=== PATIENT | male | born 1960 | race Caucasian/White ===

== ENCOUNTER 2017-05-22 11:36 | Inpatient (IN) | payer MEDICARE, OTHER ==
[2017-05-22] MEDS ORDERED: ONDANSETRON 4 MG/2 ML VIAL IVP PRN (11:54)
[2017-05-22] MEDS ORDERED: HYDROmorphone 0.5 MG/0.5 ML SYRINGE IVP PRN ×3 (11:54)
[2017-05-22] MEDS ORDERED: TEMAZEPAM 15 MG CAP PO PRN (11:54)
[2017-05-22] MEDS ORDERED: MAGNESIUM HYDROXIDE 2,400 MG/10 ML CUP PO PRN (11:54)
[2017-05-22] MEDS ORDERED: NALOXONE 0.4 MG/ML 1 ML VIAL IV PRN (11:54)
[2017-05-22] MEDS ORDERED: DIAZEPAM 5 MG TAB PO PRN (11:54)
[2017-05-22] MEDS ORDERED: hydrOXYzine PAMOATE 25 MG CAP PO PRN (11:54)
[2017-05-22] MEDS ORDERED: HYDROcodone/APAP 5-325MG 1 EACH TAB PO PRN (11:54)
[2017-05-22] MEDS ORDERED: VANCOMYCIN 1,500 MG in SODIUM CHLORIDE 0.9% 250 ML IVPB SCH (12:00)
[2017-05-22] MEDS ORDERED: VANCOMYCIN IV PER PHARMACY 1 EACH MISC MISCELLANE PRN ×2 (12:17→12:18)
[2017-05-22 16:58] LABS: Basophils % (A) 0 %; Eosinophils # (A) 0.3 k/uL (0-0.7); Eosinophils % (A) 4 %; HCT 35.2 % (39.0-53.0); HGB 10.6 gm/dL (13.0-17.5); Hypochromasia Slight; Lymphocytes # (A) 1.1 k/uL (1.0-4.8); Lymphocytes % (A) 16 %; MCH 27.3 pg (25.0-35.0); MCV 90.9 fL (80.0-100.0); Mean Platelet Volume 7.1; Monocytes # (A) 0.5 k/uL (0-1.0); Monocytes % (A) 7 %; Neutrophils # (A) 4.7 k/uL (1.3-7.7); Neutrophils % (A) 70 %; Platelet Count 457 k/uL (150-450); RBC 3.87 m/uL (4.30-5.90); RDW 12.9 % (11.5-15.5); WBC 6.8 k/uL (3.8-10.6)
[2017-05-22] MEDS ORDERED: VANCOMYCIN 1,500 MG in SODIUM CHLORIDE 0.9% 250 ML IVPB ONE (17:00)
[2017-05-22 17:10] LABS: Anion Gap 8 mmol/L; Blood Urea Nitrogen 10 mg/dL (9-20); Calcium 7.5 mg/dL (8.4-10.2); Carbon Dioxide 28 mmol/L (22-30); Chloride 105 mmol/L (98-107); Glucose 115 mg/dL (74-99); Potassium 4.1 mmol/L (3.5-5.1); Sodium 141 mmol/L (137-145)
[2017-05-22] MEDS ORDERED: MULTIVITAMINS, THERA 1 EACH TAB PO SCH (17:30)
[2017-05-22] MEDS: MULTIVITAMINS, THERA 1 EACH TAB PO SCH (17:46)
[2017-05-22] MEDS ORDERED: SENNOSIDES-DOCUSATE SODIUM 1 EACH TAB PO PRN (17:55)
[2017-05-22] MEDS: FOLIC ACID 1 MG TAB PO SCH (17:56)
[2017-05-22] MEDS: FERROUS SULFATE 325 MG TAB PO SCH (17:56)
[2017-05-22] MEDS: CYANOCOBALAMIN 500 MCG TAB PO SCH (17:56)
[2017-05-22] MEDS: LORATADINE 10 MG TAB PO SCH (17:57)
[2017-05-22] MEDS: KETOROLAC 30 MG/ML 1 ML VIAL IVP SCH (20:17)
[2017-05-22] MEDS: ASPIRIN 325 MG TAB PO SCH (20:18)
[2017-05-22] MEDS ORDERED: SENNOSIDES-DOCUSATE SODIUM 1 EACH TAB PO SCH (21:00)
[2017-05-22] MEDS ORDERED: NAPROXEN 250 MG TAB PO SCH (21:30)
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
[2017-05-22] MEDS: HYDROcodone/APAP 5-325MG 1 EACH TAB PO PRN (22:53)
[2017-05-23] MEDS: KETOROLAC 30 MG/ML 1 ML VIAL IVP SCH ×4 (00:21→17:57)
[2017-05-23] MEDS: VANCOMYCIN 1,750 MG in SODIUM CHLORIDE 0.9% 250 ML IVPB SCH ×3 (00:22→16:58)
[2017-05-23] MEDS: PANTOPRAZOLE 40 MG TABLET PO SCH ×2 (00:22→17:57)
[2017-05-23] MEDS: ENOXAPARIN 40 MG/0.4 ML SYRINGE SQ SCH ×2 (00:22→08:21)
[2017-05-23] MEDS: LEVOTHYROXINE 112 MCG TAB PO SCH (06:44)
--- NOTE | 2017-05-23 08:12 | US ---
EXAMINATION TYPE: US venous doppler duplex LE RT DATE OF EXAM: 05/23/2017 7:51 AM COMPARISON: NONE CLINICAL HISTORY: 57-year-old male r/o DVT. Patient with right ankle sprain, swelling SIDE PERFORMED: Right TECHNIQUE: The lower extremity deep venous system is examined utilizing real time linear array sonog beth with graded compression, doppler sonography and color-flow sonography. FINDINGS: VESSELS IMAGED: External Iliac Vein (EIV) Common Femoral Vein Deep Femoral Vein Greater Saphenous Vein * Femoral Vein Popliteal Vein Small Saphenous Vein * Proximal Calf Veins (* superficial vessels) Right Leg: Appears negative for DVT IMPRESSION: No evidence for DVT within the right lower extremity imaged from the groin to the upper calf.
[2017-05-23] MEDS: ASPIRIN 325 MG TAB PO SCH (08:21)
[2017-05-23 09:41] LABS: Anion Gap 8 mmol/L; Blood Urea Nitrogen 12 mg/dL (9-20); Calcium 7.9 mg/dL (8.4-10.2); Carbon Dioxide 28 mmol/L (22-30); Chloride 104 mmol/L (98-107); Glucose 93 mg/dL (74-99); Sodium 140 mmol/L (137-145)
[2017-05-23 10:04] LABS: Potassium 4.6 mmol/L (3.5-5.1)
[2017-05-23] MEDS: MULTIVITAMINS, THERA 1 EACH TAB PO SCH (12:28)
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
[2017-05-23] MEDS: HYDROcodone/APAP 5-325MG 1 EACH TAB PO PRN ×2 (15:36→21:55)
[2017-05-23] MEDS: CYANOCOBALAMIN 500 MCG TAB PO SCH (16:58)
[2017-05-23] MEDS: FERROUS SULFATE 325 MG TAB PO SCH (16:59)
[2017-05-23] MEDS: FOLIC ACID 1 MG TAB PO SCH (16:59)
--- NOTE | 2017-05-23 17:35 | PN ---
PROGRESS NOTE DATE OF SERVICE: 05/23/17. ATTENDING NOTE: The patient seen and examined by me. I discussed with nurse practitioner, Ms. Cortes. Patient admitted with sprain followed by severe cellulitis of the right ankle, seen by Dr. Brandt. Thinks it is primary cellulitis. Patient is having pain in the affected site. PHYSICAL EXAMINATION: Afebrile. Pulse 54, respiratory 18, blood pressure 112/62, pulse ox 94% on room air. Lungs are clear. Cardiovascular: 1st and 2nd sounds normal. The patient is wearing a boot in the right leg. Potassium 4.6. ASSESSMENT: 1. Acute right ankle cellulitis following ankle sprain. 2. Deep vein thrombosis ruled out. 3. Other medical conditions stable. PLAN: Continue patient on IV vancomycin and telemetry. Follow. ESR came back at 53. MMODL / IJN: [id number] /
[2017-05-23] MEDS: LORATADINE 10 MG TAB PO SCH (17:57)
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
--- NOTE | 2017-05-23 19:01 | XR ---
EXAMINATION TYPE: XR skull limited DATE OF EXAM: 05/23/2017 COMPARISON: NONE HISTORY: Check for foreign body. MRI. TECHNIQUE: 2 views FINDINGS: Calvarium is intact with normal vascular and suture markings. There is no sign of radiopaqu e foreign body associated with the ears. There is a metal mesh plate noted in the upper denture. IMPRESSION: Upper denture has metal plate.
[2017-05-24] MEDS: ASPIRIN 325 MG TAB PO SCH ×3 (00:15→21:35)
[2017-05-24] MEDS: KETOROLAC 30 MG/ML 1 ML VIAL IVP SCH ×4 (00:16→18:48)
[2017-05-24] MEDS: VANCOMYCIN 1,750 MG in SODIUM CHLORIDE 0.9% 250 ML IVPB SCH ×2 (00:18→08:41)
[2017-05-24] MEDS: LEVOTHYROXINE 112 MCG TAB PO SCH (06:49)
[2017-05-24] MEDS ORDERED: VANCOMYCIN TROUGH DUE 1 EACH MISC MISCELLANE ONE (07:00)
[2017-05-24] MEDS: ENOXAPARIN 40 MG/0.4 ML SYRINGE SQ SCH (08:41)
[2017-05-24 09:03] LABS: Basophils % (A) 1 %; Eosinophils # (A) 0.2 k/uL (0-0.7); Eosinophils % (A) 3 %; HCT 33.5 % (39.0-53.0); Hypochromasia Moderate; Lymphocytes # (A) 0.6 k/uL (1.0-4.8); Lymphocytes % (A) 9 %; MCH 27.1 pg (25.0-35.0); MCHC 29.9 g/dL (31.0-37.0); MCV 90.5 fL (80.0-100.0); Mean Platelet Volume 7.3; Monocytes # (A) 0.4 k/uL (0-1.0); Monocytes % (A) 6 %; Neutrophils # (A) 5.2 k/uL (1.3-7.7); Neutrophils % (A) 80 %; Platelet Count 509 k/uL (150-450); RBC 3.69 m/uL (4.30-5.90); RDW 12.9 % (11.5-15.5); WBC 6.5 k/uL (3.8-10.6)
[2017-05-24 09:22] LABS: Anion Gap 7 mmol/L; Blood Urea Nitrogen 18 mg/dL (9-20); Calcium 7.7 mg/dL (8.4-10.2); Carbon Dioxide 27 mmol/L (22-30); Chloride 104 mmol/L (98-107); Glucose 100 mg/dL (74-99); Potassium 4.9 mmol/L (3.5-5.1); Sodium 138 mmol/L (137-145)
[2017-05-24] MEDS ORDERED: VANCOMYCIN IV PER PHARMACY 1 EACH MISC MISCELLANE PRN (10:02)
--- NOTE | 2017-05-24 10:07 | P.PN ---
Subjective Progress Note Date: 05/24/17 Principal diagnosis: Right ankle foot cellulitis Patient is a pleasant 57-year-old male seen at bedside this morning. He was admitted for antibiotic therapy for right ankle/foot cellulitis, infectious disease consultation and close monitoring. He continues to have some pain at the right ankle and foot today. He is denying fever, chills, numbness, tingling , calf pain, chest pain or shortness of breath. Objective - Vital Signs Vital signs: Vital Signs Temp 97.0 F L 05/24/17 07:00 Pulse 57 L 05/24/17 07:00 Resp 16 05/24/17 07:00 BP 92/64 05/24/17 07:00 Pulse Ox 96 05/24/17 07:00 Intake & Output 05/23/17 05/24/17 05/24/17 18:59 06:59 18:59 Intake Total 250 300 Output Total 500 300 Balance -250 300 -300 Intake: Intake, IV Titration 250 Amount Vancomycin 1,750 mg In 250 Sodium Chloride 0.9% 250 ml @ 125 mls/hr IVPB Q8HR [facility] Rx#:[id number] Oral 300 Output: Urine 500 300 Other: # Voids 1 1 # Bowel Movements 0 - Exam Right Ankle: Improved erythema, minimal ecchymosis. It is not hot to touch. There is diffuse swelling about the ankle. Tenderness about the lateral aspect of the ankle. Pain with PROM. NVI. 2+ DP pulse intact, less than 2 sec cap refill. . Achilles intact. Calf is SNT - Constitutional General appearance: Present: no acute distress - Psychiatric Psychiatric: Present: A&O x's 3, appropriate affect, intact judgment & insight - Labs CBC & Chem 7: 05/24/17 07:55 05/24/17 07:55 Labs: Abnormal Lab Results - Last 24 Hours (Table) 05/24/17 05/24/17 05/24/17 Range/Units 07:55 07:55 07:55 RBC 3.69 L (4.30-5.90) m/uL Hgb 10.0 L (13.0-17.5) gm/dL Hct 33.5 L (39.0-53.0) % MCHC 29.9 L (31.0-37.0) g/dL Plt Count 509 H (150-450) k/uL Lymphocytes # 0.6 L (1.0-4.8) k/uL Glucose 100 H (74-99) mg/dL Calcium 7.7 L (8.4-10.2) mg/dL Vancomycin Trough 45.7 H* ug/mL Assessment and Plan (1) Cellulitis of right ankle Narrative/Plan: Patient is pending MRI with and without contrast of the right ankle and foot. He will continue with elevation, ice, IV antibiotics, pain management and medical management. Pending MRI results we'll make further recommendations. Current Visit: Yes Status: Acute Priority: Medium Code(s): L03.115 - CELLULITIS OF RIGHT LOWER LIMB SNOMED Code(s): 07953525 Time with Patient: Less than 30
[2017-05-24] MEDS: MULTIVITAMINS, THERA 1 EACH TAB PO SCH (11:08)
--- NOTE | 2017-05-24 14:54 | MR ---
MR right foot with and without contrast HISTORY: Pain, swelling and erythema Multiplanar multisequence and postcontrast images following 8 cc Gadavist IV through the right foot Exam correlated to CT right ankle 05/14/2017, plain film 05/13/2017 There is abnormal intermediate signal on T1-weighted images involving the distal talus, navicular, cu boid, anterior calcaneus with increased signal on T2-weighted sequences in this distribution. Soft ti ssue swelling is diffuse. Achilles tendon is intact. Peroneal longus and brevis tendons are intact. F lexor and extensor tendons are intact. Fluid signal is present along the flexor tendons Enhancement is noted following contrast administration within the distribution of the abnormal signal precontrast intertarsal bones and edematous tissues, synovium of the flexor tendons. Possible fluid collection present at the distal talus, there could be possible sinus formation. There is deformity m ay be in keeping with patient's history of cerebral palsy. Underlying arthropathy changes are present at the intertarsal joints. IMPRESSION: Findings concerning for cellulitis and possibly osteomyelitis involving the tarsal bones as described, correlate clinically.
[2017-05-24] MEDS: FERROUS SULFATE 325 MG TAB PO SCH (16:46)
[2017-05-24] MEDS: FOLIC ACID 1 MG TAB PO SCH (16:46)
[2017-05-24] MEDS: LORATADINE 10 MG TAB PO SCH (16:46)
[2017-05-24] MEDS: PANTOPRAZOLE 40 MG TABLET PO SCH (16:46)
[2017-05-24] MEDS: CYANOCOBALAMIN 500 MCG TAB PO SCH (16:47)
--- NOTE | 2017-05-24 17:12 | PN ---
PROGRESS NOTE DATE OF SERVICE: May 24, 2017. ATTENDING NOTE: The patient was seen and examined by me. Discussed with nurse practitioner, Ms. Cortes. The patient is still having some pain, swelling of the right ankle. A little bit better on antibiotics and antiinflammatory. EXAM: Lungs are clear. Cardiovascular 1st and second sounds normal white count 6.5, hemoglobin 10, potassium 4.9. Vanco level 45.7. ASSESSMENT: 1. Acute right ankle cellulitis following ankle sprain. 2. Normocytic anemia. 3. Reactive thrombocytosis. The patient did have a foot MRI today. MRI is only showing a possibility of osteomyelitis. We will await input from Dr. Brandt regarding the clinical findings and MRI findings. In the meantime patient to continue on vancomycin and anti-inflammatory. Follow. MMODL / IJN: [id number] /
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
[2017-05-24] MEDS: HYDROcodone/APAP 5-325MG 1 EACH TAB PO PRN (21:45)
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
[2017-05-25] MEDS: KETOROLAC 30 MG/ML 1 ML VIAL IVP SCH ×3 (00:10→11:29)
[2017-05-25] MEDS: LEVOTHYROXINE 112 MCG TAB PO SCH (06:44)
[2017-05-25] MEDS: ASPIRIN 325 MG TAB PO SCH ×2 (08:18→21:55)
[2017-05-25] MEDS: ENOXAPARIN 40 MG/0.4 ML SYRINGE SQ SCH (08:18)
[2017-05-25 09:57] LABS: Anion Gap 8 mmol/L; Blood Urea Nitrogen 23 mg/dL (9-20); Carbon Dioxide 29 mmol/L (22-30); Chloride 101 mmol/L (98-107); Glucose 103 mg/dL (74-99); Potassium 4.8 mmol/L (3.5-5.1); Sodium 138 mmol/L (137-145)
[2017-05-25 10:31] LABS: Vancomycin,Random 30.6 ug/mL
[2017-05-25] MEDS: MULTIVITAMINS, THERA 1 EACH TAB PO SCH (11:30)
[2017-05-25] MEDS ORDERED: HYDROmorphone 2 MG TAB PO PRN ×2 (13:40)
[2017-05-25] MEDS ORDERED: HYDROmorphone 4 MG TABLET PO PRN (13:41)
--- NOTE | 2017-05-25 14:32 | P.PN ---
Subjective Progress Note Date: 05/25/17 Principal diagnosis: Right ankle foot cellulitis Patient is a pleasant 57-year-old male seen at bedside this morning. He was admitted for antibiotic therapy for right ankle/foot cellulitis, infectious disease consultation and close monitoring. He has shown some improvement with IV antibiotic therapy. MRI of the foot was obtained yesterday however it did not include the ankle. That is pending today. He continues to have some pain at the right lateral ankle today. He is denying fever, chills, numbness, tingling, calf pain, chest pain or shortness of breath. Objective - Vital Signs Vital signs: Vital Signs Temp 97.3 F L 05/25/17 07:00 Pulse 60 05/25/17 08:00 Resp 16 05/25/17 08:00 BP 95/55 05/25/17 07:00 Pulse Ox 97 05/25/17 07:00 Intake & Output 05/24/17 05/25/17 05/25/17 18:59 06:59 18:59 Intake Total 300 Output Total 300 300 Balance -300 300 -300 Intake: Oral 300 Output: Urine 300 300 Other: Voiding Method Urinal # Voids 1 1 # Bowel Movements 2 1 - Exam Right Ankle: Improved and resolved erythema No to minimal ecchymosis. It is not hot to touch. There is diffuse swelling about the ankle but may be improved some. Tenderness about the lateral aspect of the ankle. Pain with PROM. NVI. 2+ DP pulse intact, less than 2 sec cap refill. . Achilles intact. Calf is SNT - Constitutional General appearance: Present: no acute distress - Psychiatric Psychiatric: Present: A&O x's 3, appropriate affect, intact judgment & insight - Labs CBC & Chem 7: 05/24/17 07:55 05/25/17 08:26 Labs: Abnormal Lab Results - Last 24 Hours (Table) 05/25/17 Range/Units 08:26 BUN 23 H (9-20) mg/dL Creatinine 1.35 H (0.66-1.25) mg/dL Glucose 103 H (74-99) mg/dL Calcium 8.0 L (8.4-10.2) mg/dL - Imaging and Cardiology MRI of the foot showed no fractures or fluid collection. It showed arthritis and possible osteomyelitis of the midfoot. Assessment and Plan (1) Cellulitis of right ankle Narrative/Plan: Patient is pending MRI of ankle today. the MRI of the foot was not definitive. His ankle is symptomatic. He continues to show improvement. He will continue with elevation, ice, IV antibiotics, pain management and medical management. Pending MRI results we'll make further recommendations. Current Visit: Yes Status: Acute Priority: Medium Code(s): L03.115 - CELLULITIS OF RIGHT LOWER LIMB SNOMED Code(s): 95673010 Time with Patient: Less than 30
--- NOTE | 2017-05-25 16:03 | MR ---
MR right ankle with and without contrast HISTORY: Cellulitis Multiplanar multisequence and postcontrast images obtained through the right ankle by 8 cc Gadavist I V Correlation to right foot 05/24/2017 FINDINGS: Again noted is intermediate signal on T1, increased signal on T2 involving the tarsal bones as previously described. There is enhancement present involving the talus anteriorly, calcaneus ante riorly, cuboid and navicular. Osteoarthritic changes are present. Fluid signal suspected along the an terior talus with some enhancement. Flexor tendon sheaths show enhancement as do the extensor tendons . There is enhancement as well as edema of the subcutaneous soft tissues and skin. IMPRESSION: Findings compatible with osteomyelitis, consider Charcot foot, findings compatible with ronel patel's history of cellulitis.
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
[2017-05-25] MEDS: LORATADINE 10 MG TAB PO SCH (17:43)
[2017-05-25] MEDS: PANTOPRAZOLE 40 MG TABLET PO SCH (17:43)
[2017-05-25] MEDS: FOLIC ACID 1 MG TAB PO SCH (17:43)
[2017-05-25] MEDS: CYANOCOBALAMIN 500 MCG TAB PO SCH (17:43)
[2017-05-25] MEDS: FERROUS SULFATE 325 MG TAB PO SCH (17:44)
[2017-05-25] MEDS: HYDROcodone/APAP 5-325MG 1 EACH TAB PO PRN (17:50)
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
[2017-05-25] MEDS: SODIUM CHLORIDE 0.9% 1,000 ML IV SCH (23:55)
[2017-05-26] MEDS: HYDROcodone/APAP 5-325MG 1 EACH TAB PO PRN ×2 (04:59→20:04)
[2017-05-26] MEDS: LEVOTHYROXINE 112 MCG TAB PO SCH (06:48)
[2017-05-26 08:12] LABS: Basophils # (A) 0.1 k/uL (0-0.2); Basophils % (A) 1 %; Eosinophils # (A) 0.2 k/uL (0-0.7); Eosinophils % (A) 3 %; HCT 34.3 % (39.0-53.0); Hypochromasia Moderate; Lymphocytes % (A) 12 %; MCH 26.8 pg (25.0-35.0); MCHC 29.2 g/dL (31.0-37.0); MCV 91.8 fL (80.0-100.0); Monocytes # (A) 0.4 k/uL (0-1.0); Monocytes % (A) 5 %; Neutrophils # (A) 6.3 k/uL (1.3-7.7); Neutrophils % (A) 77 %; Platelet Count 530 k/uL (150-450); RBC 3.74 m/uL (4.30-5.90); RDW 13.3 % (11.5-15.5); WBC 8.2 k/uL (3.8-10.6)
[2017-05-26 08:55] LABS: Anion Gap 8 mmol/L; Blood Urea Nitrogen 23 mg/dL (9-20); Calcium 8.2 mg/dL (8.4-10.2); Carbon Dioxide 28 mmol/L (22-30); Chloride 102 mmol/L (98-107); Glucose 93 mg/dL (74-99); Potassium 5.2 mmol/L (3.5-5.1); Sodium 138 mmol/L (137-145)
[2017-05-26 09:00] LABS: Vancomycin,Random 21.4 ug/mL
[2017-05-26] MEDS: SODIUM CHLORIDE 0.9% 1,000 ML IV SCH ×2 (09:06→18:26)
[2017-05-26] MEDS: ENOXAPARIN 40 MG/0.4 ML SYRINGE SQ SCH (09:26)
[2017-05-26 12:40] LABS: Albumin 2.4 g/dL (3.5-5.0); Bilirubin, Delta 0.3 mg/dL (0.0-0.2); Total Bilirubin 0.3 mg/dL (0.2-1.3); Total Protein 5.3 g/dL (6.3-8.2)
--- NOTE | 2017-05-26 14:11 | P.PN ---
Subjective Progress Note Date: 05/26/17 Principal diagnosis: Right ankle foot cellulitis Patient is a pleasant 57-year-old male seen at bedside this morning. He was admitted for antibiotic therapy for right ankle/foot cellulitis, infectious disease consultation and close monitoring. He has shown some improvement with IV antibiotic therapy. MRI of the foot/ankle was obtained. It showed possible evidence of osteomyelitis at the anterior talus but doesn't correlate clinically. He has no pain or findings clinically at the foot or anterior ankle. He continues to have some pain at the right lateral ankle today. He is denying fever, chills, numbness, tingling, calf pain, chest pain or shortness of breath. Objective - Vital Signs Vital signs: Vital Signs Temp 98.0 F 05/26/17 07:00 Pulse 52 L 05/26/17 07:00 Resp 16 05/26/17 07:00 BP 110/70 05/26/17 07:00 Pulse Ox 94 L 05/26/17 07:00 Intake & Output 05/25/17 05/26/17 05/26/17 18:59 06:59 18:59 Output Total 300 130 Balance -300 -130 Output: Urine 300 130 Other: Voiding Method Urinal # Voids 1 3 1 # Bowel Movements 1 1 - Exam Right Ankle: Improved and resolved erythema. No to minimal ecchymosis. It is not hot to touch. There is diffuse swelling about the ankle but may be improved some. Tenderness about the lateral aspect of the ankle. Nontender foot , medial ankle and anterior ankle. NVI. 2+ DP pulse intact, less than 2 sec cap refill. . Achilles intact. Calf is SNT - Constitutional General appearance: Present: no acute distress - Psychiatric Psychiatric: Present: A&O x's 3, appropriate affect, intact judgment & insight - Labs CBC & Chem 7: 05/26/17 07:35 05/26/17 07:35 Labs: Abnormal Lab Results - Last 24 Hours (Table) 05/26/17 05/26/17 05/26/17 Range/Units 07:35 07:35 07:35 RBC 3.74 L (4.30-5.90) m/uL Hgb 10.0 L (13.0-17.5) gm/dL Hct 34.3 L (39.0-53.0) % MCHC 29.2 L (31.0-37.0) g/dL Plt Count 530 H (150-450) k/uL Potassium 5.2 H (3.5-5.1) mmol/L BUN 23 H (9-20) mg/dL Creatinine 1.30 H (0.66-1.25) mg/dL Calcium 8.2 L (8.4-10.2) mg/dL Delta Bilirubin 0.3 H (0.0-0.2) mg/dL Alkaline Phosphatase 267 H (38-126) U/L Total Protein 5.3 L (6.3-8.2) g/dL Albumin 2.4 L (3.5-5.0) g/dL Assessment and Plan (1) Cellulitis of right ankle Narrative/Plan: Patient is improving on IV antibiotics. He will continue with elevation, ice, IV antibiotics, pain management and medical management. Will await Dr. Brandt further recommendations for discharge planning. Current Visit: Yes Status: Acute Priority: Medium Code(s): L03.115 - CELLULITIS OF RIGHT LOWER LIMB SNOMED Code(s): 65303897 Time with Patient: Less than 30
[2017-05-26 14:18] LABS: Appearance,Urine Clear (Clear); Bilirubin,Urine Negative (Negative); Blood,Urine Negative (Negative); Color,Urine Light Yellow; Glucose,Urine (UA) Negative (Negative); Ketones,Urine Negative (Negative); Leukocyte Esterase,Urine Negative (Negative); Nitrite,Urine Negative (Negative); PH, Urine 5.5 (5.0-8.0); Protein,Urine Negative (Negative); Specific Gravity,Urine 1.002 (1.001-1.035); Urobilinogen,Urine <2.0 mg/dL (<2.0)
--- NOTE | 2017-05-26 17:08 | PN ---
PROGRESS NOTE I am covering for Dr. Anderson. DATE OF SERVICE: 05/26/2017 This 57-year-old gentleman who was admitted with right ankle cellulitis also had possible osteomyelitis or Charcot foot per MRI. Orthopedics and Infectious Disease are following the patient closely. Dr. Brandt has seen the patient; from the infectious disease point of view, it appears that the patient had a traumatic injury to the foot, some Charcot changes, though clinically does not appear to be osteomyelitis. The vancomycin levels are being monitored. Past medical history reviewed. REVIEW OF SYSTEMS: CARDIOVASCULAR SYSTEM: No angina, palpitations. RESPIRATORY SYSTEM: As mentioned earlier. GI: As mentioned earlier. : No dysuria or retention NERVOUS SYSTEM: As mentioned earlier. CURRENT MEDICATIONS: Current medications are reviewed and include: 1. [place] 5 mg q.6 p.r.n. 2. Valium 2.5 mg q.8 p.r.n. 3. Lovenox 40 mg p.o. daily. 4. Iron sulfate. 5. Folic acid 2 mg daily. 6. Dilaudid. 7. Synthroid. 8. Claritin. 9. Multivitamins. 10.Narcan. 11.Zofran. 12.Senokot. 13.Restoril. PHYSICAL EXAMINATION: Patient is alert, oriented x2. Pulse 52, blood pressure 110/70, respiration 16, temperature 98 degrees, pulse ox 94% on room air. HEENT: Conjunctivae normal. Oral mucosa moist. NECK: No jugular venous distention. No carotid bruit. No lymph node enlargement. CARDIOVASCULAR SYSTEM: S1, S2 muffled. RESPIRATORY SYSTEM: Breath sounds diminished at the bases. No rhonchi. No crackles. ABDOMEN: Soft, non-tender. LEGS: Right ankle swelling and tenderness. Some erythema. NERVOUS SYSTEM: No focal deficit. LABS: WBC 8.2, hemoglobin 10 and INR 1.3. Alkaline phosphatase 267. ESR is 53. C-reactive protein is 83.6. ASSESSMENT: 1. Acute right ankle cellulitis with ankle sprain. Osteomyelitis unlikely per Infectious Disease. 2. Normocytic anemia. 3. Hypothyroidism. 4. Gait dysfunction. 5. Cerebral palsy. 6. Intermittent hemorrhoids. 7. Reactive thrombocytosis. 8. Acute renal failure, possibly secondary from vancomycin toxicity. RECOMMENDATIONS AND DISCUSSION: In this 57-year-old gentleman who presented with multiple complex medical issues., we will we will monitor the patient closely, continue the current medications, continue with symptomatic treatment. Otherwise at this time I recommend continuing the current medications, avoid nephrotoxic agents. Repeat labs. The patient also has some gait dysfunction. The cultures are negative so far and ID recommendations are noted. We will continue to monitor. Prognosis guarded because of multiple complex medical issues. Further recommendations to follow. MMMEERAL / DANIELLEN: [id number] /
[2017-05-26] MEDS: MULTIVITAMINS, THERA 1 EACH TAB PO SCH (18:25)
[2017-05-26] MEDS: PANTOPRAZOLE 40 MG TABLET PO SCH (18:25)
[2017-05-26] MEDS: FOLIC ACID 1 MG TAB PO SCH (18:25)
[2017-05-26] MEDS: CYANOCOBALAMIN 500 MCG TAB PO SCH (18:25)
[2017-05-26] MEDS: LORATADINE 10 MG TAB PO SCH (18:25)
[2017-05-26] MEDS: FERROUS SULFATE 325 MG TAB PO SCH (18:25)
--- NOTE | 2017-05-26 19:11 | CONS ---
CONSULTATION REASON FOR CONSULT: Renal failure. HISTORY OF PRESENT ILLNESS: Patient is a 57-year-old male who was admitted to the hospital on 05/22/2017. The patient has had a right foot cellulitis. He was seen by Dr. Brown and was maintained on oral Bactrim as outpatient. Subsequently, he was hospitalized and started on vancomycin. The patient has been followed by ID as well. The serum creatinine was 0.69 mg/dL on initial admission. It did go up to 1.35 yesterday. Vancomycin trough was 45.7. Currently, vancomycin is discontinued. The patient is maintained on IV fluids. He has been voiding well. There were no other nephrotoxic agents on board at this time. The patient has not received any IV contrast. Blood pressure has been slightly on the lower side with systolic being in the 90s to 118 mmHg. PAST MEDICAL HISTORY: Right foot cellulitis post a history of fall, hypertension, hypothyroidism, history of cerebral palsy. The patient has a learning disability. He has a history of thyroid cancer, history of diverticulitis. PAST SURGICAL HISTORY: Appendectomy, bowel resection, cholecystectomy, hernia repair, tonsillectomy, thyroidectomy, multiple ear surgeries including grafts, surgery for hernia repair with removal of 1 testicle. I and D right knee. SOCIAL HISTORY: Negative for smoking, drug abuse or alcohol abuse. MEDICATIONS: Medications at home included folic acid, Prilosec, vitamin B12, Zyrtec, Feosol, Synthroid, Bactrim. ALLERGIES: MULTIPLE INCLUDING PEANUT, CODEINE. LEMON, PENICILLIN, WHEAT, YEAST, FOR TOMATO SAUCE, STRAWBERRY, ORANGES, CHOCOLATE, GRAPES, POP, PROCESSED LUNCH MEAT, RICE, SPICES, VEGETABLE OIL. EXAMINATION: Currently patient is awake. He is comfortable. He is not in any acute distress. He answers to simple questions. Blood pressure is 110/70, heart rate 52 per minute. He is afebrile. Examination of the heart S1, S2. Examination lungs bilateral breath sounds are heard. Decreased breath sounds at bases. Abdomen is soft, nontender. Examination lower extremity shows no evidence of edema. Right foot is currently wrapped. LABS SHOW: Sodium 138, potassium 5.2, chloride 102, CO2 is 28, BUN 23, serum creatinine 1.3, hemoglobin 10.0 g/dL. ASSESSMENT: 1. Acute kidney injury secondary to vancomycin toxicity, currently off of vancomycin. Serum creatinine is slightly better than yesterday. Patient is maintained on IV fluids. He is not on any nephrotoxic agents. His UA is completely benign. We will repeat labs in a.m. and continue with IV fluids. Avoid any other nephrotoxic agents. 2. Right foot cellulitis, currently improved status post Bactrim and vancomycin. 3. Cerebral palsy. PLAN: Continue IV fluids. Repeat labs in a.m. Avoid any other nephrotoxic agents. Thank you for this consultation. We will continue to follow the patient with you during his hospitalization. MMODL / IJN: [id number] /
[2017-05-27] MEDS: SODIUM CHLORIDE 0.9% 1,000 ML IV SCH ×4 (04:27→21:58)
[2017-05-27] MEDS: LEVOTHYROXINE 112 MCG TAB PO SCH (06:25)
[2017-05-27] MEDS: ENOXAPARIN 40 MG/0.4 ML SYRINGE SQ SCH (08:09)
[2017-05-27 09:34] LABS: ALT 35 U/L (21-72); AST 30 U/L (17-59); Albumin 2.5 g/dL (3.5-5.0); Alkaline Phosphatase 234 U/L (38-126); Anion Gap 7 mmol/L; Blood Urea Nitrogen 19 mg/dL (9-20); Calcium 8.4 mg/dL (8.4-10.2); Carbon Dioxide 31 mmol/L (22-30); Chloride 102 mmol/L (98-107); Glucose 93 mg/dL (74-99); Potassium 5.2 mmol/L (3.5-5.1); Sodium 140 mmol/L (137-145); Total Bilirubin 0.3 mg/dL (0.2-1.3); Total Protein 5.3 g/dL (6.3-8.2)
[2017-05-27] MEDS: MULTIVITAMINS, THERA 1 EACH TAB PO SCH (11:08)
[2017-05-27] MEDS: HYDROcodone/APAP 5-325MG 1 EACH TAB PO PRN ×2 (12:22→21:35)
[2017-05-27] MEDS ORDERED: traMADol 50 MG TAB PO PRN (13:49)
--- NOTE | 2017-05-27 13:49 | P.PN ---
Subjective Progress Note Date: 05/27/17 Principal diagnosis: Right ankle foot cellulitis Patient is a pleasant 57-year-old male seen at bedside this morning. He was admitted for antibiotic therapy for right ankle/foot cellulitis, infectious disease consultation and close monitoring. He improved with IV antibiotic therapy, rest and elevation. MRI of the foot/ankle was obtained. It showed possible evidence of osteomyelitis at the anterior talus but doesn't correlate clinically. He has no pain or findings clinically at the foot or anterior ankle. He continues to have some pain at the right lateral ankle today. He is denying fever, chills, numbness, tingling, calf pain, chest pain or shortness of breath. Objective - Vital Signs Vital signs: Vital Signs Temp 97.5 F L 05/27/17 07:00 Pulse 55 L 05/27/17 08:00 Resp 16 05/27/17 08:00 BP 113/70 05/27/17 07:00 Pulse Ox 94 L 05/27/17 07:00 Intake & Output 05/26/17 05/27/17 05/27/17 18:59 06:59 18:59 Intake Total 1000 Output Total 475 Balance 1000 -475 Intake: Oral 1000 Output: Urine 475 Other: Voiding Method Urinal # Voids 5 2 # Bowel Movements 1 - Exam Right Ankle: Resolved erythema. Minimal ecchymosis. It is not overly hot to touch. There is swelling about the lateral ankle that is improved some. Tenderness about the lateral aspect of the ankle. Nontender foot, medial ankle and anterior ankle. NVI. 2+ DP pulse intact, less than 2 sec cap refill. . Achilles intact. Calf is SNT - Constitutional General appearance: Present: no acute distress - Psychiatric Psychiatric: Present: A&O x's 3, appropriate affect, intact judgment & insight - Labs CBC & Chem 7: 05/26/17 07:35 05/27/17 08:29 Labs: Abnormal Lab Results - Last 24 Hours (Table) 05/27/17 Range/Units 08:29 Potassium 5.2 H (3.5-5.1) mmol/L Carbon Dioxide 31 H (22-30) mmol/L Alkaline Phosphatase 234 H (38-126) U/L Total Protein 5.3 L (6.3-8.2) g/dL Albumin 2.5 L (3.5-5.0) g/dL Assessment and Plan (1) Cellulitis of right ankle Narrative/Plan: Vancomycin has been discontinued due to concern for decreased kidney function however he also did receive contrast for the MRI of his ankle . He will continue with elevation, ice, pain management, walking boot and medical management. Will request recommendations for oral antibiotics. Current Visit: Yes Status: Acute Priority: Medium Code(s): L03.115 - CELLULITIS OF RIGHT LOWER LIMB SNOMED Code(s): 17814372 Time with Patient: Less than 30
[2017-05-27] MEDS: FOLIC ACID 1 MG TAB PO SCH (16:59)
[2017-05-27] MEDS: LORATADINE 10 MG TAB PO SCH (16:59)
[2017-05-27] MEDS: CYANOCOBALAMIN 500 MCG TAB PO SCH (16:59)
[2017-05-27] MEDS: PANTOPRAZOLE 40 MG TABLET PO SCH (16:59)
[2017-05-27] MEDS: FERROUS SULFATE 325 MG TAB PO SCH (17:00)
[2017-05-27] MEDS: CEPHALEXIN 500 MG CAP PO SCH ×2 (17:00→21:35)
--- NOTE | 2017-05-27 17:13 | PN ---
PROGRESS NOTE Patient is seen for followup for acute kidney injury secondary to vancomycin toxicity. The patient had an ankle MRI on May 25 with gadolinium. His creatinine peaked at 1.35. It is now down to 1.2. Initial creatinine was 0.5 mg/dL. The patient is maintained on IV fluids and vancomycin is discontinued. His UA is completely benign. EXAMINATION: Blood pressure is 101/63, heart rate 51 per minute. He is afebrile. Examination of the heart S1, S2. Examination of the lungs bilateral breath sounds are heard. Abdomen is soft, nontender. Examination lower extremities shows no significant edema. Trace edema is noted in his right lower extremity with skin changes in the right ankle area. LABS: Sodium 140, potassium 5.2, serum creatinine 1.21, CO2 is 31. ASSESSMENT: 1. Acute kidney injury secondary to vancomycin toxicity, currently improved. The patient is maintained on IV fluids which we can continue for now. 2. Mild hyperkalemia. We will maintain patient on low-potassium diet. No need for treatment. 3. Right lower extremity cellulitis, maintained on antibiotics. Vancomycin is now discontinued. Patient being followed by ID. 4. Cerebral palsy with learning disability. PLAN: Continue IV fluids. Switch to low-potassium diet and repeat labs in a.m. MMODL / IJN: [id number] /
--- NOTE | 2017-05-27 22:24 | PN ---
PROGRESS NOTE I am covering for Dr. Anderson. DATE OF SERVICE: 05/27/2017. INTERVAL HISTORY: This 57-year-old gentleman who was admitted with right ankle cellulitis, an infection is being evaluated for possible osteomyelitis versus Charcot's disease. Infectious Disease and Orthopedic is following the patient. No chest pain. No palpitations. No fever. PHYSICAL EXAM: Alert and oriented times three, pulse 51, blood pressure 101/60, respiration 15, temperature 97.4, pulse ox 93% on room air. HEENT: Conjunctivae normal. Oral mucosa moist. Neck is no jugular venous distention. No carotid bruit. No lymph node enlargement. Cardiovascular: S1, S2 muffled. Respirations: Breath sounds diminished in the bases. No rhonchi. No crackles. ABDOMEN: Soft, nontender. LEGS: Right leg swelling and tenderness and painful movements. Nervous System: No focal deficits. LABS: WBC 8.1, hemoglobin 10, sodium 140, potassium 5.2. Alkaline phosphatase 1234. ASSESSMENT: 1. Acute right ankle cellulitis, ankle sprain, osteomyelitis unlikely per Infectious Disease, possible Charcot's joints. 2. Normocytic anemia. 3. Hypothyroidism. 4. Gait dysfunction. 5. Cerebral palsy. 6. Intermittent hemorrhoids. 7. Reactive thrombocytosis. 8. Acute renal failure possibly secondary from vancomycin toxicity. RECOMMENDATIONS AND DISCUSSION: To continue current management and symptomatic treatment at this time. We will monitor the patient closely. Potassium 5.2. Creatinine is normalized at 1.21. Closely follow with Infectious Disease. Guarded prognosis because of multiple complex medical issues. Further recommendations to follow. MMODL / IJN: [id number] /
[2017-05-28] MEDS: LEVOTHYROXINE 112 MCG TAB PO SCH (06:34)
[2017-05-28] MEDS: ENOXAPARIN 40 MG/0.4 ML SYRINGE SQ SCH (07:36)
[2017-05-28] MEDS: CEPHALEXIN 500 MG CAP PO SCH ×2 (07:37→16:58)
[2017-05-28] MEDS: HYDROcodone/APAP 5-325MG 1 EACH TAB PO PRN (07:40)
[2017-05-28 07:52] VITALS: BP 108/73; PULSE 54; RESP 16; TEMP 96.4
[2017-05-28 08:34] LABS: ALT 32 U/L (21-72); AST 26 U/L (17-59); Albumin 2.3 g/dL (3.5-5.0); Alkaline Phosphatase 189 U/L (38-126); Anion Gap 6 mmol/L; Blood Urea Nitrogen 19 mg/dL (9-20); Calcium 7.8 mg/dL (8.4-10.2); Carbon Dioxide 31 mmol/L (22-30); Chloride 102 mmol/L (98-107); Glucose 94 mg/dL (74-99); Sodium 139 mmol/L (137-145); Total Bilirubin 0.3 mg/dL (0.2-1.3)
--- NOTE | 2017-05-28 09:20 | P.PN ---
Progress Note - Text The patient is a very pleasant 57-year-old male with a medical history significant for cerebral palsy and developmental delay who is admitted with right ankle pain, swelling and cellulitis following an injury over a week ago. The patient was initially managed as an outpatient with protective immobilization in a boot. He had continued pain and swelling and a computed tomography scan was ordered which showed no evidence of bony injury. He had increased pain, swelling, and erythema so he was admitted to the hospital for pain control and antibiotics for presumptive cellulitis. The patient has slowly improved so MRIs were ordered. This morning the patient states he is improved. He continues to have pain and swelling diffusely over the lateral aspect of the ankle but the erythema has improved. The patient's pain and swelling is likely posttraumatic. I also discussed with the family at bedside the possibility of Charcot arthritis which can cause pain, swelling, and erythema following a traumatic injury. We discussed that Charcot arthritis can be very difficult to differentiate from an infection. We also discussed the possibility of developing cellulitis in addition to post-traumatic swelling and Charcot arthritis. My recommendation would be to continue protected weightbearing in a tall boot, elevation, and anti-inflammatory pain medications if okay with nephrology. I do not see any evidence of deep infection requiring surgery. I will defer to Dr. Brandt for antibiotic recommendations going forward for treatment of cellulitis. The patient will follow-up in our office in 1 week. He is okay to discharge home from an orthopedic standpoint.
--- NOTE | 2017-05-28 10:49 | P.PN ---
Subjective Patient is seen in follow-up for acute kidney injury. Creatinine was 1.3 and admission and is down to 1.02 today. He is currently being treated for lower extremity cellulitis. He is maintained on normal saline at 100 mL an hour. No vomiting or diarrhea. Oral intake is good. Urinalysis is benign. Vital signs are stable. General: The patient appeared well nourished and normally developed. HEENT: Head exam is unremarkable. Neck is without jugular venous distension. LUNGS: Lungs are clear to auscultation and percussion. Breath sounds decreased. HEART: Rate and Rhythm are regular. First and second heart sounds normal. No murmurs, rubs or gallops. ABDOMEN: Abdominal exam reveals normal bowel sounds. Non-tender and non- distended. No evidence of peritonitis. EXTREMITITES: No clubbing, cyanosis, or edema. Erythema noted. No obvious drainage. Objective - Vital Signs Vital signs: Vital Signs Temp 96.4 F L 05/28/17 07:00 Pulse 54 L 05/28/17 08:00 Resp 16 05/28/17 08:00 BP 108/73 05/28/17 07:00 Pulse Ox 92 L 05/28/17 07:00 Intake & Output 05/27/17 05/28/17 05/28/17 18:59 06:59 18:59 Intake Total 1400 Output Total 650 800 Balance 1400 -650 -800 Intake: Oral 1400 Output: Urine 650 800 Other: Voiding Method Urinal Urinal Urinal # Voids 4 4 # Bowel Movements 1 - Labs CBC & Chem 7: 05/26/17 07:35 05/28/17 07:34 Labs: Abnormal Lab Results - Last 24 Hours (Table) 05/28/17 Range/Units 07:34 Carbon Dioxide 31 H (22-30) mmol/L Calcium 7.8 L (8.4-10.2) mg/dL Alkaline Phosphatase 189 H (38-126) U/L Total Protein 5.0 L (6.3-8.2) g/dL Albumin 2.3 L (3.5-5.0) g/dL Assessment and Plan Plan: Assessment: #1. Nonoliguric acute kidney injury secondary to nephrotoxic ATN due to vancomycin toxicity. Renal function improving with creatinine down to 1.02 today. #2. Right lower extremity cellulitis maintain on antibiotics. #3. Mild hyperkalemia secondary to acute kidney injury. Improved. Plan: I will decrease rate of normal saline to 50 mL an hour. Encouraged oral intake. Avoid nephrotoxic agents and hypotensive episodes. Repeat electrolytes in the morning.
[2017-05-28] MEDS: SODIUM CHLORIDE 0.9% 1,000 ML IV SCH (12:20)
[2017-05-28] MEDS: MULTIVITAMINS, THERA 1 EACH TAB PO SCH (12:20)
--- NOTE | 2017-05-28 22:38 | DS ---
DISCHARGE SUMMARY FINAL DIAGNOSES: 1. Acute right ankle cellulitis, ankle sprain with possibly Charcot joint, osteomyelitis unlikely per Infectious Disease. 2. Normocytic anemia. 3. Hypothyroidism. 4. Gait dysfunction. 5. Cerebral palsy history. 6. History of intermittent hemorrhoids. 7. Reactive thrombocytosis. 8. Acute renal failure possibly secondary from vancomycin toxicity improved. DISCHARGE DISPOSITION: The patient is being discharged in stable condition with guarded prognosis. HISTORY OF PRESENT ILLNESS: This 57-year-old gentleman with past next medical history of multiple medical problems, was admitted for right ankle cellulitis. The patient was treated symptomatically. The osteomyelitis was through to be unlikely per Infectious Disease Dr. Brandt. The patient improved significantly. On exam, vital signs stable. Cardiovascular: S1, S2. Abdomen soft. The right ankle swelling present. No cellulitis. DISCHARGE ADVICE AND MEDICATIONS: 1. Diet is cardiac diet. 2. Activity limited until follow up. 3. Follow up with Dr. Garcia in 2-3 days. 4. Follow with Dr. Russell field crop grower as advised. 5. Follow up with Dr. Brown, orthopedic surgery as advised. 6. Follow with Dr. Brandt as service. MEDICATIONS ARE: 1. Keflex 500 mg q.8h for 1 week. 2. Zestoretic 10 mg Q a.c. supper. 3. Vitamin B12 500 mg p.o. a.c. supper. 4. Iron sulfate 320 mg p.o. daily. 5. Folic acid 2 mg daily. 6. Synthroid 112 mcg q.a.m. 7. Multivitamins 1 p.o. daily. 8. Prilosec 20 mg a.c. supper. 9. Senna p.r.n. Once again, the patient discharged in stable condition. Guarded prognosis. Total time taken 35 minutes. MMODL / IJN: [id number] /
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
== END 2017-05-28 17:26 | disposition home or self-care (01) | DRG 602 ==
LOC: 4MS4W 15:16
PROVIDERS: ADMIT Orthopaedic Surgery; ATTEND Orthopaedic Surgery
DX: L03.115 Cellulitis of right lower limb (principal); N17.0 Acute kidney failure with tubular necrosis; E87.5 Hyperkalemia; S90.01XA Contusion of right ankle, initial encounter; D64.9 Anemia, unspecified; E89.0 Postprocedural hypothyroidism; F81.9 Developmental disorder of scholastic skills, unspecified; S93.401A Sprain of unspecified ligament of right ankle, initial encounter; R26.9 Unspecified abnormalities of gait and mobility; G80.9 Cerebral palsy, unspecified; T36.8X5A Adverse effect of other systemic antibiotics, initial encounter; I10 Essential (primary) hypertension; K64.9 Unspecified hemorrhoids; Z79.899 Other long term (current) drug therapy; Z90.49 Acquired absence of other specified parts of digestive tract; Z85.850 Personal history of malignant neoplasm of thyroid; Z91.012 Allergy to eggs; Z91.011 Allergy to milk products; Z88.5 Allergy status to narcotic agent; Z91.010 Allergy to peanuts; Z88.0 Allergy status to penicillin; Z91.018 Allergy to other foods; W10.9XXA Fall (on) (from) unspecified stairs and steps, initial encounter
CPT/HCPCS: 70250; 80048; 80053; 80076; 80202; 81003; 83036; 84484; 85025; 85652; 86140; 93005

== ENCOUNTER 2017-07-12 16:47 | Inpatient (IN) | payer MEDICARE, OTHER ==
[2017-07-12] MEDS ORDERED: HYDROcodone/APAP 5-325MG 1 EACH TAB PO PRN (16:52)
[2017-07-12] MEDS ORDERED: MAGNESIUM HYDROXIDE 2,400 MG/10 ML CUP PO PRN (16:52)
[2017-07-12] MEDS ORDERED: DOCUSATE 100 MG CAP PO PRN (16:52)
[2017-07-12] MEDS ORDERED: BISACODYL 10 MG SUPP RECTAL PRN (16:52)
[2017-07-12] MEDS ORDERED: NALOXONE 0.4 MG/ML 1 ML VIAL IV PRN ×2 (16:52→17:12)
[2017-07-12] MEDS ORDERED: NA PHOS,M-B/NA PHOS,DI-BA 133 ML ENEMA RECTAL PRN (16:52)
[2017-07-12] MEDS ORDERED: MORPHINE SULFATE 4MG/4ML SYRG IVP PRN ×5 (16:52→17:12)
[2017-07-12] MEDS ORDERED: VANCOMYCIN 1,000 MG in SODIUM CHLORIDE 0.9% 250 ML IVPB STA (17:05)
[2017-07-12] MEDS ORDERED: VANCOMYCIN IV PER PHARMACY 1 EACH MISC MISCELLANE PRN (17:05)
[2017-07-12] MEDS ORDERED: RX INFO: IV CONTRAST WAS GIVEN 1 EACH MISC MISCELLANE PRN (17:05)
--- NOTE | 2017-07-12 17:45 | P.HPOR ---
History of Present Illness H&P Date: 07/12/17 This is a 57-year-old male with a past medical history significant for cerebral palsy and brain injury who is directly admitted for cellulitis of the right ankle. Patient has been closely followed as an outpatient for cellulitis of the right ankle. Over the last 24 hours the redness and swelling of the right ankle have gotten worse. Patient has now developed a pustule to the right ankle. Patient has been in a CAM boot for this problem. The right ankle was aspirated in the office as an outpatient and fluid was sent for culture and sensitivity. Patient denies any fever/chills, abdominal pain, shortness of breath or chest pain. Review of Systems See HPI. Past Medical History Past Medical History: Cancer, Chest Pain / Angina, Hypertension, Thyroid Disorder Additional Past Medical History / Comment(s): cerebral palsy and slight brain damage-able to talk read/write and walk,THYROID CA, past stress test,per sister pt has colitis and diverticulitis(no seeds or nuts and see list of allergies), hemorroids that cause bleeding at times.past bowel blockage(sx)-sister stated his norm is runny stool History of Any Multi-Drug Resistant Organisms: None Reported Past Surgical History: Appendectomy, Bowel Resection, Cholecystectomy, Hernia Repair, Tonsillectomy Additional Past Surgical History / Comment(s): thyroid removed, multiple ear surgeries including grafts as child, I&D right knee, 1 testical removed along w / hernia repair and also a diaphramatic hernia sx, i&d rt knee Past Anesthesia/Blood Transfusion Reactions: No Reported Reaction Additional Past Anesthesia/Blood Transfusion Reaction / Comment(s): past blood transfusion as child -no known reaction Additional Psychological History / Comment(s): Single and resides in a fci. No tobacco use. No alcohol use. No experience. No international travel. No animal exposures. Never Smoking Status: Never smoker - Past Family History Mother Family Medical History: Diabetes Mellitus, Hypertension Father Family Medical History: Cancer Sister(s) History Unknown: Yes Family Medical History: Pulmonary Embolus Medications and Allergies Home Medications Medication Instructions Recorded Confirmed Type Folic Acid 2 mg PO AC-SUPPER 01/03/15 05/22/17 History Omeprazole [PriLOSEC] 20 mg PO AC-SUPPER 02/17/16 05/22/17 History Cyanocobalamin [Vitamin B-12] 500 mcg PO AC-SUPPER 02/22/16 05/22/17 History Cetirizine HCl [Zyrtec] 10 mg PO AC-SUPPER 05/13/17 05/22/17 History Ferrous Sulfate [Iron (65 MG 325 mg PO AC-SUPPER 05/13/17 05/22/17 History Elemental)] Levothyroxine Sodium [Synthroid] 112 mcg PO QAM 05/13/17 05/22/17 History Multivitamins, Thera [Multivitamin 1 tab PO AC-SUPPER 05/13/17 05/22/17 History (formulary)] Cephalexin [Keflex] 500 mg PO Q8HR #21 cap 05/28/17 Rx Sennosides-Docusate Sodium 2 each PO HS PRN tab 05/28/17 Rx [Senokot-S] Allergies Allergy/AdvReac Type Severity Reaction Status Date / Time egg Allergy Severe Unknown Verified 05/22/17 15:42 Milk Containing Products Allergy Severe Unknown Verified 05/22/17 15:42 [Dairy] peanut Allergy Severe Unknown Verified 05/22/17 15:42 codeine Allergy Unknown Verified 05/22/17 15:42 Childhood corn Allergy Diarrhea Verified 05/22/17 15:42 lemon Allergy Diarrhea Verified 05/22/17 15:42 Penicillins Allergy Unknown Verified 05/22/17 15:42 Childhood tomato Allergy Diarrhea Verified 05/22/17 15:42 wheat Allergy Diarrhea Verified 05/22/17 15:42 Yeast Allergy Unknown Verified 05/22/17 15:42 Pork/Porcine Containing AdvReac Diarrhea Verified 05/22/17 16:10 Products [Pork] soy AdvReac Unknown Verified 05/22/17 15:42 strawberry AdvReac Diarrhea Verified 05/22/17 15:42 oranges Allergy Rash/Hives Uncoded 05/22/17 16:12 chocolate AdvReac Diarrhea Uncoded 05/13/17 13:09 grapes AdvReac Diarrhea Uncoded 05/13/17 13:09 pop AdvReac Diarrhea Uncoded 05/13/17 13:09 process lunch meat AdvReac Diarrhea Uncoded 05/13/17 13:09 rice AdvReac Diarrhea Uncoded 05/13/17 13:09 spices AdvReac Diarrhea Uncoded 05/13/17 13:09 vegtable oil AdvReac Diarrhea Uncoded 05/13/17 13:09 Physical Examination Patient is alert and in no acute distress. On exam CAM boot is removed revealing erythema, warmth and swelling about the right ankle. There is a pustule to the anterolateral aspect of the right ankle. There is fluctuance to the lateral aspect of the right ankle. Neurovascular status and circulatory status are intact. Exam of the head, neck, bilateral upper extremities and left lower extremity are within normal limits. Assessment and Plan (1) Abscess Current Visit: Yes Status: Acute Code(s): L02.91 - CUTANEOUS ABSCESS, UNSPECIFIED SNOMED Code(s): 209006893 (2) Cellulitis of right ankle Current Visit: No Status: Acute Priority: Medium Code(s): L03.115 - CELLULITIS OF RIGHT LOWER LIMB SNOMED Code(s): 77528670 (3) Cerebral palsy Current Visit: Yes Status: Acute Code(s): G80.9 - CEREBRAL PALSY, UNSPECIFIED SNOMED Code(s): 484416854 Plan: #1. Patient is to be nothing by mouth after midnight. #2. CAM boot to right lower extremity #3. Elevate right lower extremity. #4. IV vancomycin. #5. Labs are pending. CT of the right ankle is pending. #6. Appreciate input from infectious disease and medicine. #7. I&D scheduled for tomorrow pending consent and medical clearance.
[2017-07-12 17:59] LABS: Basophils % (A) 0 %; Eosinophils # (A) 0.2 k/uL (0-0.7); Eosinophils % (A) 1 %; HCT 31.2 % (39.0-53.0); HGB 9.4 gm/dL (13.0-17.5); Hypochromasia Marked; Lymphocytes # (A) 0.9 k/uL (1.0-4.8); Lymphocytes % (A) 7 %; MCH 25.3 pg (25.0-35.0); MCHC 30.1 g/dL (31.0-37.0); Mean Platelet Volume 6.9; Monocytes # (A) 0.7 k/uL (0-1.0); Monocytes % (A) 5 %; Neutrophils # (A) 11.4 k/uL (1.3-7.7); Neutrophils % (A) 84 %; Platelet Count 494 k/uL (150-450); RBC 3.71 m/uL (4.30-5.90); RDW 14.2 % (11.5-15.5); WBC 13.5 k/uL (3.8-10.6)
[2017-07-12 18:00] LABS: ALT 18 U/L (21-72); AST 16 U/L (17-59); Albumin 2.7 g/dL (3.5-5.0); Alkaline Phosphatase 110 U/L (38-126); Anion Gap 8 mmol/L; Blood Urea Nitrogen 15 mg/dL (9-20); Calcium 8.3 mg/dL (8.4-10.2); Carbon Dioxide 31 mmol/L (22-30); Chloride 99 mmol/L (98-107); Glucose 107 mg/dL (74-99); Potassium 4.1 mmol/L (3.5-5.1); Sodium 138 mmol/L (137-145); Total Bilirubin 0.7 mg/dL (0.2-1.3); Total Protein 5.9 g/dL (6.3-8.2)
[2017-07-12 18:15] LABS: C Reactive Protein 87.4 mg/L (<10.0)
[2017-07-12] MEDS: SODIUM CHLORIDE 0.9% 1,000 ML IV SCH (18:29)
[2017-07-12 18:54] LABS: Erythrocyte Sedimentation Rate 68 mm/hr (0-15)
--- NOTE | 2017-07-12 19:28 | CT ---
EXAMINATION TYPE: CT ankle RT w con DATE OF EXAM: 07/12/2017 COMPARISON: 05/14/2017, 05/25/2017 MRI HISTORY: Patient poor historian. Cellulitis. CT DLP: 223.2 mGycm Automated exposure control for dose reduction was used. TECHNIQUE: Axial images 2 mm thick sections. Reconstructed images in coronal and sagittal planes. FINDINGS: There is diffuse soft tissue swelling to the subcutaneous tissues of the right lower extremity. This is greater along the lateral and posterior aspects of the distal foreleg. There is soft tissue swelling along the anterior lateral ankle. Osseous structures appear osteopenic. This may make evaluation for underlying osteomyelitis difficult . There are some lucencies within the osseous structures including cuneiforms and the neck of the dwayne caneus. Joint space erosions appear to be present especially at the talonavicular junction. Soft tiss ue increased density is extending towards this area the ankle. Findings are suspicious for osteomyeli tis. COMPARISON: The soft tissue increased density surrounding the calcaneus talus and proximal tarsal reg ion appears to be increasing intensity. This extends towards the anterior lateral surface. These find ings have worsened from the comparison. Diffuse soft tissue swelling has increased over the interval. The thickening along the lateral right ankle present previously appears worsened. IMPRESSION: 1. INCREASING SOFT TISSUE DENSITY AND THICKENING COMPATIBLE WITH PATIENT'S REPORTED CELLULITIS. THIS IS WORSENING FROM THE COMPARISON IMAGES TO 08/26/2017. 2. INCREASING SOFT TISSUE DENSITY SURROUNDING THE PROXIMAL FOREFOOT JOINT SPACES ESPECIALLY THE DISTA L TALUS AND NAVICULAR REGION. FINDINGS ARE SUSPICIOUS FOR INCREASING OSTEOMYELITIS AT THIS LEVEL.
[2017-07-12] MEDS: ONDANSETRON 4 MG/2 ML VIAL IVP PRN (21:12)
[2017-07-12] MEDS: DAPTOmycin 500 MG in SODIUM CHLORIDE 0.9% 50 ML IV SCH (21:47)
--- NOTE | 2017-07-12 23:19 | CONS ---
CONSULTATION DATE OF CONSULTATION: 07/12/2017 REASON FOR CONSULTATION: Medical management requested by Dr. Brown. CONSULTATION: This is a 57-year-old patient of Dr. Garcia. Chronic stable medical conditions include cerebral palsy, hypothyroid, essential hypertension. The patient at baseline has loose stools. The patient has a very nasal voice and it is difficult to get a history, but the patient has been having a cellulitis, what appears to be purulent of the right ankle, has been followed in the office by [facility]. The patient did have a Cam boot, became rather infected and patient had a drain. Culture was sent off. The patient is admitted for further drainage tomorrow. The patient had been followed by Dr. Brandt in the past too. The patient is not able to give too much of a detailed history right now. The patient has some pain at the affected site, has got a dressing over the same. The patient is normal, otherwise able to get around. REVIEW OF SYSTEMS: CONSTITUTIONAL: Pain, questionable fever. HEENT: None. RESPIRATORY: None. CARDIOVASCULAR: None. GASTROINTESTINAL: None. GENITOURINARY: None. MUSCULOSKELETAL: As above. DERMATOLOGICAL: As above. LYMPHATICS: None. PSYCHIATRY: Seems to have some anxiety. NEUROLOGICAL: Patient has a nasal tone. PAST MEDICAL HISTORY: Hypertension, cerebral palsy with brain damage, thyroid cancer with thyroidectomy, colitis with diverticulitis, hemorrhoids that bleed occasionally. PAST SURGICAL HISTORY: Appendectomy, bowel resection, cholecystectomy, hernia repair, tonsillectomy, thyroidectomy, multiple ear surgeries, including grafts, 1 testicle removal along with hernia repair. SOCIAL HISTORY: The patient resides in a snf. No alcohol. No smoking. Has a guardian called Katarzyna Dudley. FAMILY HISTORY: Diabetes and hypertension. HOME MEDICATIONS: 1. Zantac 150 mg before supper. 2. Multivitamin 1 tablet p.o. with supper. 3. Synthroid 112 mcg p.o. daily. 4. Folic acid 2 mg with supper. 5. Ferrous sulfate 325 p.o. with supper. 6. Vitamin B12 500 mcg with supper. 7. Zyrtec 10 mg. ALLERGIES: List is long, including ELK, DAIRY PRODUCTS, PEANUTS, CODEINE, CORN, LEMON, PENICILLIN, TOMATO, BEET, YEAST, KEFLEX, PORK, SOY, STRAWBERRY, ORANGES, CHOCOLATE, GRAPES, PROCESSED, LUNCH MEAT, RICE, SPICES, VEGETABLE OIL. A lot of these objects could be side effects, unclear. EXAMINATION: Temperature 99.5, pulse 95, respirations 18, blood pressure 100/65, pulse ox 96% on room air. GENERAL APPEARANCE: Average build, lying in bed, comfortable. EYES: Pupils equal. Conjunctivae normal. Depressed nasal bridge. The patient has a high-arched palate and low-set ears. NECK: JVD not raised. Mass not palpable. RESPIRATORY: Effort normal. Lungs are clear. CARDIOVASCULAR: First and second sounds normal. No edema. ABDOMEN: Soft, nontender. Liver and spleen not palpable. LYMPHATIC: No lymph node palpable in neck or axillae. PSYCHIATRY: The patient is awake, able to answer simple questions, though difficult to understand sometimes. NEUROLOGICAL: Pupils equal. Cranial nerves grossly intact. Power, sensation grossly intact. EXTREMITIES: Right ankle in a dressing. INVESTIGATIONS: White count 13.5, hemoglobin 9.4, platelets 494. Potassium 4.1, BUN and creatinine are normal. Albumin 2.7. ASSESSMENT: 1. Right ankle purulent cellulitis, having failed outpatient treatment, due for I and D. the patient has been wearing a Cam boot and that could have precipitated this. 2. Cerebral palsy. 3. Hypothyroid. 4. Essential hypertension. 5. Hypoalbuminemia, likely reactive. 6. Thrombocytosis, likely from inflammation. 7. Normocytic anemia. PLAN: Patient is put on IV daptomycin. Home medications are resumed. Will give Lovenox for DVT prophylaxis. Will also add naproxen for anti-inflammatory effect for pain. Care was discussed with the patient. Thank you, Dr. Brown. MMMEERAL / DANIELLEN: [id number] /
--- NOTE | 2017-07-12 23:24 | US ---
EXAMINATION TYPE: US venous doppler duplex LE RT DATE OF EXAM: 07/12/2017 11:08 PM COMPARISON: NONE CLINICAL HISTORY: severe sudden pain, redness, swelling in extremity. Right leg pain edema and rednes s. SIDE PERFORMED: Right TECHNIQUE: The lower extremity deep venous system is examined utilizing real time linear array sonog beth with graded compression, doppler sonography and color-flow sonography. VESSELS IMAGED: External Iliac Vein (EIV) Common Femoral Vein Deep Femoral Vein Greater Saphenous Vein * Femoral Vein Popliteal Vein Small Saphenous Vein * Proximal Calf Veins (* superficial vessels) Right Leg: Negative for DVT No evidence of DVT right leg. IMPRESSION: Normal exam. No evidence of deep venous thrombosis in the right leg.
[2017-07-13] MEDS ORDERED: VANCOMYCIN 1,500 MG in SODIUM CHLORIDE 0.9% 250 ML IVPB SCH ×2
[2017-07-13] MEDS ORDERED: SODIUM CHLORIDE 0.9% 1,000 ML IV ONE ×3 (02:09→21:09)
[2017-07-13] MEDS: NAPROXEN 250 MG TAB PO SCH ×4 (02:10→23:54)
[2017-07-13] MEDS: LEVOTHYROXINE 112 MCG TAB PO SCH (08:40)
--- NOTE | 2017-07-13 09:03 | P.CONS ---
History of Present Illness - Reason for Consult Consult date: 07/13/17 Cellulitis - History of Present Illness This is a 57-year-old male patient who is known to ID service as he was initially seen during a May admission at which time he was treated for cellulitis of the right ankle with improvement during his stay. A boot was ordered by orthopedics and patient was discharged on cephalexin and was to continue to wear the boot at home. Patient has history of cerebral palsy and lives at home with his sister. She states that on Sunday he developed a blister, raised area on the right ankle and within 24 hours it became reddened and swollen and he had swelling going up into his lower leg and his foot. He went to his orthopedic doctor, Dr. Brown was seen yesterday and underwent aspiration and this was sent for cultures. Patient was then directly admitted to the hospital and started initially on vancomycin which has been changed to daptomycin. Patient has been afebrile with a White count of 13. CRP 87.4 and sed rate 68. Blood cultures status received and wound culture is in progress. CAT scan was compared to previous MRIs done very and May 25 and revealed increasing soft tissue density and thickening compatible with patient' s reported cellulitis. This is worsening from compared images. Increasing soft tissue density surrounding the proximal forefoot joint spaces especially the distal talus and feculent region findings are suspicious for increasing osteomyelitis at this level. A duplex was negative for DVT on the right leg. It is scheduled for I&D this morning at 11. If patient requires IV antibiotics , patient's sister wishes for him to go to [facility] for treatment. Of note, patient had pain of 10 out of 10 during the night and received morphine which dropped his blood pressure from 190/103 down to 76/50. His sister states that he has had sensitivity to morphine in the past when he had diaphragmatic hernia repair done at [facility]. He is status post IV fluid bolus of 500 mL. Blood pressure remains low but patient is stable without any symptoms. Review of Systems All systems: negative Constitutional: Denies anorexia, Denies chills, Denies fever, Denies poor appetite Eyes: denies blurred vision, denies pain Ears, nose, mouth and throat: Denies headache, Denies sore throat Cardiovascular: Reports leg edema, Denies chest pain, Denies decreased exercise tolerance, Denies dyspnea on exertion, Denies edema, Denies lightheadedness, Denies shortness of breath, Denies syncope Respiratory: Denies cough Gastrointestinal: Denies abdominal pain, Denies diarrhea, Denies nausea, Denies vomiting Musculoskeletal: Denies myalgias Musculoskeletal: right: ankle pain, ankle stiffness, ankle swelling Integumentary: Denies pruritus, Denies rash Neurological: Denies numbness, Denies weakness Psychiatric: Denies anxiety, Denies depression Endocrine: Denies fatigue, Denies weight change Past Medical History Past Medical History: Cancer, Chest Pain / Angina, Hypertension, Thyroid Disorder Additional Past Medical History / Comment(s): cerebral palsy and slight brain damage-able to talk read/write and walk,THYROID CA, past stress test,per sister pt has colitis and diverticulitis(no seeds or nuts and see list of allergies), hemorroids that cause bleeding at times.past bowel blockage(sx)-sister stated his norm is runny stool History of Any Multi-Drug Resistant Organisms: None Reported Past Surgical History: Appendectomy, Bowel Resection, Cholecystectomy, Hernia Repair, Tonsillectomy Additional Past Surgical History / Comment(s): thyroid removed, multiple ear surgeries including grafts as child, I&D right knee, 1 testical removed along w / hernia repair and also a diaphramatic hernia sx, i&d rt knee Past Anesthesia/Blood Transfusion Reactions: No Reported Reaction Additional Past Anesthesia/Blood Transfusion Reaction / Comm: past blood transfusion as child -no known reaction Additional Psychological History / Comment(s): Single and resides at his sister' s home. No tobacco use. No alcohol use. No experience. No international travel. No animal exposures. Never Smoking Status: Never smoker - Past Family History Mother Family Medical History: Diabetes Mellitus, Hypertension Father Family Medical History: Cancer Sister(s) History Unknown: Yes Family Medical History: Pulmonary Embolus Medications and Allergies Home Medications Medication Instructions Recorded Confirmed Type Folic Acid 2 mg PO AC-SUPPER 01/03/15 07/12/17 History Cyanocobalamin [Vitamin B-12] 500 mcg PO AC-SUPPER 02/22/16 07/12/17 History Cetirizine HCl [Zyrtec] 10 mg PO AC-SUPPER 05/13/17 07/12/17 History Ferrous Sulfate [Iron (65 MG 325 mg PO AC-SUPPER 05/13/17 07/12/17 History Elemental)] Levothyroxine Sodium [Synthroid] 112 mcg PO QAM 05/13/17 07/12/17 History Multivitamins, Thera [Multivitamin 1 tab PO AC-SUPPER 05/13/17 07/12/17 History (formulary)] Ranitidine HCl [Zantac] 150 mg PO AC-SUPPER 07/12/17 07/12/17 History Allergies Allergy/AdvReac Type Severity Reaction Status Date / Time egg Allergy Severe Unknown Verified 07/12/17 18:04 Milk Containing Products Allergy Severe Unknown Verified 07/12/17 18:04 [Dairy] peanut Allergy Severe Unknown Verified 07/12/17 18:04 codeine Allergy Unknown Verified 07/12/17 18:04 Childhood corn Allergy Diarrhea Verified 07/12/17 18:04 lemon Allergy Diarrhea Verified 07/12/17 18:04 Penicillins Allergy Unknown Verified 07/12/17 18:04 Childhood tomato Allergy Diarrhea Verified 07/12/17 18:04 wheat Allergy Diarrhea Verified 07/12/17 18:04 Yeast Allergy Unknown Verified 07/12/17 18:04 cephalexin [From Keflex] AdvReac Nausea & Verified 07/12/17 18:04 Vomiting & Diarrhea Pork/Porcine Containing AdvReac Diarrhea Verified 07/12/17 18:04 Products [Pork] soy AdvReac Unknown Verified 07/12/17 18:04 strawberry AdvReac Diarrhea Verified 07/12/17 18:04 oranges Allergy Rash/Hives Uncoded 05/22/17 16:12 chocolate AdvReac Diarrhea Uncoded 05/13/17 13:09 grapes AdvReac Diarrhea Uncoded 05/13/17 13:09 pop AdvReac Diarrhea Uncoded 05/13/17 13:09 process lunch meat AdvReac Diarrhea Uncoded 05/13/17 13:09 rice AdvReac Diarrhea Uncoded 05/13/17 13:09 spices AdvReac Diarrhea Uncoded 05/13/17 13:09 vegtable oil AdvReac Diarrhea Uncoded 05/13/17 13:09 Physical Exam Vitals: Vital Signs Temp Pulse Resp BP Pulse Ox 07/13/17 07:00 98.2 F 60 18 87/60 98 07/13/17 03:05 59 L 12 93/52 97 07/13/17 02:30 58 L 16 74/52 96 07/13/17 02:20 59 L 14 76/50 78 L 07/13/17 00:08 98.2 F 75 20 102/52 94 L 07/12/17 20:45 20 156/126 07/12/17 20:18 99.5 F 95 18 100/65 96 07/12/17 18:23 85 16 07/12/17 17:25 98.6 F 85 16 144/97 95 Intake and Output 07/12/17 07/13/17 07/13/17 22:59 06:59 14:59 Intake Total 1050 Balance 1050 Intake: Intake, IV Titration 1050 Amount DAPTOmycin 500 mg In 50 Sodium Chloride 0.9% 50 ml @ 100 mls/hr IV Q24H [facility] Rx#:[id number] Sodium Chloride 0.9% 1, 1000 000 ml @ 999 mls/hr IV . Q1H1M [facility] Rx#:[id number] Other: Voiding Method Urinal Incontinent # Voids 2 3 Weight 85 kg Gen: This is a 57-year-old male patient. He is sitting up in bed and appears to be comfortable and in no acute distress. HEENT: Head is atraumatic, normocephalic. Pupils equal, round. Sclerae is anicteric. Conjunctiva pink. Oral mucous membranes are moist. Patient is edentulous. NECK: Supple. No JVD. No lymphadenopathy. No thyromegaly. LUNGS: Clear to auscultation. No wheezes or rhonchi. No intercostal retractions. HEART: Regular rate and rhythm. No murmur. ABDOMEN: Soft. Bowel sounds are present. No masses. No tenderness. EXTREMITIES: Patient has edema to the right lower extremity. There is a large protruding fluid filled mass at the anterior/lateral malleolus. No drainage at this time. There was serous drainage on his dressing. Dorsalis pedis is weak. NEUROLOGICAL: Patient is awake, alert and oriented x3. Cranial nerves 2 through 12 are grossly intact. Results Results: Laboratory Results WBC 13.5 k/uL (3.8-10.6) H 07/12/17 17:33 RBC 3.71 m/uL (4.30-5.90) L 07/12/17 17:33 Hgb 9.4 gm/dL (13.0-17.5) L 07/12/17 17:33 Hct 31.2 % (39.0-53.0) L 07/12/17 17:33 MCV 84.0 fL (80.0-100.0) D 07/12/17 17:33 MCH 25.3 pg (25.0-35.0) 07/12/17 17:33 MCHC 30.1 g/dL (31.0-37.0) L 07/12/17 17:33 RDW 14.2 % (11.5-15.5) 07/12/17 17:33 Plt Count 494 k/uL (150-450) H 07/12/17 17:33 Neutrophils % 84 % 07/12/17 17:33 Lymphocytes % 7 % 07/12/17 17:33 Monocytes % 5 % 07/12/17 17:33 Eosinophils % 1 % 07/12/17 17:33 Basophils % 0 % 07/12/17 17:33 Neutrophils # 11.4 k/uL (1.3-7.7) H 07/12/17 17:33 Lymphocytes # 0.9 k/uL (1.0-4.8) L 07/12/17 17:33 Monocytes # 0.7 k/uL (0-1.0) 07/12/17 17:33 Eosinophils # 0.2 k/uL (0-0.7) 07/12/17 17:33 Basophils # 0.0 k/uL (0-0.2) 07/12/17 17:33 Hypochromasia Marked 07/12/17 17:33 ESR 68 mm/hr (0-15) H 07/12/17 17:33 Sodium 138 mmol/L (137-145) 07/12/17 17:33 Potassium 4.1 mmol/L (3.5-5.1) 07/12/17 17:33 Chloride 99 mmol/L (98-107) 07/12/17 17:33 Carbon Dioxide 31 mmol/L (22-30) H 07/12/17 17:33 Anion Gap 8 mmol/L 07/12/17 17:33 BUN 15 mg/dL (9-20) 07/12/17 17:33 Creatinine 0.72 mg/dL (0.66-1.25) 07/12/17 17:33 Est GFR (CKD-EPI)AfAm >90 (>60 ml/min/1.73 sqM) 07/12/17 17:33 Est GFR (CKD-EPI)NonAf >90 (>60 ml/min/1.73 sqM) 07/12/17 17:33 Glucose 107 mg/dL (74-99) H 07/12/17 17:33 Calcium 8.3 mg/dL (8.4-10.2) L 07/12/17 17:33 Total Bilirubin 0.7 mg/dL (0.2-1.3) 07/12/17 17:33 AST 16 U/L (17-59) L 07/12/17 17:33 ALT 18 U/L (21-72) L 07/12/17 17:33 Alkaline Phosphatase 110 U/L (38-126) 07/12/17 17:33 C-Reactive Protein 87.4 mg/L (<10.0) H 07/12/17 17:33 Total Protein 5.9 g/dL (6.3-8.2) L 07/12/17 17:33 Albumin 2.7 g/dL (3.5-5.0) L 07/12/17 17:33 CBC & Chem 7: 07/15/17 05:25 07/15/17 05:25 Labs: Abnormal Lab Results - Last 24 Hours (Table) 07/12/17 07/12/17 Range/Units 17:33 17:33 WBC 13.5 H (3.8-10.6) k/uL RBC 3.71 L (4.30-5.90) m/uL Hgb 9.4 L (13.0-17.5) gm/dL Hct 31.2 L (39.0-53.0) % MCHC 30.1 L (31.0-37.0) g/dL Plt Count 494 H (150-450) k/uL Neutrophils # 11.4 H (1.3-7.7) k/uL Lymphocytes # 0.9 L (1.0-4.8) k/uL ESR 68 H (0-15) mm/hr Carbon Dioxide 31 H (22-30) mmol/L Glucose 107 H (74-99) mg/dL Calcium 8.3 L (8.4-10.2) mg/dL AST 16 L (17-59) U/L ALT 18 L (21-72) U/L C-Reactive Protein 87.4 H (<10.0) mg/L Total Protein 5.9 L (6.3-8.2) g/dL Albumin 2.7 L (3.5-5.0) g/dL Microbiology - Last 24 Hours (Table) 07/12/17 12:00 Gram Stain - Preliminary Ankle - Right Wound Culture - Preliminary 07/12/17 12:00 Anaerobic Culture - Preliminary Ankle - Right Assessment and Plan Plan: This is a 57-year-old male patient who presented in May with cellulitis of the right ankle and now has returned with worsening with abscess. He is scheduled for I&D today. There is concern for osteomyelitis for which patient may require IV antibiotics. He is currently on daptomycin which will be continued. Await wound and blood culture reports. Continue supportive care. Further recommendations as patient progresses. The above dictated assessment and findings were discussed with Dr. Brandt. The impression and plan of care have been directed as dictated. Priscila Vance nurse practitioner acting as scribe for Dr. Brandt.
[2017-07-13] MEDS: SODIUM CHLORIDE 0.9% 1,000 ML IV SCH ×3 (10:02→18:54)
[2017-07-13] MEDS: ENOXAPARIN 40 MG/0.4 ML SYRINGE SQ SCH (12:36)
[2017-07-13] MEDS ORDERED: IV FLUID CONTINUATION 1,000 ML IV ONE (14:04)
[2017-07-13] MEDS ORDERED: ROCURONIUM BROMIDE 10 MG/ML 10 ML VIAL IV ONE (14:42)
[2017-07-13] MEDS ORDERED: NEOSTIGMINE 1 MG/ML 10 ML VIAL ONE (14:42)
[2017-07-13] MEDS ORDERED: ETOMIDATE 2 MG/ML 10 ML VIAL ONE (14:42)
[2017-07-13] MEDS ORDERED: fentaNYL (PF) 50 MCG/ML 2 ML AMP ONE (14:42)
[2017-07-13] MEDS ORDERED: MIDAZOLAM 2 MG/2 ML VIAL ONE (14:42)
[2017-07-13] MEDS ORDERED: GLYCOPYRROLATE 0.2 MG/ML 2 ML VIAL ONE (14:42)
[2017-07-13] MEDS ORDERED: PHENYLEPHRINE-0.9% NACL SYG 1 MG/10 ML SYRINGE ONE (14:42)
[2017-07-13] MEDS ORDERED: traMADol 50 MG TAB PO PRN (15:38)
[2017-07-13] MEDS ORDERED: PHENYLEPHRINE 40 MG in SODIUM CHLORIDE 0.9% 250 ML IV SCH (15:45)
[2017-07-13] MEDS ORDERED: LACTATED RINGERS 1,000 ML IV ONE (16:07)
[2017-07-13 16:51] LABS: INR 1.5 (<1.2); Partial Thromboplastin Time 25.1 sec (22.0-30.0); Prothrombin Time 13.8 sec (9.0-12.0)
[2017-07-13 17:04] LABS: Troponin I 0.097 ng/mL (0.000-0.034)
--- NOTE | 2017-07-13 17:20 | P.OP ---
Date of Procedure: 07/13/17 Preoperative Diagnosis: 1. Right ankle cellulitis, abscess and possible osteomyelitis Postoperative Diagnosis: Same Procedure(s) Performed: 1. Incision and drainage of right ankle abscess 2. Irrigation and debridement of right ankle wound (sharp debridement of nonviable skin and subcutaneous tissue down to the level of the ankle joint.) 3. Application of wound VAC to right ankle Anesthesia: GRACE Surgeon: Gary Brown Care Trainer #1: Terry Martin Estimated Blood Loss (ml): 50 Pathology: other (Deep cultures from the ankle joint) Condition: stable Disposition: ICU Indications for Procedure: The patient is a 57-year-old male with a medical history significant for cerebral palsy was admitted with a right ankle infection. This past May he was admitted following an injury to his right ankle which resulted in increasing pain and redness to the ankle. He had an MRI at that time which did not show any abscess, and was significant for possible osteomyelitis or Charcot. Infectious disease was consulted at that time. The patient improved on oral antibiotics and was discharged home in a boot. His pain significantly improved over the next month. Unfortunately this past Sunday he developed increasing pain and a blister over the right ankle. He denies any injury. He was seen in our office and sent to the hospital as a direct admission. A computed tomography scan with contrast was ordered to evaluate for deep fluid collections or abscess. I discussed with the sisters who are his caregivers that he would require a formal I&D in the operating room. We discussed potential risks and complications of surgery including but not limited to risk of anesthesia, superficial infection, deep infection, delayed wound healing, damage to blood vessels or nerves, need for further surgery, medical complications, DVT, PE, and possibly loss of life or limb. The family understands the potential risks and provided their verbal and written consent to go forward with surgery. Operative Findings: There was a abscess over the anterolateral aspect of the ankle that tracked down to the extensor tendons. The ankle joint was exposed and had a small joint effusion but did not appear grossly purulent. Description of Procedure: The patient was identified in preoperative holding and the right lower extremity was marked with my initials. I reviewed the consent form with the patient and his sisters. All of their questions were answered. The patient was then brought back to the operating room. A general anesthetic was administered we'll the patient was still on the gurney. All bony prominences were well-padded. The right leg was then prepped and draped in the standard sterile fashion. A timeout was performed identifying the correct patient, operative extremity, and procedure. I began by extending the open draining wound over the anterolateral aspect of the ankle proximally and distally. There was a large collection of which was expressed. There is purulent material surrounding the tendons.. I bluntly developed down to the joint capsule. A capsulotomy was performed over the anterolateral aspect of the ankle. There is a small effusion but there did not appear to be any gross purulence in the ankle joint. All nonviable skin, subcutaneous tissue, fascia, and subcutaneous fat was sharply debrided. The wound was irrigated with 3 L of sterile saline using cystoscopy tubing. The ankle and foot were diffusely swollen but there did not appear to be any other areas of fluctuance. A sponge from the wound VAC set was contoured to the open wound. Ioban was placed around the wound. The adherent dressing was placed over the sponge. The wound VAC Dionne pad was hooked up to the canister with no leaks. The VAC was set 225 mm of continuous suction. I verified that all instrument, sponge, and sharp counts were correct. A dressing consisting of web roll and an Diego wrap was placed. The patient was then awoken from his anesthetic and transferred to the recovery room in stable condition. Terry Martin PA-C was required as a skilled emergency medicine physician assistant. Plan: The patient has had low blood pressures both last night and during surgery. This is been attributed to narcotic sensitivity. After discussion with the anesthesia team we would like the patient transferred to the ICU overnight for closer monitoring. He is to remain strictly nonweightbearing on his operative extremity. Antibiotics per Dr. Brandt. If the patient fails to improve and requires another formal I&D I would be happy to do so early next week. If the patient improves I would defer to the wound team for bedside and home VAC dressing changes.
[2017-07-13 17:31] LABS: Glucose,Whole Blood 53 mg/dL (75-99)
[2017-07-13] MEDS ORDERED: NOREPINEPHRIN 4 MG-0.9% NS PMX 4 MG/250 ML ML IV ONE (17:33)
[2017-07-13 18:10] LABS: Glucose,Whole Blood 49 mg/dL (75-99)
[2017-07-13 18:10] LABS: Glucose,Whole Blood 49 mg/dL (75-99)
[2017-07-13 18:20] LABS: Glucose,Whole Blood 55 mg/dL (75-99)
[2017-07-13 18:21] LABS: Appearance,Urine Turbid (Clear); Bacteria,Urine Many /hpf; Bilirubin,Urine Negative (Negative); Blood,Urine Moderate (Negative); Color,Urine Yellow; Glucose,Urine (UA) Negative (Negative); Ketones,Urine Negative (Negative); Leukocyte Esterase,Urine Large (Negative); Nitrite,Urine Negative (Negative); Protein,Urine 1+ (Negative); RBC,Urine 38 /hpf (0-5); Specific Gravity,Urine 1.019 (1.001-1.035); WBC,Urine >182 /hpf (0-5)
[2017-07-13 18:27] LABS: Glucose,Whole Blood 49 mg/dL (75-99)
[2017-07-13 18:34] LABS: Glucose,Whole Blood 59 mg/dL (75-99)
[2017-07-13 19:03] LABS: Glucose,Whole Blood 71 mg/dL (75-99)
[2017-07-13] MEDS: FAMOTIDINE 20 MG TAB PO SCH (19:44)
[2017-07-13] MEDS: DAPTOmycin 500 MG in SODIUM CHLORIDE 0.9% 50 ML IV SCH (20:53)
[2017-07-13] MEDS: NOREPINEPHRIN 4 MG-0.9% NS PMX 4 MG/250 ML ML IV SCH (21:12)
--- NOTE | 2017-07-13 21:32 | PN ---
PROGRESS NOTE DATE OF SERVICE: July 13, 2017. PRESENTING COMPLAINT: Right ankle abscess. INTERVAL HISTORY: This is a patient with infection around the right ankle, who is the patient this morning awaiting I and D. Having some pain, somewhat uncomfortable from the same. REVIEW OF SYSTEMS: Done for constitutional, cardiovascular, GI, pulmonary, dermatological, relevant findings as above. CURRENT MEDICATIONS: Current medications include IV daptomycin and IV fluids. PHYSICAL EXAMINATION: On exam afebrile, pulse 60, respiratory 18, blood pressure 111/60, pulse ox 98% on 2 L. General appearance: Lying in bed tired-appearing. Eyes: Pupils equal. Conjunctivae normal. HEENT: External appearance of nose and ears normal. Oral cavity normal. Neck: JVD not raised. Mass not palpable. Respiratory effort lungs are fair. Cardiovascular: 1st and 2nd sounds normal. No edema. ABDOMEN: Soft, nontender. Liver and spleen not palpable. Psychiatry: Alert and oriented times three. Mood and affect normal. Extremities: Right ankle in a dressing. INVESTIGATIONS: Accu-Cheks are running low. ASSESSMENT: 1. Right ankle purulent cellulitis having failed outpatient treatment due for I and D later today. 2. Cerebral palsy. 3. Hypothyroid. 4. Hypoalbuminemia likely reactive. 5. Thrombocytosis likely from inflammation. 6. Normocytic anemia. PLAN: Continue patient on IV daptomycin and IV fluids. The patient is awaiting I and D. The patient on naproxen for anti-inflammatory effect. MMODL / IJN: [id number] /
[2017-07-13] MEDS: ONDANSETRON 4 MG/2 ML VIAL IVP PRN (21:46)
[2017-07-13] MEDS ORDERED: FUROSEMIDE 10 MG/ML 10 ML VIAL IV STA (23:04)
--- NOTE | 2017-07-14 | P.CON ---
Consult Note - . Consult date: 07/12/17 Assessment/Plan:: This is a 57-year-old male patient who is known to ID service as he was initially seen during a May admission at which time he was treated for cellulitis of the right ankle with improvement during his stay. A boot was ordered by orthopedics and patient was discharged on cephalexin and was to continue to wear the boot at home. Patient has history of cerebral palsy and lives at home with his sister. She states that on Sunday he developed a blister, raised area on the right ankle and within 24 hours it became reddened and swollen and he had swelling going up into his lower leg and his foot. He went to his orthopedic doctor, Dr. Brown was seen yesterday and underwent aspiration and this was sent for cultures. Patient was then directly admitted to the hospital and started initially on vancomycin which has been changed to daptomycin. Patient has been afebrile with a White count of 13. CRP 87.4 and sed rate 68. Blood cultures status received and wound culture is in progress. CAT scan was compared to previous MRIs done very and May 25 and revealed increasing soft tissue density and thickening compatible with patient' s reported cellulitis. This is worsening from compared images. Increasing soft tissue density surrounding the proximal forefoot joint spaces especially the distal talus and feculent region findings are suspicious for increasing osteomyelitis at this level. A duplex was negative for DVT on the right leg. It is scheduled for I&D this morning at 11. If patient requires IV antibiotics , patient's sister wishes for him to go to [facility] for treatment. Of note, patient had pain of 10 out of 10 during the night and received morphine which dropped his blood pressure from 190/103 down to 76/50. His sister states that he has had sensitivity to morphine in the past when he had diaphragmatic hernia repair done at [facility]. He is status post IV fluid bolus of 500 mL. Blood pressure remains low but patient is stable without any symptoms. Please see the consult note is dictated by nurse practitioner Mrs. Priscila Vance. 57-year-old patient that has a complex history of the recent injury to his now developed a significant abscess at that site which required incision and drainage. Was having some difficulty with hypotension, appears to be having sepsis is not being cared for in the intensive care unit. He'll receive further fluid resuscitation for his sepsis and lactic acidosis. He will continue to have antibiotic therapy with daptomycin. Local wound care is negative pressure therapy system. He was monitored closely and plans will be made for his outpatient antibiotic therapy which likely will be intravenous as well as local wound care. Enhancement of his nutritional status will also help his wound healing. I agree with evaluation, assessment and plan as dictated by nurse practitioner Mrs. Priscila Vance.
[2017-07-14] MEDS: NOREPINEPHRIN 4 MG-0.9% NS PMX 4 MG/250 ML ML IV SCH ×5 (00:39→22:26)
[2017-07-14] MEDS: SODIUM CHLORIDE 0.9% 1,000 ML IV SCH ×4 (01:30→22:25)
[2017-07-14 02:25] LABS: Glucose,Whole Blood 131 mg/dL (75-99)
[2017-07-14 05:00] LABS: HCT 30.5 % (39.0-53.0); HGB 8.7 gm/dL (13.0-17.5); Hypochromasia Marked; MCH 24.7 pg (25.0-35.0); MCHC 28.5 g/dL (31.0-37.0); MCV 86.8 fL (80.0-100.0); Platelet Count 301 k/uL (150-450); RBC 3.52 m/uL (4.30-5.90); RDW 15.1 % (11.5-15.5)
[2017-07-14 05:10] LABS: Calcium 6.8 mg/dL (8.4-10.2); Magnesium 1.4 mg/dL (1.6-2.3); Phosphorus 4.1 mg/dL (2.5-4.5); Potassium 3.7 mmol/L (3.5-5.1)
[2017-07-14 05:14] LABS: WBC 26.8 k/uL (3.8-10.6)
[2017-07-14 06:03] LABS: Band Neutrophils % 55 %; Lymphocytes # (M) 0.54 k/uL (1.0-4.8); Monocytes # (M) 0.27 k/uL (0-1.0); Neutrophils % (M) 42 %; Nucleated Red Blood Cells 0 /100 WBC (0-0); Total Cells Counted 200; Toxic Granulation Present; Toxic Vacuolation Present
[2017-07-14 06:04] LABS: Ovalocytes Present
[2017-07-14] MEDS: LEVOTHYROXINE 112 MCG TAB PO SCH (06:12)
--- NOTE | 2017-07-14 06:30 | XR ---
EXAMINATION TYPE: XR chest 1V DATE OF EXAM: 07/14/2017 HISTORY: shortness of breath. REFERENCE: Previous study dated 02/26/2016. FINDINGS: The study is rotated. This gives apparent increased opacity in the right hemithorax. I dejon ot exclude an early infiltrate the right lung base. There is blunting of both CP angles. The BE diffi cult to exclude small effusions. The heart is enlarged. There is prominence of the ascending thoracic aorta. This may reflect rotation. IMPRESSION: 1. SUBOPTIMAL STUDY. 2. CARDIOMEGALY. 3. I CANNOT EXCLUDE AN EARLY RIGHT LOWER LOBE INFILTRATE. 4. I CANNOT EXCLUDE SMALL, BILATERAL EFFUSIONS.
[2017-07-14 07:36] LABS: Glucose,Whole Blood 85 mg/dL (75-99)
[2017-07-14] MEDS: MAGNESIUM SULFATE-D5W PMX 1 GM in DEXTROSE/WATER 1 100ML.BAG IVPB SCH ×2 (08:20→09:54)
[2017-07-14] MEDS: NAPROXEN 250 MG TAB PO SCH ×3 (08:20→21:05)
[2017-07-14] MEDS: ENOXAPARIN 40 MG/0.4 ML SYRINGE SQ SCH (08:20)
[2017-07-14] MEDS: ONDANSETRON 4 MG/2 ML VIAL IVP PRN (08:21)
[2017-07-14] MEDS ORDERED: SODIUM CHLORIDE 0.9% 1,000 ML IV ONE (09:42)
--- NOTE | 2017-07-14 11:09 | P.PN ---
Progress Note - Text Progress Note Date: 07/14/17 Patient is a pleasant 57-year-old male who is seen in the ICU for follow-up evaluation for his right ankle. He is status post incision and drainage with irrigation and debridement of right ankle abscess and wound with application of wound VAC of the right ankle. Patient states he does have some pain and soreness at the right ankle. He is nonweightbearing on the right lower extremity. Patient continues to be treated for sepsis. Nursing states his WBC has increased to 28.6 today as compared to 13.5 on 07/12/2017. His lactic acid has decreased from 6.5 on 07/13/2017 to 4.7 on 07/14/2017. He is currently receiving his fifth liter of IV fluids. He is receiving Lasix and is now having urinary output. He is afebrile. He continues to be seen and examined by Dr. Brandt in infectious disease whom nursing states will plan to change his wound VAC as early as tomorrow, 07/15/2017. Physical Exam: Patient is awake, alert, and oriented 3 Vital signs stable Good chest excursion with deep inspiration and expiration; patient currently on O2 nasal cannula Splint and Diego wrap dressing is intact over the right lower extremity Dressing remains clean and dry with no active drainage or saturation Wound VAC intact over the right ankle No pain with palpation over the right knee or the digits of the right foot Patient is able to wiggle toes of the right lower extremity Neurovascularly intact right lower extremity Assessment: Status post incision and drainage with irrigation and debridement of right ankle abscess and wound with application of wound VAC of the right ankle Sepsis Leukocytosis Plan: 1. Patient will continue to keep dressing and wound VAC intact over the right lower extremity. He will remain nonweightbearing on the right lower extremity. Patient has been discussed in detail with Dr. Brown. He is in agreement that Dr. Brandt in infectious disease may take over a Hemovac care and may plan to change the wound VAC as early as tomorrow per his recommendations. 2. Patient will continue be followed by Dr. Brandt in infectious disease as well as medicine for further evaluation and treatment for sepsis and his other medical diagnoses 3. We will continue to follow patient closely 4. Following discharge, patient will plan to follow-up with Dr. Brown at [facility] in approximately 1 week for further evaluation.
--- NOTE | 2017-07-14 11:10 | P.CNPUL ---
History of Present Illness Consult date: 07/14/17 Requesting physician: Reginald Anderson Reason for consult: other (Acute septic shock) Chief complaint: Infection of right foot History of present illness: This is a 57-year-old white male with history of cerebral palsy, hypertension, admitted with cellulitis of the right ankle on 07/12/2017. Started out initially as a pustule on the right ankle, went on to develop worsening cellulitis. Patient has been in a CAM boot for this problem. And had recent aspiration of the right ankle [facility] recently. Patient underwent incision and drainage of the right ankle abscess, irrigation and debridement of the right ankle wound, and application of a one VAC to the right ankle. Postoperatively, patient was admitted to the ICU mostly because of hypotension requiring significant amount of fluids, received a total of 3 L of fluids, had to be placed on norepinephrine for low blood pressure, and he was noted to have significant lactic acidosis. Considering his profound hypotension and septic shock presentation, I was asked to see him on consultation. Patient has been already on daptomycin as ordered by Dr. Brandt, he received significant amount of fluids over the last 12 hours, and in spite of of the fluid boluses, patient required norepinephrine. This morning, the patient remains on 20 g of norepinephrine, his lactic acid came down to 4.0, and I have recommended more fluids to be given. Last night in spite of all the fluids, the patient was oliguric, and I recommended one dose of Lasix. Since then the patient has been making significant amount of urine over the last 8 hours. His labs revealed significant leukocytosis with WBC of 26.8 hemoglobin is 8.7. Basic metabolic profile is normal except for low bicarb of 19 minimal anion gap metabolic acidosis, 14, BUN of 24 creatinine of 1.40. Lactic acid has been coming down from 6.5 initially and it is 4.0 today. The patient himself is a very poor historian, patient has history of cerebral palsy. However he is denying any specific complaints presently. Review of Systems Patient is a relatively poor historian, however 12 point review of systems were obtained, patient is asymptomatic, he even denies any pain in the right foot, denies any shortness of breath. Otherwise review of systems is unremarkable. Past Medical History Past Medical History: Cancer, Chest Pain / Angina, Hypertension, Thyroid Disorder Additional Past Medical History / Comment(s): cerebral palsy and slight brain damage-able to talk read/write and walk,THYROID CA, past stress test,per sister pt has colitis and diverticulitis(no seeds or nuts and see list of allergies), hemorroids that cause bleeding at times.past bowel blockage(sx)-sister stated his norm is runny stool History of Any Multi-Drug Resistant Organisms: None Reported Past Surgical History: Appendectomy, Bowel Resection, Cholecystectomy, Hernia Repair, Tonsillectomy Additional Past Surgical History / Comment(s): thyroid removed, multiple ear surgeries including grafts as child, I&D right knee, 1 testical removed along w / hernia repair and also a diaphramatic hernia sx, i&d rt knee Past Anesthesia/Blood Transfusion Reactions: No Reported Reaction Additional Past Anesthesia/Blood Transfusion Reaction / Comment(s): past blood transfusion as child -no known reaction Additional Psychological History / Comment(s): Single and resides at his sister' s home. No tobacco use. No alcohol use. No experience. No international travel. No animal exposures. Never Smoking Status: Never smoker - Past Family History Mother Family Medical History: Diabetes Mellitus, Hypertension Father Family Medical History: Cancer Sister(s) History Unknown: Yes Family Medical History: Pulmonary Embolus Medications and Allergies Home Medications Medication Instructions Recorded Confirmed Type Folic Acid 2 mg PO AC-SUPPER 01/03/15 07/12/17 History Cyanocobalamin [Vitamin B-12] 500 mcg PO AC-SUPPER 02/22/16 07/12/17 History Cetirizine HCl [Zyrtec] 10 mg PO AC-SUPPER 05/13/17 07/12/17 History Ferrous Sulfate [Iron (65 MG 325 mg PO AC-SUPPER 05/13/17 07/12/17 History Elemental)] Levothyroxine Sodium [Synthroid] 112 mcg PO QAM 05/13/17 07/12/17 History Multivitamins, Thera [Multivitamin 1 tab PO AC-SUPPER 05/13/17 07/12/17 History (formulary)] Ranitidine HCl [Zantac] 150 mg PO AC-SUPPER 07/12/17 07/12/17 History Allergies Allergy/AdvReac Type Severity Reaction Status Date / Time egg Allergy Severe Unknown Verified 07/12/17 18:04 Milk Containing Products Allergy Severe Unknown Verified 07/12/17 18:04 [Dairy] peanut Allergy Severe Unknown Verified 07/12/17 18:04 codeine Allergy Unknown Verified 07/12/17 18:04 Childhood corn Allergy Diarrhea Verified 07/12/17 18:04 lemon Allergy Diarrhea Verified 07/12/17 18:04 Penicillins Allergy Unknown Verified 07/12/17 18:04 Childhood tomato Allergy Diarrhea Verified 07/12/17 18:04 wheat Allergy Diarrhea Verified 07/12/17 18:04 Yeast Allergy Unknown Verified 07/12/17 18:04 cephalexin [From Keflex] AdvReac Nausea & Verified 07/12/17 18:04 Vomiting & Diarrhea Pork/Porcine Containing AdvReac Diarrhea Verified 07/12/17 18:04 Products [Pork] soy AdvReac Unknown Verified 07/12/17 18:04 strawberry AdvReac Diarrhea Verified 07/12/17 18:04 oranges Allergy Rash/Hives Uncoded 05/22/17 16:12 chocolate AdvReac Diarrhea Uncoded 05/13/17 13:09 grapes AdvReac Diarrhea Uncoded 05/13/17 13:09 pop AdvReac Diarrhea Uncoded 05/13/17 13:09 process lunch meat AdvReac Diarrhea Uncoded 05/13/17 13:09 rice AdvReac Diarrhea Uncoded 05/13/17 13:09 spices AdvReac Diarrhea Uncoded 05/13/17 13:09 vegtable oil AdvReac Diarrhea Uncoded 05/13/17 13:09 Physical Exam Vitals: Vital Signs Temp Pulse Pulse Pulse Resp BP BP 07/14/17 10:30 75 18 99/65 07/14/17 10:15 81 25 H 86/67 07/14/17 10:00 77 17 95/72 07/14/17 09:45 75 11 L 95/63 07/14/17 09:30 79 26 H 83/63 07/14/17 09:15 75 16 90/60 07/14/17 09:00 78 10 L 87/57 07/14/17 08:45 81 20 90/58 07/14/17 08:30 77 17 83/56 07/14/17 08:15 78 17 96/49 07/14/17 08:00 97.4 F L 84 37 H 105/88 04/07/18 07:45 83 19 92/53 18 07:30 75 26 H 92/53 18 07:00 78 12 90/56 07/14/17 06:45 74 18 76/52 18 06:30 73 15 76/52 18 06:15 75 15 73/53 18 06:00 78 13 73/53 18 05:45 74 11 L 82/60 18 05:30 75 15 82/60 18 05:15 78 13 82/58 07/14/17 05:00 79 21 82/58 07/14/17 04:45 79 24 81/55 07/14/17 04:30 79 24 81/55 07/14/17 04:15 80 15 76/50 07/14/17 04:00 82 22 76/50 07/14/17 03:45 77 21 77/53 07/14/17 03:30 88 15 76/50 07/14/17 03:15 83 20 78/50 07/14/17 03:00 84 14 87/59 07/14/17 02:45 87 21 76/52 07/14/17 02:30 79 12 78/53 07/14/17 02:14 82 20 81/56 07/14/17 02:00 83 14 89/60 07/14/17 01:45 87 20 84/58 07/14/17 01:30 88 18 84/59 07/14/17 01:15 84 20 76/54 07/14/17 01:00 88 27 H 94/55 07/14/17 00:45 85 16 101/61 18 00:30 87 11 L 98/58 07/14/17 00:15 87 16 95/49 18 00:00 88 19 99/66 07/13/17 23:45 87 19 92/59 07/13/17 23:30 89 15 103/58 18 23:15 88 14 104/68 18 23:05 90 15 104/68 18 23:00 87 15 109/71 07/13/17 22:45 87 13 103/60 18 22:30 85 12 107/60 18 22:15 86 14 100/68 04/06/18 22:00 85 17 94/70 18 21:45 86 18 96/61 18 21:30 87 21 93/55 18 21:15 84 20 90/56 18 21:00 88 12 87/54 07/13/17 20:45 82 12 81/51 18 20:30 91 19 83/49 07/13/17 20:15 89 12 83/47 07/13/17 20:00 97.8 F 84 15 86/48 07/13/17 19:45 90 18 83/49 18 19:30 85 15 80/44 07/13/17 19:15 93 19 68/22 07/13/17 19:00 90 17 72/42 07/13/17 18:45 95 22 68/41 07/13/17 18:30 88 16 70/44 18 18:20 93 19 72/44 07/13/17 18:10 92 25 H 74/45 07/13/17 18:00 98 94 22 74/49 18 17:50 92 18 76/48 18 17:40 100.4 F H 92 16 68/47 07/13/17 17:13 94 18 90/50 07/13/17 17:00 83 18 80/50 18 16:45 98 18 85/50 07/13/17 16:30 99 18 90/55 18 16:15 101 H 18 81/52 07/13/17 16:00 100 20 85/51 07/13/17 15:45 100 18 87/52 18 15:34 102.6 F H 100 13 83/51 07/13/17 14:12 102.9 F H 78 18 90/51 Pulse Ox 07/14/17 10:30 98 07/14/17 10:15 98 07/14/17 10:00 96 07/14/17 09:45 96 07/14/17 09:30 95 07/14/17 09:15 99 07/14/17 09:00 99 07/14/17 08:45 100 07/14/17 08:30 100 07/14/17 08:15 98 07/14/17 08:00 98 07/14/17 07:45 100 07/14/17 07:30 96 07/14/17 07:00 92 L 07/14/17 06:45 92 L 07/14/17 06:30 92 L 07/14/17 06:15 07/14/17 06:00 07/14/17 05:45 07/14/17 05:30 07/14/17 05:15 07/14/17 05:00 07/14/17 04:45 07/14/17 04:30 100 07/14/17 04:15 100 07/14/17 04:00 99 07/14/17 03:45 07/14/17 03:30 99 07/14/17 03:15 100 07/14/17 03:00 100 07/14/17 02:45 100 07/14/17 02:30 100 07/14/17 02:14 100 07/14/17 02:00 100 07/14/17 01:45 100 07/14/17 01:30 100 07/14/17 01:15 100 07/14/17 01:00 88 L 07/14/17 00:45 99 07/14/17 00:30 100 07/14/17 00:15 98 07/14/17 00:00 99 07/13/17 23:45 98 07/13/17 23:30 99 07/13/17 23:15 99 07/13/17 23:05 99 07/13/17 23:00 99 07/13/17 22:45 99 07/13/17 22:30 99 07/13/17 22:15 99 07/13/17 22:00 98 07/13/17 21:45 78 L 07/13/17 21:30 92 L 07/13/17 21:15 98 07/13/17 21:00 98 07/13/17 20:45 100 07/13/17 20:30 98 07/13/17 20:15 97 07/13/17 20:00 99 07/13/17 19:45 97 07/13/17 19:30 98 07/13/17 19:15 98 07/13/17 19:00 98 07/13/17 18:45 98 07/13/17 18:30 99 07/13/17 18:20 97 07/13/17 18:10 98 07/13/17 18:00 99 07/13/17 17:50 100 07/13/17 17:40 91 L 07/13/17 17:13 95 07/13/17 17:00 94 L 07/13/17 16:45 94 L 07/13/17 16:30 93 L 07/13/17 16:15 92 L 07/13/17 16:00 94 L 07/13/17 15:45 97 07/13/17 15:34 97 07/13/17 14:12 98 Intake and Output 07/13/17 07/14/17 07/14/17 22:59 06:59 14:59 Intake Total 4050 1400 1706.25 Output Total 130 605 775 Balance 3920 795 931.25 Intake: IV 3900 600 450 Sodium Chloride 0.9% 1, 300 600 450 000 ml @ 150 mls/hr IV . Q6H40M [facility] Rx#:[id number] Sodium Chloride 0.9% 1, 2000 000 ml @ 999 mls/hr IV . Q1H1M [facility] Rx#:[id number] Intake, IV Titration 515 669 5095.25 Amount Magnesium Sulfate-D5w Pmx 100 1 gm In Dextrose/Water 1 100ml.bag @ 100 mls/hr IVPB Q1H [facility] Rx#: [id number] Norepinephrin 4 mg-0.9% 500 156.25 Ns Pmx 4 mg In 250 ml @ Titrate IV .Q0M [facility] Rx#: [id number] Sodium Chloride 0.9% 1, 150 300 000 ml @ 150 mls/hr IV . Q6H40M [facility] Rx#:[id number] Sodium Chloride 0.9% 1, 1000 000 ml @ 999 mls/hr IV . Q1H1M [facility] Rx#:[id number] Output: Urine 80 605 775 Estimated Blood Loss 50 Other: Voiding Method Indwelling Catheter Indwelling Catheter Weight 94.9 kg 94.9 kg Physical Exam: Revealed a 57-year-old white male in no distress. Unstable. Asymptomatic. Head: Atraumatic, normocephalic. Eyes: PERRLA, EOMI, no icterus. HEENT:[Neck is supple.] [No neck masses.] [No thyromegaly.] [No JVD.] Chest: [Clear throughout, no crackles, no rhonchi, no wheezes.] Cardiac Exam: [Normal S1 and S2, no S3 gallop, no murmur.] Abdomen: [Soft, nontender, no megaly, no rebound, no guarding, normal bowel sounds.] Extremities: Right lower extremity is wrapped,. With sterile dressing. Could not be examined.] Neurological Exam: Patient has underlying cerebral palsy, difficulty with speech , and slow mental development. Otherwise no gross focal neurologic deficit. Lymphatics: No adenopathy. Results - Laboratory Findings CBC and BMP: 07/14/17 04:45 07/14/17 04:45 PT/INR, D-dimer PT 13.8 sec (9.0-12.0) H 07/13/17 16:11 INR 1.5 (<1.2) H 07/13/17 16:11 Abnormal lab findings: Abnormal Labs 07/12/17 07/12/17 07/13/17 17:33 17:33 16:11 WBC 13.5 H RBC 3.71 L Hgb 9.4 L Hct 31.2 L MCH MCHC 30.1 L Plt Count 494 H Neutrophils # 11.4 H Neutrophils # (Manual) Lymphocytes # 0.9 L Lymphocytes # (Manual) ESR 68 H PT INR Carbon Dioxide 31 H BUN Creatinine Glucose 107 H POC Glucose (mg/dL) Plasma Lactic Acid Papi 6.5 H* Calcium 8.3 L Magnesium AST 16 L ALT 18 L Total Creatine Kinase Troponin I C-Reactive Protein 87.4 H Total Protein 5.9 L Albumin 2.7 L Urine Protein Urine Blood Ur Leukocyte Esterase Urine RBC Urine WBC Urine WBC Clumps Urine Bacteria 07/13/17 07/13/17 07/13/17 16:11 16:11 17:29 WBC RBC Hgb Hct MCH MCHC Plt Count Neutrophils # Neutrophils # (Manual) Lymphocytes # Lymphocytes # (Manual) ESR PT 13.8 H INR 1.5 H Carbon Dioxide BUN Creatinine Glucose POC Glucose (mg/dL) 53 L Plasma Lactic Acid Papi Calcium Magnesium AST ALT Total Creatine Kinase 289 H Troponin I 0.097 H* C-Reactive Protein Total Protein Albumin Urine Protein Urine Blood Ur Leukocyte Esterase Urine RBC Urine WBC Urine WBC Clumps Urine Bacteria 07/13/17 07/13/17 07/13/17 17:43 17:45 17:45 WBC RBC Hgb Hct MCH MCHC Plt Count Neutrophils # Neutrophils # (Manual) Lymphocytes # Lymphocytes # (Manual) ESR PT INR Carbon Dioxide BUN Creatinine Glucose POC Glucose (mg/dL) 49 L 49 L Plasma Lactic Acid Papi Calcium Magnesium AST ALT Total Creatine Kinase Troponin I C-Reactive Protein Total Protein Albumin Urine Protein 1+ H Urine Blood Moderate H Ur Leukocyte Esterase Large H Urine RBC 38 H Urine WBC >182 H Urine WBC Clumps Many H Urine Bacteria Many H 07/13/17 07/13/17 07/13/17 18:17 18:19 18:33 WBC RBC Hgb Hct MCH MCHC Plt Count Neutrophils # Neutrophils # (Manual) Lymphocytes # Lymphocytes # (Manual) ESR PT INR Carbon Dioxide BUN Creatinine Glucose POC Glucose (mg/dL) 49 L 55 L 59 L Plasma Lactic Acid Papi Calcium Magnesium AST ALT Total Creatine Kinase Troponin I C-Reactive Protein Total Protein Albumin Urine Protein Urine Blood Ur Leukocyte Esterase Urine RBC Urine WBC Urine WBC Clumps Urine Bacteria 07/13/17 07/13/17 07/14/17 19:01 20:02 00:50 WBC RBC Hgb Hct MCH MCHC Plt Count Neutrophils # Neutrophils # (Manual) Lymphocytes # Lymphocytes # (Manual) ESR PT INR Carbon Dioxide BUN Creatinine Glucose POC Glucose (mg/dL) 71 L Plasma Lactic Acid Papi 6.5 H* 4.7 H* Calcium Magnesium AST ALT Total Creatine Kinase Troponin I C-Reactive Protein Total Protein Albumin Urine Protein Urine Blood Ur Leukocyte Esterase Urine RBC Urine WBC Urine WBC Clumps Urine Bacteria 07/14/17 07/14/17 07/14/17 02:23 04:45 04:45 WBC 26.8 H* RBC 3.52 L Hgb 8.7 L Hct 30.5 L MCH 24.7 L MCHC 28.5 L Plt Count Neutrophils # Neutrophils # (Manual) 25.90 H Lymphocytes # Lymphocytes # (Manual) 0.54 L ESR PT INR Carbon Dioxide 19 L BUN 24 H Creatinine 1.40 H Glucose POC Glucose (mg/dL) 131 H Plasma Lactic Acid Papi Calcium 6.8 L Magnesium 1.4 L AST ALT Total Creatine Kinase Troponin I C-Reactive Protein Total Protein Albumin Urine Protein Urine Blood Ur Leukocyte Esterase Urine RBC Urine WBC Urine WBC Clumps Urine Bacteria 07/14/17 04:45 WBC RBC Hgb Hct MCH MCHC Plt Count Neutrophils # Neutrophils # (Manual) Lymphocytes # Lymphocytes # (Manual) ESR PT INR Carbon Dioxide BUN Creatinine Glucose POC Glucose (mg/dL) Plasma Lactic Acid Papi 4.0 H* Calcium Magnesium AST ALT Total Creatine Kinase Troponin I C-Reactive Protein Total Protein Albumin Urine Protein Urine Blood Ur Leukocyte Esterase Urine RBC Urine WBC Urine WBC Clumps Urine Bacteria - Diagnostic Findings Chest x-ray: image reviewed (Chest x-ray showed cardiomegaly, and small tiny pleural effusions with atelectasis.) Assessment and Plan Assessment: Impression: 1 acute sepsis and septic shock secondary to cellulitis and abscess of right foot. 2 status post incision and drainage of right ankle abscess, irrigation and debridement of right ankle wound, application of wound VAC, postoperative day # 1. 3 history of multiple comorbidities including cerebral palsy, hypertension, hypothyroidism, Recommendation: Continue present supportive care measures, antibiotics/ daptomycin, fluids, pressors, GI and DVT prophylaxis and close observation in the ICU. Patient is presently on norepinephrine, and this will be titrated accordingly. Keep mean arterial pressure over 65. We'll continue to follow in the intensive care unit. Time with Patient: Greater than 30
[2017-07-14 12:30] LABS: Glucose,Whole Blood 61 mg/dL (75-99)
[2017-07-14 12:38] LABS: Glucose,Whole Blood 80 mg/dL (75-99)
[2017-07-14] MEDS ORDERED: HYDROmorphone 4 MG TABLET PO PRN (15:08)
[2017-07-14] MEDS: FAMOTIDINE 20 MG TAB PO SCH (18:53)
--- NOTE | 2017-07-14 20:15 | PN ---
PROGRESS NOTE DATE OF SERVICE: 07/14/17. PRESENTING COMPLAINT: Right ankle abscess. INTERVAL HISTORY: The patient is status post I and D of the right foot cellulitis with abscess. Postoperatively the patient became more hypotensive and prior to the procedure patient had started spiking fevers. Admitted to the ICU for hypotensive shock, given fluid boluses, put on Levophed. The patient is somewhat weak and tired. REVIEW OF SYSTEMS: Attempted for constitutional, cardiovascular, GI, pulmonary; relevant findings as above. CURRENT MEDICATIONS: Include IV fluids, IV daptomycin and Levophed. PHYSICAL EXAMINATION: T-max yesterday evening was 102.6, now afebrile. Pulse 84, respiration 20, blood pressure 105/88, pulse ox 98% on 2 L. GENERAL APPEARANCE: Lying in bed, tired appearing but arousable. EYES: Pupils equal. Conjunctivae normal. HEENT: External nose and ears normal. Oral cavity dry. NECK: JVD not raised. Mass not palpable. RESPIRATORY: Effort normal. Lungs, decreased breath sounds. CARDIOVASCULAR: First and second sounds, no edema. ABDOMEN: Soft, nontender. Liver and spleen not palpable. PSYCHIATRY: Does answer questions. EXTREMITIES: Right ankle in a dressing. INVESTIGATIONS: White count 26.8, hemoglobin 8.7, potassium 3.7, BUN 24, creatinine 1.40, lactic acid 4. ASSESSMENT: 1. Right foot purulent cellulitis having failed outpatient treatment, status post I and D. 2. Septic shock. Patient requiring IV Levophed and fluids, in the ICU. 3. Cerebral palsy. 4. Hypothyroid. 5. Hypoalbuminemia that is likely reactive. 6. Thrombocytosis likely from inflammation. 7. Normocytic anemia. 8. Acute renal failure, could be acute tubular necrosis from sepsis. 9. Lactic acidosis from above. PLAN: Patient is getting IV fluid boluses, Levophed and on daptomycin. The patient's wound cultures growing MSSA. Continue current medication and treatment plan. Patient's antibiotics can be switched over to IV Ancef. Dr. Brandt is following. Continue with IV fluids. Keep a close eye on the patient's renal function. Follow. MMODL / IJN: [id number] /
[2017-07-14] MEDS: DAPTOmycin 500 MG in SODIUM CHLORIDE 0.9% 50 ML IV SCH (21:05)
--- NOTE | 2017-07-14 22:25 | P.PN ---
Subjective Progress Note Date: 07/14/17 Principal diagnosis: Sepsis This is a 57-year-old male patient who is known to ID service as he was initially seen during a May admission at which time he was treated for cellulitis of the right ankle with improvement during his stay. A boot was ordered by orthopedics and patient was discharged on cephalexin and was to continue to wear the boot at home. Patient has history of cerebral palsy and lives at home with his sister. She states that on Sunday he developed a blister, raised area on the right ankle and within 24 hours it became reddened and swollen and he had swelling going up into his lower leg and his foot. He went to his orthopedic doctor, Dr. Borwn was seen yesterday and underwent aspiration and this was sent for cultures. Patient was then directly admitted to the hospital and started initially on vancomycin which has been changed to daptomycin. Patient has been afebrile with a White count of 13. CRP 87.4 and sed rate 68. Blood cultures status received and wound culture is in progress. CAT scan was compared to previous MRIs done very and May 25 and revealed increasing soft tissue density and thickening compatible with patient' s reported cellulitis. This is worsening from compared images. Increasing soft tissue density surrounding the proximal forefoot joint spaces especially the distal talus and feculent region findings are suspicious for increasing osteomyelitis at this level. A duplex was negative for DVT on the right leg. It is scheduled for I&D this morning at 11. If patient requires IV antibiotics , patient's sister wishes for him to go to [facility] for treatment. Of note, patient had pain of 10 out of 10 during the night and received morphine which dropped his blood pressure from 190/103 down to 76/50. His sister states that he has had sensitivity to morphine in the past when he had diaphragmatic hernia repair done at [facility]. He is status post IV fluid bolus of 500 mL. Blood pressure remains low but patient is stable without any symptoms. 07/14/2017 reveals the patient to have some improvement. Other than pain at his ankle area which is improved the patient continues to have relative hypotension and is still on vasopressor therapy. White blood cell count at 26.8. Lactic acid is improving. His temperature was 102.9 is now down to 97.6. Fortune the patient does feel better today. He'll relates that he feels like he needs to have a bowel movement. Objective - Vital Signs Vital signs: Vital Signs Temp 97.6 F 07/14/17 20:00 Pulse 72 07/14/17 21:00 Resp 20 07/14/17 21:00 BP 89/51 07/14/17 21:00 Pulse Ox 100 07/14/17 21:00 Intake & Output 07/14/17 07/14/17 07/15/17 06:59 18:59 06:59 Intake Total 2850 3256.25 450 Output Total 630 2175 405 Balance 2220 1081.25 45 Weight 94.9 kg 94.9 kg Intake: IV 1900 1650 450 Sodium Chloride 0.9% 1, 900 1650 450 000 ml @ 150 mls/hr IV . Q6H40M [facility] Rx#:[id number] Sodium Chloride 0.9% 1, 1000 000 ml @ 999 mls/hr IV . Q1H1M [facility] Rx#:[id number] Intake, IV Titration 950 1606.25 Amount Magnesium Sulfate-D5w Pmx 200 1 gm In Dextrose/Water 1 100ml.bag @ 100 mls/hr IVPB Q1H [facility] Rx#: [id number] Norepinephrin 4 mg-0.9% 500 406.25 Ns Pmx 4 mg In 250 ml @ Titrate IV .Q0M [facility] Rx#: [id number] Sodium Chloride 0.9% 1, 450 000 ml @ 150 mls/hr IV . Q6H40M [facility] Rx#:[id number] Sodium Chloride 0.9% 1, 1000 000 ml @ 999 mls/hr IV . Q1H1M [facility] Rx#:[id number] Output: Urine 630 2175 405 Other: Voiding Method Indwelling Catheter Indwelling Catheter Indwelling Catheter # Voids 3 - Exam Gen: This is a 57-year-old male patient. He is sitting up in bed and appears to be comfortable and in no acute distress. HEENT: Head is atraumatic, normocephalic. Pupils equal, round. Sclerae is anicteric. Conjunctiva pink. Oral mucous membranes are moist. Patient is edentulous. NECK: Supple. No JVD. No lymphadenopathy. No thyromegaly. LUNGS: Clear to auscultation. No wheezes or rhonchi. No intercostal retractions. HEART: Regular rate and rhythm. No murmur. ABDOMEN: Soft. Bowel sounds are present. No masses. No tenderness. EXTREMITIES: Patient has edema to the right lower extremity. The right ankle abscess has been drained and wound VAC is in place draining a scant amount of material. The patient was having severe pain and this is improved. There is no breakthrough drainage. There is no ascending cellulitis on the right lower leg. NEUROLOGICAL: Patient is awake, alert and oriented x3. He does have cerebral palsy but has excellent interactions. He is a [place] fan and is able to relate many of his favorite memories. - Labs CBC & Chem 7: 07/14/17 04:45 07/14/17 04:45 Labs: Abnormal Lab Results - Last 24 Hours (Table) 07/14/17 07/14/17 07/14/17 Range/Units 00:50 02:23 04:45 WBC 26.8 H* (3.8-10.6) k/uL RBC 3.52 L (4.30-5.90) m/uL Hgb 8.7 L (13.0-17.5) gm/dL Hct 30.5 L (39.0-53.0) % MCH 24.7 L (25.0-35.0) pg MCHC 28.5 L (31.0-37.0) g/dL Neutrophils # (Manual) 25.90 H (1.3-7.7) k/uL Lymphocytes # (Manual) 0.54 L (1.0-4.8) k/uL Carbon Dioxide (22-30) mmol/L BUN (9-20) mg/dL Creatinine (0.66-1.25) mg/dL POC Glucose (mg/dL) 131 H (75-99) mg/dL Plasma Lactic Acid Papi 4.7 H* (0.7-2.0) mmol/L Calcium (8.4-10.2) mg/dL Magnesium (1.6-2.3) mg/dL 07/14/17 07/14/17 07/14/17 Range/Units 04:45 04:45 12:19 WBC (3.8-10.6) k/uL RBC (4.30-5.90) m/uL Hgb (13.0-17.5) gm/dL Hct (39.0-53.0) % MCH (25.0-35.0) pg MCHC (31.0-37.0) g/dL Neutrophils # (Manual) (1.3-7.7) k/uL Lymphocytes # (Manual) (1.0-4.8) k/uL Carbon Dioxide 19 L (22-30) mmol/L BUN 24 H (9-20) mg/dL Creatinine 1.40 H (0.66-1.25) mg/dL POC Glucose (mg/dL) 61 L (75-99) mg/dL Plasma Lactic Acid Papi 4.0 H* (0.7-2.0) mmol/L Calcium 6.8 L (8.4-10.2) mg/dL Magnesium 1.4 L (1.6-2.3) mg/dL Microbiology - Last 24 Hours (Table) 07/12/17 17:33 Blood Culture - Preliminary Blood No Growth after 48 hours 07/12/17 12:00 Gram Stain - Final Ankle - Right Wound Culture - Final Staphylococcus aureus 07/13/17 15:25 Gram Stain - Preliminary Ankle - Right Tissue Culture - Preliminary 07/13/17 17:45 Urine Culture - Preliminary Urine,Catheterized 07/13/17 15:25 Anaerobic Culture - Preliminary Ankle - Right Laboratory Results WBC 26.8 k/uL (3.8-10.6) H* 07/14/17 04:45 RBC 3.52 m/uL (4.30-5.90) L 07/14/17 04:45 Hgb 8.7 gm/dL (13.0-17.5) L 07/14/17 04:45 Hct 30.5 % (39.0-53.0) L 07/14/17 04:45 MCV 86.8 fL (80.0-100.0) 07/14/17 04:45 MCH 24.7 pg (25.0-35.0) L 07/14/17 04:45 MCHC 28.5 g/dL (31.0-37.0) L 07/14/17 04:45 RDW 15.1 % (11.5-15.5) 07/14/17 04:45 Plt Count 301 k/uL (150-450) 07/14/17 04:45 Neutrophils % 84 % 07/12/17 17:33 Neutrophils % (Manual) 42 % 07/14/17 04:45 Band Neutrophils % 55 % 07/14/17 04:45 Lymphocytes % 7 % 07/12/17 17:33 Lymphocytes % (Manual) 2 % 07/14/17 04:45 Monocytes % 5 % 07/12/17 17:33 Monocytes % (Manual) 1 % 07/14/17 04:45 Eosinophils % 1 % 07/12/17 17:33 Basophils % 0 % 07/12/17 17:33 Neutrophils # 11.4 k/uL (1.3-7.7) H 07/12/17 17:33 Neutrophils # (Manual) 25.90 k/uL (1.3-7.7) H 07/14/17 04:45 Lymphocytes # 0.9 k/uL (1.0-4.8) L 07/12/17 17:33 Lymphocytes # (Manual) 0.54 k/uL (1.0-4.8) L 07/14/17 04:45 Monocytes # 0.7 k/uL (0-1.0) 07/12/17 17:33 Monocytes # (Manual) 0.27 k/uL (0-1.0) 07/14/17 04:45 Eosinophils # 0.2 k/uL (0-0.7) 07/12/17 17:33 Basophils # 0.0 k/uL (0-0.2) 07/12/17 17:33 Nucleated RBCs 0 /100 WBC (0-0) 07/14/17 04:45 Manual Slide Review Performed 07/14/17 04:45 Toxic Granulation Present 07/14/17 04:45 Toxic Vacuolation Present 07/14/17 04:45 Hypochromasia Marked 07/14/17 04:45 Ovalocytes Present 07/14/17 04:45 ESR 68 mm/hr (0-15) H 07/12/17 17:33 PT 13.8 sec (9.0-12.0) H 07/13/17 16:11 INR 1.5 (<1.2) H 07/13/17 16:11 APTT 25.1 sec (22.0-30.0) 07/13/17 16:11 Sodium 140 mmol/L (137-145) 07/14/17 04:45 Potassium 3.7 mmol/L (3.5-5.1) 07/14/17 04:45 Chloride 107 mmol/L (98-107) 07/14/17 04:45 Carbon Dioxide 19 mmol/L (22-30) L 07/14/17 04:45 Anion Gap 14 mmol/L 07/14/17 04:45 BUN 24 mg/dL (9-20) H 07/14/17 04:45 Creatinine 1.40 mg/dL (0.66-1.25) H 07/14/17 04:45 Est GFR (CKD-EPI)AfAm 65 (>60 ml/min/1.73 sqM) 07/14/17 04:45 Est GFR (CKD-EPI)NonAf 56 (>60 ml/min/1.73 sqM) 07/14/17 04:45 Glucose 87 mg/dL (74-99) 07/14/17 04:45 POC Glucose (mg/dL) 80 mg/dL (75-99) 07/14/17 12:37 POC Glu Wafer Polisher ID Amairani Vital 07/14/17 12:37 Lactic Ac Sepsis Rflx Y 07/14/17 01:17 Plasma Lactic Acid Papi 4.0 mmol/L (0.7-2.0) H* 07/14/17 04:45 Calcium 6.8 mg/dL (8.4-10.2) L 07/14/17 04:45 Phosphorus 4.1 mg/dL (2.5-4.5) 07/14/17 04:45 Magnesium 1.4 mg/dL (1.6-2.3) L 07/14/17 04:45 Total Bilirubin 0.7 mg/dL (0.2-1.3) 07/12/17 17:33 AST 16 U/L (17-59) L 07/12/17 17:33 ALT 18 U/L (21-72) L 07/12/17 17:33 Alkaline Phosphatase 110 U/L (38-126) 07/12/17 17:33 Total Creatine Kinase 289 U/L (55-170) H 07/13/17 16:11 CK-MB (CK-2) 1.0 ng/mL (0.0-2.4) 07/13/17 16:11 CK-MB (CK-2) Rel Index 0.3 07/13/17 16:11 Troponin I 0.097 ng/mL (0.000-0.034) H* 07/13/17 16:11 C-Reactive Protein 87.4 mg/L (<10.0) H 07/12/17 17:33 Total Protein 5.9 g/dL (6.3-8.2) L 07/12/17 17:33 Albumin 2.7 g/dL (3.5-5.0) L 07/12/17 17:33 Cortisol 25 ug/dL 07/13/17 16:11 Urine Color Yellow 07/13/17 17:45 Urine Appearance Turbid (Clear) 07/13/17 17:45 Urine pH 6.0 (5.0-8.0) 07/13/17 17:45 Ur Specific [place] 1.019 (1.001-1.035) 07/13/17 17:45 Urine Protein 1+ (Negative) H 07/13/17 17:45 Urine Glucose (UA) Negative (Negative) 07/13/17 17:45 Urine Ketones Negative (Negative) 07/13/17 17:45 Urine Blood Moderate (Negative) H 07/13/17 17:45 Urine Nitrite Negative (Negative) 07/13/17 17:45 Urine Bilirubin Negative (Negative) 07/13/17 17:45 Urine Urobilinogen 2.0 mg/dL (<2.0) 07/13/17 17:45 Ur Leukocyte Esterase Large (Negative) H 07/13/17 17:45 Urine RBC 38 /hpf (0-5) H 07/13/17 17:45 Urine WBC >182 /hpf (0-5) H 07/13/17 17:45 Urine WBC Clumps Many /hpf (None) H 07/13/17 17:45 Urine Bacteria Many /hpf (None) H 07/13/17 17:45 Microbiology 07/12/17 17:33 Blood Blood Culture - Preliminary No Growth after 48 hours 07/12/17 12:00 Ankle - Right Gram Stain - Final 07/12/17 12:00 Ankle - Right Wound Culture - Final Staphylococcus aureus 07/13/17 15:25 Ankle - Right Gram Stain - Preliminary 07/13/17 15:25 Ankle - Right Tissue Culture - Preliminary 07/13/17 17:45 Urine,Catheterized Urine Culture - Preliminary 07/13/17 15:25 Ankle - Right Anaerobic Culture - Preliminary 07/12/17 12:00 Ankle - Right Anaerobic Culture - Preliminary Assessment and Plan (1) Cellulitis of right ankle Current Visit: No Status: Acute Priority: Medium Code(s): L03.115 - CELLULITIS OF RIGHT LOWER LIMB SNOMED Code(s): 44020295 (2) Abscess of ankle Narrative/Plan: 57-year-old patient that has a complex history of the recent injury to his now developed a significant abscess at that site which required incision and drainage. Was having some difficulty with hypotension, appears to be having sepsis is not being cared for in the intensive care unit. He'll receive further fluid resuscitation for his sepsis and lactic acidosis. He will continue to have antibiotic therapy with daptomycin. Local wound care is negative pressure therapy system. He was monitored closely and plans will be made for his outpatient antibiotic therapy which likely will be intravenous as well as local wound care. Enhancement of his nutritional status will also help his wound healing. On 07/15/2015 the patient is improved. His pain is better. However still having hypotension requiring some vasopressor therapy and is receiving ongoing fluid resuscitation. He is feeling better his mentation is improved. Wound culture with staph aureus has many ALLERGIES doing well with daptomycin. Leukocytosis is expected after the incision and drainage and a response to his sepsis. He's had an increase of his creatinine to 1.2 and will be monitored. Lactic acid is elevated and is being monitored as he receives further fluid resuscitation. Once the patient is stable will need IV access placed for his outpatient intravenous antibiotic therapy likely with daptomycin. Current Visit: Yes Status: Acute Code(s): L02.419 - CUTANEOUS ABSCESS OF LIMB, UNSPECIFIED SNOMED Code(s): 55552122 (3) Severe sepsis with septic shock Current Visit: Yes Status: Acute Code(s): A41.9 - SEPSIS, UNSPECIFIED ORGANISM; R65.21 - SEVERE SEPSIS WITH SEPTIC SHOCK SNOMED Code(s): 41832260
[2017-07-15] MEDS: SODIUM CHLORIDE 0.9% 1,000 ML IV SCH ×3 (00:30→20:03)
[2017-07-15 00:39] LABS: Glucose,Whole Blood 96 mg/dL (75-99)
[2017-07-15] MEDS: NOREPINEPHRIN 4 MG-0.9% NS PMX 4 MG/250 ML ML IV SCH ×3 (03:25→22:47)
[2017-07-15 06:22] LABS: Calcium 6.6 mg/dL (8.4-10.2); Magnesium 1.8 mg/dL (1.6-2.3); Phosphorus 3.6 mg/dL (2.5-4.5); Potassium 3.9 mmol/L (3.5-5.1)
[2017-07-15] MEDS: LEVOTHYROXINE 112 MCG TAB PO SCH (06:42)
--- NOTE | 2017-07-15 06:45 | XR ---
EXAMINATION TYPE: XR chest 1V DATE OF EXAM: 07/15/2017 HISTORY: shortness of breath. REFERENCE: Previous study dated 07/14/2017. FINDINGS: The patient remains moderately rotated. The heart is enlarged. Increased opacity right hemithorax is likely due to rotation. There is mild va scular congestion. There are small, bilateral effusions. There is increased opacity behind the left h eart. IMPRESSION: 1. CONTINUING LEFT BASILAR AIRSPACE DISEASE. 2. SMALL, BILATERAL EFFUSIONS. 3. CARDIOMEGALY.
[2017-07-15 07:05] LABS: HCT 28.6 % (39.0-53.0); HGB 8.4 gm/dL (13.0-17.5); Hypochromasia Marked; MCH 24.9 pg (25.0-35.0); MCHC 29.5 g/dL (31.0-37.0); MCV 84.2 fL (80.0-100.0); Mean Platelet Volume 8.6; Platelet Count 219 k/uL (150-450); RBC 3.39 m/uL (4.30-5.90); RDW 15.3 % (11.5-15.5)
[2017-07-15 07:48] LABS: Band Neutrophils % 21 %; Crenated RBC Present; Lymphocytes # (M) 0.56 k/uL (1.0-4.8); Metamyelocytes # (M) 0.28 k/uL (0); Metamyelocytes % 1 %; Monocytes # (M) 0.56 k/uL (0-1.0); Neutrophils % (M) 75 %; Nucleated Red Blood Cells 0 /100 WBC (0-0); Total Cells Counted 200; Toxic Granulation Present; Toxic Vacuolation Present
[2017-07-15 07:49] LABS: Poikilocytosis (M) Present
[2017-07-15] MEDS: MAGNESIUM SULFATE-D5W PMX 1 GM in DEXTROSE/WATER 1 100ML.BAG IVPB SCH ×2 (08:09→09:31)
[2017-07-15] MEDS: ENOXAPARIN 40 MG/0.4 ML SYRINGE SQ SCH (08:10)
[2017-07-15] MEDS: HYDROmorphone 2 MG TAB PO PRN ×2 (08:10→20:05)
[2017-07-15] MEDS: NAPROXEN 250 MG TAB PO SCH ×3 (08:10→22:29)
--- NOTE | 2017-07-15 10:36 | P.PN ---
Progress Note - Text Progress Note Date: 07/15/17 Patient is a pleasant 57-year-old male who is seen in the ICU for follow-up evaluation for his right ankle. He is status post incision and drainage with irrigation and debridement of right ankle abscess and wound with application of wound VAC of the right ankle. Patient states he does have some pain and soreness at the right ankle. He is nonweightbearing on the right lower extremity. Patient continues to be treated for sepsis. His WBC has continued to increase and is at 28.0 today. His WBC was 28.6 on 07/14/2017 as compared to 13.5 on 07/12/2017. He is afebrile. Patient admits to not being able to get any sleep last night as he had significant difficulty with diarrhea. He continues to be seen and examined by Dr. Brandt in infectious disease. Patient was discussed in detail with Dr. Brandt this morning whom is planning to change his wound VAC today, 07/15/2017. Physical Exam: Postoperative day: #2 Patient is awake, alert, and oriented 3 Vital signs stable Good chest excursion with deep inspiration and expiration; patient currently on O2 nasal cannula Splint and Diego wrap dressing is intact over the right lower extremity Dressing remains clean and dry with no active drainage or saturation Wound VAC intact over the right ankle No pain with palpation over the right knee or the digits of the right foot Patient is able to wiggle toes of the right lower extremity Neurovascularly intact right lower extremity Lorenzo catheter intact Assessment: Status post incision and drainage with irrigation and debridement of right ankle abscess and wound with application of wound VAC of the right ankle Sepsis Leukocytosis Plan: 1. Patient will continue to keep dressing and wound VAC intact over the right lower extremity. He will remain nonweightbearing on the right lower extremity. Patient has been discussed in detail with Dr. Brown. He is in agreement that Dr. Brandt in infectious disease may take over a Hemovac care. Dr. Brandt weicolin plan to change the wound VAC today, 07/15/2017. 2. Patient will continue be followed by Dr. Brandt in infectious disease as well as medicine for further evaluation and treatment for sepsis and his other medical diagnoses 3. Given the patient's significant medical diagnoses, treatment for sepsis, and being placed in the ICU, we will transfer his admission status from Dr. Brown to Dr. Anderson. Dr. Anderson is in agreement with this transfer. 3. We will continue to follow patient closely 4. Following discharge, patient will plan to follow-up with Dr. Brown at [facility] in approximately 1 week for further evaluation.
--- NOTE | 2017-07-15 12:33 | P.PN ---
Subjective Progress Note Date: 07/15/17 Principal diagnosis: acute septic shock, sepsis, right ankle abscess and cellulitis. This is a 57-year-old white male with history of cerebral palsy, hypertension, admitted with cellulitis of the right ankle on 07/12/2017. Started out initially as a pustule on the right ankle, went on to develop worsening cellulitis. Patient has been in a CAM boot for this problem. And had recent [facility] of the right [facility]. Patient underwent incision and drainage of the right ankle abscess, irrigation and debridement of the right ankle wound, and application of a one VAC to the right ankle. Postoperatively, patient was admitted to the ICU mostly because of hypotension requiring significant amount of fluids, received a total of 3 L of fluids, had to be placed on norepinephrine for low blood pressure, and he was noted to have significant lactic acidosis. Considering his profound hypotension and septic shock presentation, I was asked to see him on consultation. Patient has been already on daptomycin as ordered by Dr. Brandt, he received significant amount of fluids over the last 12 hours, and in spite of of the fluid boluses, patient required norepinephrine. This morning, the patient remains on 20 g of norepinephrine, his lactic acid came down to 4.0, and I have recommended more fluids to be given. Last night in spite of all the fluids, the patient was oliguric, and I recommended one dose of Lasix. Since then the patient has been making significant amount of urine over the last 8 hours. His labs revealed significant leukocytosis with WBC of 26.8 hemoglobin is 8.7. Basic metabolic profile is normal except for low bicarb of 19 minimal anion gap metabolic acidosis, 14, BUN of 24 creatinine of 1.40. Lactic acid has been coming down from 6.5 initially and it is 4.0 today. The patient himself is a very poor historian, patient has history of cerebral palsy. However he is denying any specific complaints presently. Reevaluated today on 07/15/2017, patient is feeling much better, clinically he looks fine, he is asymptomatic, however the patient remains on 11 g of levo fed.continues to have leukocytosis with WBC count of 28.0, hemoglobin is 8.4, electrolytes were reviewed, has a non-anion gap metabolic acidosis. BUN is 26 creatinine is 1.30.chest x-ray is showing small bilateral pleural effusions and right basilar atelectasis could be related to mild vascular congestion. However the patient is having excellent urine output, over 100 mL per hour. And his main IV fluids remains at 1 50 mL per hour.renal functioning seems to be improving steadily. Objective - Vital Signs Vital signs: Vital Signs Temp 97.7 F 07/15/17 08:00 Pulse 63 07/15/17 11:00 Resp 10 L 07/15/17 11:00 BP 87/47 07/15/17 11:00 Pulse Ox 100 07/15/17 09:00 Intake & Output 07/14/17 07/15/17 07/15/17 18:59 06:59 18:59 Intake Total 3256.25 2272.625 800 Output Total 2175 1270 340 Balance 1081.25 1002.625 460 Weight 94.9 kg 96.7 kg 96.7 kg Intake: IV 1650 1950 600 Sodium Chloride 0.9% 1, 1650 1950 600 000 ml @ 150 mls/hr IV . Q6H40M [facility] Rx#:[id number] Intake, IV Titration 1606.25 322.625 200 Amount Magnesium Sulfate-D5w Pmx 200 1 gm In Dextrose/Water 1 100ml.bag @ 100 mls/hr IVPB Q1H [facility] Rx#: [id number] Magnesium Sulfate-D5w Pmx 200 1 gm In Dextrose/Water 1 100ml.bag @ 100 mls/hr IVPB Q1H [facility] Rx#: [id number] Norepinephrin 4 mg-0.9% 406.25 322.625 Ns Pmx 4 mg In 250 ml @ Titrate IV .Q0M [facility] Rx#: [id number] Sodium Chloride 0.9% 1, 1000 000 ml @ 999 mls/hr IV . Q1H1M [facility] Rx#:[id number] Output: Urine 2175 1270 340 Other: Voiding Method Indwelling Catheter Indwelling Catheter Indwelling Catheter # Voids 3 # Bowel Movements 1 - Exam Physical Exam: Revealed a 57-year-old white male in no distress. Unstable. Asymptomatic. Head: Atraumatic, normocephalic. Eyes: PERRLA, EOMI, no icterus. HEENT:[Neck is supple.] [No neck masses.] [No thyromegaly.] [No JVD.] Chest: [Clear throughout, no crackles, no rhonchi, no wheezes.] Cardiac Exam: [Normal S1 and S2, no S3 gallop, no murmur.] Abdomen: [Soft, nontender, no megaly, no rebound, no guarding, normal bowel sounds.] Extremities: Right lower extremity is wrapped,. With sterile dressing. Could not be examined.] Neurological Exam: Patient has underlying cerebral palsy, difficulty with speech , and slow mental development. Otherwise no gross focal neurologic deficit. Lymphatics: No adenopathy. - Labs CBC & Chem 7: 07/15/17 05:25 07/15/17 05:25 Labs: Abnormal Lab Results - Last 24 Hours (Table) 07/14/17 07/15/17 07/15/17 Range/Units 12:19 05:25 05:25 WBC 28.0 H* (3.8-10.6) k/uL RBC 3.39 L (4.30-5.90) m/uL Hgb 8.4 L (13.0-17.5) gm/dL Hct 28.6 L (39.0-53.0) % MCH 24.9 L (25.0-35.0) pg MCHC 29.5 L (31.0-37.0) g/dL Neutrophils # (Manual) 26.80 H (1.3-7.7) k/uL Lymphocytes # (Manual) 0.56 L (1.0-4.8) k/uL Metamyelocytes # (Man) 0.28 H (0) k/uL Chloride 111 H (98-107) mmol/L Carbon Dioxide 18 L (22-30) mmol/L BUN 26 H (9-20) mg/dL Creatinine 1.30 H (0.66-1.25) mg/dL POC Glucose (mg/dL) 61 L (75-99) mg/dL Calcium 6.6 L (8.4-10.2) mg/dL Microbiology - Last 24 Hours (Table) 07/13/17 15:25 Gram Stain - Preliminary Ankle - Right Tissue Culture - Preliminary 07/13/17 17:45 Urine Culture - Preliminary Urine,Catheterized Gram Neg Bacilli 07/12/17 12:00 Anaerobic Culture - Preliminary Ankle - Right 07/12/17 17:33 Blood Culture - Preliminary Blood No Growth after 48 hours 07/12/17 12:00 Gram Stain - Final Ankle - Right Wound Culture - Final Staphylococcus aureus Assessment and Plan Assessment: Impression: 1 acute sepsis and septic shock secondary to cellulitis and abscess of right foot/ankle. 2 status post incision and drainage of right ankle abscess, irrigation and debridement of right ankle wound, application of wound VAC, postoperative day #2 3 acute urinary tract infection, being addressed by infectious disease on the case. 4history of multiple comorbidities including cerebral palsy, hypertension, hypothyroidism, Recommendation: Continue present supportive care measures, antibiotics/ daptomycin, fluids, pressors, GI and DVT prophylaxis and close observation in the ICU. Patient isstill presently on norepinephrine, at 11 g,and this will be titrated accordingly. Keep mean arterial pressure over 65. We'll continue to follow in the intensive care unit. Time with Patient: Less than 30
--- NOTE | 2017-07-15 12:57 | PN ---
PROGRESS NOTE DATE OF SERVICE: 07/15/17. PRESENTING COMPLAINT: Right foot abscess. INTERVAL HISTORY: This patient is status post right foot cellulitis with abscess status post I and D, became septic, hence in the ICU. Getting IV fluids. The patient is in hypotensive shock, currently remains on Levophed 10 mcg and IV fluids. The patient is far more awake. Started to eat better. Blood pressure is running about 100 systolics. Patient has a wound VAC on the right foot. REVIEW OF SYSTEMS: Done for constitutional, cardiovascular, GI, pulmonary, dermatological; relevant findings as above. CURRENT MEDICATIONS: Reviewed that include IV daptomycin, IV fluids, Levophed. PHYSICAL EXAMINATION: Temperature 97.7, pulse 67, respiration 13, blood pressure 92/56, pulse ox 97% on 2 L. GENERAL APPEARANCE: Lying in bed, more awake. EYES: Pupils equal. Conjunctivae normal. HEENT: External nose and ears normal. Oral cavity normal. NECK: JVD not raised. Mass not palpable. RESPIRATORY: Lungs decreased breath sounds. CARDIOVASCULAR: 1st and 2nd sounds normal. No edema. ABDOMEN: Soft, nontender. Liver and spleen not palpable. PSYCHIATRY: Awake, answering questions appropriately. EXTREMITIES: Right ankle in a wound VAC dressing. INVESTIGATIONS: White count 28, hemoglobin 8.4, BUN 26, creatinine 1.30. ASSESSMENT: 1. Right foot purulent cellulitis with abscess having failed outpatient treatment, status post I and D with cultures growing MSSA. 2. Septic shock patient requiring IV Levophed and fluids, slow to respond, still requiring both. Blood pressure running around 100 systolic. 3. Cerebral palsy. 4. Hypothyroid. 5. Hypoalbuminemia likely acute phase reactant. 6. Thrombocytosis likely from inflammation. 7. Normocytic anemia. 8. Acute renal failure could be from acute tubular necrosis from sepsis. 9. Lactic acidosis from above. PLAN: At this point, continue with IV fluid running at 150 mL an hour. Continue with Levophed. Care was discussed with the patient. Antibiotics are being coordinated by Dr. Brandt. Follow renal function closely. MMODL / IJN: [id number] /
[2017-07-15] MEDS: FAMOTIDINE 20 MG TAB PO SCH (17:13)
[2017-07-15] MEDS: DAPTOmycin 500 MG in SODIUM CHLORIDE 0.9% 50 ML IV SCH (21:29)
--- NOTE | 2017-07-15 21:51 | P.PN ---
Subjective Progress Note Date: 07/15/17 Principal diagnosis: Sepsis This is a 57-year-old male patient who is known to ID service as he was initially seen during a May admission at which time he was treated for cellulitis of the right ankle with improvement during his stay. A boot was ordered by orthopedics and patient was discharged on cephalexin and was to continue to wear the boot at home. Patient has history of cerebral palsy and lives at home with his sister. She states that on Sunday he developed a blister, raised area on the right ankle and within 24 hours it became reddened and swollen and he had swelling going up into his lower leg and his foot. He went to his orthopedic doctor, Dr. Brown was seen yesterday and underwent aspiration and this was sent for cultures. Patient was then directly admitted to the hospital and started initially on vancomycin which has been changed to daptomycin. Patient has been afebrile with a White count of 13. CRP 87.4 and sed rate 68. Blood cultures status received and wound culture is in progress. CAT scan was compared to previous MRIs done very and May 25 and revealed increasing soft tissue density and thickening compatible with patient' s reported cellulitis. This is worsening from compared images. Increasing soft tissue density surrounding the proximal forefoot joint spaces especially the distal talus and feculent region findings are suspicious for increasing osteomyelitis at this level. A duplex was negative for DVT on the right leg. It is scheduled for I&D this morning at 11. If patient requires IV antibiotics , patient's sister wishes for him to go to [facility] for treatment. Of note, patient had pain of 10 out of 10 during the night and received morphine which dropped his blood pressure from 190/103 down to 76/50. His sister states that he has had sensitivity to morphine in the past when he had diaphragmatic hernia repair done at [facility]. He is status post IV fluid bolus of 500 mL. Blood pressure remains low but patient is stable without any symptoms. 07/14/2017 reveals the patient to have some improvement. Other than pain at his ankle area which is improved the patient continues to have relative hypotension and is still on vasopressor therapy. White blood cell count at 26.8. Lactic acid is improving. His temperature was 102.9 is now down to 97.6. Fortunately the patient does feel better today. He'll relates that he feels like he needs to have a bowel movement. 07/15/2017 patient does feel a bit better but still remains on some vasopressor therapy but at decreasing doses. He continues to have leukocytosis of 28, and fever has improved. Objective - Vital Signs Vital signs: Vital Signs Temp 97.5 F L 07/15/17 20:15 Pulse 60 07/15/17 21:30 Resp 16 07/15/17 21:30 BP 100/64 07/15/17 21:30 Pulse Ox 98 07/15/17 21:15 Intake & Output 07/15/17 07/15/17 07/16/17 06:59 18:59 06:59 Intake Total 2272.625 2100 584.75 Output Total 1270 660 240 Balance 2602.517 8455 344.75 Weight 96.7 kg 96.7 kg Intake: IV 1950 1650 500 DAPTOmycin 500 mg In 50 Sodium Chloride 0.9% 50 ml @ 100 mls/hr IV Q24H [facility] Rx#:[id number] Sodium Chloride 0.9% 1, 1950 1650 450 000 ml @ 150 mls/hr IV . Q6H40M [facility] Rx#:[id number] Intake, IV Titration 322.625 450 24.75 Amount Magnesium Sulfate-D5w Pmx 200 1 gm In Dextrose/Water 1 100ml.bag @ 100 mls/hr IVPB Q1H [facility] Rx#: [id number] Norepinephrin 4 mg-0.9% 322.625 250 24.75 Ns Pmx 4 mg In 250 ml @ Titrate IV .Q0M [facility] Rx#: [id number] Oral 60 Output: Urine 1270 660 240 Other: Voiding Method Indwelling Catheter Indwelling Catheter Indwelling Catheter # Bowel Movements 1 - Exam Gen: This is a 57-year-old male patient. He is sitting up in bed and appears to be comfortable and in no acute distress. HEENT: Head is atraumatic, normocephalic. Pupils equal, round. Sclerae is anicteric. Conjunctiva pink. Oral mucous membranes are moist. Patient is edentulous. NECK: Supple. No JVD. No lymphadenopathy. No thyromegaly. LUNGS: Clear to auscultation. No wheezes or rhonchi. No intercostal retractions. HEART: Regular rate and rhythm. No murmur. ABDOMEN: Soft. Bowel sounds are present. No masses. No tenderness. EXTREMITIES: Patient has edema to the right lower extremity. The right ankle abscess has been drained and wound VAC is in place, the VAC is removed. The ulceration is noted and please see the nursing photography for its exact location and size. Is cleansed with saline and a nonstick dressing is applied and then Pseudomonas and gauze roll gauze and a serum applied. He tolerated the dressing change well. There are exposed tendons, we'll hold on the wound VAC for now. We'll likely utilize an absorptive silver dressing soon. The patient was having severe pain and this is improved. There is no breakthrough drainage. There is no ascending cellulitis on the right lower leg. NEUROLOGICAL: Patient is awake, alert and oriented x3. He does have cerebral palsy but has excellent interactions. He is a [employer] fan and is able to relate many of his favorite memories. - Labs CBC & Chem 7: 07/15/17 05:25 07/15/17 05:25 Labs: Abnormal Lab Results - Last 24 Hours (Table) 07/15/17 07/15/17 Range/Units 05:25 05:25 WBC 28.0 H* (3.8-10.6) k/uL RBC 3.39 L (4.30-5.90) m/uL Hgb 8.4 L (13.0-17.5) gm/dL Hct 28.6 L (39.0-53.0) % MCH 24.9 L (25.0-35.0) pg MCHC 29.5 L (31.0-37.0) g/dL Neutrophils # (Manual) 26.80 H (1.3-7.7) k/uL Lymphocytes # (Manual) 0.56 L (1.0-4.8) k/uL Metamyelocytes # (Man) 0.28 H (0) k/uL Chloride 111 H (98-107) mmol/L Carbon Dioxide 18 L (22-30) mmol/L BUN 26 H (9-20) mg/dL Creatinine 1.30 H (0.66-1.25) mg/dL Calcium 6.6 L (8.4-10.2) mg/dL Microbiology - Last 24 Hours (Table) 07/12/17 17:33 Blood Culture - Preliminary Blood No Growth after 72 hours 07/13/17 15:25 Anaerobic Culture - Preliminary Ankle - Right 07/13/17 15:25 Gram Stain - Preliminary Ankle - Right Tissue Culture - Preliminary 07/13/17 17:45 Urine Culture - Preliminary Urine,Catheterized Gram Neg Bacilli 07/12/17 12:00 Anaerobic Culture - Preliminary Ankle - Right 07/12/17 12:00 Gram Stain - Final Ankle - Right Wound Culture - Final Staphylococcus aureus Laboratory Results WBC 28.0 k/uL (3.8-10.6) H* 07/15/17 05:25 RBC 3.39 m/uL (4.30-5.90) L 07/15/17 05:25 Hgb 8.4 gm/dL (13.0-17.5) L 07/15/17 05:25 Hct 28.6 % (39.0-53.0) L 07/15/17 05:25 MCV 84.2 fL (80.0-100.0) 07/15/17 05:25 MCH 24.9 pg (25.0-35.0) L 07/15/17 05:25 MCHC 29.5 g/dL (31.0-37.0) L 07/15/17 05:25 RDW 15.3 % (11.5-15.5) 07/15/17 05:25 Plt Count 219 k/uL (150-450) 07/15/17 05:25 Neutrophils % 84 % 07/12/17 17:33 Neutrophils % (Manual) 75 % 07/15/17 05:25 Band Neutrophils % 21 % 07/15/17 05:25 Lymphocytes % 7 % 07/12/17 17:33 Lymphocytes % (Manual) 2 % 07/15/17 05:25 Monocytes % 5 % 07/12/17 17:33 Monocytes % (Manual) 2 % 07/15/17 05:25 Eosinophils % 1 % 07/12/17 17:33 Basophils % 0 % 07/12/17 17:33 Metamyelocytes % 1 % 07/15/17 05:25 Neutrophils # 11.4 k/uL (1.3-7.7) H 07/12/17 17:33 Neutrophils # (Manual) 26.80 k/uL (1.3-7.7) H 07/15/17 05:25 Lymphocytes # 0.9 k/uL (1.0-4.8) L 07/12/17 17:33 Lymphocytes # (Manual) 0.56 k/uL (1.0-4.8) L 07/15/17 05:25 Monocytes # 0.7 k/uL (0-1.0) 07/12/17 17:33 Monocytes # (Manual) 0.56 k/uL (0-1.0) 07/15/17 05:25 Eosinophils # 0.2 k/uL (0-0.7) 07/12/17 17:33 Basophils # 0.0 k/uL (0-0.2) 07/12/17 17:33 Metamyelocytes # (Man) 0.28 k/uL (0) H 07/15/17 05:25 Nucleated RBCs 0 /100 WBC (0-0) 07/15/17 05:25 Manual Slide Review Performed 07/15/17 05:25 Toxic Granulation Present 07/15/17 05:25 Toxic Vacuolation Present 07/15/17 05:25 Hypochromasia Marked 07/15/17 05:25 Poikilocytosis (manual Present 07/15/17 05:25 Ovalocytes Present 07/14/17 04:45 Crenated Cell Present 07/15/17 05:25 ESR 68 mm/hr (0-15) H 07/12/17 17:33 PT 13.8 sec (9.0-12.0) H 07/13/17 16:11 INR 1.5 (<1.2) H 07/13/17 16:11 APTT 25.1 sec (22.0-30.0) 07/13/17 16:11 Sodium 142 mmol/L (137-145) 07/15/17 05:25 Potassium 3.9 mmol/L (3.5-5.1) 07/15/17 05:25 Chloride 111 mmol/L (98-107) H 07/15/17 05:25 Carbon Dioxide 18 mmol/L (22-30) L 07/15/17 05:25 Anion Gap 13 mmol/L 07/15/17 05:25 BUN 26 mg/dL (9-20) H 07/15/17 05:25 Creatinine 1.30 mg/dL (0.66-1.25) H 07/15/17 05:25 Est GFR (CKD-EPI)AfAm 71 (>60 ml/min/1.73 sqM) 07/15/17 05:25 Est GFR (CKD-EPI)NonAf 62 (>60 ml/min/1.73 sqM) 07/15/17 05:25 Glucose 82 mg/dL (74-99) 07/15/17 05:25 POC Glucose (mg/dL) 96 mg/dL (75-99) 07/15/17 00:37 POC Glu [employer] Special[employer] ID Mal[facility]by 07/15/17 00:37 Lactic Ac Sepsis Rflx Y 07/14/17 01:17 Plasma Lactic Acid Papi 4.0 mmol/L (0.7-2.0) H* 07/14/17 04:45 Calcium 6.6 mg/dL (8.4-10.2) L 07/15/17 05:25 Phosphorus 3.6 mg/dL (2.5-4.5) 07/15/17 05:25 Magnesium 1.8 mg/dL (1.6-2.3) 07/15/17 05:25 Total Bilirubin 0.7 mg/dL (0.2-1.3) 07/12/17 17:33 AST 16 U/L (17-59) L 07/12/17 17:33 ALT 18 U/L (21-72) L 07/12/17 17:33 Alkaline Phosphatase 110 U/L (38-126) 07/12/17 17:33 Total Creatine Kinase 289 U/L (55-170) H 07/13/17 16:11 CK-MB (CK-2) 1.0 ng/mL (0.0-2.4) 07/13/17 16:11 CK-MB (CK-2) Rel Index 0.3 07/13/17 16:11 Troponin I 0.097 ng/mL (0.000-0.034) H* 07/13/17 16:11 C-Reactive Protein 87.4 mg/L (<10.0) H 07/12/17 17:33 Total Protein 5.9 g/dL (6.3-8.2) L 07/12/17 17:33 Albumin 2.7 g/dL (3.5-5.0) L 07/12/17 17:33 Cortisol 25 ug/dL 07/13/17 16:11 Urine Color Yellow 07/13/17 17:45 Urine Appearance Turbid (Clear) 07/13/17 17:45 Urine pH 6.0 (5.0-8.0) 07/13/17 17:45 Ur Specific Samson 1.019 (1.001-1.035) 07/13/17 17:45 Urine Protein 1+ (Negative) H 07/13/17 17:45 Urine Glucose (UA) Negative (Negative) 07/13/17 17:45 Urine Ketones Negative (Negative) 07/13/17 17:45 Urine Blood Moderate (Negative) H 07/13/17 17:45 Urine Nitrite Negative (Negative) 07/13/17 17:45 Urine Bilirubin Negative (Negative) 07/13/17 17:45 Urine Urobilinogen 2.0 mg/dL (<2.0) 07/13/17 17:45 Ur Leukocyte Esterase Large (Negative) H 07/13/17 17:45 Urine RBC 38 /hpf (0-5) H 07/13/17 17:45 Urine WBC >182 /hpf (0-5) H 07/13/17 17:45 Urine WBC Clumps Many /hpf (None) H 07/13/17 17:45 Urine Bacteria Many /hpf (None) H 07/13/17 17:45 Microbiology 07/12/17 17:33 Blood Blood Culture - Preliminary No Growth after 72 hours 07/13/17 15:25 Ankle - Right Anaerobic Culture - Preliminary 07/13/17 15:25 Ankle - Right Gram Stain - Preliminary 07/13/17 15:25 Ankle - Right Tissue Culture - Preliminary 07/13/17 17:45 Urine,Catheterized Urine Culture - Preliminary Gram Neg Bacilli 07/12/17 12:00 Ankle - Right Anaerobic Culture - Preliminary 07/12/17 12:00 Ankle - Right Gram Stain - Final 07/12/17 12:00 Ankle - Right Wound Culture - Final Staphylococcus aureus Assessment and Plan (1) Cellulitis of right ankle Current Visit: No Status: Acute Priority: Medium Code(s): L03.115 - CELLULITIS OF RIGHT LOWER LIMB SNOMED Code(s): 37981962 (2) Abscess of ankle Narrative/Plan: 57-year-old patient that has a complex history of the recent injury to his now developed a significant abscess at that site which required incision and drainage. Was having some difficulty with hypotension, appears to be having sepsis is not being cared for in the intensive care unit. He'll receive further fluid resuscitation for his sepsis and lactic acidosis. He will continue to have antibiotic therapy with daptomycin. Local wound care is negative pressure therapy system. He was monitored closely and plans will be made for his outpatient antibiotic therapy which likely will be intravenous as well as local wound care. Enhancement of his nutritional status will also help his wound healing. On 07/14/2017 the patient is improved. His pain is better. However still having hypotension requiring some vasopressor therapy and is receiving ongoing fluid resuscitation. He is feeling better his mentation is improved. Wound culture with staph aureus has many ALLERGIES doing well with daptomycin. Leukocytosis is expected after the incision and drainage and a response to his sepsis. He's had an increase of his creatinine to 1.2 and will be monitored. Lactic acid is elevated and is being monitored as he receives further fluid resuscitation. Once the patient is stable will need IV access placed for his outpatient intravenous antibiotic therapy likely with daptomycin. 07/15/2017 patient is feeling better today. Still having some pain at the surgical site. Denying fevers or chills. The abscess site is looking well. There is however exposed tendons. A nonstick dressing is applied over the tendons in the moistened gauze. Overall goal is to make sure that this tends to dry so that they do not desiccate. The patient's urinalysis and culture and become available and some gram-negative bacilli are seen in the urine with his ongoing leukocytosis there is concern this could be another source of infection and Rocephin is added, understanding that he's had some difficulties with nausea with cephalosporins unclear if this is due to the additives that are given in the capsules and tablets. He has noted he has many ALLERGIES. He will monitored for any difficulties with the addition of Rocephin however given his significant ongoing leukocytosis gram-negative therapy needs to be added at this time. Current Visit: Yes Status: Acute Code(s): L02.419 - CUTANEOUS ABSCESS OF LIMB, UNSPECIFIED SNOMED Code(s): 70886483 (3) Severe sepsis with septic shock Current Visit: Yes Status: Acute Code(s): A41.9 - SEPSIS, UNSPECIFIED ORGANISM; R65.21 - SEVERE SEPSIS WITH SEPTIC SHOCK SNOMED Code(s): 21664091
[2017-07-15] MEDS ORDERED: cefTRIAXone 2,000 MG in SODIUM CHLORIDE 0.9% 100 ML IVPB SCH (22:00)
[2017-07-15] MEDS: cefTRIAXone IN SWFI 2,000 MG/20 ML SYRINGE IVP SCH (22:29)
[2017-07-16] MEDS: SODIUM CHLORIDE 0.9% 1,000 ML IV SCH ×4 (00:59→22:21)
[2017-07-16] MEDS: NOREPINEPHRIN 4 MG-0.9% NS PMX 4 MG/250 ML ML IV SCH ×4 (02:19→20:12)
[2017-07-16] MEDS: HYDROmorphone 2 MG TAB PO PRN (06:04)
[2017-07-16] MEDS: LEVOTHYROXINE 112 MCG TAB PO SCH (06:05)
[2017-07-16 06:07] LABS: Basophils % (A) 0 %; Eosinophils # (A) 0.2 k/uL (0-0.7); Eosinophils % (A) 1 %; HCT 27.9 % (39.0-53.0); HGB 8.1 gm/dL (13.0-17.5); Hypochromasia Marked; Lymphocytes # (A) 0.7 k/uL (1.0-4.8); Lymphocytes % (A) 4 %; MCH 24.8 pg (25.0-35.0); MCV 85.5 fL (80.0-100.0); Mean Platelet Volume 8.2; Monocytes # (A) 0.3 k/uL (0-1.0); Monocytes % (A) 2 %; Neutrophils # (A) 14.2 k/uL (1.3-7.7); Neutrophils % (A) 91 %; Platelet Count 272 k/uL (150-450); RBC 3.27 m/uL (4.30-5.90); RDW 15.3 % (11.5-15.5); WBC 15.6 k/uL (3.8-10.6)
[2017-07-16 06:25] LABS: Calcium 6.8 mg/dL (8.4-10.2); Magnesium 2.2 mg/dL (1.6-2.3); Phosphorus 2.9 mg/dL (2.5-4.5); Potassium 3.7 mmol/L (3.5-5.1)
[2017-07-16] MEDS ORDERED: POTASSIUM CHLORIDE ER 20 MEQ TAB.ER PO SCH (07:00)
--- NOTE | 2017-07-16 08:05 | XR ---
EXAMINATION TYPE: XR chest 1V DATE OF EXAM: 07/16/2017 COMPARISON: Prior chest 07/15/2017 HISTORY: Shortness of breath TECHNIQUE: Single frontal view of the chest is obtained. FINDINGS: The heart remains enlarged. Interval obscured right hemidiaphragm noted. Lung volumes are low, patient is rotated. No pneumothorax. There are overlying cardiac leads. Interstitium and central vascularity are prominent. IMPRESSION: Correlate for congestive heart failure. Possible pleural effusion. Expiratory rotated ex am. Follow-up recommended.
[2017-07-16] MEDS: NAPROXEN 250 MG TAB PO SCH ×3 (08:38→22:22)
[2017-07-16] MEDS: ENOXAPARIN 40 MG/0.4 ML SYRINGE SQ SCH (08:38)
--- NOTE | 2017-07-16 09:52 | P.PN ---
Subjective Progress Note Date: 07/16/17 Principal diagnosis: Acute septic shock, sepsis, right ankle abscess and cellulitis This is a 57-year-old white male with history of cerebral palsy, hypertension, admitted with cellulitis of the right ankle on 07/12/2017. Started out initially as a pustule on the right ankle, went on to develop worsening cellulitis. Patient has been in a CAM boot for this problem. And had recent aspiration of the right ankle [facility] recently. Patient underwent incision and drainage of the right ankle abscess, irrigation and debridement of the right ankle wound, and application of a one VAC to the right ankle. Postoperatively, patient was admitted to the ICU mostly because of hypotension requiring significant amount of fluids, received a total of 3 L of fluids, had to be placed on norepinephrine for low blood pressure, and he was noted to have significant lactic acidosis. Considering his profound hypotension and septic shock presentation, I was asked to see him on consultation. Patient has been already on daptomycin as ordered by Dr. Brandt, he received significant amount of fluids over the last 12 hours, and in spite of of the fluid boluses, patient required norepinephrine. This morning, the patient remains on 20 g of norepinephrine, his lactic acid came down to 4.0, and I have recommended more fluids to be given. Last night in spite of all the fluids, the patient was oliguric, and I recommended one dose of Lasix. Since then the patient has been making significant amount of urine over the last 8 hours. His labs revealed significant leukocytosis with WBC of 26.8 hemoglobin is 8.7. Basic metabolic profile is normal except for low bicarb of 19 minimal anion gap metabolic acidosis, 14, BUN of 24 creatinine of 1.40. Lactic acid has been coming down from 6.5 initially and it is 4.0 today. The patient himself is a very poor historian, patient has history of cerebral palsy. However he is denying any specific complaints presently. Reevaluated today on 07/15/2017, patient is feeling much better, clinically he looks fine, he is asymptomatic, however the patient remains on 11 g of levo fed.continues to have leukocytosis with WBC count of 28.0, hemoglobin is 8.4, electrolytes were reviewed, has a non-anion gap metabolic acidosis. BUN is 26 creatinine is 1.30.chest x-ray is showing small bilateral pleural effusions and right basilar atelectasis could be related to mild vascular congestion. However the patient is having excellent urine output, over 100 mL per hour. And his main IV fluids remains at 1 50 mL per hour.renal functioning seems to be improving steadily. On 07/16/2017 patient seen in follow-up in the intensive care unit. He is resting in bed, appears pale and fatigued, but in no acute distress. He has been afebrile for the past 48 hours, however still requires vasopressor support in the form of norepinephrine currently at the rate of 17 mics per minute. Maintenance IV is 0.9 normal saline at 150 ML per hour. Patient is currently room air with O2 sat at 95%. Sinus bradycardia on the monitor at a rate of 55 BPM. Lung sounds are positive for coarse bibasilar crackles, chest x-ray today shows bilateral pleural effusions, and changes consistent with congestive heart failure and fluid overload. Patient has been extensively fluid resuscitated, and has received liters of fluid since admission. He appears to be generally swollen, with nonpitting swelling in his upper and lower extremities as well as the trunk. Today's lab work has been reviewed, WBC is on the downward trend, and is down to 15.6 from 28 on yesterday's labs. Hemoglobin is stable at 8.1, CO2 is 18, B1 is 21, and creatinine is 1.08. Patient has an indwelling catheter and he is making adequate urine, anywhere from 4200 ML per hour. Right ankle wound culture was positive for staph aureus , and urine culture was positive for E. coli with sensitivity to Rocephin which the patient is currently on. The staph aureus in the wound culture had valverde susceptibility, and the patient is currently on daptomycin in addition to Rocephin. Objective - Vital Signs Vital signs: Vital Signs Temp 97.7 F 07/16/17 09:00 Pulse 55 L 07/16/17 09:00 Resp 16 07/16/17 09:00 BP 102/62 07/16/17 09:00 Pulse Ox 95 07/16/17 09:00 Intake & Output 07/15/17 07/16/17 07/16/17 18:59 06:59 18:59 Intake Total 2100 2747.563 525 Output Total 660 690 190 Balance 1440 2057.563 335 Weight 96.7 kg 99.9 kg Intake: IV 1650 1850 450 DAPTOmycin 500 mg In 50 Sodium Chloride 0.9% 50 ml @ 100 mls/hr IV Q24H [facility] Rx#:[id number] Sodium Chloride 0.9% 1, 1650 1800 450 000 ml @ 150 mls/hr IV . Q6H40M [facility] Rx#:[id number] Intake, IV Titration 450 777.563 75 Amount Magnesium Sulfate-D5w Pmx 200 1 gm In Dextrose/Water 1 100ml.bag @ 100 mls/hr IVPB Q1H [facility] Rx#: [id number] Norepinephrin 4 mg-0.9% 250 777.563 75 Ns Pmx 4 mg In 250 ml @ Titrate IV .Q0M [facility] Rx#: [id number] Oral 120 Output: Urine 660 690 190 Other: Voiding Method Indwelling Catheter Indwelling Catheter Indwelling Catheter - Exam Physical Exam: Revealed a 57-year-old white male, slightly pale and fatigued, but in no distress. Head: Atraumatic, normocephalic. Eyes: PERRLA, EOMI, no icterus. HEENT:[Neck is supple.] [No neck masses.] [No thyromegaly.] [No JVD.] Chest: [Bibasilar crackles crackles, but no rhonchi, no wheezes.] Cardiac Exam: [Normal S1 and S2, no S3 gallop, no murmur.] Abdomen: [Soft, nontender, no megaly, no rebound, no guarding, normal bowel sounds.] Extremities: Right lower extremity is wrapped,. With sterile dressing. Could not be examined.] Neurological Exam: Patient has underlying cerebral palsy, difficulty with speech , and slow mental development. Otherwise no gross focal neurologic deficit. Lymphatics: No adenopathy. - Labs CBC & Chem 7: 07/16/17 05:32 07/16/17 05:32 Labs: Abnormal Lab Results - Last 24 Hours (Table) 07/16/17 07/16/17 Range/Units 05:32 05:32 WBC 15.6 H (3.8-10.6) k/uL RBC 3.27 L (4.30-5.90) m/uL Hgb 8.1 L (13.0-17.5) gm/dL Hct 27.9 L (39.0-53.0) % MCH 24.8 L (25.0-35.0) pg MCHC 29.0 L (31.0-37.0) g/dL Neutrophils # 14.2 H (1.3-7.7) k/uL Lymphocytes # 0.7 L (1.0-4.8) k/uL Chloride 112 H (98-107) mmol/L Carbon Dioxide 18 L (22-30) mmol/L BUN 21 H (9-20) mg/dL Calcium 6.8 L (8.4-10.2) mg/dL Microbiology - Last 24 Hours (Table) 07/13/17 17:45 Urine Culture - Final Urine,Catheterized Escherichia coli 07/12/17 17:33 Blood Culture - Preliminary Blood No Growth after 72 hours 07/13/17 15:25 Anaerobic Culture - Preliminary Ankle - Right 07/13/17 15:25 Gram Stain - Preliminary Ankle - Right Tissue Culture - Preliminary Assessment and Plan Plan: Assessment: 1 acute sepsis and septic shock secondary to cellulitis and abscess of right foot/ankle. 2 status post incision and drainage of right ankle abscess, irrigation and debridement of right ankle wound, application of wound VAC, postoperative day #2 3 acute urinary tract infection, being addressed by infectious disease on the case. 4history of multiple comorbidities including cerebral palsy, hypertension, hypothyroidism Plan: We'll obtain ultrasound of bilateral chest to assess the size of the pleural effusions. Continue weaning norepinephrine to keep map of 65 mmHg. Monitor fever pattern, vital signs urine output. Continue antibiotic coverage per ID service recommendations. Will obtain a random serum cortisol level to rule out adrenal insufficiency. I performed a history & physical examination of the patient and discussed their management with my nurse practitioner, Shannan Arenas. I reviewed the nurse practitioner's note and agree with the documented findings and plan of care. Lung sounds are positive for bibasilar crackles. The findings and the impression was discussed with the patient. I attest to the documentation by the nurse practitioner. Critical care time is over 30 minutes Time with Patient: Greater than 30
[2017-07-16 10:25] LABS: Albumin 1.7 g/dL (3.5-5.0); Total Bilirubin 2.5 mg/dL (0.2-1.3); Total Protein 4.4 g/dL (6.3-8.2)
--- NOTE | 2017-07-16 13:15 | US ---
EXAMINATION TYPE: US chest DATE OF EXAM: 07/16/2017 COMPARISON: CXR same date CLINICAL HISTORY: bilateral pleural effusions. Pleural effusions EXAM MEASUREMENTS: Right Pleural Effusion fluid pocket: 1.9cm Left Pleural Effusion fluid pocket: 1.7 cm Right side not marked Left side not marked Pulmonologists are able to review the images in the patient?s EMR. IMPRESSIONS: Small bilateral pleural effusions
--- NOTE | 2017-07-16 14:11 | CDI ---
Last Revision, March 2017 Documentation Clarification Form Date: 07/16/17 From: Reena Grigsby RN, CCDS Admit Date: 07/12/2017 5:05:00 PM Patient Name: Gideon Reyes Visit Number: [id number] Discharge Date: ATTENTION: The Clinical Documentation Specialists (CDI) and [facility] Coding Staff appreciate your assistance in clarifying documentation. Please respond to the clarification below the line at the bottom and electronically sign. The CDI & [facility] Coding staff will review the response and follow-up if needed. Please note: Queries are made part of the Legal Health Record. If you have any questions, please contact the author of this message via ITS. Dr. Gary Brown Per your progress notes/operative note, a debridement was performed on right ankle wound (sharp debridement of nonviable skin and subcutaneous tissue down to the level of the ankle joint) History/Risk Factors: Right ankle cellulitis, Cerebral Palsy, Hypertension, Clinical Indicators: Present with injury to his right ankle which resulted in increasing pain and redness to the ankle. His MRI did not show any abscess, and was significant for possible osteomyelitis or Charcot. Treatment: Irrigation and debridement of right ankle wound Five elements required for accurate and compliant documentation of a debridement : 1. Technique used (e.g., excisional, excised, cutting, etc.) 2. Instrument(s) used (e.g., scalpel, curette, etc.) 3. Nature of the tissue removed (e.g., necrotic, devitalized tissues, non- viable tissue, etc.) 4. Appearance and size of the wound (e.g., down to fresh bleeding tissue, 7cm x 10cm, etc.) 5. Depth of the debridement* (e.g., skin, subcutaneous tissue, fascia, muscle , bone, etc.) In order to capture the severity of condition and code the appropriate procedure ; Sharp debridement, could you please further clarify and document the following : Excisional debridement (the removal of necrotic, devitalized tissue or slough by means of cutting away of tissue) Non-excisional debridement (the removal of necrotic, devitalized tissue or slough by means of flushing, brushing, or washing. (Irrigation) Other; please specify Unable to determine (no explanation for clinical findings) Please continue to document in your progress notes in order to capture severity of illness and risk of mortality. Include clinical findings that support your diagnosis. MTDD
--- NOTE | 2017-07-16 15:02 | CDI ---
Last Revision, March 2017 Documentation Clarification Form Date: 07/16/17 From: Reena Grigsby RN, CCDS Admit Date: 07/12/2017 5:05:00 PM Patient Name: Gideon Reyes Visit Number: [id number] Discharge Date: ATTENTION: The Clinical Documentation Specialists (CDI) and [facility] Coding Staff appreciate your assistance in clarifying documentation. Please respond to the clarification below the line at the bottom and electronically sign. The CDI & [facility] Coding staff will review the response and follow-up if needed. Please note: Queries are made part of the Legal Health Record. If you have any questions, please contact the author of this message via ITS. Dr. Tyrell Mallory History/Risk Factors: Cerebral Palsy, Hypertension, Thyroid CA, [facility] resident, Clinical Indicators: Present as a direct admit with complaints of pain, redness and swelling of the right ankle. The patient has been in a CAM boot for this problem. 07/14/17 Dr. Anderson: Postoperatively the patient became more hypotensive and prior to the procedure patient had started spiking fevers. WBC/Left Shift on admission: 13.5, Lactic acid: 6.5, C-reactive protein 87.4, UA: Leukocyte Esterase Large, WBC > 182, Urine bacteria Many, Urine Culture: Escherichia Coli; Right ankle gram stain-Final: Staphylococcus aureus Blood cultures: Pending Vitals signs on admission: 144/97 85 16 98.6 95% RA, 07/13/17 @ 02:20 76/50 59 14 78 % RA (I/D procedure at 15:34 07/13/17) Other Clinical Indicators: Pulmonary: acute sepsis and septic shock secondary to cellulitis and abscess of right foot. 07/14/17 Orthopedics: Patient continues to be treated for sepsis. Labs indicating WBC has increased to 28.6 Treatment: ID Consult: Developed significant abscess which required I/D. Was having some difficulty with hypotension, appears to be having sepsis and lactic acidosis. Severe sepsis with septic shock Antibiotics: Daptomycin IV, Rocephin IV IV Bolus: Levophed Drip In your professional opinion, please clarify if these findings signify one of the following conditions, whether the condition is POA, and cause, if known: Sepsis present on admission Sepsis not present on admission Other, please specify Unable to determine Identify the (suspected) organism Link or clarify if there is associated (due to/with): Organ failure Shock Please continue to document in your progress notes and discharge summary in order to capture severity of illness and risk of mortality. Include clinical findings that support your diagnosis. MTDD
[2017-07-16] MEDS ORDERED: SODIUM CHLORIDE 0.65% NASAL SPRAY 44 ML BTL NASAL PRN (16:02)
--- NOTE | 2017-07-16 16:18 | P.PN ---
Subjective Progress Note Date: 07/13/17 Principal diagnosis: Status post I&D right ankle infection/cellulitis Charcot Patient is pleasant 57-year-old male seen at bedside at this afternoon. He is status post I&D of right ankle infection performed on 07/13/2017. Cultures have shown Staphylococcus aureus which is methicillin susceptible. Urine culture is also been positive for E. coli. These are being addressed with appropriate antibiotics per infectious disease. He continues to be managed in the ICU and has required continued pressors. He currently denies any new complaints today. He appears to be stable. He is resting comfortably in bed. Objective - Vital Signs Vital signs: Vital Signs Temp 97.7 F 07/16/17 12:00 Pulse 62 07/16/17 13:00 Resp 22 07/16/17 13:00 BP 95/56 07/16/17 13:00 Pulse Ox 98 07/16/17 13:00 Intake & Output 07/15/17 07/16/17 07/16/17 18:59 06:59 18:59 Intake Total 2100 2747.563 1272.437 Output Total 660 690 390 Balance 1440 2057.563 882.437 Weight 96.7 kg 99.9 kg 99.9 kg Intake: IV 1650 1850 1050 DAPTOmycin 500 mg In 50 Sodium Chloride 0.9% 50 ml @ 100 mls/hr IV Q24H [facility] Rx#:[id number] Sodium Chloride 0.9% 1, 1650 1800 1050 000 ml @ 150 mls/hr IV . Q6H40M [facility] Rx#:[id number] Intake, IV Titration 450 777.563 222.437 Amount Magnesium Sulfate-D5w Pmx 200 1 gm In Dextrose/Water 1 100ml.bag @ 100 mls/hr IVPB Q1H [facility] Rx#: [id number] Norepinephrin 4 mg-0.9% 250 777.563 222.437 Ns Pmx 4 mg In 250 ml @ Titrate IV .Q0M [facility] Rx#: [id number] Oral 120 Output: Urine 660 690 390 Other: Voiding Method Indwelling Catheter Indwelling Catheter Indwelling Catheter - Exam Inspection of the right lower extremity shows new bandage in place per Dr. Brandt. The wound VAC has been removed. He has sensation to touch in all toes. He is able to wiggle the toes and foot. The calf is soft and nontender. There is perfusion to the right lower extremity. There is no evidence of active bleeding or drainage. - Constitutional General appearance: Present: no acute distress - Psychiatric Psychiatric: Present: A&O x's 3, appropriate affect, intact judgment & insight - Labs CBC & Chem 7: 07/16/17 05:32 07/16/17 05:32 Labs: Abnormal Lab Results - Last 24 Hours (Table) 07/16/17 07/16/17 Range/Units 05:32 05:32 WBC 15.6 H (3.8-10.6) k/uL RBC 3.27 L (4.30-5.90) m/uL Hgb 8.1 L (13.0-17.5) gm/dL Hct 27.9 L (39.0-53.0) % MCH 24.8 L (25.0-35.0) pg MCHC 29.0 L (31.0-37.0) g/dL Neutrophils # 14.2 H (1.3-7.7) k/uL Lymphocytes # 0.7 L (1.0-4.8) k/uL Chloride 112 H (98-107) mmol/L Carbon Dioxide 18 L (22-30) mmol/L BUN 21 H (9-20) mg/dL Calcium 6.8 L (8.4-10.2) mg/dL Total Bilirubin 2.5 H (0.2-1.3) mg/dL Alkaline Phosphatase 827 H (38-126) U/L Total Protein 4.4 L (6.3-8.2) g/dL Albumin 1.7 L (3.5-5.0) g/dL Microbiology - Last 24 Hours (Table) 07/13/17 15:25 Gram Stain - Preliminary Ankle - Right Tissue Culture - Preliminary 07/13/17 17:45 Urine Culture - Final Urine,Catheterized Escherichia coli 07/12/17 17:33 Blood Culture - Preliminary Blood No Growth after 72 hours 07/13/17 15:25 Anaerobic Culture - Preliminary Ankle - Right Assessment and Plan (1) Cellulitis of right ankle Narrative/Plan: He appears to be a stable and improving where his white blood cell count is trending down and he is afebrile. He'll continue with routine postop orthopedic protocol with pain management, DVT prophylaxis, elevation and nonweightbearing to right lower extremity, medical management per jump roll operator, wound care and antibiotics per infectious disease. We will continue to follow closely and make further recommendations as appropriate. Current Visit: No Status: Acute Priority: Medium Code(s): L03.115 - CELLULITIS OF RIGHT LOWER LIMB SNOMED Code(s): 39497673 Time with Patient: Less than 30
[2017-07-16] MEDS: FAMOTIDINE 20 MG TAB PO SCH (16:25)
[2017-07-16] MEDS ORDERED: diphenhydrAMINE 50 MG/ML 1 ML VIAL IVP PRN (19:28)
[2017-07-16] MEDS: DAPTOmycin 500 MG in SODIUM CHLORIDE 0.9% 50 ML IV SCH (22:22)
--- NOTE | 2017-07-16 22:23 | P.PN ---
Subjective Progress Note Date: 07/16/17 Principal diagnosis: Sepsis This is a 57-year-old male patient who is known to ID service as he was initially seen during a May admission at which time he was treated for cellulitis of the right ankle with improvement during his stay. A boot was ordered by orthopedics and patient was discharged on cephalexin and was to continue to wear the boot at home. Patient has history of cerebral palsy and lives at home with his sister. She states that on Sunday he developed a blister, raised area on the right ankle and within 24 hours it became reddened and swollen and he had swelling going up into his lower leg and his foot. He went to his orthopedic doctor, Dr. Brown was seen yesterday and underwent aspiration and this was sent for cultures. Patient was then directly admitted to the hospital and started initially on vancomycin which has been changed to daptomycin. Patient has been afebrile with a White count of 13. CRP 87.4 and sed rate 68. Blood cultures status received and wound culture is in progress. CAT scan was compared to previous MRIs done very and May 25 and revealed increasing soft tissue density and thickening compatible with patient' s reported cellulitis. This is worsening from compared images. Increasing soft tissue density surrounding the proximal forefoot joint spaces especially the distal talus and feculent region findings are suspicious for increasing osteomyelitis at this level. A duplex was negative for DVT on the right leg. It is scheduled for I&D this morning at 11. If patient requires IV antibiotics , patient's sister wishes for him to go to [facility] for treatment. Of note, patient had pain of 10 out of 10 during the night and received morphine which dropped his blood pressure from 190/103 down to 76/50. His sister states that he has had sensitivity to morphine in the past when he had diaphragmatic hernia repair done at [facility]. He is status post IV fluid bolus of 500 mL. Blood pressure remains low but patient is stable without any symptoms. 07/14/2017 reveals the patient to have some improvement. Other than pain at his ankle area which is improved the patient continues to have relative hypotension and is still on vasopressor therapy. White blood cell count at 26.8. Lactic acid is improving. His temperature was 102.9 is now down to 97.6. Fortunately the patient does feel better today. He'll relates that he feels like he needs to have a bowel movement. 07/15/2017 patient does feel a bit better but still remains on some vasopressor therapy but at decreasing doses. He continues to have leukocytosis of 28, and fever has improved. 07/16/2017 patient was a bit sleepy today however upon arousal is awake alert oriented to person place and time and has no new acute gross focal sensory motor deficits. His hypotension is improving but still requiring vasopressor therapy at this time. He has been seen by the television announcer and Cortef doses have been adjusted. Objective - Vital Signs Vital signs: Vital Signs Temp 98.0 F 07/16/17 16:00 Pulse 54 L 07/16/17 19:00 Resp 9 L 07/16/17 18:00 BP 87/57 07/16/17 18:00 Pulse Ox 94 L 07/16/17 16:00 Intake & Output 07/16/17 07/16/17 07/17/17 06:59 18:59 06:59 Intake Total 2747.563 2422.437 300 Output Total 690 700 100 Balance 2057.563 1722.437 200 Weight 99.9 kg 99.9 kg Intake: IV 1850 1950 300 DAPTOmycin 500 mg In 50 Sodium Chloride 0.9% 50 ml @ 100 mls/hr IV Q24H [facility] Rx#:[id number] Sodium Chloride 0.9% 1, 1800 1950 300 000 ml @ 150 mls/hr IV . Q6H40M [facility] Rx#:[id number] Intake, IV Titration 777.563 472.437 Amount Norepinephrin 4 mg-0.9% 777.563 472.437 Ns Pmx 4 mg In 250 ml @ Titrate IV .Q0M [facility] Rx#: [id number] Oral 120 Output: Urine 690 700 100 Other: Voiding Method Indwelling Catheter Indwelling Catheter - Exam Gen: This is a 57-year-old male patient. He is sitting up in bed and appears to be comfortable and in no acute distress. HEENT: Head is atraumatic, normocephalic. Pupils equal, round. Sclerae is anicteric. Conjunctiva pink. Oral mucous membranes are moist. Patient is edentulous. NECK: Supple. No JVD. No lymphadenopathy. No thyromegaly. LUNGS: Clear to auscultation. No wheezes or rhonchi. No intercostal retractions. HEART: Regular rate and rhythm. No murmur. ABDOMEN: Soft. Bowel sounds are present. No masses. No tenderness. EXTREMITIES: Patient has edema to the right lower extremity. The right ankle abscess has been drained and wound VAC is in place, the VAC is removed. The ulceration is noted and please see the nursing photography for its exact location and size. Is cleansed with saline and a nonstick dressing is applied and then Pseudomonas and gauze roll gauze and a serum applied. He tolerated the dressing change well. There are exposed tendons, we'll hold on the wound VAC for now. We'll likely utilize an absorptive silver dressing soon. The patient was having severe pain and this is improved. There is no breakthrough drainage. There is no ascending cellulitis on the right lower leg. NEUROLOGICAL: Patient is awake, alert and oriented x3. He does have cerebral palsy but has excellent interactions. He is a [place] fan and is able to relate many of his favorite memories. - Labs CBC & Chem 7: 07/16/17 05:32 07/16/17 05:32 Labs: Abnormal Lab Results - Last 24 Hours (Table) 07/16/17 07/16/17 Range/Units 05:32 05:32 WBC 15.6 H (3.8-10.6) k/uL RBC 3.27 L (4.30-5.90) m/uL Hgb 8.1 L (13.0-17.5) gm/dL Hct 27.9 L (39.0-53.0) % MCH 24.8 L (25.0-35.0) pg MCHC 29.0 L (31.0-37.0) g/dL Neutrophils # 14.2 H (1.3-7.7) k/uL Lymphocytes # 0.7 L (1.0-4.8) k/uL Chloride 112 H (98-107) mmol/L Carbon Dioxide 18 L (22-30) mmol/L BUN 21 H (9-20) mg/dL Calcium 6.8 L (8.4-10.2) mg/dL Total Bilirubin 2.5 H (0.2-1.3) mg/dL Alkaline Phosphatase 827 H (38-126) U/L Total Protein 4.4 L (6.3-8.2) g/dL Albumin 1.7 L (3.5-5.0) g/dL Microbiology - Last 24 Hours (Table) 07/12/17 17:33 Blood Culture - Preliminary Blood No Growth after 96 hours 07/12/17 12:00 Anaerobic Culture - Final Ankle - Right 07/13/17 15:25 Gram Stain - Preliminary Ankle - Right Tissue Culture - Preliminary 07/13/17 17:45 Urine Culture - Final Urine,Catheterized Escherichia coli Laboratory Results WBC 15.6 k/uL (3.8-10.6) H 07/16/17 05:32 RBC 3.27 m/uL (4.30-5.90) L 07/16/17 05:32 Hgb 8.1 gm/dL (13.0-17.5) L 07/16/17 05:32 Hct 27.9 % (39.0-53.0) L 07/16/17 05:32 MCV 85.5 fL (80.0-100.0) 07/16/17 05:32 MCH 24.8 pg (25.0-35.0) L 07/16/17 05:32 MCHC 29.0 g/dL (31.0-37.0) L 07/16/17 05:32 RDW 15.3 % (11.5-15.5) 07/16/17 05:32 Plt Count 272 k/uL (150-450) 07/16/17 05:32 Neutrophils % 91 % 07/16/17 05:32 Neutrophils % (Manual) 75 % 07/15/17 05:25 Band Neutrophils % 21 % 07/15/17 05:25 Lymphocytes % 4 % 07/16/17 05:32 Lymphocytes % (Manual) 2 % 07/15/17 05:25 Monocytes % 2 % 07/16/17 05:32 Monocytes % (Manual) 2 % 07/15/17 05:25 Eosinophils % 1 % 07/16/17 05:32 Basophils % 0 % 07/16/17 05:32 Metamyelocytes % 1 % 07/15/17 05:25 Neutrophils # 14.2 k/uL (1.3-7.7) H 07/16/17 05:32 Neutrophils # (Manual) 26.80 k/uL (1.3-7.7) H 07/15/17 05:25 Lymphocytes # 0.7 k/uL (1.0-4.8) L 07/16/17 05:32 Lymphocytes # (Manual) 0.56 k/uL (1.0-4.8) L 07/15/17 05:25 Monocytes # 0.3 k/uL (0-1.0) 07/16/17 05:32 Monocytes # (Manual) 0.56 k/uL (0-1.0) 07/15/17 05:25 Eosinophils # 0.2 k/uL (0-0.7) 07/16/17 05:32 Basophils # 0.0 k/uL (0-0.2) 07/16/17 05:32 Metamyelocytes # (Man) 0.28 k/uL (0) H 07/15/17 05:25 Nucleated RBCs 0 /100 WBC (0-0) 07/15/17 05:25 Manual Slide Review Performed 07/15/17 05:25 Toxic Granulation Present 07/15/17 05:25 Toxic Vacuolation Present 07/15/17 05:25 Hypochromasia Marked 07/16/17 05:32 Poikilocytosis (manual Present 07/15/17 05:25 Ovalocytes Present 07/14/17 04:45 Crenated Cell Present 07/15/17 05:25 ESR 68 mm/hr (0-15) H 07/12/17 17:33 PT 13.8 sec (9.0-12.0) H 07/13/17 16:11 INR 1.5 (<1.2) H 07/13/17 16:11 APTT 25.1 sec (22.0-30.0) 07/13/17 16:11 Sodium 141 mmol/L (137-145) 07/16/17 05:32 Potassium 3.7 mmol/L (3.5-5.1) 07/16/17 05:32 Chloride 112 mmol/L (98-107) H 07/16/17 05:32 Carbon Dioxide 18 mmol/L (22-30) L 07/16/17 05:32 Anion Gap 11 mmol/L 07/16/17 05:32 BUN 21 mg/dL (9-20) H 07/16/17 05:32 Creatinine 1.08 mg/dL (0.66-1.25) 07/16/17 05:32 Est GFR (CKD-EPI)AfAm 89 (>60 ml/min/1.73 sqM) 07/16/17 05:32 Est GFR (CKD-EPI)NonAf 77 (>60 ml/min/1.73 sqM) 07/16/17 05:32 Glucose 95 mg/dL (74-99) 07/16/17 05:32 POC Glucose (mg/dL) 96 mg/dL (75-99) 07/15/17 00:37 POC Glu Residential Housekeeper ID Malec, [place] 07/15/17 00:37 Lactic Ac Sepsis Rflx Y 07/14/17 01:17 Plasma Lactic Acid [place] 1.4 mmol/L (0.7-2.0) 07/16/17 04:24 Calcium 6.8 mg/dL (8.4-10.2) L 07/16/17 05:32 Phosphorus 2.9 mg/dL (2.5-4.5) 07/16/17 05:32 Magnesium 2.2 mg/dL (1.6-2.3) 07/16/17 05:32 Total Bilirubin 2.5 mg/dL (0.2-1.3) H 07/16/17 05:32 AST 51 U/L (17-59) 07/16/17 05:32 ALT 61 U/L (21-72) 07/16/17 05:32 Alkaline Phosphatase 827 U/L (38-126) H 07/16/17 05:32 Total Creatine Kinase 289 U/L (55-170) H 07/13/17 16:11 CK-MB (CK-2) 1.0 ng/mL (0.0-2.4) 07/13/17 16:11 CK-MB (CK-2) Rel Index 0.3 07/13/17 16:11 Troponin I 0.097 ng/mL (0.000-0.034) H* 07/13/17 16:11 C-Reactive Protein 87.4 mg/L (<10.0) H 07/12/17 17:33 Total Protein 4.4 g/dL (6.3-8.2) L 07/16/17 05:32 Albumin 1.7 g/dL (3.5-5.0) L 07/16/17 05:32 Cortisol 14 ug/dL 07/16/17 05:32 Urine Color Yellow 07/13/17 17:45 Urine Appearance Turbid (Clear) 07/13/17 17:45 Urine pH 6.0 (5.0-8.0) 07/13/17 17:45 Ur Specific Reading 1.019 (1.001-1.035) 07/13/17 17:45 Urine Protein 1+ (Negative) H 07/13/17 17:45 Urine Glucose (UA) Negative (Negative) 07/13/17 17:45 Urine Ketones Negative (Negative) 07/13/17 17:45 Urine Blood Moderate (Negative) H 07/13/17 17:45 Urine Nitrite Negative (Negative) 07/13/17 17:45 Urine Bilirubin Negative (Negative) 07/13/17 17:45 Urine Urobilinogen 2.0 mg/dL (<2.0) 07/13/17 17:45 Ur Leukocyte Esterase Large (Negative) H 07/13/17 17:45 Urine RBC 38 /hpf (0-5) H 07/13/17 17:45 Urine WBC >182 /hpf (0-5) H 07/13/17 17:45 Urine WBC Clumps Many /hpf (None) H 07/13/17 17:45 Urine Bacteria Many /hpf (None) H 07/13/17 17:45 Microbiology 07/12/17 17:33 Blood Blood Culture - Preliminary No Growth after 96 hours 07/12/17 12:00 Ankle - Right Anaerobic Culture - Final 07/13/17 15:25 Ankle - Right Gram Stain - Preliminary 07/13/17 15:25 Ankle - Right Tissue Culture - Preliminary 07/13/17 17:45 Urine,Catheterized Urine Culture - Final Escherichia coli 07/13/17 15:25 Ankle - Right Anaerobic Culture - Preliminary 07/12/17 12:00 Ankle - Right Gram Stain - Final 07/12/17 12:00 Ankle - Right Wound Culture - Final Staphylococcus aureus Assessment and Plan (1) Cellulitis of right ankle Current Visit: No Status: Acute Priority: Medium Code(s): L03.115 - CELLULITIS OF RIGHT LOWER LIMB SNOMED Code(s): 63281092 (2) Abscess of ankle Narrative/Plan: 57-year-old patient that has a complex history of the recent injury to his now developed a significant abscess at that site which required incision and drainage. Was having some difficulty with hypotension, appears to be having sepsis is not being cared for in the intensive care unit. He'll receive further fluid resuscitation for his sepsis and lactic acidosis. He will continue to have antibiotic therapy with daptomycin. Local wound care is negative pressure therapy system. He was monitored closely and plans will be made for his outpatient antibiotic therapy which likely will be intravenous as well as local wound care. Enhancement of his nutritional status will also help his wound healing. On 07/14/2017 the patient is improved. His pain is better. However still having hypotension requiring some vasopressor therapy and is receiving ongoing fluid resuscitation. He is feeling better his mentation is improved. Wound culture with staph aureus has many ALLERGIES doing well with daptomycin. Leukocytosis is expected after the incision and drainage and a response to his sepsis. He's had an increase of his creatinine to 1.2 and will be monitored. Lactic acid is elevated and is being monitored as he receives further fluid resuscitation. Once the patient is stable will need IV access placed for his outpatient intravenous antibiotic therapy likely with daptomycin. 07/15/2017 patient is feeling better today. Still having some pain at the surgical site. Denying fevers or chills. The abscess site is looking well. There is however exposed tendons. A nonstick dressing is applied over the tendons in the moistened gauze. Overall goal is to make sure that this tends to dry so that they do not desiccate. The patient's urinalysis and culture and become available and some gram-negative bacilli are seen in the urine with his ongoing leukocytosis there is concern this could be another source of infection and Rocephin is added, understanding that he's had some difficulties with nausea with cephalosporins unclear if this is due to the additives that are given in the capsules and tablets. He has noted he has many ALLERGIES. He will monitored for any difficulties with the addition of Rocephin however given his significant ongoing leukocytosis gram-negative therapy needs to be added at this time. 07/16/2017 reveals the patient to have had a bit of a difficult day. Is doing better as the day has now gone on. He is arousable awake and interactive and his family is pleased that he is doing a bit better this evening. His pain is under modest good control. The ulceration is evaluated in the dressing is changed. As noted the patient does have evidence of a gram-negative in his urine and for this gram-negative therapy was added. as he continues to have ongoing significant sepsis would continue the daptomycin and Rocephin until we have complete data. Given the patient will need outpatient intravenous antibiotic therapy the patient's sister relates that would not be able to happen in the current home setting and required going to rehab to complete his antibiotics and wound care. We discussed the wound VAC at this point in time will likely not be utilized given the exposed tendons. Current Visit: Yes Status: Acute Code(s): L02.419 - CUTANEOUS ABSCESS OF LIMB, UNSPECIFIED SNOMED Code(s): 88866203 (3) Severe sepsis with septic shock Current Visit: Yes Status: Acute Code(s): A41.9 - SEPSIS, UNSPECIFIED ORGANISM; R65.21 - SEVERE SEPSIS WITH SEPTIC SHOCK SNOMED Code(s): 94909749
[2017-07-16] MEDS: cefTRIAXone IN SWFI 2,000 MG/20 ML SYRINGE IVP SCH (22:25)
[2017-07-17] MEDS: SODIUM CHLORIDE 0.9% 1,000 ML IV SCH ×2 (06:09→21:42)
[2017-07-17] MEDS: LEVOTHYROXINE 112 MCG TAB PO SCH (07:10)
--- NOTE | 2017-07-17 08:03 | XR ---
EXAMINATION TYPE: XR chest 1V DATE OF EXAM: 07/17/2017 COMPARISON: 07/16/2017 HISTORY: Shortness of breath FINDINGS: Noted is pulmonary venous congestion with scattered infiltrates. There is also cardiomegaly and small effusions. IMPRESSION: Findings compatible with stable congestive failure. Infiltrates of other etiology are not excluded. Clinical correlation and progress studies are recommended.
[2017-07-17] MEDS ORDERED: HYDROCORTISONE SUCCINATE 100 MG/2 ML VIAL IV STA (08:07)
[2017-07-17] MEDS: NAPROXEN 250 MG TAB PO SCH ×3 (08:12→21:42)
[2017-07-17] MEDS: ENOXAPARIN 40 MG/0.4 ML SYRINGE SQ SCH (08:12)
--- NOTE | 2017-07-17 09:01 | P.PN ---
Subjective Progress Note Date: 07/17/17 Principal diagnosis: Status post I&D right ankle infection/cellulitis [place] Patient is pleasant 57-year-old male seen at bedside at this morning. He is status post I&D of right ankle infection performed on 07/13/2017. Cultures have shown Staphylococcus aureus which is methicillin susceptible. Urine culture is also been positive for E. coli. These are being addressed with appropriate antibiotics per infectious disease. He continues to be managed in the ICU and has required continued pressors. He currently denies any new complaints today. He appears to be stable. His pain is mostly controlled. He is denying calf pain, fever, chills, chest pain or shortness of breath. He is resting comfortably in bed. Objective - Vital Signs Vital signs: Vital Signs Temp 98.3 F 07/17/17 08:00 Pulse 60 07/17/17 08:00 Resp 54 H 07/17/17 08:00 BP 93/57 07/17/17 08:00 Pulse Ox 98 07/17/17 07:00 Intake & Output 07/16/17 07/17/17 07/17/17 18:59 06:59 18:59 Intake Total 2422.437 1943.313 506.687 Output Total 700 687 370 Balance 1372.432 3597.313 136.687 Weight 99.9 kg 104.3 kg 104.3 kg Intake: IV 1950 1700 300 DAPTOmycin 500 mg In 50 Sodium Chloride 0.9% 50 ml @ 100 mls/hr IV Q24H [facility] Rx#:[id number] Sodium Chloride 0.9% 1, 1950 1650 300 000 ml @ 150 mls/hr IV . Q6H40M [facility] Rx#:[id number] Intake, IV Titration 472.437 243.313 6.687 Amount Norepinephrin 4 mg-0.9% 472.437 243.313 6.687 Ns Pmx 4 mg In 250 ml @ Titrate IV .Q0M [facility] Rx#: [id number] Oral 200 Output: Urine 700 687 370 Other: Voiding Method Indwelling Catheter Indwelling Catheter Indwelling Catheter # Voids 3 - Exam Inspection of the right lower extremity shows bandage in place. There is no evidence of active bleeding. He has sensation to touch grossly in all toes. He is able to wiggle the toes and foot. The calf is soft and nontender. There is perfusion to the right lower extremity. - Constitutional General appearance: Present: no acute distress - Psychiatric Psychiatric: Present: A&O x's 3, appropriate affect, intact judgment & insight - Labs CBC & Chem 7: 07/16/17 05:32 07/16/17 05:32 Labs: Abnormal Lab Results - Last 24 Hours (Table) 07/16/17 Range/Units 05:32 Chloride 112 H (98-107) mmol/L Carbon Dioxide 18 L (22-30) mmol/L BUN 21 H (9-20) mg/dL Calcium 6.8 L (8.4-10.2) mg/dL Total Bilirubin 2.5 H (0.2-1.3) mg/dL Alkaline Phosphatase 827 H (38-126) U/L Total Protein 4.4 L (6.3-8.2) g/dL Albumin 1.7 L (3.5-5.0) g/dL Microbiology - Last 24 Hours (Table) 07/12/17 17:33 Blood Culture - Preliminary Blood No Growth after 96 hours 07/12/17 12:00 Anaerobic Culture - Final Ankle - Right 07/13/17 15:25 Gram Stain - Preliminary Ankle - Right Tissue Culture - Preliminary Assessment and Plan (1) Cellulitis of right ankle Narrative/Plan: He continues to be afebrile, last WBC was 15 and new result pending. Pain is controlled. He'll continue with routine postop orthopedic protocol with pain management, DVT prophylaxis, elevation and nonweightbearing to right lower extremity, medical management per coil maker, wound care and antibiotics per infectious disease. We will continue to follow closely and make further recommendations as appropriate. Current Visit: No Status: Acute Priority: Medium Code(s): L03.115 - CELLULITIS OF RIGHT LOWER LIMB SNOMED Code(s): 65852122 Time with Patient: Less than 30
[2017-07-17] MEDS ORDERED: LIDOCAINE 2% INJ 20 MG/ML SQ ONE (09:20)
--- NOTE | 2017-07-17 09:44 | XR ---
EXAMINATION TYPE: XR chest 1V confirm line [facility] DATE OF EXAM: 07/17/2017 HISTORY: PICC line placement COMPARISON: 07/17/2017 TECHNIQUE: Single view of the chest is submitted. FINDINGS: Right-sided PICC line is appropriately placed with its distal tip overlying the SVC. No evidence for pneumothorax. Demonstrated are scattered senescent parenchymal change. Perihilar and basilar infiltrates are noted as well as pleural effusions right greater than left. The re is also cardiomegaly. Findings may reflect congestive failure. Superimposed pneumonia not excluded . Hilar and mediastinal structures are within normal limits. Degenerative changes are seen of the dorsal spine. IMPRESSION: 1. Perihilar and basilar infiltrates are noted as well as pleural effusions right greater than left. There is also cardiomegaly. Findings may reflect congestive failure. Superimposed pneumonia not excl uded.
--- NOTE | 2017-07-17 10:01 | P.PN ---
Subjective Progress Note Date: 07/17/17 Principal diagnosis: Acute septic shock, sepsis, right ankle abscess and cellulitis This is a 57-year-old white male with history of cerebral palsy, hypertension, admitted with cellulitis of the right ankle on 07/12/2017. Started out initially as a pustule on the right ankle, went on to develop worsening cellulitis. Patient has been in a CAM boot for this problem. And had recent aspiration of the right ankle [facility] recently. Patient underwent incision and drainage of the right ankle abscess, irrigation and debridement of the right ankle wound, and application of a one VAC to the right ankle. Postoperatively, patient was admitted to the ICU mostly because of hypotension requiring significant amount of fluids, received a total of 3 L of fluids, had to be placed on norepinephrine for low blood pressure, and he was noted to have significant lactic acidosis. Considering his profound hypotension and septic shock presentation, I was asked to see him on consultation. Patient has been already on daptomycin as ordered by Dr. Brandt, he received significant amount of fluids over the last 12 hours, and in spite of of the fluid boluses, patient required norepinephrine. This morning, the patient remains on 20 g of norepinephrine, his lactic acid came down to 4.0, and I have recommended more fluids to be given. Last night in spite of all the fluids, the patient was oliguric, and I recommended one dose of Lasix. Since then the patient has been making significant amount of urine over the last 8 hours. His labs revealed significant leukocytosis with WBC of 26.8 hemoglobin is 8.7. Basic metabolic profile is normal except for low bicarb of 19 minimal anion gap metabolic acidosis, 14, BUN of 24 creatinine of 1.40. Lactic acid has been coming down from 6.5 initially and it is 4.0 today. The patient himself is a very poor historian, patient has history of cerebral palsy. However he is denying any specific complaints presently. Reevaluated today on 07/15/2017, patient is feeling much better, clinically he looks fine, he is asymptomatic, however the patient remains on 11 g of levo fed.continues to have leukocytosis with WBC count of 28.0, hemoglobin is 8.4, electrolytes were reviewed, has a non-anion gap metabolic acidosis. BUN is 26 creatinine is 1.30.chest x-ray is showing small bilateral pleural effusions and right basilar atelectasis could be related to mild vascular congestion. However the patient is having excellent urine output, over 100 mL per hour. And his main IV fluids remains at 1 50 mL per hour.renal functioning seems to be improving steadily. On 07/16/2017 patient seen in follow-up in the intensive care unit. He is resting in bed, appears pale and fatigued, but in no acute distress. He has been afebrile for the past 48 hours, however still requires vasopressor support in the form of norepinephrine currently at the rate of 17 mics per minute. Maintenance IV is 0.9 normal saline at 150 ML per hour. Patient is currently room air with O2 sat at 95%. Sinus bradycardia on the monitor at a rate of 55 BPM. Lung sounds are positive for coarse bibasilar crackles, chest x-ray today shows bilateral pleural effusions, and changes consistent with congestive heart failure and fluid overload. Patient has been extensively fluid resuscitated, and has received liters of fluid since admission. He appears to be generally swollen, with nonpitting swelling in his upper and lower extremities as well as the trunk. Today's lab work has been reviewed, WBC is on the downward trend, and is down to 15.6 from 28 on yesterday's labs. Hemoglobin is stable at 8.1, CO2 is 18, B1 is 21, and creatinine is 1.08. Patient has an indwelling catheter and he is making adequate urine, anywhere from 4200 ML per hour. Right ankle wound culture was positive for staph aureus , and urine culture was positive for E. coli with sensitivity to Rocephin which the patient is currently on. The staph aureus in the wound culture had valverde susceptibility, and the patient is currently on daptomycin in addition to Rocephin. On 07/17/2017 patient seen in follow-up in intensive care unit. He is resting in bed, denies any acute distress, although continues to complain of discomfort in the right lower leg, as well as epigastric tenderness, which seems to be worse with deep inspiration. His IV 0.9 normal saline is infusing at a rate of 150 ML per hour, Levothroid is currently down to 5 mics per minute. We checked a random serum cortisol, which was found to be relatively low at 14, we will give 1 dose of hydrocortisone 100 mg IV push and monitor the patient's response to with. Patient remains very generally swollen, with truncal, and upper and lower extremity edema. We will cut back the mintenance IV fluid rate down to 50 ML per hour. Today's chest x-ray shows small bilateral pleural effusions and fluid overload. Ultrasound of the chest showed right pleural fluid pocket of 1.9 cm and left pleural fluid pocket of 1.7 cm. She is currently on 1 L per nasal cannula with O2 sat 98%. Remains in sinus rhythm with a rate of 55 BPM, afebrile. Urine culture was positive for E. coli, and patient is on a combination of Rocephin, and daptomycin for the evidence of Staphylococcus aureus in the wound culture. ID service is on. Abdomen is soft, distended, but nontender. Patient's hypoalbuminemia with a hemoglobin of 1.7, is likely contributing to patient's anasarca. Overall patient is more awake, and interactive on today's exam. Lung sounds are positive for expiratory wheezes bilaterally, no rales, no rhonchi noted. Right lower leg is dressed, wound care is per ID service recommendations. Objective - Vital Signs Vital signs: Vital Signs Temp 98.3 F 07/17/17 08:00 Pulse 60 07/17/17 08:00 Resp 54 H 07/17/17 08:00 BP 93/57 07/17/17 08:00 Pulse Ox 98 07/17/17 07:00 Intake & Output 07/16/17 07/17/17 07/17/17 18:59 06:59 18:59 Intake Total 2422.437 1943.313 506.687 Output Total 700 687 370 Balance 2118.440 6137.313 136.687 Weight 99.9 kg 104.3 kg 104.3 kg Intake: IV 1950 1700 300 DAPTOmycin 500 mg In 50 Sodium Chloride 0.9% 50 ml @ 100 mls/hr IV Q24H [facility] Rx#:[id number] Sodium Chloride 0.9% 1949 1650 300 000 ml @ 150 mls/hr IV . Q6H40M [facility] Rx#:[id number] Intake, IV Titration 472.437 243.313 6.687 Amount Norepinephrin 4 mg-0.9% 472.437 243.313 6.687 Ns Pmx 4 mg In 250 ml @ Titrate IV .Q0M [facility] Rx#: [id number] Oral 200 Output: Urine 700 687 370 Other: Voiding Method Indwelling Catheter Indwelling Catheter Indwelling Catheter # Voids 3 - Exam Physical Exam: Revealed a 57-year-old white male, slightly pale, but more awake and interactive today, but in no distress. Head: Atraumatic, normocephalic. Eyes: PERRLA, EOMI, no icterus. HEENT:[Neck is supple.] [No neck masses.] [No thyromegaly.] [No JVD.] Chest: [Expiratory wheezes heard bilaterally,] Cardiac Exam: [Normal S1 and S2, no S3 gallop, no murmur.] Abdomen: [Soft, nontender, no megaly, no rebound, no guarding, normal bowel sounds.] Extremities: Right lower extremity is wrapped,. With sterile dressing. Could not be examined.] Neurological Exam: Patient has underlying cerebral palsy, difficulty with speech , and slow mental development. Otherwise no gross focal neurologic deficit. Lymphatics: No adenopathy. - Labs CBC & Chem 7: 07/16/17 05:32 07/16/17 05:32 Labs: Abnormal Lab Results - Last 24 Hours (Table) 07/16/17 Range/Units 05:32 Chloride 112 H (98-107) mmol/L Carbon Dioxide 18 L (22-30) mmol/L BUN 21 H (9-20) mg/dL Calcium 6.8 L (8.4-10.2) mg/dL Total Bilirubin 2.5 H (0.2-1.3) mg/dL Alkaline Phosphatase 827 H (38-126) U/L Total Protein 4.4 L (6.3-8.2) g/dL Albumin 1.7 L (3.5-5.0) g/dL Microbiology - Last 24 Hours (Table) 07/12/17 17:33 Blood Culture - Preliminary Blood No Growth after 96 hours 07/12/17 12:00 Anaerobic Culture - Final Ankle - Right 07/13/17 15:25 Gram Stain - Preliminary Ankle - Right Tissue Culture - Preliminary Assessment and Plan Plan: Assessment: 1 acute sepsis and septic shock secondary to cellulitis and abscess of right foot/ankle. 2 status post incision and drainage of right ankle abscess, irrigation and debridement of right ankle wound, application of wound VAC, postoperative day #4 3 acute urinary tract infection, being addressed by infectious disease on the case. 4history of multiple comorbidities including cerebral palsy, hypertension, hypothyroidism Plan: Ultrasound of the chest was reviewed, there is small amount of pleural fluid seen bilaterally, not enough to do thoracentesis. Patient was given a trial of 100 mg of hydrocortisone IV push to which she did not respond. We will cut down the IV 0.9 normal seen to 50 ML per hour, patient has developed anasarca. Continue weaning norepinephrine. Monitor vital signs, fever pattern, repeat blood work today, CBC, CMP. Continue with current antibiotic coverage. Incentive spirometry to the bedside, pain control. Increase activity as tolerated. I performed a history & physical examination of the patient and discussed their management with my nurse practitioner, Shannan Arenas. I reviewed the nurse practitioner's note and agree with the documented findings and plan of care. Lung sounds are positive for scattered wheezes. The findings and the impression was discussed with the patient. I attest to the documentation by the nurse practitioner. Critical care time is over 30 minutes Time with Patient: Greater than 30
--- NOTE | 2017-07-17 10:03 | IR ---
EXAMINATION TYPE: IR cvc insert >=5 years DATE OF EXAM: 07/17/2017 COMPARISON: NONE HISTORY: Infection, needs long-term intravenous access for antibiotics, intravenous therapy FINDINGS: Maximal barrier technique was utilized. The skin overlying the right basilic vein was loca lized with ultrasound and noted to be compressible and patent by ultrasound. An ultrasound image was obtained and submitted on patient's chart. Sterile technique utilized with the ultrasound machine. T he skin overlying was prepped and draped and Lidocaine used for local anesthesia. A skin adriana was ma de with a scalpel. Access was gained to the vein under direct ultrasound guidance with a 21-gauge ne edle and a 0.018 inch wire was advanced. Access site was dilated with a peel-away sheath and the cat heter tailored to length. Catheter advanced centrally and a post procedure chest x-ray verified plac ement with the tip at the superior vena cava level. Catheter was fixed to the skin and a sterile nancy ssing placed. Hemostasis achieved and the catheter was aspirated and flushed with sterile saline. T he patient remained in stable condition. Ultrasound used with sterile technique. IMPRESSION: STATUS POST ULTRASOUND GUIDED PICC LINE PLACEMENT, READY FOR USE. THIS PROCEDURE WAS PER FORMED BY THE UNDERSIGNED.
[2017-07-17] MEDS: NOREPINEPHRIN 4 MG-0.9% NS PMX 4 MG/250 ML ML IV SCH (10:16)
[2017-07-17 10:42] LABS: Basophils % (A) 0 %; Eosinophils # (A) 0.3 k/uL (0-0.7); Eosinophils % (A) 3 %; HCT 27.9 % (39.0-53.0); HGB 8.3 gm/dL (13.0-17.5); Hypochromasia Marked; Lymphocytes # (A) 0.9 k/uL (1.0-4.8); Lymphocytes % (A) 9 %; MCH 25.1 pg (25.0-35.0); MCHC 29.7 g/dL (31.0-37.0); MCV 84.3 fL (80.0-100.0); Mean Platelet Volume 8.2; Monocytes # (A) 0.4 k/uL (0-1.0); Monocytes % (A) 4 %; Neutrophils # (A) 8.3 k/uL (1.3-7.7); Neutrophils % (A) 83 %; Platelet Count 244 k/uL (150-450); Poikilocytosis Slight; RBC 3.31 m/uL (4.30-5.90); RDW 15.5 % (11.5-15.5); WBC 9.9 k/uL (3.8-10.6)
[2017-07-17 11:02] LABS: ALT 46 U/L (21-72); AST 37 U/L (17-59); Albumin 1.6 g/dL (3.5-5.0); Alkaline Phosphatase 913 U/L (38-126); Anion Gap 9 mmol/L; Blood Urea Nitrogen 17 mg/dL (9-20); Calcium 7.1 mg/dL (8.4-10.2); Carbon Dioxide 20 mmol/L (22-30); Chloride 115 mmol/L (98-107); Glucose 85 mg/dL (74-99); Potassium 3.5 mmol/L (3.5-5.1); Sodium 144 mmol/L (137-145); Total Bilirubin 1.3 mg/dL (0.2-1.3); Total Protein 4.1 g/dL (6.3-8.2)
[2017-07-17] MEDS ORDERED: POTASSIUM CHLORIDE 20 MEQ in WATER FOR INJECTION 1 100ML.BAG IVPB ONE (12:00)
--- NOTE | 2017-07-17 20:31 | P.PN ---
Subjective Progress Note Date: 07/17/17 Principal diagnosis: Sepsis This is a 57-year-old male patient who is known to ID service as he was initially seen during a May admission at which time he was treated for cellulitis of the right ankle with improvement during his stay. A boot was ordered by orthopedics and patient was discharged on cephalexin and was to continue to wear the boot at home. Patient has history of cerebral palsy and lives at home with his sister. She states that on Sunday he developed a blister, raised area on the right ankle and within 24 hours it became reddened and swollen and he had swelling going up into his lower leg and his foot. He went to his orthopedic doctor, Dr. Brown was seen yesterday and underwent aspiration and this was sent for cultures. Patient was then directly admitted to the hospital and started initially on vancomycin which has been changed to daptomycin. Patient has been afebrile with a White count of 13. CRP 87.4 and sed rate 68. Blood cultures status received and wound culture is in progress. CAT scan was compared to previous MRIs done very and May 25 and revealed increasing soft tissue density and thickening compatible with patient' s reported cellulitis. This is worsening from compared images. Increasing soft tissue density surrounding the proximal forefoot joint spaces especially the distal talus and feculent region findings are suspicious for increasing osteomyelitis at this level. A duplex was negative for DVT on the right leg. It is scheduled for I&D this morning at 11. If patient requires IV antibiotics , patient's sister wishes for him to go to [facility] for treatment. Of note, patient had pain of 10 out of 10 during the night and received morphine which dropped his blood pressure from 190/103 down to 76/50. His sister states that he has had sensitivity to morphine in the past when he had diaphragmatic hernia repair done at [facility]. He is status post IV fluid bolus of 500 mL. Blood pressure remains low but patient is stable without any symptoms. 07/14/2017 reveals the patient to have some improvement. Other than pain at his ankle area which is improved the patient continues to have relative hypotension and is still on vasopressor therapy. White blood cell count at 26.8. Lactic acid is improving. His temperature was 102.9 is now down to 97.6. Fortunately the patient does feel better today. He'll relates that he feels like he needs to have a bowel movement. 07/15/2017 patient does feel a bit better but still remains on some vasopressor therapy but at decreasing doses. He continues to have leukocytosis of 28, and fever has improved. 07/16/2017 patient was a bit sleepy today however upon arousal is awake alert oriented to person place and time and has no new acute gross focal sensory motor deficits. His hypotension is improving but still requiring vasopressor therapy at this time. He has been seen by the nurse technician and Cortef doses have been adjusted. 07/17/2017 patient is much more awake and interactive today. Has had a much better day. Appetite still somewhat poor but he developed significant anasarca from his fluid resuscitation from his septic shock from his staph abscess to his right foot in E. coli urinary tract infection. Is noticing much better today and has no other acute troubles the vasopressor therapy has almost been completely weaned Objective - Vital Signs Vital signs: Vital Signs Temp 97.2 F L 07/17/17 18:00 Pulse 64 07/17/17 19:00 Resp 24 07/17/17 19:00 BP 98/64 07/17/17 19:00 Pulse Ox 96 07/17/17 19:00 Intake & Output 07/17/17 07/17/17 07/18/17 06:59 18:59 06:59 Intake Total 1943.313 564.312 8.313 Output Total 687 2070 100 Balance 1256.313 -1505.688 -91.687 Weight 104.3 kg 104.3 kg Intake: IV 1700 300 DAPTOmycin 500 mg In 50 Sodium Chloride 0.9% 50 ml @ 100 mls/hr IV Q24H JUDSON Rx#:[id number] Sodium Chloride 0.9% 1, 1650 300 000 ml @ 50 mls/hr IV . Q20H JUDSON Rx#:[id number] Intake, IV Titration 243.313 64.312 8.313 Amount Norepinephrin 4 mg-0.9% 243.313 64.312 8.313 Ns Pmx 4 mg In 250 ml @ Titrate IV .Q0M JUDSON Rx#: [id number] Oral 200 Output: Urine 687 2070 100 Other: Voiding Method Indwelling Catheter Indwelling Catheter # Voids 3 - Exam Gen: This is a 57-year-old male patient. He is sitting up in bed and appears to be comfortable and in no acute distress. HEENT: Head is atraumatic, normocephalic. Pupils equal, round. Sclerae is anicteric. Conjunctiva pink. Oral mucous membranes are moist. Patient is edentulous. NECK: Supple. No JVD. No lymphadenopathy. No thyromegaly. LUNGS: Clear to auscultation. No wheezes or rhonchi. No intercostal retractions. HEART: Regular rate and rhythm. No murmur. ABDOMEN: Soft. Bowel sounds are present. No masses. No tenderness. EXTREMITIES: Patient has edema to the right lower extremity. The right ankle abscess has been drained and wound VAC is in place, the VAC is removed. The ulceration is noted and please see the nursing photography for its exact location and size. Is cleansed with saline and a nonstick dressing is applied and then Pseudomonas and gauze roll gauze and a serum applied. He tolerated the dressing change well. There are exposed tendons, we'll hold on the wound VAC for now. We'll likely utilize an absorptive silver dressing soon. The patient was having severe pain and this is improved. There is no breakthrough drainage. There is no ascending cellulitis on the right lower leg. NEUROLOGICAL: Patient is awake, alert and oriented x3. He does have cerebral palsy but has excellent interactions. He is a [employer] fan and is able to relate many of his favorite memories. - Labs CBC & Chem 7: 07/17/17 10:15 07/17/17 10:15 Labs: Abnormal Lab Results - Last 24 Hours (Table) 07/17/17 07/17/17 Range/Units 10:15 10:15 RBC 3.31 L (4.30-5.90) m/uL Hgb 8.3 L (13.0-17.5) gm/dL Hct 27.9 L (39.0-53.0) % MCHC 29.7 L (31.0-37.0) g/dL Neutrophils # 8.3 H (1.3-7.7) k/uL Lymphocytes # 0.9 L (1.0-4.8) k/uL Chloride 115 H (98-107) mmol/L Carbon Dioxide 20 L (22-30) mmol/L Calcium 7.1 L (8.4-10.2) mg/dL Alkaline Phosphatase 913 H (38-126) U/L Total Protein 4.1 L (6.3-8.2) g/dL Albumin 1.6 L (3.5-5.0) g/dL Microbiology - Last 24 Hours (Table) 07/12/17 17:33 Blood Culture - Preliminary Blood No Growth after 120 hours 07/13/17 15:25 Anaerobic Culture - Final Ankle - Right 07/13/17 15:25 Gram Stain - Final Ankle - Right Tissue Culture - Final 07/12/17 12:00 Anaerobic Culture - Final Ankle - Right Laboratory Results WBC 9.9 k/uL (3.8-10.6) 07/17/17 10:15 RBC 3.31 m/uL (4.30-5.90) L 07/17/17 10:15 Hgb 8.3 gm/dL (13.0-17.5) L 07/17/17 10:15 Hct 27.9 % (39.0-53.0) L 07/17/17 10:15 MCV 84.3 fL (80.0-100.0) 07/17/17 10:15 MCH 25.1 pg (25.0-35.0) 07/17/17 10:15 MCHC 29.7 g/dL (31.0-37.0) L 07/17/17 10:15 RDW 15.5 % (11.5-15.5) 07/17/17 10:15 Plt Count 244 k/uL (150-450) 07/17/17 10:15 Neutrophils % 83 % 07/17/17 10:15 Neutrophils % (Manual) 75 % 07/15/17 05:25 Band Neutrophils % 21 % 07/15/17 05:25 Lymphocytes % 9 % 07/17/17 10:15 Lymphocytes % (Manual) 2 % 07/15/17 05:25 Monocytes % 4 % 07/17/17 10:15 Monocytes % (Manual) 2 % 07/15/17 05:25 Eosinophils % 3 % 07/17/17 10:15 Basophils % 0 % 07/17/17 10:15 Metamyelocytes % 1 % 07/15/17 05:25 Neutrophils # 8.3 k/uL (1.3-7.7) H 07/17/17 10:15 Neutrophils # (Manual) 26.80 k/uL (1.3-7.7) H 07/15/17 05:25 Lymphocytes # 0.9 k/uL (1.0-4.8) L 07/17/17 10:15 Lymphocytes # (Manual) 0.56 k/uL (1.0-4.8) L 07/15/17 05:25 Monocytes # 0.4 k/uL (0-1.0) 07/17/17 10:15 Monocytes # (Manual) 0.56 k/uL (0-1.0) 07/15/17 05:25 Eosinophils # 0.3 k/uL (0-0.7) 07/17/17 10:15 Basophils # 0.0 k/uL (0-0.2) 07/17/17 10:15 Metamyelocytes # (Man) 0.28 k/uL (0) H 07/15/17 05:25 Nucleated RBCs 0 /100 WBC (0-0) 07/15/17 05:25 Manual Slide Review Performed 07/15/17 05:25 Toxic Granulation Present 07/15/17 05:25 Toxic Vacuolation Present 07/15/17 05:25 Hypochromasia Marked 07/17/17 10:15 Poikilocytosis Slight 07/17/17 10:15 Poikilocytosis (manual Present 07/15/17 05:25 Ovalocytes Present 07/14/17 04:45 Crenated Cell Present 07/15/17 05:25 ESR 68 mm/hr (0-15) H 07/12/17 17:33 PT 13.8 sec (9.0-12.0) H 07/13/17 16:11 INR 1.5 (<1.2) H 07/13/17 16:11 APTT 25.1 sec (22.0-30.0) 07/13/17 16:11 Sodium 144 mmol/L (137-145) 07/17/17 10:15 Potassium 3.5 mmol/L (3.5-5.1) 07/17/17 10:15 Chloride 115 mmol/L (98-107) H 07/17/17 10:15 Carbon Dioxide 20 mmol/L (22-30) L 07/17/17 10:15 Anion Gap 9 mmol/L 07/17/17 10:15 BUN 17 mg/dL (9-20) 07/17/17 10:15 Creatinine 0.90 mg/dL (0.66-1.25) 07/17/17 10:15 Est GFR (CKD-EPI)AfAm >90 (>60 ml/min/1.73 sqM) 07/17/17 10:15 Est GFR (CKD-EPI)NonAf >90 (>60 ml/min/1.73 sqM) 07/17/17 10:15 Glucose 85 mg/dL (74-99) 07/17/17 10:15 POC Glucose (mg/dL) 96 mg/dL (75-99) 07/15/17 00:37 POC Glu Executive Compensation Analyst ID Malec, [place] 07/15/17 00:37 Lactic Ac Sepsis Rflx Y 07/14/17 01:17 Plasma Lactic Acid Papi 1.4 mmol/L (0.7-2.0) 07/16/17 04:24 Calcium 7.1 mg/dL (8.4-10.2) L 07/17/17 10:15 Phosphorus 2.9 mg/dL (2.5-4.5) 07/16/17 05:32 Magnesium 2.2 mg/dL (1.6-2.3) 07/16/17 05:32 Total Bilirubin 1.3 mg/dL (0.2-1.3) 07/17/17 10:15 AST 37 U/L (17-59) 07/17/17 10:15 ALT 46 U/L (21-72) 07/17/17 10:15 Alkaline Phosphatase 913 U/L (38-126) H 07/17/17 10:15 Total Creatine Kinase 289 U/L (55-170) H 07/13/17 16:11 CK-MB (CK-2) 1.0 ng/mL (0.0-2.4) 07/13/17 16:11 CK-MB (CK-2) Rel Index 0.3 07/13/17 16:11 Troponin I 0.097 ng/mL (0.000-0.034) H* 07/13/17 16:11 C-Reactive Protein 87.4 mg/L (<10.0) H 07/12/17 17:33 Total Protein 4.1 g/dL (6.3-8.2) L 07/17/17 10:15 Albumin 1.6 g/dL (3.5-5.0) L 07/17/17 10:15 Cortisol 14 ug/dL 07/16/17 05:32 Urine Color Yellow 07/13/17 17:45 Urine Appearance Turbid (Clear) 07/13/17 17:45 Urine pH 6.0 (5.0-8.0) 07/13/17 17:45 Ur Specific Peck 1.019 (1.001-1.035) 07/13/17 17:45 Urine Protein 1+ (Negative) H 07/13/17 17:45 Urine Glucose (UA) Negative (Negative) 07/13/17 17:45 Urine Ketones Negative (Negative) 07/13/17 17:45 Urine Blood Moderate (Negative) H 07/13/17 17:45 Urine Nitrite Negative (Negative) 07/13/17 17:45 Urine Bilirubin Negative (Negative) 07/13/17 17:45 Urine Urobilinogen 2.0 mg/dL (<2.0) 07/13/17 17:45 Ur Leukocyte Esterase Large (Negative) H 07/13/17 17:45 Urine RBC 38 /hpf (0-5) H 07/13/17 17:45 Urine WBC >182 /hpf (0-5) H 07/13/17 17:45 Urine WBC Clumps Many /hpf (None) H 07/13/17 17:45 Urine Bacteria Many /hpf (None) H 07/13/17 17:45 Microbiology 07/12/17 17:33 Blood Blood Culture - Preliminary No Growth after 120 hours 07/13/17 15:25 Ankle - Right Anaerobic Culture - Final 07/13/17 15:25 Ankle - Right Gram Stain - Final 07/13/17 15:25 Ankle - Right Tissue Culture - Final 07/12/17 12:00 Ankle - Right Anaerobic Culture - Final 07/13/17 17:45 Urine,Catheterized Urine Culture - Final Escherichia coli 07/12/17 12:00 Ankle - Right Gram Stain - Final 07/12/17 12:00 Ankle - Right Wound Culture - Final Staphylococcus aureus Assessment and Plan (1) Cellulitis of right ankle Current Visit: No Status: Acute Priority: Medium Code(s): L03.115 - CELLULITIS OF RIGHT LOWER LIMB SNOMED Code(s): 14584386 (2) Abscess of ankle Narrative/Plan: 57-year-old patient that has a complex history of the recent injury to his now developed a significant abscess at that site which required incision and drainage. Was having some difficulty with hypotension, appears to be having sepsis is not being cared for in the intensive care unit. He'll receive further fluid resuscitation for his sepsis and lactic acidosis. He will continue to have antibiotic therapy with daptomycin. Local wound care is negative pressure therapy system. He was monitored closely and plans will be made for his outpatient antibiotic therapy which likely will be intravenous as well as local wound care. Enhancement of his nutritional status will also help his wound healing. On 07/14/2017 the patient is improved. His pain is better. However still having hypotension requiring some vasopressor therapy and is receiving ongoing fluid resuscitation. He is feeling better his mentation is improved. Wound culture with staph aureus has many ALLERGIES doing well with daptomycin. Leukocytosis is expected after the incision and drainage and a response to his sepsis. He's had an increase of his creatinine to 1.2 and will be monitored. Lactic acid is elevated and is being monitored as he receives further fluid resuscitation. Once the patient is stable will need IV access placed for his outpatient intravenous antibiotic therapy likely with daptomycin. 07/15/2017 patient is feeling better today. Still having some pain at the surgical site. Denying fevers or chills. The abscess site is looking well. There is however exposed tendons. A nonstick dressing is applied over the tendons in the moistened gauze. Overall goal is to make sure that this tends to dry so that they do not desiccate. The patient's urinalysis and culture and become available and some gram-negative bacilli are seen in the urine with his ongoing leukocytosis there is concern this could be another source of infection and Rocephin is added, understanding that he's had some difficulties with nausea with cephalosporins unclear if this is due to the additives that are given in the capsules and tablets. He has noted he has many ALLERGIES. He will monitored for any difficulties with the addition of Rocephin however given his significant ongoing leukocytosis gram-negative therapy needs to be added at this time. 07/16/2017 reveals the patient to have had a bit of a difficult day. Is doing better as the day has now gone on. He is arousable awake and interactive and his family is pleased that he is doing a bit better this evening. His pain is under modest good control. The ulceration is evaluated in the dressing is changed. As noted the patient does have evidence of a gram-negative in his urine and for this gram-negative therapy was added. as he continues to have ongoing significant sepsis would continue the daptomycin and Rocephin until we have complete data. Given the patient will need outpatient intravenous antibiotic therapy the patient's sister relates that would not be able to happen in the current home setting and required going to rehab to complete his antibiotics and wound care. We discussed the wound VAC at this point in time will likely not be utilized given the exposed tendons. 07/17/2017 patient is no considerably improved. His sepsis is improving and he is almost completely weaned off of vasopressor therapy. Antibiotic therapy will be streamlined to Rocephin IV access in place with a PICC line and patient will be going to extended care to complete his 6 weeks of antibiotic therapy. Current Visit: Yes Status: Acute Code(s): L02.419 - CUTANEOUS ABSCESS OF LIMB, UNSPECIFIED SNOMED Code(s): 14132223 (3) Severe sepsis with septic shock Current Visit: Yes Status: Acute Code(s): A41.9 - SEPSIS, UNSPECIFIED ORGANISM; R65.21 - SEVERE SEPSIS WITH SEPTIC SHOCK SNOMED Code(s): 57627193
[2017-07-17] MEDS: cefTRIAXone IN SWFI 2,000 MG/20 ML SYRINGE IVP SCH (20:36)
--- NOTE | 2017-07-18 00:16 | P.PN ---
Subjective Progress Note Date: 07/17/17 Principal diagnosis: Right ankle abscess and cellulitis. Septic shock This is a 57-year-old white male with history of cerebral palsy, hypertension, admitted with cellulitis of the right ankle on 07/12/2017. Started out initially as a pustule on the right ankle, went on to develop worsening cellulitis. Patient has been in a CAM boot for this problem. And had recent aspiration of the right ankle by [facility] recently. Patient underwent incision and drainage of the right ankle abscess, irrigation and debridement of the right ankle wound, and application of a one VAC to the right ankle. Postoperatively, patient was admitted to the ICU mostly because of hypotension requiring significant amount of fluids, received a total of 3 L of fluids, had to be placed on norepinephrine for low blood pressure, and he was noted to have significant lactic acidosis. 07/16/2017 Patient is resting in the bed comfortable. No acute distress. Patient remained on pressors support with norepinephrine. Continued on IV hydration. Chest x-ray showed bilateral pleural effusions and changes consistent with congestive heart failure and fluid overload. Leukocytosis is improving to 15.6. Right ankle wound cultures positive for staph aureus and urine cultures positive for E. coli sensitive to Rocephin. Patient is on daptomycin as well. ID and pulmonary is following. 07/17/2017 Patient is still on Levophed drip. Currently down to 5 mics per minute. Patient was given a dose of hydrocortisone 100 mg IV push. Otherwise patient is on normal saline at 1 50 mL per hour. Chest x-ray showed bilateral pleural effusions and fluid overload. Ultrasound of the chest showed right lower lobe pleural pocket 1.9 cm from and left pleural pocket 1.7 cm Currently on antibiotics the form of ceftriaxone and daptomycin Cortisol level low at 14 and albumin 1.7 Patient does have anasarca. Complete review of systems could not be obtained from the patient current medications reviewed. Active Medications Generic Name Dose Route Start Last Admin Trade Name Freq PRN Reason Stop Dose Admin Bisacodyl 10 mg 07/12/17 16:52 Dulcolax RECTAL ONCE PRN Constipation Ceftriaxone Sodium 2,000 mg 07/15/17 22:00 07/17/17 20:36 Rocephin IVP 2,000 mg HS JUDSON Administration Diphenhydramine HCl 25 mg 07/16/17 19:28 Benadryl IVP Q6HR PRN Allergy Symptoms Docusate Sodium 100 mg 07/12/17 16:52 Colace PO BID PRN Constipation Enoxaparin Sodium 40 mg 07/13/17 09:00 07/17/17 08:12 Lovenox SQ 40 mg DAILY JU[facility]ON Administration Famotidine 20 mg 07/13/17 17:30 07/16/17 16:25 Pepcid PO 20 mg AC-SUPPER JUDSON Administration Hydromorphone HCl 1 mg 07/14/17 15:05 07/15/17 08:10 Dilaudid PO 1 mg Q3HR PRN Administration Pain Scale 1 to 3 Hydromorphone HCl 2 mg 07/14/17 15:06 07/16/17 06:04 Dilaudid PO 2 mg Q3HR PRN Administration Pain Scale 4 to 6 Hydromorphone HCl 4 mg 07/14/17 15:08 Dilaudid PO Q3HR PRN Pain Scale 7 to 10 Norepinephrine Bitartrate 4 mg in 250 mls @ 0 mls/hr 07/13/17 18:30 07/17/17 23:07 Levophed-0.9% Nacl 4 Mg/250ml Pmx IV 2 mcg/min .Q0M JUDSON 7.5 mls/hr Protocol Titration Titrate Sodium Chloride 1,000 mls @ 50 mls/hr 07/13/17 18:45 07/17/17 21:42 Saline 0.9% IV 50 mls/hr .Q20H JUDSON Administration Levothyroxine Sodium 112 mcg 07/13/17 06:30 07/17/17 07:10 Synthroid PO 112 mcg QAM@0630 [facility] Administration Magnesium Hydroxide 2,400 mg 07/12/17 16:52 Milk Of Magnesia PO DAILY PRN Constipation Naloxone HCl 0.2 mg 07/12/17 17:12 07/13/17 01:56 Narcan IV 0.2 mg Q2M PRN Administration Opioid Reversal Naproxen 250 mg 07/12/17 22:45 07/17/17 21:42 Naprosyn PO 250 mg TID JUDSON Administration Ondansetron HCl 4 mg 07/12/17 16:52 07/14/17 08:21 Zofran IVP 4 mg Q8HR PRN Administration Nausea And Vomiting Sodium Biphosphate/Sodium Phosphate 133 ml 07/12/17 16:52 Fleet Adult RECTAL ONCE PRN Constipation Sodium Chloride 2 spray 07/16/17 16:02 Deep Sea NASAL QID PRN Nasal Congestion Sodium Chloride 10 ml 07/17/17 09:58 Saline Flush IV Q4HR PRN PICC Line Sodium Chloride 10 ml 07/24/17 09:00 Saline Flush IV WEEKLY JUDSON Sodium Chloride 20 ml 07/17/17 09:58 Saline Flush IV Q4HR PRN PICC Line Tramadol HCl 50 mg 07/13/17 15:38 Ultram PO QID PRN Pain Objective - Vital Signs Vital signs: Vital Signs Temp 97.8 F 07/17/17 20:00 Pulse 68 07/17/17 21:00 Resp 32 H 07/17/17 21:00 BP 85/61 07/17/17 21:00 Pulse Ox 92 L 07/17/17 21:00 Intake & Output 07/17/17 07/17/17 07/18/17 06:59 18:59 06:59 Intake Total 1943.313 564.312 108.313 Output Total 687 2070 195 Balance 1256.313 -1505.688 -86.687 Weight 104.3 kg 104.3 kg 104.3 kg Intake: IV 1700 300 100 DAPTOmycin 500 mg In 50 Sodium Chloride 0.9% 50 ml @ 100 mls/hr IV Q24H JU[facility]ON Rx#:[id number] Sodium Chloride 0.9% 1, 1650 300 100 000 ml @ 50 mls/hr IV . Q20H JU[facility]ON Rx#:[id number] Intake, IV Titration 243.313 64.312 8.313 Amount Norepinephrin 4 mg-0.9% 243.313 64.312 8.313 Ns Pmx 4 mg In 250 ml @ Titrate IV .Q0M JU[facility]ON Rx#: [id number] Oral 200 Output: Urine 687 2070 195 Other: Voiding Method Indwelling Catheter Indwelling Catheter Indwelling Catheter # Voids 3 - Exam PHYSICAL EXAMINATION: Patient is lying in the bed comfortably, no acute distress,. HEENT: Normocephalic. Neck is supple. Pupils reactive. Nostrils clear. Oral cavity is moist. Ears reveal no drainage. Neck reveals no JVD, carotid bruits, or thyromegaly. CHEST EXAMINATION: Trachea is central. Symmetrical expansion. Bibasilar crackles and expiratory wheezing. CARDIAC: Normal S1, S2 with no gallops. No murmurs ABDOMEN: Soft. Bowel sounds normal. No organomegaly. No abdominal bruits. Extremities: 2+ edema. No clubbing or cyanosis. Right ankle wound is Wrapped Neurologically awake, alert. Patient has underlying cerebral palsy, difficulty with speech, and slow mental development. . No focal deficits noted Skin: No rash or skin lesions. Psychiatric: Cooperative. Could not be assessed completely Musculoskeletal: No joint swelling or deformity. Normal range of motion. - Labs CBC & Chem 7: 07/17/17 10:15 07/17/17 10:15 Labs: Abnormal Lab Results - Last 24 Hours (Table) 07/17/17 07/17/17 Range/Units 10:15 10:15 RBC 3.31 L (4.30-5.90) m/uL Hgb 8.3 L (13.0-17.5) gm/dL Hct 27.9 L (39.0-53.0) % MCHC 29.7 L (31.0-37.0) g/dL Neutrophils # 8.3 H (1.3-7.7) k/uL Lymphocytes # 0.9 L (1.0-4.8) k/uL Chloride 115 H (98-107) mmol/L Carbon Dioxide 20 L (22-30) mmol/L Calcium 7.1 L (8.4-10.2) mg/dL Alkaline Phosphatase 913 H (38-126) U/L Total Protein 4.1 L (6.3-8.2) g/dL Albumin 1.6 L (3.5-5.0) g/dL Microbiology - Last 24 Hours (Table) 07/12/17 17:33 Blood Culture - Preliminary Blood No Growth after 120 hours 07/13/17 15:25 Anaerobic Culture - Final Ankle - Right 07/13/17 15:25 Gram Stain - Final Ankle - Right Tissue Culture - Final 07/12/17 12:00 Anaerobic Culture - Final Ankle - Right Assessment and Plan Assessment: 1 acute sepsis and septic shock secondary to cellulitis and abscess of right foot/ankle. 2 status post incision and drainage of right ankle abscess, irrigation and debridement of right ankle wound, application of wound VAC 3 acute urinary tract infection, being addressed by infectious disease on the case. 4. Hypoalbuminemia with moderate protein calorie malnutrition and anasarca 5. Bilateral pleural effusion 4history of multiple comorbidities including cerebral palsy, hypertension, hypothyroidism, Recommendation: Continue present supportive care measures, antibiotics/ daptomycin, fluids, pressors, GI and DVT prophylaxis and close observation in the ICU. Patient isstill presently on norepinephrine Time with Patient: Greater than 30
--- NOTE | 2017-07-18 00:16 | P.PN ---
Subjective Progress Note Date: 07/16/17 Principal diagnosis: Right ankle abscess and cellulitis. Septic shock This is a 57-year-old white male with history of cerebral palsy, hypertension, admitted with cellulitis of the right ankle on 07/12/2017. Started out initially as a pustule on the right ankle, went on to develop worsening cellulitis. Patient has been in a CAM boot for this problem. And had recent aspiration of the right ankle [facility] recently. Patient underwent incision and drainage of the right ankle abscess, irrigation and debridement of the right ankle wound, and application of a one VAC to the right ankle. Postoperatively, patient was admitted to the ICU mostly because of hypotension requiring significant amount of fluids, received a total of 3 L of fluids, had to be placed on norepinephrine for low blood pressure, and he was noted to have significant lactic acidosis. 07/16/2017 Patient is resting in the bed comfortable. No acute distress. Patient remained on pressors support with norepinephrine. Continued on IV hydration. Chest x-ray showed bilateral pleural effusions and changes consistent with congestive heart failure and fluid overload. Leukocytosis is improving to 15.6. Right ankle wound cultures positive for staph aureus and urine cultures positive for E. coli sensitive to Rocephin. Patient is on daptomycin as well. ID and pulmonary is following. Complete review of systems could not be obtained from the patient current medications reviewed. Objective - Vital Signs Vital signs: Vital Signs Temp 98.0 F 07/16/17 16:00 Pulse 52 L 07/16/17 16:00 Resp 15 07/16/17 16:00 BP 87/56 07/16/17 16:00 Pulse Ox 94 L 07/16/17 16:00 Intake & Output 07/15/17 07/16/17 07/16/17 18:59 06:59 18:59 Intake Total 2100 2747.563 1722.437 Output Total 660 690 610 Balance 1440 2057.563 1112.437 Weight 96.7 kg 99.9 kg 99.9 kg Intake: IV 1650 1850 1500 DAPTOmycin 500 mg In 50 Sodium Chloride 0.9% 50 ml @ 100 mls/hr IV Q24H [facility] Rx#:[id number] Sodium Chloride 0.9% 1, 1650 1800 1500 000 ml @ 150 mls/hr IV . Q6H40M [facility] Rx#:[id number] Intake, IV Titration 450 777.563 222.437 Amount Magnesium Sulfate-D5w Pmx 200 1 gm In Dextrose/Water 1 100ml.bag @ 100 mls/hr IVPB Q1H [facility] Rx#: [id number] Norepinephrin 4 mg-0.9% 250 777.563 222.437 Ns Pmx 4 mg In 250 ml @ Titrate IV .Q0M [facility] Rx#: [id number] Oral 120 Output: Urine 660 690 610 Other: Voiding Method Indwelling Catheter Indwelling Catheter Indwelling Catheter - Exam PHYSICAL EXAMINATION: Patient is lying in the bed comfortably, no acute distress,. HEENT: Normocephalic. Neck is supple. Pupils reactive. Nostrils clear. Oral cavity is moist. Ears reveal no drainage. Neck reveals no JVD, carotid bruits, or thyromegaly. CHEST EXAMINATION: Trachea is central. Symmetrical expansion. Lung huerta clear to auscultation and percussion. CARDIAC: Normal S1, S2 with no gallops. No murmurs ABDOMEN: Soft. Bowel sounds normal. No organomegaly. No abdominal bruits. Extremities: 2+ edema. No clubbing or cyanosis. Right ankle wound is Wrapped Neurologically awake, alert. Patient has underlying cerebral palsy, difficulty with speech, and slow mental development. . No focal deficits noted Skin: No rash or skin lesions. Psychiatric: Cooperative. Could not be assessed completely Musculoskeletal: No joint swelling or deformity. Normal range of motion. - Labs CBC & Chem 7: 07/17/17 10:15 07/17/17 10:15 Labs: Abnormal Lab Results - Last 24 Hours (Table) 07/16/17 07/16/17 Range/Units 05:32 05:32 WBC 15.6 H (3.8-10.6) k/uL RBC 3.27 L (4.30-5.90) m/uL Hgb 8.1 L (13.0-17.5) gm/dL Hct 27.9 L (39.0-53.0) % MCH 24.8 L (25.0-35.0) pg MCHC 29.0 L (31.0-37.0) g/dL Neutrophils # 14.2 H (1.3-7.7) k/uL Lymphocytes # 0.7 L (1.0-4.8) k/uL Chloride 112 H (98-107) mmol/L Carbon Dioxide 18 L (22-30) mmol/L BUN 21 H (9-20) mg/dL Calcium 6.8 L (8.4-10.2) mg/dL Total Bilirubin 2.5 H (0.2-1.3) mg/dL Alkaline Phosphatase 827 H (38-126) U/L Total Protein 4.4 L (6.3-8.2) g/dL Albumin 1.7 L (3.5-5.0) g/dL Microbiology - Last 24 Hours (Table) 07/13/17 15:25 Gram Stain - Preliminary Ankle - Right Tissue Culture - Preliminary 07/13/17 17:45 Urine Culture - Final Urine,Catheterized Escherichia coli 07/12/17 17:33 Blood Culture - Preliminary Blood No Growth after 72 hours 07/13/17 15:25 Anaerobic Culture - Preliminary Ankle - Right Assessment and Plan Assessment: 1 acute sepsis and septic shock secondary to cellulitis and abscess of right foot/ankle. 2 status post incision and drainage of right ankle abscess, irrigation and debridement of right ankle wound, application of wound VAC, postoperative day #2 3 acute urinary tract infection, being addressed by infectious disease on the case. 4history of multiple comorbidities including cerebral palsy, hypertension, hypothyroidism, Recommendation: Continue present supportive care measures, antibiotics/ daptomycin, fluids, pressors, GI and DVT prophylaxis and close observation in the ICU. Patient isstill presently on norepinephrine Time with Patient: Greater than 30
[2017-07-18 04:49] LABS: Basophils % (A) 0 %; Eosinophils % (A) 0 %; HCT 28.8 % (39.0-53.0); HGB 8.6 gm/dL (13.0-17.5); Hypochromasia Marked; Lymphocytes # (A) 0.9 k/uL (1.0-4.8); Lymphocytes % (A) 8 %; MCH 24.8 pg (25.0-35.0); MCV 82.8 fL (80.0-100.0); Mean Platelet Volume 7.7; Monocytes # (A) 0.5 k/uL (0-1.0); Monocytes % (A) 4 %; Neutrophils # (A) 10.1 k/uL (1.3-7.7); Neutrophils % (A) 86 %; Platelet Count 272 k/uL (150-450); Poikilocytosis Slight; RBC 3.48 m/uL (4.30-5.90); RDW 15.2 % (11.5-15.5); WBC 11.8 k/uL (3.8-10.6)
[2017-07-18 05:04] LABS: ALT 38 U/L (21-72); AST 23 U/L (17-59); Albumin 1.5 g/dL (3.5-5.0); Alkaline Phosphatase 805 U/L (38-126); Anion Gap 8 mmol/L; Blood Urea Nitrogen 19 mg/dL (9-20); Carbon Dioxide 20 mmol/L (22-30); Chloride 115 mmol/L (98-107); Glucose 110 mg/dL (74-99); Magnesium 1.9 mg/dL (1.6-2.3); Phosphorus 2.5 mg/dL (2.5-4.5); Potassium 3.8 mmol/L (3.5-5.1); Sodium 143 mmol/L (137-145); Total Bilirubin 0.8 mg/dL (0.2-1.3); Total Protein 3.8 g/dL (6.3-8.2)
[2017-07-18] MEDS: LEVOTHYROXINE 112 MCG TAB PO SCH (07:13)
--- NOTE | 2017-07-18 07:48 | XR ---
EXAMINATION TYPE: XR chest 1V DATE OF EXAM: 07/18/2017 CLINICAL HISTORY: Difficulty breathing progress study. TECHNIQUE: Single AP portable semiupright view of the chest is obtained. COMPARISON: Chest x-ray from one day earlier and older studies. FINDINGS: A right-sided PICC line is stable in appearance. There is cardiomegaly with low lung volum es and bibasilar opacities redemonstrated. Osseous structures are demineralized. Cholecystectomy clip s are redemonstrated. IMPRESSION: Overall stable findings, low lung volumes and cardiomegaly with central vascular conges tion and small to moderate-sized right greater than left pleural effusions suggestive of CHF exacerba tion. Underlying bibasilar infiltrate and/or atelectasis is again seen. No significant change from pr ior.
[2017-07-18] MEDS: NAPROXEN 250 MG TAB PO SCH ×3 (08:41→21:44)
[2017-07-18] MEDS: ENOXAPARIN 40 MG/0.4 ML SYRINGE SQ SCH (08:41)
[2017-07-18] MEDS ORDERED: FUROSEMIDE 10 MG/ML 4 ML VIAL IV STA (09:32)
--- NOTE | 2017-07-18 09:39 | P.PN ---
Subjective Progress Note Date: 07/18/17 Principal diagnosis: Acute septic shock, sepsis, right ankle abscess and cellulitis This is a 57-year-old white male with history of cerebral palsy, hypertension, admitted with cellulitis of the right ankle on 07/12/2017. Started out initially as a pustule on the right ankle, went on to develop worsening cellulitis. Patient has been in a CAM boot for this problem. And had recent aspiration of the right ankle [facility] recently. Patient underwent incision and drainage of the right ankle abscess, irrigation and debridement of the right ankle wound, and application of a one VAC to the right ankle. Postoperatively, patient was admitted to the ICU mostly because of hypotension requiring significant amount of fluids, received a total of 3 L of fluids, had to be placed on norepinephrine for low blood pressure, and he was noted to have significant lactic acidosis. Considering his profound hypotension and septic shock presentation, I was asked to see him on consultation. Patient has been already on daptomycin as ordered by Dr. Brandt, he received significant amount of fluids over the last 12 hours, and in spite of of the fluid boluses, patient required norepinephrine. This morning, the patient remains on 20 g of norepinephrine, his lactic acid came down to 4.0, and I have recommended more fluids to be given. Last night in spite of all the fluids, the patient was oliguric, and I recommended one dose of Lasix. Since then the patient has been making significant amount of urine over the last 8 hours. His labs revealed significant leukocytosis with WBC of 26.8 hemoglobin is 8.7. Basic metabolic profile is normal except for low bicarb of 19 minimal anion gap metabolic acidosis, 14, BUN of 24 creatinine of 1.40. Lactic acid has been coming down from 6.5 initially and it is 4.0 today. The patient himself is a very poor historian, patient has history of cerebral palsy. However he is denying any specific complaints presently. Reevaluated today on 07/15/2017, patient is feeling much better, clinically he looks fine, he is asymptomatic, however the patient remains on 11 g of levo fed.continues to have leukocytosis with WBC count of 28.0, hemoglobin is 8.4, electrolytes were reviewed, has a non-anion gap metabolic acidosis. BUN is 26 creatinine is 1.30.chest x-ray is showing small bilateral pleural effusions and right basilar atelectasis could be related to mild vascular congestion. However the patient is having excellent urine output, over 100 mL per hour. And his main IV fluids remains at 1 50 mL per hour.renal functioning seems to be improving steadily. On 07/16/2017 patient seen in follow-up in the intensive care unit. He is resting in bed, appears pale and fatigued, but in no acute distress. He has been afebrile for the past 48 hours, however still requires vasopressor support in the form of norepinephrine currently at the rate of 17 mics per minute. Maintenance IV is 0.9 normal saline at 150 ML per hour. Patient is currently room air with O2 sat at 95%. Sinus bradycardia on the monitor at a rate of 55 BPM. Lung sounds are positive for coarse bibasilar crackles, chest x-ray today shows bilateral pleural effusions, and changes consistent with congestive heart failure and fluid overload. Patient has been extensively fluid resuscitated, and has received liters of fluid since admission. He appears to be generally swollen, with nonpitting swelling in his upper and lower extremities as well as the trunk. Today's lab work has been reviewed, WBC is on the downward trend, and is down to 15.6 from 28 on yesterday's labs. Hemoglobin is stable at 8.1, CO2 is 18, B1 is 21, and creatinine is 1.08. Patient has an indwelling catheter and he is making adequate urine, anywhere from 4200 ML per hour. Right ankle wound culture was positive for staph aureus , and urine culture was positive for E. coli with sensitivity to Rocephin which the patient is currently on. The staph aureus in the wound culture had valverde susceptibility, and the patient is currently on daptomycin in addition to Rocephin. On 07/17/2017 patient seen in follow-up in intensive care unit. He is resting in bed, denies any acute distress, although continues to complain of discomfort in the right lower leg, as well as epigastric tenderness, which seems to be worse with deep inspiration. His IV 0.9 normal saline is infusing at a rate of 150 ML per hour, Levothroid is currently down to 5 mics per minute. We checked a random serum cortisol, which was found to be relatively low at 14, we will give 1 dose of hydrocortisone 100 mg IV push and monitor the patient's response to with. Patient remains very generally swollen, with truncal, and upper and lower extremity edema. We will cut back the mintenance IV fluid rate down to 50 ML per hour. Today's chest x-ray shows small bilateral pleural effusions and fluid overload. Ultrasound of the chest showed right pleural fluid pocket of 1.9 cm and left pleural fluid pocket of 1.7 cm. She is currently on 1 L per nasal cannula with O2 sat 98%. Remains in sinus rhythm with a rate of 55 BPM, afebrile. Urine culture was positive for E. coli, and patient is on a combination of Rocephin, and daptomycin for the evidence of Staphylococcus aureus in the wound culture. ID service is on. Abdomen is soft, distended, but nontender. Patient's hypoalbuminemia with a hemoglobin of 1.7, is likely contributing to patient's anasarca. Overall patient is more awake, and interactive on today's exam. Lung sounds are positive for expiratory wheezes bilaterally, no rales, no rhonchi noted. Right lower leg is dressed, wound care is per ID service recommendations. On 07/18/2017 patient seen in follow-up in intensive care unit. He is awake alert, responding appropriately, denies any acute distress. Today's chest x- ray shows persistence of bibasilar effusions, right greater than the left, and fluid overload. Patient has generalized edema in his bilateral upper and lower extremities and some truncal edema. His levo fed drip has been on hold since 5: 30 this morning, making adequate amounts of urine, systolic blood pressures are running in the 90s, and diastolic blood pressures are in the 60s to 70s millimeters of mercury. He is afebrile, remains in sinus rhythm with a controlled rate on the monitor. Denies any dyspnea, denies any chest pain, lung sounds are positive for expiratory wheezes bilaterally. Incentive spirometry at the bedside, patient needs encouragement to use it. His IV fluids were decreased down to 50 ML per hour yesterday, in view of patient's significant generalized edema. Patient had a trial of hydrocortisone at 100 mg IV push times one yesterday to which she did not respond, which makes possibility of adrenal insufficiency not likely. Today we will give the patient 1 dose of 40 mg IV Lasix. Continue monitoring blood pressure, continue monitoring urine output. We will add midodrine 5 mg twice a day, will increase activity as tolerated. Possible transfer out of the intensive care unit later on today, provided patient maintains normal vitals. Objective - Vital Signs Vital signs: Vital Signs Temp 97.8 F 07/18/17 08:30 Pulse 81 07/18/17 09:00 Resp 20 07/18/17 09:00 BP 94/65 07/18/17 09:00 Pulse Ox 100 07/18/17 09:00 Intake & Output 07/17/17 07/18/17 07/18/17 18:59 06:59 18:59 Intake Total 564.312 605.813 350 Output Total 2070 480 145 Balance -1505.688 125.813 205 Weight 104.3 kg 107 kg 107 kg Intake: IV 300 550 50 Sodium Chloride 0.9% 1, 300 550 50 000 ml @ 50 mls/hr IV . Q20H [facility] Rx#:[id number] Intake, IV Titration 64.312 55.813 Amount Norepinephrin 4 mg-0.9% 64.312 55.813 Ns Pmx 4 mg In 250 ml @ Titrate IV .Q0M [facility] Rx#: [id number] Oral 200 300 Output: Urine 2070 480 145 Other: Voiding Method Indwelling Catheter Indwelling Catheter Indwelling Catheter # Voids 3 3 - Exam Physical Exam: Revealed a 57-year-old white male, slightly pale, but more awake and interactive today, but in no distress. Head: Atraumatic, normocephalic. Eyes: PERRLA, EOMI, no icterus. HEENT:[Neck is supple.] [No neck masses.] [No thyromegaly.] [No JVD.] Chest: [Expiratory wheezes heard bilaterally,] Cardiac Exam: [Normal S1 and S2, no S3 gallop, no murmur.] Abdomen: [Soft, nontender, no megaly, no rebound, no guarding, normal bowel sounds.] Extremities: Right lower extremity is wrapped,. With sterile dressing. Could not be examined.] Neurological Exam: Patient has underlying cerebral palsy, difficulty with speech , and slow mental development. Otherwise no gross focal neurologic deficit. Lymphatics: No adenopathy. - Labs CBC & Chem 7: 07/18/17 04:40 07/18/17 04:40 Labs: Abnormal Lab Results - Last 24 Hours (Table) 07/17/17 07/17/17 07/18/17 Range/Units 10:15 10:15 04:40 WBC 11.8 H (3.8-10.6) k/uL RBC 3.31 L 3.48 L (4.30-5.90) m/uL Hgb 8.3 L 8.6 L (13.0-17.5) gm/dL Hct 27.9 L 28.8 L (39.0-53.0) % MCH 24.8 L (25.0-35.0) pg MCHC 29.7 L 30.0 L (31.0-37.0) g/dL Neutrophils # 8.3 H 10.1 H (1.3-7.7) k/uL Lymphocytes # 0.9 L 0.9 L (1.0-4.8) k/uL Chloride 115 H (98-107) mmol/L Carbon Dioxide 20 L (22-30) mmol/L Glucose (74-99) mg/dL Calcium 7.1 L (8.4-10.2) mg/dL Alkaline Phosphatase 913 H (38-126) U/L Total Protein 4.1 L (6.3-8.2) g/dL Albumin 1.6 L (3.5-5.0) g/dL 07/18/17 Range/Units 04:40 WBC (3.8-10.6) k/uL RBC (4.30-5.90) m/uL Hgb (13.0-17.5) gm/dL Hct (39.0-53.0) % MCH (25.0-35.0) pg MCHC (31.0-37.0) g/dL Neutrophils # (1.3-7.7) k/uL Lymphocytes # (1.0-4.8) k/uL Chloride 115 H (98-107) mmol/L Carbon Dioxide 20 L (22-30) mmol/L Glucose 110 H (74-99) mg/dL Calcium 7.0 L (8.4-10.2) mg/dL Alkaline Phosphatase 805 H (38-126) U/L Total Protein 3.8 L (6.3-8.2) g/dL Albumin 1.5 L (3.5-5.0) g/dL Microbiology - Last 24 Hours (Table) 07/12/17 17:33 Blood Culture - Preliminary Blood No Growth after 120 hours 07/13/17 15:25 Anaerobic Culture - Final Ankle - Right 07/13/17 15:25 Gram Stain - Final Ankle - Right Tissue Culture - Final Assessment and Plan Plan: Assessment: 1 acute sepsis and septic shock secondary to cellulitis and abscess of right foot/ankle. Right ankle wound culture was positive for Staphylococcus aureus, and urine culture was positive for E. coli. Patient is on combination of Rocephin and daptomycin per ID service recommendation. 2 status post incision and drainage of right ankle abscess, irrigation and debridement of right ankle wound, application of wound VAC, postoperative day #5 3 acute urinary tract infection, being addressed by infectious disease on the case. Urine cultures positive for E. coli 4history of multiple comorbidities including cerebral palsy, hypertension, hypothyroidism Plan: Continue encouraging incentive spirometry, we will give the patient 40 mg IV Lasix today, now that the levo fed has been weaned off. Monitor vital signs, fever pattern, repeat blood work today, CBC, CMP. Continue with current antibiotic coverage. Increase activity as tolerated. Possible transfer out of the intensive care later on today. I performed a history & physical examination of the patient and discussed their management with my nurse practitioner, Shannan Arenas. I reviewed the nurse practitioner's note and agree with the documented findings and plan of care. Lung sounds are positive for scattered wheezes. The findings and the impression was discussed with the patient. I attest to the documentation by the nurse practitioner. Critical care time is over 30 minutes Time with Patient: Greater than 30
--- NOTE | 2017-07-18 15:12 | P.PN ---
Subjective Progress Note Date: 07/18/17 Principal diagnosis: Status post I&D right ankle infection/cellulitis [facility]rox[facility] Patient is pleasant 57-year-old male seen at bedside at this afternoon. He is status post I&D of right ankle infection performed on 07/13/2017. Cultures have shown Staphylococcus aureus which is methicillin susceptible. Urine culture is also been positive for E. coli. These are being addressed with appropriate antibiotics per infectious disease. He continues to be managed in the ICU. His BP is improving and has been weaned off pressors. Studies have shown bilateral pulmonary effusions and is being addressed by the relief operator. He currently denies any new complaints today. He appears to be interactive and stable. His pain is mostly controlled. He is denying calf pain, fever, chills, chest pain or shortness of breath. He is resting comfortably in bed. Objective - Vital Signs Vital signs: Vital Signs Temp 97.7 F 07/18/17 14:00 Pulse 69 07/18/17 14:30 Resp 36 H 07/18/17 14:30 BP 106/65 07/18/17 14:30 Pulse Ox 97 07/18/17 14:00 Intake & Output 07/17/17 07/18/17 07/18/17 18:59 06:59 18:59 Intake Total 564.312 605.813 675 Output Total 2070 480 2145 Balance -1505.688 125.813 -1470 Weight 104.3 kg 107 kg 107 kg Intake: IV 300 550 50 Sodium Chloride 0.9% 1, 300 550 50 000 ml @ 50 mls/hr IV . Q20H [facility] Rx#:[id number] Intake, IV Titration 64.312 55.813 Amount Norepinephrin 4 mg-0.9% 64.312 55.813 Ns Pmx 4 mg In 250 ml @ Titrate IV .Q0M [facility] Rx#: [id number] Oral 200 625 Output: Urine 2070 480 2145 Other: Voiding Method Indwelling Catheter Indwelling Catheter Indwelling Catheter # Voids 3 3 - Exam Inspection of the right lower extremity shows bandage in place. There is no evidence of active bleeding. No drainage. He has sensation to touch grossly in all toes. He is able to wiggle the toes and foot. The calf is soft and nontender. There is perfusion to the right lower extremity. He continues to have peripheral edema. There is no evidence of ascending infection - Constitutional General appearance: Present: no acute distress - Psychiatric Psychiatric: Present: A&O x's 3, appropriate affect, intact judgment & insight - Labs CBC & Chem 7: 07/18/17 04:40 07/18/17 04:40 Labs: Abnormal Lab Results - Last 24 Hours (Table) 07/18/17 07/18/17 Range/Units 04:40 04:40 WBC 11.8 H (3.8-10.6) k/uL RBC 3.48 L (4.30-5.90) m/uL Hgb 8.6 L (13.0-17.5) gm/dL Hct 28.8 L (39.0-53.0) % MCH 24.8 L (25.0-35.0) pg MCHC 30.0 L (31.0-37.0) g/dL Neutrophils # 10.1 H (1.3-7.7) k/uL Lymphocytes # 0.9 L (1.0-4.8) k/uL Chloride 115 H (98-107) mmol/L Carbon Dioxide 20 L (22-30) mmol/L Glucose 110 H (74-99) mg/dL Calcium 7.0 L (8.4-10.2) mg/dL Alkaline Phosphatase 805 H (38-126) U/L Total Protein 3.8 L (6.3-8.2) g/dL Albumin 1.5 L (3.5-5.0) g/dL Microbiology - Last 24 Hours (Table) 07/12/17 17:33 Blood Culture - Preliminary Blood No Growth after 120 hours 07/13/17 15:25 Anaerobic Culture - Final Ankle - Right Assessment and Plan (1) Cellulitis of right ankle Narrative/Plan: He continues to be afebrile, last WBC was 11 and continues to be improved. Pain is controlled. He'll continue with routine postop orthopedic protocol with pain management, DVT prophylaxis, elevation and nonweightbearing to right lower extremity, medical management per relief operator, wound care and antibiotics per infectious disease. We will continue to follow closely and make further recommendations as appropriate. Current Visit: No Status: Acute Priority: Medium Code(s): L03.115 - CELLULITIS OF RIGHT LOWER LIMB SNOMED Code(s): 16526249 Time with Patient: Less than 30
[2017-07-18] MEDS: FAMOTIDINE 20 MG TAB PO SCH (17:12)
[2017-07-18] MEDS: POLYETHYLENE GLYCOL 3350 17 GM POWD.PACK PO SCH (21:43)
[2017-07-18] MEDS: cefTRIAXone IN SWFI 2,000 MG/20 ML SYRINGE IVP SCH (21:43)
[2017-07-18] MEDS: SODIUM CHLORIDE 0.9% 1,000 ML IV SCH (21:45)
--- NOTE | 2017-07-18 22:54 | P.PN ---
Subjective Progress Note Date: 07/18/17 Principal diagnosis: Right ankle abscess and cellulitis. Septic shock This is a 57-year-old white male with history of cerebral palsy, hypertension, admitted with cellulitis of the right ankle on 07/12/2017. Started out initially as a pustule on the right ankle, went on to develop worsening cellulitis. Patient has been in a CAM boot for this problem. And had recent aspiration of the right ankle by [facility] recently. Patient underwent incision and drainage of the right ankle abscess, irrigation and debridement of the right ankle wound, and application of a one VAC to the right ankle. Postoperatively, patient was admitted to the ICU mostly because of hypotension requiring significant amount of fluids, received a total of 3 L of fluids, had to be placed on norepinephrine for low blood pressure, and he was noted to have significant lactic acidosis. 07/16/2017 Patient is resting in the bed comfortable. No acute distress. Patient remained on pressors support with norepinephrine. Continued on IV hydration. Chest x-ray showed bilateral pleural effusions and changes consistent with congestive heart failure and fluid overload. Leukocytosis is improving to 15.6. Right ankle wound cultures positive for staph aureus and urine cultures positive for E. coli sensitive to Rocephin. Patient is on daptomycin as well. ID and pulmonary is following. 07/18/2017 Currently patient is lying in the bed comfortable. No acute distress noted. Patient is off pressors support otherwise patient is still having symptoms edema. Chest x-ray showed persistent bibasilar effusions right greater than left and fluid load. Patient was given a dose of Lasix 40 mg 1. Patient does have good urine output. Patient was started on Midodrin 5 mg twice daily. Patient has been afebrile. No fever no chills. continue twith right ankle dressing changes. complete review of systems could not be obtained from the patient current medications reviewed. Active Medications Bisacodyl (Dulcolax) 10 mg RECTAL ONCE PRN PRN Reason: Constipation Ceftriaxone Sodium (Rocephin) 2,[address] [facility] Last Admin: 07/18/17 21:43 Dose: 2,000 mg Diphenhydramine HCl (Benadryl) 25 mg IVP Q6HR PRN PRN Reason: Allergy Symptoms Docusate Sodium (Colace) 100 mg PO BID PRN PRN Reason: Constipation Enoxaparin Sodium (Lovenox) [address] [facility] Last Admin: 07/18/17 08:41 Dose: 40 mg Famotidine (Pepcid) 20 mg PO AC-SUPPER [facility] Last Admin: 07/18/17 17:12 Dose: 20 mg Hydromorphone HCl (Dilaudid) 1 mg PO Q3HR PRN PRN Reason: Pain Scale 1 to 3 Last Admin: 07/15/17 08:10 Dose: 1 mg Hydromorphone HCl (Dilaudid) 2 mg PO Q3HR PRN PRN Reason: Pain Scale 4 to 6 Last Admin: 07/16/17 06:04 Dose: 2 mg Hydromorphone HCl (Dilaudid) 4 mg PO Q3HR PRN PRN Reason: Pain Scale 7 to 10 Norepinephrine Bitartrate (Levophed-0.9% Nacl 4 Mg/250ml Pmx) 4 mg in 250 mls @ 0 mls/hr IV .Q0M [facility]; Titrate PRN Reason: Protocol Last Titration: 07/18/17 05:27 Dose: 0 mcg/min, 0 mls/hr Sodium Chloride (Saline 0.9%) 1,000 mls @ 50 mls/hr IV .Q20H [facility] Last Admin: 07/18/17 21:45 Dose: 50 mls/hr Levothyroxine Sodium (Synthroid) 112 mcg PO QAM@0630 [facility] Last Admin: 07/18/17 07:13 Dose: 112 mcg Magnesium Hydroxide (Milk Of Magnesia) 2,400 mg PO DAILY PRN PRN Reason: Constipation Naloxone HCl (Narcan) 0.2 mg IV Q2M PRN PRN Reason: Opioid Reversal Last Admin: 07/13/17 01:56 Dose: 0.2 mg Naproxen (Naprosyn) [address] [facility] Last Admin: 07/18/17 21:44 Dose: 250 mg Ondansetron HCl (Zofran) 4 mg IVP Q8HR PRN PRN Reason: Nausea And Vomiting Last Admin: 07/14/17 08:21 Dose: 4 mg Polyethylene Glycol (Miralax) [address] [facility] Last Admin: 07/18/17 21:43 Dose: 17 gm Sodium Biphosphate/Sodium Phosphate (Fleet Adult) 133 ml RECTAL ONCE PRN PRN Reason: Constipation Sodium Chloride (Deep Sea) 2 spray NASAL QID PRN PRN Reason: Nasal Congestion Sodium Chloride (Saline Flush) 10 ml IV Q4HR PRN PRN Reason: PICC Line Sodium Chloride (Saline Flush) 10 ml IV WEEKLY [facility] Sodium Chloride (Saline Flush) 20 ml IV Q4HR PRN PRN Reason: PICC Line Tramadol HCl (Ultram) 50 mg PO QID PRN PRN Reason: Pain Objective - Vital Signs Vital signs: Vital Signs Temp 97.7 F 07/18/17 14:00 Pulse 67 07/18/17 17:00 Resp 15 07/18/17 17:00 BP 116/62 07/18/17 17:00 Pulse Ox 97 07/18/17 17:00 Intake & Output 07/17/17 07/18/17 07/18/17 18:59 06:59 18:59 Intake Total 564.312 605.813 675 Output Total 2070 480 2945 Balance -1505.688 125.813 -2270 Weight 104.3 kg 107 kg 107 kg Intake: IV 300 550 50 Sodium Chloride 0.9% 1, 300 550 50 000 ml @ 50 mls/hr IV . Q20H [facility] Rx#:[id number] Intake, IV Titration 64.312 55.813 Amount Norepinephrin 4 mg-0.9% 64.312 55.813 Ns Pmx 4 mg In 250 ml @ Titrate IV .Q0M [facility] Rx#: [id number] Oral 200 625 Output: Urine 2070 480 2945 Other: Voiding Method Indwelling Catheter Indwelling Catheter Indwelling Catheter # Voids 3 3 - Exam PHYSICAL EXAMINATION: Patient is lying in the bed comfortably, no acute distress,. HEENT: Normocephalic. Neck is supple. Pupils reactive. Nostrils clear. Oral cavity is moist. Ears reveal no drainage. Neck reveals no JVD, carotid bruits, or thyromegaly. CHEST EXAMINATION: Trachea is central. Symmetrical expansion. Bibasilar crackles and rhonchi. No wheezing. CARDIAC: Normal S1, S2 with no gallops. No murmurs ABDOMEN: Soft. Bowel sounds normal. No organomegaly. No abdominal bruits. Extremities: 2+ edema. No clubbing or cyanosis. Right ankle wound is Wrapped Neurologically awake, alert. Patient has underlying cerebral palsy, difficulty with speech, and slow mental development. . No focal deficits noted Skin: No rash or skin lesions. Psychiatric: Cooperative. Could not be assessed completely Musculoskeletal: No joint swelling or deformity. Normal range of motion. - Labs CBC & Chem 7: 07/18/17 04:40 07/18/17 04:40 Labs: Abnormal Lab Results - Last 24 Hours (Table) 07/18/17 07/18/17 Range/Units 04:40 04:40 WBC 11.8 H (3.8-10.6) k/uL RBC 3.48 L (4.30-5.90) m/uL Hgb 8.6 L (13.0-17.5) gm/dL Hct 28.8 L (39.0-53.0) % MCH 24.8 L (25.0-35.0) pg MCHC 30.0 L (31.0-37.0) g/dL Neutrophils # 10.1 H (1.3-7.7) k/uL Lymphocytes # 0.9 L (1.0-4.8) k/uL Chloride 115 H (98-107) mmol/L Carbon Dioxide 20 L (22-30) mmol/L Glucose 110 H (74-99) mg/dL Calcium 7.0 L (8.4-10.2) mg/dL Alkaline Phosphatase 805 H (38-126) U/L Total Protein 3.8 L (6.3-8.2) g/dL Albumin 1.5 L (3.5-5.0) g/dL Microbiology - Last 24 Hours (Table) 07/12/17 17:33 Blood Culture - Preliminary Blood No Growth after 120 hours 07/13/17 15:25 Anaerobic Culture - Final Ankle - Right Assessment and Plan Assessment: 1 acute sepsis and septic shock secondary to cellulitis and abscess of right foot/ankle. Off pressors support 2 status post incision and drainage of right ankle abscess, irrigation and debridement of right ankle wound, application of wound VAC 3 acute urinary tract infection. 4 bilateral pleural effusion and fluid overload and generalized edema. Continued on gentle hydration. Patient was given IV Lasix. 4history of multiple comorbidities including cerebral palsy, hypertension, hypothyroidism, Recommendation: Continue present supportive care measures, antibiotics/ daptomycin, fluids,, GI and DVT prophylaxis and close observation in the ICU. Started on Midrin 5 mg twice a day. Prognosis is guarded. Time with Patient: Greater than 30
[2017-07-18] MEDS: ONDANSETRON 4 MG/2 ML VIAL IVP PRN (23:03)
--- NOTE | 2017-07-18 23:44 | P.PN ---
Subjective Progress Note Date: 07/18/17 Principal diagnosis: Sepsis This is a 57-year-old male patient who is known to ID service as he was initially seen during a May admission at which time he was treated for cellulitis of the right ankle with improvement during his stay. A boot was ordered by orthopedics and patient was discharged on cephalexin and was to continue to wear the boot at home. Patient has history of cerebral palsy and lives at home with his sister. She states that on Sunday he developed a blister, raised area on the right ankle and within 24 hours it became reddened and swollen and he had swelling going up into his lower leg and his foot. He went to his orthopedic doctor, Dr. Brown was seen yesterday and underwent aspiration and this was sent for cultures. Patient was then directly admitted to the hospital and started initially on vancomycin which has been changed to daptomycin. Patient has been afebrile with a White count of 13. CRP 87.4 and sed rate 68. Blood cultures status received and wound culture is in progress. CAT scan was compared to previous MRIs done very and May 25 and revealed increasing soft tissue density and thickening compatible with patient' s reported cellulitis. This is worsening from compared images. Increasing soft tissue density surrounding the proximal forefoot joint spaces especially the distal talus and feculent region findings are suspicious for increasing osteomyelitis at this level. A duplex was negative for DVT on the right leg. It is scheduled for I&D this morning at 11. If patient requires IV antibiotics , patient's sister wishes for him to go to [facility] for treatment. Of note, patient had pain of 10 out of 10 during the night and received morphine which dropped his blood pressure from 190/103 down to 76/50. His sister states that he has had sensitivity to morphine in the past when he had diaphragmatic hernia repair done at [facility]. He is status post IV fluid bolus of 500 mL. Blood pressure remains low but patient is stable without any symptoms. 07/14/2017 reveals the patient to have some improvement. Other than pain at his ankle area which is improved the patient continues to have relative hypotension and is still on vasopressor therapy. White blood cell count at 26.8. Lactic acid is improving. His temperature was 102.9 is now down to 97.6. Fortunately the patient does feel better today. He'll relates that he feels like he needs to have a bowel movement. 07/15/2017 patient does feel a bit better but still remains on some vasopressor therapy but at decreasing doses. He continues to have leukocytosis of 28, and fever has improved. 07/16/2017 patient was a bit sleepy today however upon arousal is awake alert oriented to person place and time and has no new acute gross focal sensory motor deficits. His hypotension is improving but still requiring vasopressor therapy at this time. He has been seen by the card cutter helper and Cortef doses have been adjusted. 07/17/2017 patient is much more awake and interactive today. Has had a much better day. Appetite still somewhat poor but he developed significant anasarca from his fluid resuscitation from his septic shock from his staph abscess to his right foot in E. coli urinary tract infection. Is noticing much better today and has no other acute troubles the vasopressor therapy has almost been completely weaned 07/18/2017 the patient's in a less good mood today but he is awake alert and interactive. He is eating quite well today. He does have some minimal abdominal fullness related to his anasarca. However he is no longer hypotensive. He is off vasopressor therapy. He's had improving diuresis which is helping him feel better. Denies other new acute complaints. Does have ongoing pain to that right foot where he has the extensive infection ulceration. Objective - Vital Signs Vital signs: Vital Signs Temp 97.9 F 07/18/17 20:00 Pulse 74 07/18/17 23:00 Resp 19 07/18/17 23:00 BP 99/64 07/18/17 23:00 Pulse Ox 94 L 07/18/17 23:00 Intake & Output 07/18/17 07/18/17 07/19/17 06:59 18:59 06:59 Intake Total 605.813 675 470 Output Total 480 9955 950 Balance 125.816 -9629 -841 Weight 107 kg 107 kg 107 kg Intake: IV 550 50 80 Sodium Chloride 0.9% 1, 550 50 80 000 ml @ 50 mls/hr IV . Q20H [facility] Rx#:[id number] Intake, IV Titration 55.813 Amount Norepinephrin 4 mg-0.9% 55.813 Ns Pmx 4 mg In 250 ml @ Titrate IV .Q0M [facility] Rx#: [id number] Oral 625 390 Output: Urine 480 7208 647 Other: Voiding Method Indwelling Catheter Indwelling Catheter Indwelling Catheter # Voids 3 - Exam Gen: This is a 57-year-old male patient. He is sitting up in bed and appears to be comfortable and in no acute distress. HEENT: Head is atraumatic, normocephalic. Pupils equal, round. Sclerae is anicteric. Conjunctiva pink. Oral mucous membranes are moist. Patient is edentulous. NECK: Supple. No JVD. No lymphadenopathy. No thyromegaly. LUNGS: Clear to auscultation. No wheezes or rhonchi. No intercostal retractions. HEART: Regular rate and rhythm. No murmur. ABDOMEN: Soft. Bowel sounds are present. No masses. No tenderness. EXTREMITIES: Patient has edema to the right lower extremity. The right ankle abscess has been drained and wound VAC is in place, the VAC is removed. The ulceration is noted and please see the nursing photography for its exact location and size. Is cleansed with saline and a nonstick dressing is applied and then Pseudomonas and gauze roll gauze and a serum applied. He tolerated the dressing change well. There are exposed tendons, we'll hold on the wound VAC for now. We'll likely utilize an absorptive silver dressing soon. The patient was having severe pain and this is improved. There is no breakthrough drainage. There is no ascending cellulitis on the right lower leg. NEUROLOGICAL: Patient is awake, alert and oriented x3. He does have cerebral palsy but has excellent interactions. He is a [place] fan and is able to relate many of his favorite memories. - Labs CBC & Chem 7: 07/18/17 04:40 07/18/17 04:40 Labs: Abnormal Lab Results - Last 24 Hours (Table) 07/18/17 07/18/17 Range/Units 04:40 04:40 WBC 11.8 H (3.8-10.6) k/uL RBC 3.48 L (4.30-5.90) m/uL Hgb 8.6 L (13.0-17.5) gm/dL Hct 28.8 L (39.0-53.0) % MCH 24.8 L (25.0-35.0) pg MCHC 30.0 L (31.0-37.0) g/dL Neutrophils # 10.1 H (1.3-7.7) k/uL Lymphocytes # 0.9 L (1.0-4.8) k/uL Chloride 115 H (98-107) mmol/L Carbon Dioxide 20 L (22-30) mmol/L Glucose 110 H (74-99) mg/dL Calcium 7.0 L (8.4-10.2) mg/dL Alkaline Phosphatase 805 H (38-126) U/L Total Protein 3.8 L (6.3-8.2) g/dL Albumin 1.5 L (3.5-5.0) g/dL Microbiology - Last 24 Hours (Table) 07/12/17 17:33 Blood Culture - Final Blood No Growth after 144 hours Laboratory Results WBC 11.8 k/uL (3.8-10.6) H 07/18/17 04:40 RBC 3.48 m/uL (4.30-5.90) L 07/18/17 04:40 Hgb 8.6 gm/dL (13.0-17.5) L 07/18/17 04:40 Hct 28.8 % (39.0-53.0) L 07/18/17 04:40 MCV 82.8 fL (80.0-100.0) 07/18/17 04:40 MCH 24.8 pg (25.0-35.0) L 07/18/17 04:40 MCHC 30.0 g/dL (31.0-37.0) L 07/18/17 04:40 RDW 15.2 % (11.5-15.5) 07/18/17 04:40 Plt Count 272 k/uL (150-450) 07/18/17 04:40 Neutrophils % 86 % 07/18/17 04:40 Neutrophils % (Manual) 75 % 07/15/17 05:25 Band Neutrophils % 21 % 07/15/17 05:25 Lymphocytes % 8 % 07/18/17 04:40 Lymphocytes % (Manual) 2 % 07/15/17 05:25 Monocytes % 4 % 07/18/17 04:40 Monocytes % (Manual) 2 % 07/15/17 05:25 Eosinophils % 0 % 07/18/17 04:40 Basophils % 0 % 07/18/17 04:40 Metamyelocytes % 1 % 07/15/17 05:25 Neutrophils # 10.1 k/uL (1.3-7.7) H 07/18/17 04:40 Neutrophils # (Manual) 26.80 k/uL (1.3-7.7) H 07/15/17 05:25 Lymphocytes # 0.9 k/uL (1.0-4.8) L 07/18/17 04:40 Lymphocytes # (Manual) 0.56 k/uL (1.0-4.8) L 07/15/17 05:25 Monocytes # 0.5 k/uL (0-1.0) 07/18/17 04:40 Monocytes # (Manual) 0.56 k/uL (0-1.0) 07/15/17 05:25 Eosinophils # 0.0 k/uL (0-0.7) 07/18/17 04:40 Basophils # 0.0 k/uL (0-0.2) 07/18/17 04:40 Metamyelocytes # (Man) 0.28 k/uL (0) H 07/15/17 05:25 Nucleated RBCs 0 /100 WBC (0-0) 07/15/17 05:25 Manual Slide Review Performed 07/15/17 05:25 Toxic Granulation Present 07/15/17 05:25 Toxic Vacuolation Present 07/15/17 05:25 Hypochromasia Marked 07/18/17 04:40 Poikilocytosis Slight 07/18/17 04:40 Poikilocytosis (manual Present 07/15/17 05:25 Ovalocytes Present 07/14/17 04:45 Crenated Cell Present 07/15/17 05:25 ESR 68 mm/hr (0-15) H 07/12/17 17:33 PT 13.8 sec (9.0-12.0) H 07/13/17 16:11 INR 1.5 (<1.2) H 07/13/17 16:11 APTT 25.1 sec (22.0-30.0) 07/13/17 16:11 Sodium 143 mmol/L (137-145) 07/18/17 04:40 Potassium 3.8 mmol/L (3.5-5.1) 07/18/17 04:40 Chloride 115 mmol/L (98-107) H 07/18/17 04:40 Carbon Dioxide 20 mmol/L (22-30) L 07/18/17 04:40 Anion Gap 8 mmol/L 07/18/17 04:40 BUN 19 mg/dL (9-20) 07/18/17 04:40 Creatinine 0.91 mg/dL (0.66-1.25) 07/18/17 04:40 Est GFR (CKD-EPI)AfAm >90 (>60 ml/min/1.73 sqM) 07/18/17 04:40 Est GFR (CKD-EPI)NonAf >90 (>60 ml/min/1.73 sqM) 07/18/17 04:40 Glucose 110 mg/dL (74-99) H 07/18/17 04:40 POC Glucose (mg/dL) 96 mg/dL (75-99) 07/15/17 00:37 POC Glu Payroll Secretary ID Shelby Kaufman 07/15/17 00:37 Lactic Ac Sepsis Rflx Y 07/14/17 01:17 Plasma Lactic Acid [place] 1.4 mmol/L (0.7-2.0) 07/16/17 04:24 Calcium 7.0 mg/dL (8.4-10.2) L 07/18/17 04:40 Phosphorus 2.5 mg/dL (2.5-4.5) 07/18/17 04:40 Magnesium 1.9 mg/dL (1.6-2.3) 07/18/17 04:40 Total Bilirubin 0.8 mg/dL (0.2-1.3) 07/18/17 04:40 AST 23 U/L (17-59) 07/18/17 04:40 ALT 38 U/L (21-72) 07/18/17 04:40 Alkaline Phosphatase 805 U/L (38-126) H 07/18/17 04:40 Total Creatine Kinase 289 U/L (55-170) H 07/13/17 16:11 CK-MB (CK-2) 1.0 ng/mL (0.0-2.4) 07/13/17 16:11 CK-MB (CK-2) Rel Index 0.3 07/13/17 16:11 Troponin I 0.097 ng/mL (0.000-0.034) H* 07/13/17 16:11 C-Reactive Protein 87.4 mg/L (<10.0) H 07/12/17 17:33 Total Protein 3.8 g/dL (6.3-8.2) L 07/18/17 04:40 Albumin 1.5 g/dL (3.5-5.0) L 07/18/17 04:40 Cortisol 14 ug/dL 07/16/17 05:32 Urine Color Yellow 07/13/17 17:45 Urine Appearance Turbid (Clear) 07/13/17 17:45 Urine pH 6.0 (5.0-8.0) 07/13/17 17:45 Ur Specific [place] 1.019 (1.001-1.035) 07/13/17 17:45 Urine Protein 1+ (Negative) H 07/13/17 17:45 Urine Glucose (UA) Negative (Negative) 07/13/17 17:45 Urine Ketones Negative (Negative) 07/13/17 17:45 Urine Blood Moderate (Negative) H 07/13/17 17:45 Urine Nitrite Negative (Negative) 07/13/17 17:45 Urine Bilirubin Negative (Negative) 07/13/17 17:45 Urine Urobilinogen 2.0 mg/dL (<2.0) 07/13/17 17:45 Ur Leukocyte Esterase Large (Negative) H 07/13/17 17:45 Urine RBC 38 /hpf (0-5) H 07/13/17 17:45 Urine WBC >182 /hpf (0-5) H 07/13/17 17:45 Urine WBC Clumps Many /hpf (None) H 07/13/17 17:45 Urine Bacteria Many /hpf (None) H 07/13/17 17:45 Microbiology 07/12/17 17:33 Blood Blood Culture - Final No Growth after 144 hours 07/13/17 15:25 Ankle - Right Anaerobic Culture - Final 07/13/17 15:25 Ankle - Right Gram Stain - Final 07/13/17 15:25 Ankle - Right Tissue Culture - Final 07/12/17 12:00 Ankle - Right Anaerobic Culture - Final 07/13/17 17:45 Urine,Catheterized Urine Culture - Final Escherichia coli 07/12/17 12:00 Ankle - Right Gram Stain - Final 07/12/17 12:00 Ankle - Right Wound Culture - Final Staphylococcus aureus Assessment and Plan (1) Cellulitis of right ankle Current Visit: No Status: Acute Priority: Medium Code(s): L03.115 - CELLULITIS OF RIGHT LOWER LIMB SNOMED Code(s): 50338332 (2) Abscess of ankle Narrative/Plan: 57-year-old patient that has a complex history of the recent injury to his now developed a significant abscess at that site which required incision and drainage. Was having some difficulty with hypotension, appears to be having sepsis is not being cared for in the intensive care unit. He'll receive further fluid resuscitation for his sepsis and lactic acidosis. He will continue to have antibiotic therapy with daptomycin. Local wound care is negative pressure therapy system. He was monitored closely and plans will be made for his outpatient antibiotic therapy which likely will be intravenous as well as local wound care. Enhancement of his nutritional status will also help his wound healing. On 07/14/2017 the patient is improved. His pain is better. However still having hypotension requiring some vasopressor therapy and is receiving ongoing fluid resuscitation. He is feeling better his mentation is improved. Wound culture with staph aureus has many ALLERGIES doing well with daptomycin. Leukocytosis is expected after the incision and drainage and a response to his sepsis. He's had an increase of his creatinine to 1.2 and will be monitored. Lactic acid is elevated and is being monitored as he receives further fluid resuscitation. Once the patient is stable will need IV access placed for his outpatient intravenous antibiotic therapy likely with daptomycin. 07/15/2017 patient is feeling better today. Still having some pain at the surgical site. Denying fevers or chills. The abscess site is looking well. There is however exposed tendons. A nonstick dressing is applied over the tendons in the moistened gauze. Overall goal is to make sure that this tends to dry so that they do not desiccate. The patient's urinalysis and culture and become available and some gram-negative bacilli are seen in the urine with his ongoing leukocytosis there is concern this could be another source of infection and Rocephin is added, understanding that he's had some difficulties with nausea with cephalosporins unclear if this is due to the additives that are given in the capsules and tablets. He has noted he has many ALLERGIES. He will monitored for any difficulties with the addition of Rocephin however given his significant ongoing leukocytosis gram-negative therapy needs to be added at this time. 07/16/2017 reveals the patient to have had a bit of a difficult day. Is doing better as the day has now gone on. He is arousable awake and interactive and his family is pleased that he is doing a bit better this evening. His pain is under modest good control. The ulceration is evaluated in the dressing is changed. As noted the patient does have evidence of a gram-negative in his urine and for this gram-negative therapy was added. as he continues to have ongoing significant sepsis would continue the daptomycin and Rocephin until we have complete data. Given the patient will need outpatient intravenous antibiotic therapy the patient's sister relates that would not be able to happen in the current home setting and required going to rehab to complete his antibiotics and wound care. We discussed the wound VAC at this point in time will likely not be utilized given the exposed tendons. 07/17/2017 patient is no considerably improved. His sepsis is improving and he is almost completely weaned off of vasopressor therapy. Antibiotic therapy will be streamlined to Rocephin IV access in place with a PICC line and patient will be going to extended care to complete his 6 weeks of antibiotic therapy. 07/18/2017 patient is further improved today. His vasopressor therapy is discontinued and he is having improved urinary output. He is denying intermittent difficulties just not in such a good mood today. Sisters are present relate that this is not unusual for him. He is eating well. At this time fortunately he showing further improvement. Antibiotic therapy as streamlined to just Rocephin at this point in time given no resistant gram- positive organisms. He will require outpatient intravenous antibiotic therapy and PICC line is already in place. We'll work with extended care. Current Visit: Yes Status: Acute Code(s): L02.419 - CUTANEOUS ABSCESS OF LIMB, UNSPECIFIED SNOMED Code(s): 71587204 (3) Severe sepsis with septic shock Current Visit: Yes Status: Acute Code(s): A41.9 - SEPSIS, UNSPECIFIED ORGANISM; R65.21 - SEVERE SEPSIS WITH SEPTIC SHOCK SNOMED Code(s): 45901238
[2017-07-19] MEDS ORDERED: POTASSIUM CHLORIDE ER 20 MEQ TAB.ER PO SCH (06:00)
[2017-07-19] MEDS: LEVOTHYROXINE 112 MCG TAB PO SCH (06:25)
[2017-07-19] MEDS: MAGNESIUM SULFATE-D5W PMX 1 GM in DEXTROSE/WATER 1 100ML.BAG IVPB SCH ×2 (06:27→08:21)
[2017-07-19] MEDS: ENOXAPARIN 40 MG/0.4 ML SYRINGE SQ SCH (08:21)
[2017-07-19] MEDS: NAPROXEN 250 MG TAB PO SCH ×3 (08:21→22:14)
[2017-07-19] MEDS ORDERED: FUROSEMIDE 10 MG/ML 4 ML VIAL IV STA (08:50)
--- NOTE | 2017-07-19 09:21 | P.PN ---
Subjective Progress Note Date: 07/19/17 Principal diagnosis: Acute septic shock, sepsis, right ankle abscess and cellulitis This is a 57-year-old white male with history of cerebral palsy, hypertension, admitted with cellulitis of the right ankle on 07/12/2017. Started out initially as a pustule on the right ankle, went on to develop worsening cellulitis. Patient has been in a CAM boot for this problem. And had recent [facility] of the right ankle [facility] recently. Patient underwent incision and drainage of the right ankle abscess, irrigation and debridement of the right ankle wound, and application of a one VAC to the right ankle. Postoperatively, patient was admitted to the ICU mostly because of hypotension requiring significant amount of fluids, received a total of 3 L of fluids, had to be placed on norepinephrine for low blood pressure, and he was noted to have significant lactic acidosis. Considering his profound hypotension and septic shock presentation, I was asked to see him on consultation. Patient has been already on daptomycin as ordered by Dr. Brandt, he received significant amount of fluids over the last 12 hours, and in spite of of the fluid boluses, patient required norepinephrine. This morning, the patient remains on 20 g of norepinephrine, his lactic acid came down to 4.0, and I have recommended more fluids to be given. Last night in spite of all the fluids, the patient was oliguric, and I recommended one dose of Lasix. Since then the patient has been making significant amount of urine over the last 8 hours. His labs revealed significant leukocytosis with WBC of 26.8 hemoglobin is 8.7. Basic metabolic profile is normal except for low bicarb of 19 minimal anion gap metabolic acidosis, 14, BUN of 24 creatinine of 1.40. Lactic acid has been coming down from 6.5 initially and it is 4.0 today. The patient himself is a very poor historian, patient has history of cerebral palsy. However he is denying any specific complaints presently. Reevaluated today on 07/15/2017, patient is feeling much better, clinically he looks fine, he is asymptomatic, however the patient remains on 11 g of levo fed.continues to have leukocytosis with WBC count of 28.0, hemoglobin is 8.4, electrolytes were reviewed, has a non-anion gap metabolic acidosis. BUN is 26 creatinine is 1.30.chest x-ray is showing small bilateral pleural effusions and right basilar atelectasis could be related to mild vascular congestion. However the patient is having excellent urine output, over 100 mL per hour. And his main IV fluids remains at 1 50 mL per hour.renal functioning seems to be improving steadily. On 07/16/2017 patient seen in follow-up in the intensive care unit. He is resting in bed, appears pale and fatigued, but in no acute distress. He has been afebrile for the past 48 hours, however still requires vasopressor support in the form of norepinephrine currently at the rate of 17 mics per minute. Maintenance IV is 0.9 normal saline at 150 ML per hour. Patient is currently room air with O2 sat at 95%. Sinus bradycardia on the monitor at a rate of 55 BPM. Lung sounds are positive for coarse bibasilar crackles, chest x-ray today shows bilateral pleural effusions, and changes consistent with congestive heart failure and fluid overload. Patient has been extensively fluid resuscitated, and has received liters of fluid since admission. He appears to be generally swollen, with nonpitting swelling in his upper and lower extremities as well as the trunk. Today's lab work has been reviewed, WBC is on the downward trend, and is down to 15.6 from 28 on yesterday's labs. Hemoglobin is stable at 8.1, CO2 is 18, B1 is 21, and creatinine is 1.08. Patient has an indwelling catheter and he is making adequate urine, anywhere from 4200 ML per hour. Right ankle wound culture was positive for staph aureus , and urine culture was positive for E. coli with sensitivity to Rocephin which the patient is currently on. The staph aureus in the wound culture had valverde susceptibility, and the patient is currently on daptomycin in addition to Rocephin. On 07/17/2017 patient seen in follow-up in intensive care unit. He is resting in bed, denies any acute distress, although continues to complain of discomfort in the right lower leg, as well as epigastric tenderness, which seems to be worse with deep inspiration. His IV 0.9 normal saline is infusing at a rate of 150 ML per hour, Levothroid is currently down to 5 mics per minute. We checked a random serum cortisol, which was found to be relatively low at 14, we will give 1 dose of hydrocortisone 100 mg IV push and monitor the patient's response to with. Patient remains very generally swollen, with truncal, and upper and lower extremity edema. We will cut back the mintenance IV fluid rate down to 50 ML per hour. Today's chest x-ray shows small bilateral pleural effusions and fluid overload. Ultrasound of the chest showed right pleural fluid pocket of 1.9 cm and left pleural fluid pocket of 1.7 cm. She is currently on 1 L per nasal cannula with O2 sat 98%. Remains in sinus rhythm with a rate of 55 BPM, afebrile. Urine culture was positive for E. coli, and patient is on a combination of Rocephin, and daptomycin for the evidence of Staphylococcus aureus in the wound culture. ID service is on. Abdomen is soft, distended, but nontender. Patient's hypoalbuminemia with a hemoglobin of 1.7, is likely contributing to patient's anasarca. Overall patient is more awake, and interactive on today's exam. Lung sounds are positive for expiratory wheezes bilaterally, no rales, no rhonchi noted. Right lower leg is dressed, wound care is per ID service recommendations. On 07/18/2017 patient seen in follow-up in intensive care unit. He is awake alert, responding appropriately, denies any acute distress. Today's chest x- ray shows persistence of bibasilar effusions, right greater than the left, and fluid overload. Patient has generalized edema in his bilateral upper and lower extremities and some truncal edema. His levo fed drip has been on hold since 5: 30 this morning, making adequate amounts of urine, systolic blood pressures are running in the 90s, and diastolic blood pressures are in the 60s to 70s millimeters of mercury. He is afebrile, remains in sinus rhythm with a controlled rate on the monitor. Denies any dyspnea, denies any chest pain, lung sounds are positive for expiratory wheezes bilaterally. Incentive spirometry at the bedside, patient needs encouragement to use it. His IV fluids were decreased down to 50 ML per hour yesterday, in view of patient's significant generalized edema. Patient had a trial of hydrocortisone at 100 mg IV push times one yesterday to which she did not respond, which makes possibility of adrenal insufficiency not likely. Today we will give the patient 1 dose of 40 mg IV Lasix. Continue monitoring blood pressure, continue monitoring urine output. We will add midodrine 5 mg twice a day, will increase activity as tolerated. Possible transfer out of the intensive care unit later on today, provided patient maintains normal vitals. On 07/19/2017 patient seen in follow-up in intensive care unit. He is awake alert, stable, norepinephrine drip has been on hold for greater than 24 hours. Maintenance IV fluids is 0.9 at a rate of 50 ML per hour, patient is tolerating oral intake, we will decrease the IV fluids to KVO today. Denies any fever or chills, denies any dyspnea or chest pain. Denies any abdominal discomfort. Afebrile, hemodynamically stable. Currently on room air with O2 sat at 93%. Yesterday he was given a dose of IV Lasix, and he diuresed over 5 L over the last 24 hours, currently in a -4 L fluid balance. Lung sounds are clear on today's exam, no wheezes, no rhonchi or rales noted. No acute events overnight. ID service is managing patient's antibiotics, patient remains on Rocephin for the E. coli in the urine, daptomycin was discontinued. He remains in sinus rhythm. No new chest x-ray today. Today's lab work shows WBC of 11.8 , hemoglobin of 8.6, renal profile is within normal limits, chloride is 1:15, CO2 of 20. Patient is stable, and from pulmonary/critical care standpoint is stable to go out of the intensive care today to general medical floor. Objective - Vital Signs Vital signs: Vital Signs Temp 98.8 F 07/19/17 08:00 Pulse 66 07/19/17 08:00 Resp 18 07/19/17 08:00 BP 93/59 07/19/17 08:00 Pulse Ox 93 L 07/19/17 08:00 Intake & Output 07/18/17 07/19/17 07/19/17 18:59 06:59 18:59 Intake Total 675 630 20 Output Total 3245 2100 Balance -2570 -1470 20 Weight 107 kg 106.7 kg Intake: IV 50 240 20 Sodium Chloride 0.9% 1, 50 240 20 000 ml @ 50 mls/hr IV . Q20H [facility] Rx#:[id number] Oral 625 390 Output: Urine 3245 2100 Other: Voiding Method Indwelling Catheter Indwelling Catheter Indwelling Catheter # Voids 3 - Exam Physical Exam: Revealed a 57-year-old white male, in no distress. Head: Atraumatic, normocephalic. Eyes: PERRLA, EOMI, no icterus. HEENT:[Neck is supple.] [No neck masses.] [No thyromegaly.] [No JVD.] Chest: [Clear lung sounds, equal air entry bilaterally, no wheezes or rhonchi on today's exam.] Cardiac Exam: [Normal S1 and S2, no S3 gallop, no murmur.] Abdomen: [Soft, nontender, no megaly, no rebound, no guarding, normal bowel sounds.] Extremities: Right lower extremity is wrapped,. With sterile dressing. Could not be examined.] Neurological Exam: Patient has underlying cerebral palsy, difficulty with speech , and slow mental development. Otherwise no gross focal neurologic deficit. Lymphatics: No adenopathy. - Labs CBC & Chem 7: 07/18/17 04:40 07/18/17 04:40 Labs: Microbiology - Last 24 Hours (Table) 07/12/17 17:33 Blood Culture - Final Blood No Growth after 144 hours Assessment and Plan Plan: Assessment: 1 acute sepsis and septic shock secondary to cellulitis and abscess of right foot/ankle. Right ankle wound culture was positive for Staphylococcus aureus, and urine culture was positive for E. coli. Patient is on combination of Rocephin and daptomycin per ID service recommendation. 2 status post incision and drainage of right ankle abscess, irrigation and debridement of right ankle wound, application of wound VAC, postoperative day #5 3 acute urinary tract infection, being addressed by infectious disease on the case. Urine cultures positive for E. coli 4history of multiple comorbidities including cerebral palsy, hypertension, hypothyroidism Plan: Patient's vasopressor support has been on hold for last 24 hours, patient is maintaining normal vitals, afebrile, denies any fever or chills. Denies any dyspnea. Denies any abdominal pain. Patient diuresed over 5 L over the last 24 hours, we will give the patient additional 40 mg of Lasix today. Maintaining good oxygenation on room air, encourage incentive spirometry, increase activity as tolerated. Antibiotics per ID service recommendations. Patient is stable to go out of ICU today to general medical floor. I performed a history & physical examination of the patient and discussed their management with my nurse practitioner, Shannan Arenas. I reviewed the nurse practitioner's note and agree with the documented findings and plan of care. Lung sounds are clear. The findings and the impression was discussed with the patient. I attest to the documentation by the nurse practitioner. Critical care time is over 30 minutes Time with Patient: Greater than 30
--- NOTE | 2017-07-19 14:07 | CDI ---
Last Revision, March 2017 Documentation Clarification Form Date: 07/19/17 From: Reena Grigsby RN, CCDS Admit Date: 07/12/2017 5:05:00 PM Patient Name: Gideon Reyes Visit Number: [id number] Discharge Date: ATTENTION: The Clinical Documentation Specialists (CDI) and [facility] Coding Staff appreciate your assistance in clarifying documentation. Please respond to the clarification below the line at the bottom and electronically sign. The CDI & [facility] Coding staff will review the response and follow-up if needed. Please note: Queries are made part of the Legal Health Record. If you have any questions, please contact the author of this message via ITS. Dr. Tyrell Mallory Acute urinary tract infection was documented in your progress notes on beginning on 07/15/17 and continue in your progress notes on 07/18/17. . History/Risk Factors: Cellulitis right ankle, hypertension, Cerebral palsy Clinical Indicators: 07/13/17 @ 17:45 urine catheterized: Large Leukocyte Esterase , culture: gram neg bacilli Vital Signs: (07/13/17 @ 17:40) 68/47 92 16 100.4 91 % 4/L NC WBC: WBC 13.5, 26.6 Treatment Rocephin IV Monitor Labs Please document the condition that these clinical indicators signify, whether Present on Admission, and cause if known: UTI Present on admission UTI Not Present on admission Other, please specify Unable to determine Please continue to document in your progress notes and discharge summary in order to capture severity of illness and risk of mortality. Include clinical findings that support your diagnosis. MTDD
[2017-07-19] MEDS: FAMOTIDINE 20 MG TAB PO SCH (16:51)
[2017-07-19] MEDS ORDERED: BENZOCAINE/MENTHOL LOZENG 1 EACH LOZENGE MUCOUS MEM PRN (17:00)
[2017-07-19] MEDS: cefTRIAXone IN SWFI 2,000 MG/20 ML SYRINGE IVP SCH (20:10)
[2017-07-19] MEDS: POLYETHYLENE GLYCOL 3350 17 GM POWD.PACK PO SCH (20:10)
--- NOTE | 2017-07-19 21:20 | P.PN ---
Subjective Progress Note Date: 07/19/17 Principal diagnosis: Status post I&D right ankle infection/cellulitis Ibeth Patient is pleasant 57-year-old male seen at bedside at this afternoon. He is status post I&D of right ankle infection performed on 07/13/2017. He has improved medically overall and has been transferred to 5th floor from the ICU. He is receiving IV Rocephin for coverage of his ankle and urinary tract infections. He currently denies any new complaints today. He is sitting up and eating during interview today. His pain seems controlled at the surgical site. He is denying numbness, tingling, calf pain, fever, chills, chest pain or shortness of breath. Objective - Vital Signs Vital signs: Vital Signs Temp 97.4 F L 07/19/17 14:20 Pulse 67 07/19/17 14:20 Resp 20 07/19/17 14:20 BP 103/71 07/19/17 14:20 Pulse Ox 94 L 07/19/17 14:20 Intake & Output 07/19/17 07/19/17 07/20/17 06:59 18:59 06:59 Intake Total 630 140 Output Total 2100 350 Balance -1470 -210 Weight 106.7 kg Intake: IV 240 140 Sodium Chloride 0.9% 1, 240 140 000 ml @ 50 mls/hr IV . Q20H [facility] Rx#:[id number] Oral 390 Output: Urine 2100 350 Other: Voiding Method Indwelling Catheter Indwelling Catheter Urinal # Voids 1 - Exam Inspection of the right lower extremity shows bandage in place. There is no evidence of active bleeding. No drainage. His wound appears to be healing with no evidence of purulent drainage. He has sensation to touch grossly in all toes. His foot is warm to touch and adequately perfused. He is able to wiggle the toes and foot. The calf is soft and nontender. He continues to have peripheral edema but appears improved. There is no evidence of ascending infection - Constitutional General appearance: Present: no acute distress - Psychiatric Psychiatric: Present: A&O x's 3, appropriate affect, intact judgment & insight - Labs CBC & Chem 7: 07/18/17 04:40 07/18/17 04:40 Labs: Microbiology - Last 24 Hours (Table) 07/12/17 17:33 Blood Culture - Final Blood No Growth after 144 hours Assessment and Plan (1) Cellulitis of right ankle Narrative/Plan: He continues to improve and has been trasnferred from ICU. He'll continue with routine postop orthopedic protocol with pain management, DVT prophylaxis, elevation and nonweightbearing to right lower extremity, medical management per distillery miller, wound care and antibiotics per infectious disease. We will continue to follow closely and make further recommendations as appropriate. He is pending PICC line placement and [facility] when ok with medical team Current Visit: No Status: Acute Priority: Medium Code(s): L03.115 - CELLULITIS OF RIGHT LOWER LIMB SNOMED Code(s): 86088696 Time with Patient: Less than 30
[2017-07-19] MEDS: HYDROmorphone 2 MG TAB PO PRN (23:32)
--- NOTE | 2017-07-19 23:36 | P.PN ---
Subjective Progress Note Date: 07/19/17 Principal diagnosis: Right ankle abscess and cellulitis. Septic shock This is a 57-year-old white male with history of cerebral palsy, hypertension, admitted with cellulitis of the right ankle on 07/12/2017. Started out initially as a pustule on the right ankle, went on to develop worsening cellulitis. Patient has been in a CAM boot for this problem. And had recent [facility] of the [facility] recently. Patient underwent incision and drainage of the right ankle abscess, irrigation and debridement of the right ankle wound, and application of a one VAC to the right ankle. Postoperatively, patient was admitted to the ICU mostly because of hypotension requiring significant amount of fluids, received a total of 3 L of fluids, had to be placed on norepinephrine for low blood pressure, and he was noted to have significant lactic acidosis. 07/16/2017 Patient is resting in the bed comfortable. No acute distress. Patient remained on pressors support with norepinephrine. Continued on IV hydration. Chest x-ray showed bilateral pleural effusions and changes consistent with congestive heart failure and fluid overload. Leukocytosis is improving to 15.6. Right ankle wound cultures positive for staph aureus and urine cultures positive for E. coli sensitive to Rocephin. Patient is on daptomycin as well. ID and pulmonary is following. 07/18/2017 Currently patient is lying in the bed comfortable. No acute distress noted. Patient is off pressors support otherwise patient is still having symptoms edema. Chest x-ray showed persistent bibasilar effusions right greater than left and fluid load. Patient was given a dose of Lasix 40 mg 1. Patient does have good urine output. Patient was started on Midodrin 5 mg twice daily. Patient has been afebrile. No fever no chills. continue with right ankle dressing changes. 07/19/2017 Currently patient is off pressors support and was transferred to general medical floor. Patient was given a dose of IV Lasix today. Otherwise patient is being continued on ceftriaxone. No fever no chills. Swelling seems to be improving. ID and pulmonary is following. complete review of systems could not be obtained from the patient current medications reviewed. Active Medications Bisacodyl (Dulcolax) 10 mg RECTAL ONCE PRN PRN Reason: Constipation Ceftriaxone Sodium (Rocephin) 2,000 mg IVP [facility] Last Admin: 07/18/17 21:43 Dose: 2,000 mg Diphenhydramine HCl (Benadryl) 25 mg IVP Q6HR PRN PRN Reason: Allergy Symptoms Docusate Sodium (Colace) 100 mg PO BID PRN PRN Reason: Constipation Enoxaparin Sodium (Lovenox) 40 mg SQ DAILY [facility] Last Admin: 07/18/17 08:41 Dose: 40 mg Famotidine (Pepcid) 20 mg PO AC-SUPPER [facility] Last Admin: 07/18/17 17:12 Dose: 20 mg Hydromorphone HCl (Dilaudid) 1 mg PO Q3HR PRN PRN Reason: Pain Scale 1 to 3 Last Admin: 07/15/17 08:10 Dose: 1 mg Hydromorphone HCl (Dilaudid) 2 mg PO Q3HR PRN PRN Reason: Pain Scale 4 to 6 Last Admin: 07/16/17 06:04 Dose: 2 mg Hydromorphone HCl (Dilaudid) 4 mg PO Q3HR PRN PRN Reason: Pain Scale 7 to 10 Norepinephrine Bitartrate (Levophed-0.9% Nacl 4 Mg/250ml Pmx) 4 mg in 250 mls @ 0 mls/hr IV .Q0M [facility]; Titrate PRN Reason: Protocol Last Titration: 07/18/17 05:27 Dose: 0 mcg/min, 0 mls/hr Sodium Chloride (Saline 0.9%) 1,000 mls @ 50 mls/hr IV .Q20H [facility] Last Admin: 07/18/17 21:45 Dose: 50 mls/hr Levothyroxine Sodium (Synthroid) 112 mcg PO QAM@0630 [facility] Last Admin: 07/18/17 07:13 Dose: 112 mcg Magnesium Hydroxide (Milk Of Magnesia) 2,400 mg PO DAILY PRN PRN Reason: Constipation Naloxone HCl (Narcan) 0.2 mg IV Q2M PRN PRN Reason: Opioid Reversal Last Admin: 07/13/17 01:56 Dose: 0.2 mg Naproxen (Naprosyn) 250 mg PO TID [facility] Last Admin: 07/18/17 21:44 Dose: 250 mg Ondansetron HCl (Zofran) 4 mg IVP Q8HR PRN PRN Reason: Nausea And Vomiting Last Admin: 07/14/17 08:21 Dose: 4 mg Polyethylene Glycol (Miralax) 17 gm PO HS [facility] Last Admin: 07/18/17 21:43 Dose: 17 gm Sodium Biphosphate/Sodium Phosphate (Fleet Adult) 133 ml RECTAL ONCE PRN PRN Reason: Constipation Sodium Chloride (Deep Sea) 2 spray NASAL QID PRN PRN Reason: Nasal Congestion Sodium Chloride (Saline Flush) 10 ml IV Q4HR PRN PRN Reason: PICC Line Sodium Chloride (Saline Flush) 10 ml IV WEEKLY [facility] Sodium Chloride (Saline Flush) 20 ml IV Q4HR PRN PRN Reason: PICC Line Tramadol HCl (Ultram) 50 mg PO QID PRN PRN Reason: Pain Objective - Vital Signs Vital signs: Vital Signs Temp 97.4 F L 07/19/17 14:20 Pulse 67 07/19/17 14:20 Resp 20 07/19/17 14:20 BP 103/71 07/19/17 14:20 Pulse Ox 94 L 07/19/17 14:20 Intake & Output 07/18/17 07/19/17 07/19/17 18:59 06:59 18:59 Intake Total 675 630 140 Output Total 3245 2100 350 Balance -2570 -1470 -210 Weight 107 kg 106.7 kg Intake: IV 50 240 140 Sodium Chloride 0.9% 1, 50 240 140 000 ml @ 50 mls/hr IV . Q20H [facility] Rx#:[id number] Oral 625 390 Output: Urine 3245 2100 350 Other: Voiding Method Indwelling Catheter Indwelling Catheter Indwelling Catheter # Voids 3 1 - Exam PHYSICAL EXAMINATION: Patient is lying in the bed comfortably, no acute distress,. HEENT: Normocephalic. Neck is supple. Pupils reactive. Nostrils clear. Oral cavity is moist. Ears reveal no drainage. Neck reveals no JVD, carotid bruits, or thyromegaly. CHEST EXAMINATION: Trachea is central. Symmetrical expansion. Bibasilar crackles and rhonchi. No wheezing. CARDIAC: Normal S1, S2 with no gallops. No murmurs ABDOMEN: Soft. Bowel sounds normal. No organomegaly. No abdominal bruits. Extremities: 2+ edema. No clubbing or cyanosis. Right ankle wound is Wrapped Neurologically awake, alert. Patient has underlying cerebral palsy, difficulty with speech, and slow mental development. . No focal deficits noted Skin: No rash or skin lesions. Psychiatric: Cooperative. Could not be assessed completely Musculoskeletal: No joint swelling or deformity. Normal range of motion. - Labs CBC & Chem 7: 07/18/17 04:40 07/18/17 04:40 Labs: Microbiology - Last 24 Hours (Table) 07/12/17 17:33 Blood Culture - Final Blood No Growth after 144 hours Assessment and Plan Assessment: 1 acute sepsis and septic shock secondary to cellulitis and abscess of right foot/ankle. Present on admission. Off pressors support 2 status post incision and drainage of right ankle abscess, irrigation and debridement of right ankle wound, application of wound VAC 3 acute urinary tract infection present on admission. 4 bilateral pleural effusion and fluid overload and generalized edema. Continued on gentle hydration. Patient was given IV Lasix. 4history of multiple comorbidities including cerebral palsy, hypertension, hypothyroidism, Recommendation: Continue present supportive care measures, antibiotics/ daptomycin, fluids,, GI and DVT prophylaxis and close observation in the ICU. Started on Midrin 5 mg twice a day. Prognosis is guarded. Time with Patient: Greater than 30
--- NOTE | 2017-07-19 23:56 | P.PN ---
Subjective Progress Note Date: 07/19/17 Principal diagnosis: Sepsis This is a 57-year-old male patient who is known to ID service as he was initially seen during a May admission at which time he was treated for cellulitis of the right ankle with improvement during his stay. A boot was ordered by orthopedics and patient was discharged on cephalexin and was to continue to wear the boot at home. Patient has history of cerebral palsy and lives at home with his sister. She states that on Sunday he developed a blister, raised area on the right ankle and within 24 hours it became reddened and swollen and he had swelling going up into his lower leg and his foot. He went to his orthopedic doctor, Dr. Brown was seen yesterday and underwent aspiration and this was sent for cultures. Patient was then directly admitted to the hospital and started initially on vancomycin which has been changed to daptomycin. Patient has been afebrile with a White count of 13. CRP 87.4 and sed rate 68. Blood cultures status received and wound culture is in progress. CAT scan was compared to previous MRIs done very and May 25 and revealed increasing soft tissue density and thickening compatible with patient' s reported cellulitis. This is worsening from compared images. Increasing soft tissue density surrounding the proximal forefoot joint spaces especially the distal talus and feculent region findings are suspicious for increasing osteomyelitis at this level. A duplex was negative for DVT on the right leg. It is scheduled for I&D this morning at 11. If patient requires IV antibiotics , patient's sister wishes for him to go to [facility] for treatment. Of note, patient had pain of 10 out of 10 during the night and received morphine which dropped his blood pressure from 190/103 down to 76/50. His sister states that he has had sensitivity to morphine in the past when he had diaphragmatic hernia repair done at [facility]. He is status post IV fluid bolus of 500 mL. Blood pressure remains low but patient is stable without any symptoms. 07/14/2017 reveals the patient to have some improvement. Other than pain at his ankle area which is improved the patient continues to have relative hypotension and is still on vasopressor therapy. White blood cell count at 26.8. Lactic acid is improving. His temperature was 102.9 is now down to 97.6. Fortunately the patient does feel better today. He'll relates that he feels like he needs to have a bowel movement. 07/15/2017 patient does feel a bit better but still remains on some vasopressor therapy but at decreasing doses. He continues to have leukocytosis of 28, and fever has improved. 07/16/2017 patient was a bit sleepy today however upon arousal is awake alert oriented to person place and time and has no new acute gross focal sensory motor deficits. His hypotension is improving but still requiring vasopressor therapy at this time. He has been seen by the family worker and Cortef doses have been adjusted. 07/17/2017 patient is much more awake and interactive today. Has had a much better day. Appetite still somewhat poor but he developed significant anasarca from his fluid resuscitation from his septic shock from his staph abscess to his right foot in E. coli urinary tract infection. Is noticing much better today and has no other acute troubles the vasopressor therapy has almost been completely weaned 07/18/2017 the patient's in a less good mood today but he is awake alert and interactive. He is eating quite well today. He does have some minimal abdominal fullness related to his anasarca. However he is no longer hypotensive. He is off vasopressor therapy. He's had improving diuresis which is helping him feel better. Denies other new acute complaints. Does have ongoing pain to that right foot where he has the extensive infection ulceration. 07/19/2017 reveals the patient to have further improvement. She is now out of the ICU. Feeling somewhat better. Is able to smile today. He is eating and denies interim new troubles. Mentation is clear but still has some congestion. Objective - Vital Signs Vital signs: Vital Signs Temp 97.4 F L 07/19/17 14:20 Pulse 67 07/19/17 14:20 Resp 20 07/19/17 14:20 BP 103/71 07/19/17 14:20 Pulse Ox 94 L 07/19/17 14:20 Intake & Output 07/19/17 07/19/17 07/20/17 06:59 18:59 06:59 Intake Total 630 140 70 Output Total 2100 350 Balance -1470 -210 70 Weight 106.7 kg Intake: IV 240 140 70 Sodium Chloride 0.9% 1, 240 140 70 000 ml @ 50 mls/hr IV . [facility] Rx#:[id number] Oral 390 Output: Urine 2100 350 Other: Voiding Method Indwelling Catheter Indwelling Catheter Urinal # Voids 1 2 - Exam Gen: This is a 57-year-old male patient. He is sitting up in bed and appears to be comfortable and in no acute distress. HEENT: Head is atraumatic, normocephalic. Pupils equal, round. Sclerae is anicteric. Conjunctiva pink. Oral mucous membranes are with evidence of some dryness he does have some discomfort in the posterior pharynx without thrush or open lesions. Patient is edentulous. NECK: Supple. No JVD. No lymphadenopathy. No thyromegaly. LUNGS: Clear to auscultation. No wheezes or rhonchi. No intercostal retractions. HEART: Regular rate and rhythm. No murmur. ABDOMEN: Soft. Bowel sounds are present. No masses. No tenderness. EXTREMITIES: Patient has edema to the right lower extremity. The right ankle abscess has been drained and wound VAC is in place, the VAC is removed. The ulceration is noted and please see the nursing photography for its exact location and size. Is cleansed with saline and a nonstick dressing is applied and then Pseudomonas and gauze roll gauze and a serum applied. He tolerated the dressing change well. There are exposed tendons, we'll hold on the wound VAC for now. We'll likely utilize an absorptive silver dressing soon. The patient was having severe pain and this is improved. There is no breakthrough drainage. There is no ascending cellulitis on the right lower leg. NEUROLOGICAL: Patient is awake, alert and oriented x3. He does have cerebral palsy but has excellent interactions. He is a [place] fan and is able to relate many of his favorite memories. - Labs CBC & Chem 7: 07/18/17 04:40 07/18/17 04:40 Labs: Laboratory Results WBC 11.8 k/uL (3.8-10.6) H 07/18/17 04:40 RBC 3.48 m/uL (4.30-5.90) L 07/18/17 04:40 Hgb 8.6 gm/dL (13.0-17.5) L 07/18/17 04:40 Hct 28.8 % (39.0-53.0) L 07/18/17 04:40 MCV 82.8 fL (80.0-100.0) 07/18/17 04:40 MCH 24.8 pg (25.0-35.0) L 07/18/17 04:40 MCHC 30.0 g/dL (31.0-37.0) L 07/18/17 04:40 RDW 15.2 % (11.5-15.5) 07/18/17 04:40 Plt Count 272 k/uL (150-450) 07/18/17 04:40 Neutrophils % 86 % 07/18/17 04:40 Neutrophils % (Manual) 75 % 07/15/17 05:25 Band Neutrophils % 21 % 07/15/17 05:25 Lymphocytes % 8 % 07/18/17 04:40 Lymphocytes % (Manual) 2 % 07/15/17 05:25 Monocytes % 4 % 07/18/17 04:40 Monocytes % (Manual) 2 % 07/15/17 05:25 Eosinophils % 0 % 07/18/17 04:40 Basophils % 0 % 07/18/17 04:40 Metamyelocytes % 1 % 07/15/17 05:25 Neutrophils # 10.1 k/uL (1.3-7.7) H 07/18/17 04:40 Neutrophils # (Manual) 26.80 k/uL (1.3-7.7) H 07/15/17 05:25 Lymphocytes # 0.9 k/uL (1.0-4.8) L 07/18/17 04:40 Lymphocytes # (Manual) 0.56 k/uL (1.0-4.8) L 07/15/17 05:25 Monocytes # 0.5 k/uL (0-1.0) 07/18/17 04:40 Monocytes # (Manual) 0.56 k/uL (0-1.0) 07/15/17 05:25 Eosinophils # 0.0 k/uL (0-0.7) 07/18/17 04:40 Basophils # 0.0 k/uL (0-0.2) 07/18/17 04:40 Metamyelocytes # (Man) 0.28 k/uL (0) H 07/15/17 05:25 Nucleated RBCs 0 /100 WBC (0-0) 07/15/17 05:25 Manual Slide Review Performed 07/15/17 05:25 Toxic Granulation Present 07/15/17 05:25 Toxic Vacuolation Present 07/15/17 05:25 Hypochromasia Marked 07/18/17 04:40 Poikilocytosis Slight 07/18/17 04:40 Poikilocytosis (manual Present 07/15/17 05:25 Ovalocytes Present 07/14/17 04:45 Crenated Cell Present 07/15/17 05:25 ESR 68 mm/hr (0-15) H 07/12/17 17:33 PT 13.8 sec (9.0-12.0) H 07/13/17 16:11 INR 1.5 (<1.2) H 07/13/17 16:11 APTT 25.1 sec (22.0-30.0) 07/13/17 16:11 Sodium 143 mmol/L (137-145) 07/18/17 04:40 Potassium 3.8 mmol/L (3.5-5.1) 07/18/17 04:40 Chloride 115 mmol/L (98-107) H 07/18/17 04:40 Carbon Dioxide 20 mmol/L (22-30) L 07/18/17 04:40 Anion Gap 8 mmol/L 07/18/17 04:40 BUN 19 mg/dL (9-20) 07/18/17 04:40 Creatinine 0.91 mg/dL (0.66-1.25) 07/18/17 04:40 Est GFR (CKD-EPI)AfAm >90 (>60 ml/min/1.73 sqM) 07/18/17 04:40 Est GFR (CKD-EPI)NonAf >90 (>60 ml/min/1.73 sqM) 07/18/17 04:40 Glucose 110 mg/dL (74-99) H 07/18/17 04:40 POC Glucose (mg/dL) 96 mg/dL (75-99) 07/15/17 00:37 POC Glu Tavern Operator ID Shelby Kaufman 07/15/17 00:37 Lactic Ac Sepsis Rflx Y 07/14/17 01:17 Plasma Lactic Acid [place] 1.4 mmol/L (0.7-2.0) 07/16/17 04:24 Calcium 7.0 mg/dL (8.4-10.2) L 07/18/17 04:40 Phosphorus 2.5 mg/dL (2.5-4.5) 07/18/17 04:40 Magnesium 1.9 mg/dL (1.6-2.3) 07/18/17 04:40 Total Bilirubin 0.8 mg/dL (0.2-1.3) 07/18/17 04:40 AST 23 U/L (17-59) 07/18/17 04:40 ALT 38 U/L (21-72) 07/18/17 04:40 Alkaline Phosphatase 805 U/L (38-126) H 07/18/17 04:40 Total Creatine Kinase 289 U/L (55-170) H 07/13/17 16:11 CK-MB (CK-2) 1.0 ng/mL (0.0-2.4) 07/13/17 16:11 CK-MB (CK-2) Rel Index 0.3 07/13/17 16:11 Troponin I 0.097 ng/mL (0.000-0.034) H* 07/13/17 16:11 C-Reactive Protein 87.4 mg/L (<10.0) H 07/12/17 17:33 Total Protein 3.8 g/dL (6.3-8.2) L 07/18/17 04:40 Albumin 1.5 g/dL (3.5-5.0) L 07/18/17 04:40 Cortisol 14 ug/dL 07/16/17 05:32 Urine Color Yellow 07/13/17 17:45 Urine Appearance Turbid (Clear) 07/13/17 17:45 Urine pH 6.0 (5.0-8.0) 07/13/17 17:45 Ur Specific [place] 1.019 (1.001-1.035) 07/13/17 17:45 Urine Protein 1+ (Negative) H 07/13/17 17:45 Urine Glucose (UA) Negative (Negative) 07/13/17 17:45 Urine Ketones Negative (Negative) 07/13/17 17:45 Urine Blood Moderate (Negative) H 07/13/17 17:45 Urine Nitrite Negative (Negative) 07/13/17 17:45 Urine Bilirubin Negative (Negative) 07/13/17 17:45 Urine Urobilinogen 2.0 mg/dL (<2.0) 07/13/17 17:45 Ur Leukocyte Esterase Large (Negative) H 07/13/17 17:45 Urine RBC 38 /hpf (0-5) H 07/13/17 17:45 Urine WBC >182 /hpf (0-5) H 07/13/17 17:45 Urine WBC Clumps Many /hpf (None) H 07/13/17 17:45 Urine Bacteria Many /hpf (None) H 07/13/17 17:45 Microbiology 07/12/17 17:33 Blood Blood Culture - Final No Growth after 144 hours 07/13/17 15:25 Ankle - Right Anaerobic Culture - Final 07/13/17 15:25 Ankle - Right Gram Stain - Final 07/13/17 15:25 Ankle - Right Tissue Culture - Final 07/12/17 12:00 Ankle - Right Anaerobic Culture - Final 07/13/17 17:45 Urine,Catheterized Urine Culture - Final Escherichia coli 07/12/17 12:00 Ankle - Right Gram Stain - Final 07/12/17 12:00 Ankle - Right Wound Culture - Final Staphylococcus aureus Assessment and Plan (1) Cellulitis of right ankle Current Visit: No Status: Acute Priority: Medium Code(s): L03.115 - CELLULITIS OF RIGHT LOWER LIMB SNOMED Code(s): 23623855 (2) Abscess of ankle Narrative/Plan: 57-year-old patient that has a complex history of the recent injury to his now developed a significant abscess at that site which required incision and drainage. Was having some difficulty with hypotension, appears to be having sepsis is not being cared for in the intensive care unit. He'll receive further fluid resuscitation for his sepsis and lactic acidosis. He will continue to have antibiotic therapy with daptomycin. Local wound care is negative pressure therapy system. He was monitored closely and plans will be made for his outpatient antibiotic therapy which likely will be intravenous as well as local wound care. Enhancement of his nutritional status will also help his wound healing. On 07/14/2017 the patient is improved. His pain is better. However still having hypotension requiring some vasopressor therapy and is receiving ongoing fluid resuscitation. He is feeling better his mentation is improved. Wound culture with staph aureus has many ALLERGIES doing well with daptomycin. Leukocytosis is expected after the incision and drainage and a response to his sepsis. He's had an increase of his creatinine to 1.2 and will be monitored. Lactic acid is elevated and is being monitored as he receives further fluid resuscitation. Once the patient is stable will need IV access placed for his outpatient intravenous antibiotic therapy likely with daptomycin. 07/15/2017 patient is feeling better today. Still having some pain at the surgical site. Denying fevers or chills. The abscess site is looking well. There is however exposed tendons. A nonstick dressing is applied over the tendons in the moistened gauze. Overall goal is to make sure that this tends to dry so that they do not desiccate. The patient's urinalysis and culture and become available and some gram-negative bacilli are seen in the urine with his ongoing leukocytosis there is concern this could be another source of infection and Rocephin is added, understanding that he's had some difficulties with nausea with cephalosporins unclear if this is due to the additives that are given in the capsules and tablets. He has noted he has many ALLERGIES. He will monitored for any difficulties with the addition of Rocephin however given his significant ongoing leukocytosis gram-negative therapy needs to be added at this time. 07/16/2017 reveals the patient to have had a bit of a difficult day. Is doing better as the day has now gone on. He is arousable awake and interactive and his family is pleased that he is doing a bit better this evening. His pain is under modest good control. The ulceration is evaluated in the dressing is changed. As noted the patient does have evidence of a gram-negative in his urine and for this gram-negative therapy was added. as he continues to have ongoing significant sepsis would continue the daptomycin and Rocephin until we have complete data. Given the patient will need outpatient intravenous antibiotic therapy the patient's sister relates that would not be able to happen in the current home setting and required going to rehab to complete his antibiotics and wound care. We discussed the wound VAC at this point in time will likely not be utilized given the exposed tendons. 07/17/2017 patient is no considerably improved. His sepsis is improving and he is almost completely weaned off of vasopressor therapy. Antibiotic therapy will be streamlined to Rocephin IV access in place with a PICC line and patient will be going to extended care to complete his 6 weeks of antibiotic therapy. 07/18/2017 patient is further improved today. His vasopressor therapy is discontinued and he is having improved urinary output. He is denying intermittent difficulties just not in such a good mood today. Sisters are present relate that this is not unusual for him. He is eating well. At this time fortunately he showing further improvement. Antibiotic therapy as streamlined to just Rocephin at this point in time given no resistant gram- positive organisms. He will require outpatient intravenous antibiotic therapy and PICC line is already in place. We'll work with extended care. 07/19/2017 reveals the patient had further improvement. It moved out of intensive care unit. IV access is been placed and will receive 40 days of antibiotic therapy with Rocephin and extended care. We'll add some Cepacol for his sore throat. And if possible and then Zoloft 25 mg a day he was also started as an outpatient to improve his anxiety issues. Current Visit: Yes Status: Acute Code(s): L02.419 - CUTANEOUS ABSCESS OF LIMB, UNSPECIFIED SNOMED Code(s): 14229093 (3) Severe sepsis with septic shock Current Visit: Yes Status: Acute Code(s): A41.9 - SEPSIS, UNSPECIFIED ORGANISM; R65.21 - SEVERE SEPSIS WITH SEPTIC SHOCK SNOMED Code(s): 13954540
[2017-07-20] MEDS: LEVOTHYROXINE 112 MCG TAB PO SCH (06:14)
[2017-07-20] MEDS: SERTRALINE 25 MG TAB PO SCH (09:03)
[2017-07-20] MEDS: NAPROXEN 250 MG TAB PO SCH ×2 (09:03→16:58)
[2017-07-20] MEDS: ENOXAPARIN 40 MG/0.4 ML SYRINGE SQ SCH (09:03)
[2017-07-20 11:09] VITALS: BMI 32.8
[2017-07-20] MEDS: HYDROmorphone 2 MG TAB PO PRN (11:24)
--- NOTE | 2017-07-20 12:42 | P.PN ---
Subjective Progress Note Date: 07/20/17 Principal diagnosis: Acute septic shock, sepsis, right ankle abscess and cellulitis This is a 57-year-old white male with history of cerebral palsy, hypertension, admitted with cellulitis of the right ankle on 07/12/2017. Started out initially as a pustule on the right ankle, went on to develop worsening cellulitis. Patient has been in a CAM boot for this problem. And had recent aspiration of the right ankle [facility] recently. Patient underwent incision and drainage of the right ankle abscess, irrigation and debridement of the right ankle wound, and application of a one VAC to the right ankle. Postoperatively, patient was admitted to the ICU mostly because of hypotension requiring significant amount of fluids, received a total of 3 L of fluids, had to be placed on norepinephrine for low blood pressure, and he was noted to have significant lactic acidosis. Considering his profound hypotension and septic shock presentation, I was asked to see him on consultation. Patient has been already on daptomycin as ordered by Dr. Brandt, he received significant amount of fluids over the last 12 hours, and in spite of of the fluid boluses, patient required norepinephrine. This morning, the patient remains on 20 g of norepinephrine, his lactic acid came down to 4.0, and I have recommended more fluids to be given. Last night in spite of all the fluids, the patient was oliguric, and I recommended one dose of Lasix. Since then the patient has been making significant amount of urine over the last 8 hours. His labs revealed significant leukocytosis with WBC of 26.8 hemoglobin is 8.7. Basic metabolic profile is normal except for low bicarb of 19 minimal anion gap metabolic acidosis, 14, BUN of 24 creatinine of 1.40. Lactic acid has been coming down from 6.5 initially and it is 4.0 today. The patient himself is a very poor historian, patient has history of cerebral palsy. However he is denying any specific complaints presently. Reevaluated today on 07/15/2017, patient is feeling much better, clinically he looks fine, he is asymptomatic, however the patient remains on 11 g of levo fed.continues to have leukocytosis with WBC count of 28.0, hemoglobin is 8.4, electrolytes were reviewed, has a non-anion gap metabolic acidosis. BUN is 26 creatinine is 1.30.chest x-ray is showing small bilateral pleural effusions and right basilar atelectasis could be related to mild vascular congestion. However the patient is having excellent urine output, over 100 mL per hour. And his main IV fluids remains at 1 50 mL per hour.renal functioning seems to be improving steadily. On 07/16/2017 patient seen in follow-up in the intensive care unit. He is resting in bed, appears pale and fatigued, but in no acute distress. He has been afebrile for the past 48 hours, however still requires vasopressor support in the form of norepinephrine currently at the rate of 17 mics per minute. Maintenance IV is 0.9 normal saline at 150 ML per hour. Patient is currently room air with O2 sat at 95%. Sinus bradycardia on the monitor at a rate of 55 BPM. Lung sounds are positive for coarse bibasilar crackles, chest x-ray today shows bilateral pleural effusions, and changes consistent with congestive heart failure and fluid overload. Patient has been extensively fluid resuscitated, and has received liters of fluid since admission. He appears to be generally swollen, with nonpitting swelling in his upper and lower extremities as well as the trunk. Today's lab work has been reviewed, WBC is on the downward trend, and is down to 15.6 from 28 on yesterday's labs. Hemoglobin is stable at 8.1, CO2 is 18, B1 is 21, and creatinine is 1.08. Patient has an indwelling catheter and he is making adequate urine, anywhere from 4200 ML per hour. Right ankle wound culture was positive for staph aureus , and urine culture was positive for E. coli with sensitivity to Rocephin which the patient is currently on. The staph aureus in the wound culture had valverde susceptibility, and the patient is currently on daptomycin in addition to Rocephin. On 07/17/2017 patient seen in follow-up in intensive care unit. He is resting in bed, denies any acute distress, although continues to complain of discomfort in the right lower leg, as well as epigastric tenderness, which seems to be worse with deep inspiration. His IV 0.9 normal saline is infusing at a rate of 150 ML per hour, Levothroid is currently down to 5 mics per minute. We checked a random serum cortisol, which was found to be relatively low at 14, we will give 1 dose of hydrocortisone 100 mg IV push and monitor the patient's response to with. Patient remains very generally swollen, with truncal, and upper and lower extremity edema. We will cut back the mintenance IV fluid rate down to 50 ML per hour. Today's chest x-ray shows small bilateral pleural effusions and fluid overload. Ultrasound of the chest showed right pleural fluid pocket of 1.9 cm and left pleural fluid pocket of 1.7 cm. She is currently on 1 L per nasal cannula with O2 sat 98%. Remains in sinus rhythm with a rate of 55 BPM, afebrile. Urine culture was positive for E. coli, and patient is on a combination of Rocephin, and daptomycin for the evidence of Staphylococcus aureus in the wound culture. ID service is on. Abdomen is soft, distended, but nontender. Patient's hypoalbuminemia with a hemoglobin of 1.7, is likely contributing to patient's anasarca. Overall patient is more awake, and interactive on today's exam. Lung sounds are positive for expiratory wheezes bilaterally, no rales, no rhonchi noted. Right lower leg is dressed, wound care is per ID service recommendations. On 07/18/2017 patient seen in follow-up in intensive care unit. He is awake alert, responding appropriately, denies any acute distress. Today's chest x- ray shows persistence of bibasilar effusions, right greater than the left, and fluid overload. Patient has generalized edema in his bilateral upper and lower extremities and some truncal edema. His levo fed drip has been on hold since 5: 30 this morning, making adequate amounts of urine, systolic blood pressures are running in the 90s, and diastolic blood pressures are in the 60s to 70s millimeters of mercury. He is afebrile, remains in sinus rhythm with a controlled rate on the monitor. Denies any dyspnea, denies any chest pain, lung sounds are positive for expiratory wheezes bilaterally. Incentive spirometry at the bedside, patient needs encouragement to use it. His IV fluids were decreased down to 50 ML per hour yesterday, in view of patient's significant generalized edema. Patient had a trial of hydrocortisone at 100 mg IV push times one yesterday to which she did not respond, which makes possibility of adrenal insufficiency not likely. Today we will give the patient 1 dose of 40 mg IV Lasix. Continue monitoring blood pressure, continue monitoring urine output. We will add midodrine 5 mg twice a day, will increase activity as tolerated. Possible transfer out of the intensive care unit later on today, provided patient maintains normal vitals. On 07/19/2017 patient seen in follow-up in intensive care unit. He is awake alert, stable, norepinephrine drip has been on hold for greater than 24 hours. Maintenance IV fluids is 0.9 at a rate of 50 ML per hour, patient is tolerating oral intake, we will decrease the IV fluids to KVO today. Denies any fever or chills, denies any dyspnea or chest pain. Denies any abdominal discomfort. Afebrile, hemodynamically stable. Currently on room air with O2 sat at 93%. Yesterday he was given a dose of IV Lasix, and he diuresed over 5 L over the last 24 hours, currently in a -4 L fluid balance. Lung sounds are clear on today's exam, no wheezes, no rhonchi or rales noted. No acute events overnight. ID service is managing patient's antibiotics, patient remains on Rocephin for the E. coli in the urine, daptomycin was discontinued. He remains in sinus rhythm. No new chest x-ray today. Today's lab work shows WBC of 11.8 , hemoglobin of 8.6, renal profile is within normal limits, chloride is 1:15, CO2 of 20. Patient is stable, and from pulmonary/critical care standpoint is stable to go out of the intensive care today to general medical floor. On 07/20/2017 patient seen in follow-up in medical surgical floor. Remains stable, denies any acute complaints. Denies any dyspnea, currently on room air O2 sat at 94%. Hemodynamically stable, afebrile. Lung sounds are clear to auscultation, no rhonchi, rales noted. Yesterday patient was given an additional dose of IV Lasix, he is in positive fluid balance, however the appearance of generalized edema has improved. We will add maintenance dose of 40 mg of Lasix on a daily basis. ID service is managing the antibiotics, patient's antibiotics were streamlined down to Rocephin, daptomycin was discontinued. Objective - Vital Signs Vital signs: Vital Signs Temp 96.9 F L 07/20/17 08:49 Pulse 67 07/20/17 09:38 Resp 20 07/20/17 09:38 BP 112/72 07/20/17 08:49 Pulse Ox 94 L 07/20/17 08:49 Intake & Output 07/19/17 07/20/17 07/20/17 18:59 06:59 18:59 Intake Total 140 820 Output Total 350 175 Balance -210 820 -175 Weight 106.7 kg Intake: IV 140 70 Sodium Chloride 0.9% 1, 140 70 000 ml @ 50 mls/hr IV . Q20H [facility] Rx#:[id number] Intake, IV Titration 160 Amount Sodium Chloride 0.9% 1, 160 000 ml @ 50 mls/hr IV . Q20H [facility] Rx#:[id number] Oral 590 Output: Urine 350 175 Other: Voiding Method Indwelling Catheter Urinal Urinal # Voids 1 3 1 - Exam Physical Exam: Revealed a 57-year-old white male, in no distress. Head: Atraumatic, normocephalic. Eyes: PERRLA, EOMI, no icterus. HEENT:[Neck is supple.] [No neck masses.] [No thyromegaly.] [No JVD.] Chest: [Clear lung sounds, equal air entry bilaterally, no wheezes or rhonchi on today's exam.] Cardiac Exam: [Normal S1 and S2, no S3 gallop, no murmur.] Abdomen: [Soft, nontender, no megaly, no rebound, no guarding, normal bowel sounds.] Extremities: Right lower extremity is wrapped,. With sterile dressing. Could not be examined.] Neurological Exam: Patient has underlying cerebral palsy, difficulty with speech , and slow mental development. Otherwise no gross focal neurologic deficit. Lymphatics: No adenopathy. - Labs CBC & Chem 7: 07/18/17 04:40 07/18/17 04:40 Assessment and Plan Plan: Assessment: 1 acute sepsis and septic shock secondary to cellulitis and abscess of right foot/ankle. Right ankle wound culture was positive for Staphylococcus aureus, and urine culture was positive for E. coli. Patient is on combination of Rocephin and daptomycin per ID service recommendation. 2 status post incision and drainage of right ankle abscess, irrigation and debridement of right ankle wound, application of wound VAC, postoperative day #6 3 acute urinary tract infection, being addressed by infectious disease on the case. Urine cultures positive for E. coli, patient is being treated with Rocephin 4history of multiple comorbidities including cerebral palsy, hypertension, hypothyroidism Plan: Patient remains off vasopressor support, currently hemodynamically stable, afebrile, denies any fever or chills. Lower extremity edema is improving, we will put the patient on a maintenance dose of 40 mg oral Lasix daily basis. Continue with antibiotics per ID service recommendation. Vital signs remain stable. Denies any pulmonary complaints, denies any dyspnea, or chest pain. We will sign off at this time, and follow the patient is unable basis. Thank you for this consultation. I performed a history & physical examination of the patient and discussed their management with my nurse practitioner, Shannan Arenas. I reviewed the nurse practitioner's note and agree with the documented findings and plan of care. Lung sounds are clear. The findings and the impression was discussed with the patient. I attest to the documentation by the nurse practitioner. Time with Patient: Less than 30
[2017-07-20] MEDS: FUROSEMIDE 40 MG TAB PO SCH (15:07)
[2017-07-20] MEDS: RANITIDINE 150 MG PO SCH (16:58)
--- NOTE | 2017-07-20 17:16 | P.PN ---
Subjective Progress Note Date: 07/20/17 Principal diagnosis: Status post I&D right ankle infection/cellulitis bIeth Patient is pleasant 57-year-old male seen at bedside at this afternoon. He is status post I&D of right ankle infection performed on 07/13/2017. He has improved medically overall. He continues to receive care regarding his fluids. He is receiving IV Rocephin for coverage of his ankle and urinary tract infections. He currently denies any new complaints today.. His pain seems controlled at the surgical site. He is denying numbness, tingling, calf pain, fever, chills, chest pain or shortness of breath. Objective - Vital Signs Vital signs: Vital Signs Temp 97.9 F 07/20/17 15:32 Pulse 69 07/20/17 15:32 Resp 18 07/20/17 15:32 BP 114/77 07/20/17 15:32 Pulse Ox 94 L 07/20/17 15:32 Intake & Output 07/19/17 07/20/17 07/20/17 18:59 06:59 18:59 Intake Total 140 820 160 Output Total 350 375 Balance -210 820 -215 Weight 106.7 kg Intake: IV 140 70 160 Sodium Chloride 0.9% 1, 140 70 160 000 ml @ 50 mls/hr IV . Q20H [facility] Rx#:[id number] Intake, IV Titration 160 Amount Sodium Chloride 0.9% 1, 160 000 ml @ 50 mls/hr IV . Q20H [facility] Rx#:[id number] Oral 590 Output: Urine 350 375 Other: Voiding Method Indwelling Catheter Urinal Urinal # Voids 1 3 1 - Exam Inspection of the right lower extremity shows bandage in place. There is no evidence of active bleeding. No drainage. His wound appears to show benign secondary healing with no evidence of purulent drainage. He has sensation to touch grossly in all toes. His foot is warm to touch and adequately perfused. He is able to wiggle the toes and foot. The calf is soft and nontender. He continues to have peripheral edema but appears improved. There is no evidence of ascending infection - Constitutional General appearance: Present: no acute distress - Psychiatric Psychiatric: Present: A&O x's 3, appropriate affect, intact judgment & insight - Labs CBC & Chem 7: 07/18/17 04:40 07/18/17 04:40 Assessment and Plan (1) Cellulitis of right ankle Narrative/Plan: He continues to stabilize and improve. 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 He is pending PICC line placement and transfer to ECF when ok with medical team. He may f/u with dr. Brown in office in 2 weeks. We will sign off for now. Current Visit: No Status: Acute Priority: Medium Code(s): L03.115 - CELLULITIS OF RIGHT LOWER LIMB SNOMED Code(s): 28867716 Time with Patient: Less than 30
[2017-07-20] MEDS ORDERED: GLYCERIN ADULT SUPPOSITORY 1 EACH RECTAL STA (19:32)
[2017-07-20] MEDS: cefTRIAXone IN SWFI 2,000 MG/20 ML SYRINGE IVP SCH (20:28)
[2017-07-20] MEDS: POLYETHYLENE GLYCOL 3350 17 GM POWD.PACK PO SCH (20:28)
--- NOTE | 2017-07-20 23:28 | P.PN ---
Subjective Progress Note Date: 07/20/17 Principal diagnosis: Sepsis This is a 57-year-old male patient who is known to ID service as he was initially seen during a May admission at which time he was treated for cellulitis of the right ankle with improvement during his stay. A boot was ordered by orthopedics and patient was discharged on cephalexin and was to continue to wear the boot at home. Patient has history of cerebral palsy and lives at home with his sister. She states that on Sunday he developed a blister, raised area on the right ankle and within 24 hours it became reddened and swollen and he had swelling going up into his lower leg and his foot. He went to his orthopedic doctor, Dr. Brown was seen yesterday and underwent aspiration and this was sent for cultures. Patient was then directly admitted to the hospital and started initially on vancomycin which has been changed to daptomycin. Patient has been afebrile with a White count of 13. CRP 87.4 and sed rate 68. Blood cultures status received and wound culture is in progress. CAT scan was compared to previous MRIs done very and May 25 and revealed increasing soft tissue density and thickening compatible with patient' s reported cellulitis. This is worsening from compared images. Increasing soft tissue density surrounding the proximal forefoot joint spaces especially the distal talus and feculent region findings are suspicious for increasing osteomyelitis at this level. A duplex was negative for DVT on the right leg. It is scheduled for I&D this morning at 11. If patient requires IV antibiotics , patient's sister wishes for him to go to [facility] for treatment. Of note, patient had pain of 10 out of 10 during the night and received morphine which dropped his blood pressure from 190/103 down to 76/50. His sister states that he has had sensitivity to morphine in the past when he had diaphragmatic hernia repair done at [facility]. He is status post IV fluid bolus of 500 mL. Blood pressure remains low but patient is stable without any symptoms. 07/14/2017 reveals the patient to have some improvement. Other than pain at his ankle area which is improved the patient continues to have relative hypotension and is still on vasopressor therapy. White blood cell count at 26.8. Lactic acid is improving. His temperature was 102.9 is now down to 97.6. Fortunately the patient does feel better today. He'll relates that he feels like he needs to have a bowel movement. 07/15/2017 patient does feel a bit better but still remains on some vasopressor therapy but at decreasing doses. He continues to have leukocytosis of 28, and fever has improved. 07/16/2017 patient was a bit sleepy today however upon arousal is awake alert oriented to person place and time and has no new acute gross focal sensory motor deficits. His hypotension is improving but still requiring vasopressor therapy at this time. He has been seen by the systems test engineer and Cortef doses have been adjusted. 07/17/2017 patient is much more awake and interactive today. Has had a much better day. Appetite still somewhat poor but he developed significant anasarca from his fluid resuscitation from his septic shock from his staph abscess to his right foot in E. coli urinary tract infection. Is noticing much better today and has no other acute troubles the vasopressor therapy has almost been completely weaned 07/18/2017 the patient's in a less good mood today but he is awake alert and interactive. He is eating quite well today. He does have some minimal abdominal fullness related to his anasarca. However he is no longer hypotensive. He is off vasopressor therapy. He's had improving diuresis which is helping him feel better. Denies other new acute complaints. Does have ongoing pain to that right foot where he has the extensive infection ulceration. 07/19/2017 reveals the patient to have further improvement. She is now out of the ICU. Feeling somewhat better. Is able to smile today. He is eating and denies interim new troubles. Mentation is clear but still has some congestion. 07/20/2017 patient has further improvement. He is eating better. He has improvement and looks forward to being transferred to rehab facility for his antibiotic therapy. Objective - Vital Signs Vital signs: Vital Signs Temp 97.9 F 07/20/17 15:32 Pulse 69 07/20/17 15:32 Resp 18 07/20/17 15:32 BP 114/77 07/20/17 15:32 Pulse Ox 94 L 07/20/17 15:32 Intake & Output 07/20/17 07/20/17 07/21/17 06:59 18:59 06:59 Intake Total 820 160 Output Total 375 Balance 820 -215 Weight 106.7 kg Intake: IV 70 160 Sodium Chloride 0.9% 1, 70 160 000 ml @ 50 mls/hr IV . Q20H [facility] Rx#:[id number] Intake, IV Titration 160 Amount Sodium Chloride 0.9% 1, 160 000 ml @ 50 mls/hr IV . Q20H [facility] Rx#:[id number] Oral 590 Output: Urine 375 Other: Voiding Method Urinal Urinal Diaper # Voids 3 1 - Exam Gen: This is a 57-year-old male patient. He is sitting up in bed and appears to be comfortable and in no acute distress. HEENT: Head is atraumatic, normocephalic. Pupils equal, round. Sclerae is anicteric. Conjunctiva pink. Oral mucous membranes are with evidence of some dryness he does have some discomfort in the posterior pharynx without thrush or open lesions. Patient is edentulous. NECK: Supple. No JVD. No lymphadenopathy. No thyromegaly. LUNGS: Clear to auscultation. No wheezes or rhonchi. No intercostal retractions. HEART: Regular rate and rhythm. No murmur. ABDOMEN: Soft. Bowel sounds are present. No masses. No tenderness. EXTREMITIES: Patient has edema to the right lower extremity. The right ankle abscess has been drained and wound VAC is in place, the VAC is removed. The ulceration is noted and please see the nursing photography for its exact location and size. Is cleansed with saline and a nonstick dressing is applied and then Pseudomonas and gauze roll gauze and a serum applied. He tolerated the dressing change well. There are exposed tendons, we'll hold on the wound VAC for now. We'll likely utilize an absorptive silver dressing soon. The patient was having severe pain and this is improved. There is no breakthrough drainage. There is no ascending cellulitis on the right lower leg. NEUROLOGICAL: Patient is awake, alert and oriented x3. He does have cerebral palsy but has excellent interactions. He is a [place] fan and is able to relate many of his favorite memories. - Labs CBC & Chem 7: 07/18/17 04:40 07/18/17 04:40 Labs: Laboratory Results WBC 11.8 k/uL (3.8-10.6) H 07/18/17 04:40 RBC 3.48 m/uL (4.30-5.90) L 07/18/17 04:40 Hgb 8.6 gm/dL (13.0-17.5) L 07/18/17 04:40 Hct 28.8 % (39.0-53.0) L 07/18/17 04:40 MCV 82.8 fL (80.0-100.0) 07/18/17 04:40 MCH 24.8 pg (25.0-35.0) L 07/18/17 04:40 MCHC 30.0 g/dL (31.0-37.0) L 07/18/17 04:40 RDW 15.2 % (11.5-15.5) 07/18/17 04:40 Plt Count 272 k/uL (150-450) 07/18/17 04:40 Neutrophils % 86 % 07/18/17 04:40 Neutrophils % (Manual) 75 % 07/15/17 05:25 Band Neutrophils % 21 % 07/15/17 05:25 Lymphocytes % 8 % 07/18/17 04:40 Lymphocytes % (Manual) 2 % 07/15/17 05:25 Monocytes % 4 % 07/18/17 04:40 Monocytes % (Manual) 2 % 07/15/17 05:25 Eosinophils % 0 % 07/18/17 04:40 Basophils % 0 % 07/18/17 04:40 Metamyelocytes % 1 % 07/15/17 05:25 Neutrophils # 10.1 k/uL (1.3-7.7) H 07/18/17 04:40 Neutrophils # (Manual) 26.80 k/uL (1.3-7.7) H 07/15/17 05:25 Lymphocytes # 0.9 k/uL (1.0-4.8) L 07/18/17 04:40 Lymphocytes # (Manual) 0.56 k/uL (1.0-4.8) L 07/15/17 05:25 Monocytes # 0.5 k/uL (0-1.0) 07/18/17 04:40 Monocytes # (Manual) 0.56 k/uL (0-1.0) 07/15/17 05:25 Eosinophils # 0.0 k/uL (0-0.7) 07/18/17 04:40 Basophils # 0.0 k/uL (0-0.2) 07/18/17 04:40 Metamyelocytes # (Man) 0.28 k/uL (0) H 07/15/17 05:25 Nucleated RBCs 0 /100 WBC (0-0) 07/15/17 05:25 Manual Slide Review Performed 07/15/17 05:25 Toxic Granulation Present 07/15/17 05:25 Toxic Vacuolation Present 07/15/17 05:25 Hypochromasia Marked 07/18/17 04:40 Poikilocytosis Slight 07/18/17 04:40 Poikilocytosis (manual Present 07/15/17 05:25 Ovalocytes Present 07/14/17 04:45 Crenated Cell Present 07/15/17 05:25 ESR 68 mm/hr (0-15) H 07/12/17 17:33 PT 13.8 sec (9.0-12.0) H 07/13/17 16:11 INR 1.5 (<1.2) H 07/13/17 16:11 APTT 25.1 sec (22.0-30.0) 07/13/17 16:11 Sodium 143 mmol/L (137-145) 07/18/17 04:40 Potassium 3.8 mmol/L (3.5-5.1) 07/18/17 04:40 Chloride 115 mmol/L (98-107) H 07/18/17 04:40 Carbon Dioxide 20 mmol/L (22-30) L 07/18/17 04:40 Anion Gap 8 mmol/L 07/18/17 04:40 BUN 19 mg/dL (9-20) 07/18/17 04:40 Creatinine 0.91 mg/dL (0.66-1.25) 07/18/17 04:40 Est GFR (CKD-EPI)AfAm >90 (>60 ml/min/1.73 sqM) 07/18/17 04:40 Est GFR (CKD-EPI)NonAf >90 (>60 ml/min/1.73 sqM) 07/18/17 04:40 Glucose 110 mg/dL (74-99) H 07/18/17 04:40 POC Glucose (mg/dL) 96 mg/dL (75-99) 07/15/17 00:37 POC Glu Sous Chef Kitchen Manager ID Malec, [place] 07/15/17 00:37 Lactic Ac Sepsis Rflx Y 07/14/17 01:17 Plasma Lactic Acid [place] 1.4 mmol/L (0.7-2.0) 07/16/17 04:24 Calcium 7.0 mg/dL (8.4-10.2) L 07/18/17 04:40 Phosphorus 2.5 mg/dL (2.5-4.5) 07/18/17 04:40 Magnesium 1.9 mg/dL (1.6-2.3) 07/18/17 04:40 Total Bilirubin 0.8 mg/dL (0.2-1.3) 07/18/17 04:40 AST 23 U/L (17-59) 07/18/17 04:40 ALT 38 U/L (21-72) 07/18/17 04:40 Alkaline Phosphatase 805 U/L (38-126) H 07/18/17 04:40 Total Creatine Kinase 289 U/L (55-170) H 07/13/17 16:11 CK-MB (CK-2) 1.0 ng/mL (0.0-2.4) 07/13/17 16:11 CK-MB (CK-2) Rel Index 0.3 07/13/17 16:11 Troponin I 0.097 ng/mL (0.000-0.034) H* 07/13/17 16:11 C-Reactive Protein 87.4 mg/L (<10.0) H 07/12/17 17:33 Total Protein 3.8 g/dL (6.3-8.2) L 07/18/17 04:40 Albumin 1.5 g/dL (3.5-5.0) L 07/18/17 04:40 Cortisol 14 ug/dL 07/16/17 05:32 Urine Color Yellow 07/13/17 17:45 Urine Appearance Turbid (Clear) 07/13/17 17:45 Urine pH 6.0 (5.0-8.0) 07/13/17 17:45 Ur Specific [place] 1.019 (1.001-1.035) 07/13/17 17:45 Urine Protein 1+ (Negative) H 07/13/17 17:45 Urine Glucose (UA) Negative (Negative) 07/13/17 17:45 Urine Ketones Negative (Negative) 07/13/17 17:45 Urine Blood Moderate (Negative) H 07/13/17 17:45 Urine Nitrite Negative (Negative) 07/13/17 17:45 Urine Bilirubin Negative (Negative) 07/13/17 17:45 Urine Urobilinogen 2.0 mg/dL (<2.0) 07/13/17 17:45 Ur Leukocyte Esterase Large (Negative) H 07/13/17 17:45 Urine RBC 38 /hpf (0-5) H 07/13/17 17:45 Urine WBC >182 /hpf (0-5) H 07/13/17 17:45 Urine WBC Clumps Many /hpf (None) H 07/13/17 17:45 Urine Bacteria Many /hpf (None) H 07/13/17 17:45 Microbiology 07/12/17 17:33 Blood Blood Culture - Final No Growth after 144 hours 07/13/17 15:25 Ankle - Right Anaerobic Culture - Final 07/13/17 15:25 Ankle - Right Gram Stain - Final 07/13/17 15:25 Ankle - Right Tissue Culture - Final 07/12/17 12:00 Ankle - Right Anaerobic Culture - Final 07/13/17 17:45 Urine,Catheterized Urine Culture - Final Escherichia coli 07/12/17 12:00 Ankle - Right Gram Stain - Final 07/12/17 12:00 Ankle - Right Wound Culture - Final Staphylococcus aureus Assessment and Plan (1) Cellulitis of right ankle Current Visit: No Status: Acute Priority: Medium Code(s): L03.115 - CELLULITIS OF RIGHT LOWER LIMB SNOMED Code(s): 90339129 (2) Abscess of ankle Narrative/Plan: 57-year-old patient that has a complex history of the recent injury to his now developed a significant abscess at that site which required incision and drainage. Was having some difficulty with hypotension, appears to be having sepsis is not being cared for in the intensive care unit. He'll receive further fluid resuscitation for his sepsis and lactic acidosis. He will continue to have antibiotic therapy with daptomycin. Local wound care is negative pressure therapy system. He was monitored closely and plans will be made for his outpatient antibiotic therapy which likely will be intravenous as well as local wound care. Enhancement of his nutritional status will also help his wound healing. On 07/14/2017 the patient is improved. His pain is better. However still having hypotension requiring some vasopressor therapy and is receiving ongoing fluid resuscitation. He is feeling better his mentation is improved. Wound culture with staph aureus has many ALLERGIES doing well with daptomycin. Leukocytosis is expected after the incision and drainage and a response to his sepsis. He's had an increase of his creatinine to 1.2 and will be monitored. Lactic acid is elevated and is being monitored as he receives further fluid resuscitation. Once the patient is stable will need IV access placed for his outpatient intravenous antibiotic therapy likely with daptomycin. 07/15/2017 patient is feeling better today. Still having some pain at the surgical site. Denying fevers or chills. The abscess site is looking well. There is however exposed tendons. A nonstick dressing is applied over the tendons in the moistened gauze. Overall goal is to make sure that this tends to dry so that they do not desiccate. The patient's urinalysis and culture and become available and some gram-negative bacilli are seen in the urine with his ongoing leukocytosis there is concern this could be another source of infection and Rocephin is added, understanding that he's had some difficulties with nausea with cephalosporins unclear if this is due to the additives that are given in the capsules and tablets. He has noted he has many ALLERGIES. He will monitored for any difficulties with the addition of Rocephin however given his significant ongoing leukocytosis gram-negative therapy needs to be added at this time. 07/16/2017 reveals the patient to have had a bit of a difficult day. Is doing better as the day has now gone on. He is arousable awake and interactive and his family is pleased that he is doing a bit better this evening. His pain is under modest good control. The ulceration is evaluated in the dressing is changed. As noted the patient does have evidence of a gram-negative in his urine and for this gram-negative therapy was added. as he continues to have ongoing significant sepsis would continue the daptomycin and Rocephin until we have complete data. Given the patient will need outpatient intravenous antibiotic therapy the patient's sister relates that would not be able to happen in the current home setting and required going to rehab to complete his antibiotics and wound care. We discussed the wound VAC at this point in time will likely not be utilized given the exposed tendons. 07/17/2017 patient is no considerably improved. His sepsis is improving and he is almost completely weaned off of vasopressor therapy. Antibiotic therapy will be streamlined to Rocephin IV access in place with a PICC line and patient will be going to extended care to complete his 6 weeks of antibiotic therapy. 07/18/2017 patient is further improved today. His vasopressor therapy is discontinued and he is having improved urinary output. He is denying intermittent difficulties just not in such a good mood today. Sisters are present relate that this is not unusual for him. He is eating well. At this time fortunately he showing further improvement. Antibiotic therapy as streamlined to just Rocephin at this point in time given no resistant gram- positive organisms. He will require outpatient intravenous antibiotic therapy and PICC line is already in place. We'll work with extended care. 07/19/2017 reveals the patient had further improvement. It moved out of intensive care unit. IV access is been placed and will receive 40 days of antibiotic therapy with Rocephin and extended care. We'll add some Cepacol for his sore throat. And if possible and then Zoloft 25 mg a day he was also started as an outpatient to improve his anxiety issues. 07/20/2017 there is further improvement noted. Doing well out of intensive care unit. He will receive his 40 days of antibiotic therapy for his MRSA sepsis related to the significant infection of his right ankle. This will also give completion of the E. coli infection that he has. Cepacol as been helpful and Zoloft will hopefully help his anxiety issues. Looks forward to transferring to the extended care facility early next week. Current Visit: Yes Status: Acute Code(s): L02.419 - CUTANEOUS ABSCESS OF LIMB, UNSPECIFIED SNOMED Code(s): 92398786 (3) Severe sepsis with septic shock Current Visit: Yes Status: Acute Code(s): A41.9 - SEPSIS, UNSPECIFIED ORGANISM; R65.21 - SEVERE SEPSIS WITH SEPTIC SHOCK SNOMED Code(s): 94974454
[2017-07-21] MEDS: NAPROXEN 250 MG TAB PO SCH ×4 (00:18→21:23)
[2017-07-21] MEDS: LEVOTHYROXINE 112 MCG TAB PO SCH (06:09)
[2017-07-21 07:18] LABS: Anisocytosis Slight; Basophils % (A) 1 %; Eosinophils # (A) 0.6 k/uL (0-0.7); Eosinophils % (A) 7 %; HCT 26.3 % (39.0-53.0); HGB 8.1 gm/dL (13.0-17.5); Hypochromasia Marked; Lymphocytes # (A) 1.2 k/uL (1.0-4.8); Lymphocytes % (A) 15 %; MCH 25.2 pg (25.0-35.0); MCHC 30.7 g/dL (31.0-37.0); Mean Platelet Volume 7.1; Monocytes # (A) 0.5 k/uL (0-1.0); Monocytes % (A) 7 %; Neutrophils # (A) 5.2 k/uL (1.3-7.7); Neutrophils % (A) 68 %; Platelet Count 301 k/uL (150-450); Poikilocytosis Slight; RBC 3.21 m/uL (4.30-5.90); RDW 18.3 % (11.5-15.5); WBC 7.6 k/uL (3.8-10.6)
[2017-07-21 07:27] LABS: Anion Gap 6 mmol/L; Blood Urea Nitrogen 23 mg/dL (9-20); Calcium 7.1 mg/dL (8.4-10.2); Carbon Dioxide 30 mmol/L (22-30); Chloride 104 mmol/L (98-107); Glucose 90 mg/dL (74-99); Potassium 3.7 mmol/L (3.5-5.1); Sodium 140 mmol/L (137-145)
[2017-07-21] MEDS: FUROSEMIDE 40 MG TAB PO SCH (08:19)
[2017-07-21] MEDS: SERTRALINE 25 MG TAB PO SCH (08:19)
[2017-07-21] MEDS: ENOXAPARIN 40 MG/0.4 ML SYRINGE SQ SCH (08:20)
[2017-07-21] MEDS: RANITIDINE 150 MG PO SCH (17:38)
[2017-07-21] MEDS: POLYETHYLENE GLYCOL 3350 17 GM POWD.PACK PO SCH (21:22)
[2017-07-21] MEDS: cefTRIAXone IN SWFI 2,000 MG/20 ML SYRINGE IVP SCH (22:12)
--- NOTE | 2017-07-22 01:27 | P.PN ---
Subjective Progress Note Date: 07/20/17 Principal diagnosis: Right ankle abscess and cellulitis. Septic shock This is a 57-year-old white male with history of cerebral palsy, hypertension, admitted with cellulitis of the right ankle on 07/12/2017. Started out initially as a pustule on the right ankle, went on to develop worsening cellulitis. Patient has been in a CAM boot for this problem. And had recent aspiration of the right ankle by [facility] recently. Patient underwent incision and drainage of the right ankle abscess, irrigation and debridement of the right ankle wound, and application of a one VAC to the right ankle. Postoperatively, patient was admitted to the ICU mostly because of hypotension requiring significant amount of fluids, received a total of 3 L of fluids, had to be placed on norepinephrine for low blood pressure, and he was noted to have significant lactic acidosis. 07/16/2017 Patient is resting in the bed comfortable. No acute distress. Patient remained on pressors support with norepinephrine. Continued on IV hydration. Chest x-ray showed bilateral pleural effusions and changes consistent with congestive heart failure and fluid overload. Leukocytosis is improving to 15.6. Right ankle wound cultures positive for staph aureus and urine cultures positive for E. coli sensitive to Rocephin. Patient is on daptomycin as well. ID and pulmonary is following. 07/18/2017 Currently patient is lying in the bed comfortable. No acute distress noted. Patient is off pressors support otherwise patient is still having symptoms edema. Chest x-ray showed persistent bibasilar effusions right greater than left and fluid load. Patient was given a dose of Lasix 40 mg 1. Patient does have good urine output. Patient was started on Midodrin 5 mg twice daily. Patient has been afebrile. No fever no chills. continue with right ankle dressing changes. 07/19/2017 Currently patient is off pressors support and was transferred to general medical floor. Patient was given a dose of IV Lasix today. Otherwise patient is being continued on ceftriaxone. No fever no chills. Swelling seems to be improving. ID and pulmonary is following. 07/20/2017 Patient denied any complaints of chest pain or shortness of breath. Otherwise poor historian. No fever no chills. Generalized swelling is much improved. Continued on IV antibiotics. Anticipate discharged to rehab. complete review of systems could not be obtained from the patient current medications reviewed. Active Medications Bisacodyl (Dulcolax) 10 mg RECTAL ONCE PRN PRN Reason: Constipation Ceftriaxone Sodium (Rocephin) 2,000 mg IVP HS [facility] Last Admin: 07/18/17 21:43 Dose: 2,000 mg Diphenhydramine HCl (Benadryl) 25 mg IVP Q6HR PRN PRN Reason: Allergy Symptoms Docusate Sodium (Colace) 100 mg PO BID PRN PRN Reason: Constipation Enoxaparin Sodium (Lovenox) 40 mg SQ DAILY [facility] Last Admin: 07/18/17 08:41 Dose: 40 mg Famotidine (Pepcid) 20 mg PO AC-SUPPER [facility] Last Admin: 07/18/17 17:12 Dose: 20 mg Hydromorphone HCl (Dilaudid) 1 mg PO Q3HR PRN PRN Reason: Pain Scale 1 to 3 Last Admin: 07/15/17 08:10 Dose: 1 mg Hydromorphone HCl (Dilaudid) 2 mg PO Q3HR PRN PRN Reason: Pain Scale 4 to 6 Last Admin: 07/16/17 06:04 Dose: 2 mg Hydromorphone HCl (Dilaudid) 4 mg PO Q3HR PRN PRN Reason: Pain Scale 7 to 10 Norepinephrine Bitartrate (Levophed-0.9% Nacl 4 Mg/250ml Pmx) 4 mg in 250 mls @ 0 mls/hr IV .Q0M [facility]; Titrate PRN Reason: Protocol Last Titration: 07/18/17 05:27 Dose: 0 mcg/min, 0 mls/hr Sodium Chloride (Saline 0.9%) 1,000 mls @ 50 mls/hr IV .Q20H [facility] Last Admin: 07/18/17 21:45 Dose: 50 mls/hr Levothyroxine Sodium (Synthroid) 112 mcg PO QAM@0630 [facility] Last Admin: 07/18/17 07:13 Dose: 112 mcg Magnesium Hydroxide (Milk Of Magnesia) 2,400 mg PO DAILY PRN PRN Reason: Constipation Naloxone HCl (Narcan) 0.2 mg IV Q2M PRN PRN Reason: Opioid Reversal Last Admin: 07/13/17 01:56 Dose: 0.2 mg Naproxen (Naprosyn) 250 mg PO TID [facility] Last Admin: 07/18/17 21:44 Dose: 250 mg Ondansetron HCl (Zofran) 4 mg IVP Q8HR PRN PRN Reason: Nausea And Vomiting Last Admin: 07/14/17 08:21 Dose: 4 mg Polyethylene Glycol (Miralax) 17 gm PO HS [facility] Last Admin: 07/18/17 21:43 Dose: 17 gm Sodium Biphosphate/Sodium Phosphate (Fleet Adult) 133 ml RECTAL ONCE PRN PRN Reason: Constipation Sodium Chloride (Deep Sea) 2 spray NASAL QID PRN PRN Reason: Nasal Congestion Sodium Chloride (Saline Flush) 10 ml IV Q4HR PRN PRN Reason: PICC Line Sodium Chloride (Saline Flush) 10 ml IV WEEKLY [facility] Sodium Chloride (Saline Flush) 20 ml IV Q4HR PRN PRN Reason: PICC Line Tramadol HCl (Ultram) 50 mg PO QID PRN PRN Reason: Pain Objective - Vital Signs Vital signs: Vital Signs Temp 97.9 F 07/20/17 15:32 Pulse 69 07/20/17 15:32 Resp 18 07/20/17 15:32 BP 114/77 07/20/17 15:32 Pulse Ox 94 L 07/20/17 15:32 Intake & Output 07/20/17 07/20/17 07/21/17 06:59 18:59 06:59 Intake Total 820 160 Output Total 375 Balance 820 -215 Weight 106.7 kg Intake: IV 70 160 Sodium Chloride 0.9% 1, 70 160 000 ml @ 50 mls/hr IV . Q20H [facility] Rx#:[id number] Intake, IV Titration 160 Amount Sodium Chloride 0.9% 1, 160 000 ml @ 50 mls/hr IV . Q20H [facility] Rx#:[id number] Oral 590 Output: Urine 375 Other: Voiding Method Urinal Urinal Diaper # Voids 3 1 - Exam PHYSICAL EXAMINATION: Patient is lying in the bed comfortably, no acute distress,. HEENT: Normocephalic. Neck is supple. Pupils reactive. Nostrils clear. Oral cavity is moist. Ears reveal no drainage. Neck reveals no JVD, carotid bruits, or thyromegaly. CHEST EXAMINATION: Trachea is central. Symmetrical expansion. Bibasilar crackles and rhonchi. No wheezing. CARDIAC: Normal S1, S2 with no gallops. No murmurs ABDOMEN: Soft. Bowel sounds normal. No organomegaly. No abdominal bruits. Extremities: 2+ edema. No clubbing or cyanosis. Right ankle wound is Wrapped Neurologically awake, alert. Patient has underlying cerebral palsy, difficulty with speech, and slow mental development. . No focal deficits noted Skin: No rash or skin lesions. Psychiatric: Cooperative. Could not be assessed completely Musculoskeletal: No joint swelling or deformity. Normal range of motion. - Labs CBC & Chem 7: 07/21/17 06:53 07/21/17 06:53 Assessment and Plan Assessment: 1 acute sepsis and septic shock secondary to cellulitis and abscess of right foot/ankle. Present on admission. Off pressors support 2 status post incision and drainage of right ankle abscess, irrigation and debridement of right ankle wound, application of wound VAC 3 acute urinary tract infection present on admission. 4 bilateral pleural effusion and fluid overload and generalized edema. Continued on gentle hydration. Patient was given IV Lasix. 4history of multiple comorbidities including cerebral palsy, hypertension, hypothyroidism, Recommendation: Continue present supportive care measures, antibiotics/ daptomycin, fluids,, GI and DVT prophylaxis and close observation in the ICU. Started on Midrin 5 mg twice a day. Prognosis is guarded. Time with Patient: Greater than 30
--- NOTE | 2017-07-22 01:28 | P.PN ---
Subjective Progress Note Date: 07/21/17 Principal diagnosis: Right ankle abscess and cellulitis. Septic shock This is a 57-year-old white male with history of cerebral palsy, hypertension, admitted with cellulitis of the right ankle on 07/12/2017. Started out initially as a pustule on the right ankle, went on to develop worsening cellulitis. Patient has been in a CAM boot for this problem. And had recent aspiration of the right ankle by [facility] recently. Patient underwent incision and drainage of the right ankle abscess, irrigation and debridement of the right ankle wound, and application of a one VAC to the right ankle. Postoperatively, patient was admitted to the ICU mostly because of hypotension requiring significant amount of fluids, received a total of 3 L of fluids, had to be placed on norepinephrine for low blood pressure, and he was noted to have significant lactic acidosis. 07/16/2017 Patient is resting in the bed comfortable. No acute distress. Patient remained on pressors support with norepinephrine. Continued on IV hydration. Chest x-ray showed bilateral pleural effusions and changes consistent with congestive heart failure and fluid overload. Leukocytosis is improving to 15.6. Right ankle wound cultures positive for staph aureus and urine cultures positive for E. coli sensitive to Rocephin. Patient is on daptomycin as well. ID and pulmonary is following. 07/18/2017 Currently patient is lying in the bed comfortable. No acute distress noted. Patient is off pressors support otherwise patient is still having symptoms edema. Chest x-ray showed persistent bibasilar effusions right greater than left and fluid load. Patient was given a dose of Lasix 40 mg 1. Patient does have good urine output. Patient was started on Midodrin 5 mg twice daily. Patient has been afebrile. No fever no chills. continue with right ankle dressing changes. 07/19/2017 Currently patient is off pressors support and was transferred to general medical floor. Patient was given a dose of IV Lasix today. Otherwise patient is being continued on ceftriaxone. No fever no chills. Swelling seems to be improving. ID and pulmonary is following. 07/20/2017 Patient denied any complaints of chest pain or shortness of breath. Otherwise poor historian. No fever no chills. Generalized swelling is much improved. Continued on IV antibiotics. Anticipate discharged to rehab. 07/21/2017 Patient continues to improve clinically. Continue on Lasix 40 mg daily. On antibiotics in the form of ceftriaxone. ID and pulmonary is following. Answered discharged to rehab on Sunday. complete review of systems could not be obtained from the patient current medications reviewed. Active Medications Bisacodyl (Dulcolax) 10 mg RECTAL ONCE PRN PRN Reason: Constipation Ceftriaxone Sodium (Rocephin) 2,000 mg IVP HS [facility] Last Admin: 07/18/17 21:43 Dose: 2,000 mg Diphenhydramine HCl (Benadryl) 25 mg IVP Q6HR PRN PRN Reason: Allergy Symptoms Docusate Sodium (Colace) 100 mg PO BID PRN PRN Reason: Constipation Enoxaparin Sodium (Lovenox) 40 mg SQ DAILY [facility] Last Admin: 07/18/17 08:41 Dose: 40 mg Famotidine (Pepcid) 20 mg PO AC-SUPPER [facility] Last Admin: 07/18/17 17:12 Dose: 20 mg Hydromorphone HCl (Dilaudid) 1 mg PO Q3HR PRN PRN Reason: Pain Scale 1 to 3 Last Admin: 07/15/17 08:10 Dose: 1 mg Hydromorphone HCl (Dilaudid) 2 mg PO Q3HR PRN PRN Reason: Pain Scale 4 to 6 Last Admin: 07/16/17 06:04 Dose: 2 mg Hydromorphone HCl (Dilaudid) 4 mg PO Q3HR PRN PRN Reason: Pain Scale 7 to 10 Norepinephrine Bitartrate (Levophed-0.9% Nacl 4 Mg/250ml Pmx) 4 mg in 250 mls @ 0 mls/hr IV .Q0M [facility]; Titrate PRN Reason: Protocol Last Titration: 07/18/17 05:27 Dose: 0 mcg/min, 0 mls/hr Sodium Chloride (Saline 0.9%) 1,000 mls @ 50 mls/hr IV .Q20H [facility] Last Admin: 07/18/17 21:45 Dose: 50 mls/hr Levothyroxine Sodium (Synthroid) 112 mcg PO QAM@0630 [facility] Last Admin: 07/18/17 07:13 Dose: 112 mcg Magnesium Hydroxide (Milk Of Magnesia) 2,400 mg PO DAILY PRN PRN Reason: Constipation Naloxone HCl (Narcan) 0.2 mg IV Q2M PRN PRN Reason: Opioid Reversal Last Admin: 07/13/17 01:56 Dose: 0.2 mg Naproxen (Naprosyn) 250 mg PO TID [facility] Last Admin: 07/18/17 21:44 Dose: 250 mg Ondansetron HCl (Zofran) 4 mg IVP Q8HR PRN PRN Reason: Nausea And Vomiting Last Admin: 07/14/17 08:21 Dose: 4 mg Polyethylene Glycol (Miralax) 17 gm PO HS [facility] Last Admin: 07/18/17 21:43 Dose: 17 gm Sodium Biphosphate/Sodium Phosphate (Fleet Adult) 133 ml RECTAL ONCE PRN PRN Reason: Constipation Sodium Chloride (Deep Sea) 2 spray NASAL QID PRN PRN Reason: Nasal Congestion Sodium Chloride (Saline Flush) 10 ml IV Q4HR PRN PRN Reason: PICC Line Sodium Chloride (Saline Flush) 10 ml IV WEEKLY [facility] Sodium Chloride (Saline Flush) 20 ml IV Q4HR PRN PRN Reason: PICC Line Tramadol HCl (Ultram) 50 mg PO QID PRN PRN Reason: Pain Objective - Vital Signs Vital signs: Vital Signs Temp 97.9 F 07/21/17 22:31 Pulse 57 L 07/21/17 22:31 Resp 20 07/21/17 22:31 BP 101/68 07/21/17 22:31 Pulse Ox 98 07/21/17 22:31 Intake & Output 07/21/17 07/21/17 07/22/17 06:59 18:59 06:59 Intake Total 1340 140 80 Output Total 1900 Balance 1340 -1760 80 Intake: IV 160 80 ns@20 160 80 Intake, IV Titration 140 Amount IV Fluid Continuation 1, 140 000 ml As IV .[facility] Rx#:[id number] Oral 1180 Output: Urine 1900 Other: Voiding Method Urinal Urinal Diaper Diaper # Voids 4 # Bowel Movements 1 - Exam PHYSICAL EXAMINATION: Patient is lying in the bed comfortably, no acute distress,. HEENT: Normocephalic. Neck is supple. Pupils reactive. Nostrils clear. Oral cavity is moist. Ears reveal no drainage. Neck reveals no JVD, carotid bruits, or thyromegaly. CHEST EXAMINATION: Trachea is central. Symmetrical expansion. Bibasilar crackles and rhonchi. No wheezing. CARDIAC: Normal S1, S2 with no gallops. No murmurs ABDOMEN: Soft. Bowel sounds normal. No organomegaly. No abdominal bruits. Extremities: 2+ edema. No clubbing or cyanosis. Right ankle wound is Wrapped Neurologically awake, alert. Patient has underlying cerebral palsy, difficulty with speech, and slow mental development. . No focal deficits noted Skin: No rash or skin lesions. Psychiatric: Cooperative. Could not be assessed completely Musculoskeletal: No joint swelling or deformity. Normal range of motion. - Labs CBC & Chem 7: 07/21/17 06:53 07/21/17 06:53 Labs: Abnormal Lab Results - Last 24 Hours (Table) 07/21/17 07/21/17 Range/Units 06:53 06:53 RBC 3.21 L (4.30-5.90) m/uL Hgb 8.1 L (13.0-17.5) gm/dL Hct 26.3 L (39.0-53.0) % MCHC 30.7 L (31.0-37.0) g/dL RDW 18.3 H (11.5-15.5) % BUN 23 H (9-20) mg/dL Calcium 7.1 L (8.4-10.2) mg/dL Assessment and Plan Assessment: 1 acute sepsis and septic shock secondary to cellulitis and abscess of right foot/ankle. Present on admission. Off pressors support 2 status post incision and drainage of right ankle abscess, irrigation and debridement of right ankle wound, application of wound VAC 3 acute urinary tract infection present on admission. 4 bilateral pleural effusion and fluid overload and generalized edema. Continued on gentle hydration. Patient was given IV Lasix. 4history of multiple comorbidities including cerebral palsy, hypertension, hypothyroidism, Recommendation: Continue present supportive care measures, antibiotics/ daptomycin, fluids,, GI and DVT prophylaxis and close observation in the ICU. Started on Midrin 5 mg twice a day. Prognosis is guarded. Time with Patient: Greater than 30
[2017-07-22] MEDS: LEVOTHYROXINE 112 MCG TAB PO SCH (06:11)
[2017-07-22] MEDS: NAPROXEN 250 MG TAB PO SCH ×3 (08:39→21:34)
[2017-07-22] MEDS: SERTRALINE 25 MG TAB PO SCH (08:39)
[2017-07-22] MEDS: ENOXAPARIN 40 MG/0.4 ML SYRINGE SQ SCH (08:40)
[2017-07-22] MEDS: FUROSEMIDE 40 MG TAB PO SCH (08:40)
[2017-07-22] MEDS: RANITIDINE 150 MG PO SCH (16:48)
[2017-07-22] MEDS: POLYETHYLENE GLYCOL 3350 17 GM POWD.PACK PO SCH (21:24)
[2017-07-22] MEDS: cefTRIAXone IN SWFI 2,000 MG/20 ML SYRINGE IVP SCH (21:35)
--- NOTE | 2017-07-22 23:15 | P.PN ---
Subjective Progress Note Date: 07/22/17 Principal diagnosis: Right ankle abscess and cellulitis. Septic shock This is a 57-year-old white male with history of cerebral palsy, hypertension, admitted with cellulitis of the right ankle on 07/12/2017. Started out initially as a pustule on the right ankle, went on to develop worsening cellulitis. Patient has been in a CAM boot for this problem. And had recent aspiration of the right ankle by [facility] recently. Patient underwent incision and drainage of the right ankle abscess, irrigation and debridement of the right ankle wound, and application of a one VAC to the right ankle. Postoperatively, patient was admitted to the ICU mostly because of hypotension requiring significant amount of fluids, received a total of 3 L of fluids, had to be placed on norepinephrine for low blood pressure, and he was noted to have significant lactic acidosis. 07/16/2017 Patient is resting in the bed comfortable. No acute distress. Patient remained on pressors support with norepinephrine. Continued on IV hydration. Chest x-ray showed bilateral pleural effusions and changes consistent with congestive heart failure and fluid overload. Leukocytosis is improving to 15.6. Right ankle wound cultures positive for staph aureus and urine cultures positive for E. coli sensitive to Rocephin. Patient is on daptomycin as well. ID and pulmonary is following. 07/18/2017 Currently patient is lying in the bed comfortable. No acute distress noted. Patient is off pressors support otherwise patient is still having symptoms edema. Chest x-ray showed persistent bibasilar effusions right greater than left and fluid load. Patient was given a dose of Lasix 40 mg 1. Patient does have good urine output. Patient was started on Midodrin 5 mg twice daily. Patient has been afebrile. No fever no chills. continue with right ankle dressing changes. 07/19/2017 Currently patient is off pressors support and was transferred to general medical floor. Patient was given a dose of IV Lasix today. Otherwise patient is being continued on ceftriaxone. No fever no chills. Swelling seems to be improving. ID and pulmonary is following. 07/20/2017 Patient denied any complaints of chest pain or shortness of breath. Otherwise poor historian. No fever no chills. Generalized swelling is much improved. Continued on IV antibiotics. Anticipate discharged to rehab. 07/21/2017 Patient continues to improve clinically. Continue on Lasix 40 mg daily. On antibiotics in the form of ceftriaxone. ID and pulmonary is following. Awaiting to be discharged to rehab on Sunday. 07/22/2017 Patient was complaining of sore throat last night which has improved now. Otherwise leg swelling is much improved with Lasix 40 mg daily. Hemodynamically stable. Continued on antibiotics in the form of ceftriaxone as per ID recommendations. Continue with wound care. Possible transfer to rehab tomorrow. Blood pressure is stable with SBP 100s. Continued on Midodrin. complete review of systems could not be obtained from the patient current medications reviewed. Active Medications Bisacodyl (Dulcolax) 10 mg RECTAL ONCE PRN PRN Reason: Constipation Ceftriaxone Sodium (Rocephin) 2,000 mg IVP HS [facility] Last Admin: 07/18/17 21:43 Dose: 2,000 mg Diphenhydramine HCl (Benadryl) 25 mg IVP Q6HR PRN PRN Reason: Allergy Symptoms Docusate Sodium (Colace) 100 mg PO BID PRN PRN Reason: Constipation Enoxaparin Sodium (Lovenox) 40 mg SQ DAILY [facility] Last Admin: 07/18/17 08:41 Dose: 40 mg Famotidine (Pepcid) 20 mg PO AC-SUPPER [facility] Last Admin: 07/18/17 17:12 Dose: 20 mg Hydromorphone HCl (Dilaudid) 1 mg PO Q3HR PRN PRN Reason: Pain Scale 1 to 3 Last Admin: 07/15/17 08:10 Dose: 1 mg Hydromorphone HCl (Dilaudid) 2 mg PO Q3HR PRN PRN Reason: Pain Scale 4 to 6 Last Admin: 07/16/17 06:04 Dose: 2 mg Hydromorphone HCl (Dilaudid) 4 mg PO Q3HR PRN PRN Reason: Pain Scale 7 to 10 Norepinephrine Bitartrate (Levophed-0.9% Nacl 4 Mg/250ml Pmx) 4 mg in 250 mls @ 0 mls/hr IV .Q0M [facility]; Titrate PRN Reason: Protocol Last Titration: 07/18/17 05:27 Dose: 0 mcg/min, 0 mls/hr Sodium Chloride (Saline 0.9%) 1,000 mls @ 50 mls/hr IV .Q20H [facility] Last Admin: 07/18/17 21:45 Dose: 50 mls/hr Levothyroxine Sodium (Synthroid) 112 mcg PO QAM@0630 [facility] Last Admin: 07/18/17 07:13 Dose: 112 mcg Magnesium Hydroxide (Milk Of Magnesia) 2,400 mg PO DAILY PRN PRN Reason: Constipation Naloxone HCl (Narcan) 0.2 mg IV Q2M PRN PRN Reason: Opioid Reversal Last Admin: 07/13/17 01:56 Dose: 0.2 mg Naproxen (Naprosyn) 250 mg PO TID [facility] Last Admin: 07/18/17 21:44 Dose: 250 mg Ondansetron HCl (Zofran) 4 mg IVP Q8HR PRN PRN Reason: Nausea And Vomiting Last Admin: 07/14/17 08:21 Dose: 4 mg Polyethylene Glycol (Miralax) 17 gm PO HS [facility] Last Admin: 07/18/17 21:43 Dose: 17 gm Sodium Biphosphate/Sodium Phosphate (Fleet Adult) 133 ml RECTAL ONCE PRN PRN Reason: Constipation Sodium Chloride (Deep Sea) 2 spray NASAL QID PRN PRN Reason: Nasal Congestion Sodium Chloride (Saline Flush) 10 ml IV Q4HR PRN PRN Reason: PICC Line Sodium Chloride (Saline Flush) 10 ml IV WEEKLY [facility] Sodium Chloride (Saline Flush) 20 ml IV Q4HR PRN PRN Reason: PICC Line Tramadol HCl (Ultram) 50 mg PO QID PRN PRN Reason: Pain Objective - Vital Signs Vital signs: Vital Signs Temp 98.7 F 07/22/17 15:10 Pulse 57 L 07/22/17 15:10 Resp 18 07/22/17 15:10 BP 108/68 07/22/17 15:10 Pulse Ox 92 L 07/22/17 15:10 Intake & Output 07/22/17 07/22/17 07/23/17 06:59 18:59 06:59 Intake Total 180 140 Output Total 600 1100 301 Balance -420 -960 -301 Intake: IV 180 140 ns@20 180 140 Output: Urine 600 1100 300 Stool 1 Other: Voiding Method Urinal Urinal Urinal Diaper Diaper Diaper Incontinent # Voids 1 3 # Bowel Movements 5 - Exam PHYSICAL EXAMINATION: Patient is lying in the bed comfortably, no acute distress,. HEENT: Normocephalic. Neck is supple. Pupils reactive. Nostrils clear. Oral cavity is moist. Ears reveal no drainage. Neck reveals no JVD, carotid bruits, or thyromegaly. CHEST EXAMINATION: Trachea is central. Symmetrical expansion. Bibasilar crackles and rhonchi. No wheezing. CARDIAC: Normal S1, S2 with no gallops. No murmurs ABDOMEN: Soft. Bowel sounds normal. No organomegaly. No abdominal bruits. Extremities: 2+ edema. No clubbing or cyanosis. Right ankle wound is Wrapped Neurologically awake, alert. Patient has underlying cerebral palsy, difficulty with speech, and slow mental development. . No focal deficits noted Skin: No rash or skin lesions. Psychiatric: Cooperative. Could not be assessed completely Musculoskeletal: No joint swelling or deformity. Normal range of motion. - Labs CBC & Chem 7: 07/21/17 06:53 07/21/17 06:53 Assessment and Plan Assessment: 1 acute sepsis and septic shock secondary to cellulitis and abscess of right foot/ankle. Present on admission. Off pressors support. Improved now 2 status post incision and drainage of right ankle abscess, irrigation and debridement of right ankle wound, application of wound VAC 3 acute urinary tract infection present on admission. 4 bilateral pleural effusion and fluid overload and generalized edema. Continued on gentle hydration. Patient was given IV Lasix. Currently on Lasix 40 mg by mouth daily 4history of multiple comorbidities including cerebral palsy, hypertension, hypothyroidism, Recommendation: Continue present supportive care measures, antibiotics/ ceftriaxone. Encourage oral diet and incentive spirometry. GI and DVT prophylaxis and close observation in the ICU. Started on Midrin 5 mg twice a day. Prognosis is guarded. Time with Patient: Greater than 30
[2017-07-23] MEDS: LEVOTHYROXINE 112 MCG TAB PO SCH (06:15)
[2017-07-23] MEDS: HYDROmorphone 2 MG TAB PO PRN (09:58)
[2017-07-23] MEDS: FUROSEMIDE 40 MG TAB PO SCH (10:00)
[2017-07-23] MEDS: NAPROXEN 250 MG TAB PO SCH ×3 (10:00→21:15)
[2017-07-23] MEDS: ENOXAPARIN 40 MG/0.4 ML SYRINGE SQ SCH (10:00)
[2017-07-23] MEDS: SERTRALINE 25 MG TAB PO SCH (10:01)
[2017-07-23] MEDS: RANITIDINE 150 MG PO SCH (16:27)
--- NOTE | 2017-07-23 17:49 | DS ---
DISCHARGE SUMMARY DATE OF ADMISSION: July 12, 2017. DATE OF DISCHARGE: July 23, 2017 FINAL DIAGNOSES: 1. Acute right foot purulent cellulitis with abscess, having failed outpatient treatment, status post I and D with cultures growing MSSA causing septic shock, present on admission. 2. Cerebral palsy. 3. Hypothyroid. 4. Hypoalbuminemia likely acute phase reactant. 5. Thrombocytosis likely from inflammation. 6. Normocytic anemia. 7. Acute renal failure from acute tubular necrosis from sepsis. 8. Lactic acidosis from above. CONSULTATIONS: Dr. Brandt from Infectious Disease; Dr. Brown from Orthopedics, Dr. Fitch from Pulmonary Critical Care. HOSPITAL COURSE: This gentleman who follows with Dr. Garcia for underlying cerebral palsy who had a baseline, has loose stools, was being followed in the office by [facility]. The patient did have a Cam boot and the wound on the foot became more infected and draining. The patient had to be taken down to the OR. An I and D was carried out. Cultures grew MSSA. The patient did became septic, septic shock and had to be in the ICU. Doing much better now. The patient has been afebrile. White count has come down to normal. Hemoglobin is stable at 8.1. The patient was in acute renal failure. Creatinine gone to 1.4, did come down nicely to 0.71. The patient has been tolerating his diet and being followed by Dr. Brandt from Infectious Disease. PHYSICAL EXAMINATION: On examination, patient able to questions. Lungs clear to auscultation. Dressing over the right foot. The patient has a PICC line in place. DISCHARGE MEDICATIONS: 1. Folic acid 2 mg before supper. 2. Vitamin B12 500 mcg before supper. 3. Iron 325 before supper. 4. Synthroid 112 mcg p.o. daily. 5. Multivitamin 1 tab p.o. with supper. 6. Lovenox 40 mg subcu daily until patient is ambulatory. 7. Pepcid 20 mg b.i.d. 8. Dilaudid 2 mg q.6h p.r.n. for pain. 9. Naproxen 250 mg p.o. t.i.d. 10.MiraLAX 17 g p.o. q.h.s. 11.Zoloft 25 mg p.o. daily. 12.IV ceftriaxone 2000 mg q.h.s. for 30 more days. Follow up with Dr. Brown in 2 weeks, Dr. Brandt in 2 weeks. Labs CBC BMP to be done weekly. The patient is not weightbearing on the right lower extremity and further wound orders per Orthopedics and Dr. Brandt. DISPOSITION: [facility] . FOLLOWUP: Follow up with Dr. Garcia after discharge from the [facility]. Discussion and discharge planning more than 35 minutes. EMILYL / DANIELLEN: [id number] /
[2017-07-23] MEDS: POLYETHYLENE GLYCOL 3350 17 GM POWD.PACK PO SCH (20:52)
[2017-07-23] MEDS: cefTRIAXone IN SWFI 2,000 MG/20 ML SYRINGE IVP SCH (21:15)
--- NOTE | 2017-07-23 22:56 | P.PN ---
Subjective Progress Note Date: 07/23/17 Principal diagnosis: Sepsis This is a 57-year-old male patient who is known to ID service as he was initially seen during a May admission at which time he was treated for cellulitis of the right ankle with improvement during his stay. A boot was ordered by orthopedics and patient was discharged on cephalexin and was to continue to wear the boot at home. Patient has history of cerebral palsy and lives at home with his sister. She states that on Sunday he developed a blister, raised area on the right ankle and within 24 hours it became reddened and swollen and he had swelling going up into his lower leg and his foot. He went to his orthopedic doctor, Dr. Brown was seen yesterday and underwent aspiration and this was sent for cultures. Patient was then directly admitted to the hospital and started initially on vancomycin which has been changed to daptomycin. Patient has been afebrile with a White count of 13. CRP 87.4 and sed rate 68. Blood cultures status received and wound culture is in progress. CAT scan was compared to previous MRIs done very and May 25 and revealed increasing soft tissue density and thickening compatible with patient' s reported cellulitis. This is worsening from compared images. Increasing soft tissue density surrounding the proximal forefoot joint spaces especially the distal talus and feculent region findings are suspicious for increasing osteomyelitis at this level. A duplex was negative for DVT on the right leg. It is scheduled for I&D this morning at 11. If patient requires IV antibiotics , patient's sister wishes for him to go to [facility] for treatment. Of note, patient had pain of 10 out of 10 during the night and received morphine which dropped his blood pressure from 190/103 down to 76/50. His sister states that he has had sensitivity to morphine in the past when he had diaphragmatic hernia repair done at [facility]. He is status post IV fluid bolus of 500 mL. Blood pressure remains low but patient is stable without any symptoms. 07/14/2017 reveals the patient to have some improvement. Other than pain at his ankle area which is improved the patient continues to have relative hypotension and is still on vasopressor therapy. White blood cell count at 26.8. Lactic acid is improving. His temperature was 102.9 is now down to 97.6. Fortunately the patient does feel better today. He'll relates that he feels like he needs to have a bowel movement. 07/15/2017 patient does feel a bit better but still remains on some vasopressor therapy but at decreasing doses. He continues to have leukocytosis of 28, and fever has improved. 07/16/2017 patient was a bit sleepy today however upon arousal is awake alert oriented to person place and time and has no new acute gross focal sensory motor deficits. His hypotension is improving but still requiring vasopressor therapy at this time. He has been seen by the elevators inspector and Cortef doses have been adjusted. 07/17/2017 patient is much more awake and interactive today. Has had a much better day. Appetite still somewhat poor but he developed significant anasarca from his fluid resuscitation from his septic shock from his staph abscess to his right foot in E. coli urinary tract infection. Is noticing much better today and has no other acute troubles the vasopressor therapy has almost been completely weaned 07/18/2017 the patient's in a less good mood today but he is awake alert and interactive. He is eating quite well today. He does have some minimal abdominal fullness related to his anasarca. However he is no longer hypotensive. He is off vasopressor therapy. He's had improving diuresis which is helping him feel better. Denies other new acute complaints. Does have ongoing pain to that right foot where he has the extensive infection ulceration. 07/19/2017 reveals the patient to have further improvement. She is now out of the ICU. Feeling somewhat better. Is able to smile today. He is eating and denies interim new troubles. Mentation is clear but still has some congestion. 07/20/2017 patient has further improvement. He is eating better. He has improvement and looks forward to being transferred to rehab facility for his antibiotic therapy. 07/23/2017 reveals the patient with further improvement. We'll likely transition to rehab facility tomorrow. Generally is feeling well. Is aware of the need of the protracted course of antibiotic therapy for his complex infection to his right foot which continues to give him pain but he certainly did tolerate some therapy. Objective - Vital Signs Vital signs: Vital Signs Temp 98.0 F 07/23/17 15:00 Pulse 54 L 07/23/17 15:00 Resp 16 07/23/17 15:00 BP 105/67 07/23/17 15:00 Pulse Ox 95 07/23/17 15:00 Intake & Output 07/23/17 07/23/17 07/24/17 06:59 18:59 06:59 Intake Total 680 Output Total 1150 500 Balance -470 -500 Intake: Oral 680 Output: Urine 1150 500 Other: Voiding Method Urinal Urinal Diaper Diaper Incontinent Incontinent # Voids 1 1 # Bowel Movements 1 1 - Exam Gen: This is a 57-year-old male patient. He is sitting up in bed and appears to be comfortable and in no acute distress. HEENT: Head is atraumatic, normocephalic. Pupils equal, round. Sclerae is anicteric. Conjunctiva pink. Oral mucous membranes are with evidence of some dryness he does have some discomfort in the posterior pharynx without thrush or open lesions. Patient is edentulous. NECK: Supple. No JVD. No lymphadenopathy. No thyromegaly. LUNGS: Clear to auscultation. No wheezes or rhonchi. No intercostal retractions. HEART: Regular rate and rhythm. No murmur. ABDOMEN: Soft. Bowel sounds are present. No masses. No tenderness. EXTREMITIES: Patient has edema to the right lower extremity. The right ankle abscess has been drained and wound VAC is in place, the VAC is removed. The ulceration is noted and please see the nursing photography for its exact location and size. Is cleansed with saline and a nonstick dressing is applied and then Pseudomonas and gauze roll gauze and a serum applied. He tolerated the dressing change well. There are exposed tendons, we'll hold on the wound VAC for now. We'll likely utilize an absorptive silver dressing soon. The patient was having severe pain and this is improved. There is no breakthrough drainage. There is no ascending cellulitis on the right lower leg. NEUROLOGICAL: Patient is awake, alert and oriented x3. He does have cerebral palsy but has excellent interactions. - Labs CBC & Chem 7: 07/21/17 06:53 07/21/17 06:53 Labs: Laboratory Results WBC 7.6 k/uL (3.8-10.6) 07/21/17 06:53 RBC 3.21 m/uL (4.30-5.90) L 07/21/17 06:53 Hgb 8.1 gm/dL (13.0-17.5) L 07/21/17 06:53 Hct 26.3 % (39.0-53.0) L 07/21/17 06:53 MCV 82.0 fL (80.0-100.0) 07/21/17 06:53 MCH 25.2 pg (25.0-35.0) 07/21/17 06:53 MCHC 30.7 g/dL (31.0-37.0) L 07/21/17 06:53 RDW 18.3 % (11.5-15.5) H 07/21/17 06:53 Plt Count 301 k/uL (150-450) 07/21/17 06:53 Neutrophils % 68 % 07/21/17 06:53 Neutrophils % (Manual) 75 % 07/15/17 05:25 Band Neutrophils % 21 % 07/15/17 05:25 Lymphocytes % 15 % 07/21/17 06:53 Lymphocytes % (Manual) 2 % 07/15/17 05:25 Monocytes % 7 % 07/21/17 06:53 Monocytes % (Manual) 2 % 07/15/17 05:25 Eosinophils % 7 % 07/21/17 06:53 Basophils % 1 % 07/21/17 06:53 Metamyelocytes % 1 % 07/15/17 05:25 Neutrophils # 5.2 k/uL (1.3-7.7) 07/21/17 06:53 Neutrophils # (Manual) 26.80 k/uL (1.3-7.7) H 07/15/17 05:25 Lymphocytes # 1.2 k/uL (1.0-4.8) 07/21/17 06:53 Lymphocytes # (Manual) 0.56 k/uL (1.0-4.8) L 07/15/17 05:25 Monocytes # 0.5 k/uL (0-1.0) 07/21/17 06:53 Monocytes # (Manual) 0.56 k/uL (0-1.0) 07/15/17 05:25 Eosinophils # 0.6 k/uL (0-0.7) 07/21/17 06:53 Basophils # 0.0 k/uL (0-0.2) 07/21/17 06:53 Metamyelocytes # (Man) 0.28 k/uL (0) H 07/15/17 05:25 Nucleated RBCs 0 /100 WBC (0-0) 07/15/17 05:25 Manual Slide Review Performed 07/15/17 05:25 Toxic Granulation Present 07/15/17 05:25 Toxic Vacuolation Present 07/15/17 05:25 Hypochromasia Marked 07/21/17 06:53 Poikilocytosis Slight 07/21/17 06:53 Poikilocytosis (manual Present 07/15/17 05:25 Anisocytosis Slight 07/21/17 06:53 Ovalocytes Present 07/14/17 04:45 Crenated Cell Present 07/15/17 05:25 ESR 68 mm/hr (0-15) H 07/12/17 17:33 PT 13.8 sec (9.0-12.0) H 07/13/17 16:11 INR 1.5 (<1.2) H 07/13/17 16:11 APTT 25.1 sec (22.0-30.0) 07/13/17 16:11 Sodium 140 mmol/L (137-145) 07/21/17 06:53 Potassium 3.7 mmol/L (3.5-5.1) 07/21/17 06:53 Chloride 104 mmol/L (98-107) 07/21/17 06:53 Carbon Dioxide 30 mmol/L (22-30) 07/21/17 06:53 Anion Gap 6 mmol/L 07/21/17 06:53 BUN 23 mg/dL (9-20) H 07/21/17 06:53 Creatinine 0.71 mg/dL (0.66-1.25) 07/21/17 06:53 Est GFR (CKD-EPI)AfAm >90 (>60 ml/min/1.73 sqM) 07/21/17 06:53 Est GFR (CKD-EPI)NonAf >90 (>60 ml/min/1.73 sqM) 07/21/17 06:53 Glucose 90 mg/dL (74-99) 07/21/17 06:53 POC Glucose (mg/dL) 96 mg/dL (75-99) 07/15/17 00:37 POC Glu Operations Manager/Coordinator ID Malec, [place] 07/15/17 00:37 Lactic Ac Sepsis Rflx Y 07/14/17 01:17 Plasma Lactic Acid [place] 1.4 mmol/L (0.7-2.0) 07/16/17 04:24 Calcium 7.1 mg/dL (8.4-10.2) L 07/21/17 06:53 Phosphorus 2.5 mg/dL (2.5-4.5) 07/18/17 04:40 Magnesium 1.9 mg/dL (1.6-2.3) 07/18/17 04:40 Total Bilirubin 0.8 mg/dL (0.2-1.3) 07/18/17 04:40 AST 23 U/L (17-59) 07/18/17 04:40 ALT 38 U/L (21-72) 07/18/17 04:40 Alkaline Phosphatase 805 U/L (38-126) H 07/18/17 04:40 Total Creatine Kinase 289 U/L (55-170) H 07/13/17 16:11 CK-MB (CK-2) 1.0 ng/mL (0.0-2.4) 07/13/17 16:11 CK-MB (CK-2) Rel Index 0.3 07/13/17 16:11 Troponin I 0.097 ng/mL (0.000-0.034) H* 07/13/17 16:11 C-Reactive Protein 87.4 mg/L (<10.0) H 07/12/17 17:33 Total Protein 3.8 g/dL (6.3-8.2) L 07/18/17 04:40 Albumin 1.5 g/dL (3.5-5.0) L 07/18/17 04:40 Cortisol 14 ug/dL 07/16/17 05:32 Urine Color Yellow 07/13/17 17:45 Urine Appearance Turbid (Clear) 07/13/17 17:45 Urine pH 6.0 (5.0-8.0) 07/13/17 17:45 Ur Specific [place] 1.019 (1.001-1.035) 07/13/17 17:45 Urine Protein 1+ (Negative) H 07/13/17 17:45 Urine Glucose (UA) Negative (Negative) 07/13/17 17:45 Urine Ketones Negative (Negative) 07/13/17 17:45 Urine Blood Moderate (Negative) H 07/13/17 17:45 Urine Nitrite Negative (Negative) 07/13/17 17:45 Urine Bilirubin Negative (Negative) 07/13/17 17:45 Urine Urobilinogen 2.0 mg/dL (<2.0) 07/13/17 17:45 Ur Leukocyte Esterase Large (Negative) H 07/13/17 17:45 Urine RBC 38 /hpf (0-5) H 07/13/17 17:45 Urine WBC >182 /hpf (0-5) H 07/13/17 17:45 Urine WBC Clumps Many /hpf (None) H 07/13/17 17:45 Urine Bacteria Many /hpf (None) H 07/13/17 17:45 Microbiology 07/12/17 17:33 Blood Blood Culture - Final No Growth after 144 hours 07/13/17 15:25 Ankle - Right Anaerobic Culture - Final 07/13/17 15:25 Ankle - Right Gram Stain - Final 07/13/17 15:25 Ankle - Right Tissue Culture - Final 07/12/17 12:00 Ankle - Right Anaerobic Culture - Final 07/13/17 17:45 Urine,Catheterized Urine Culture - Final Escherichia coli 07/12/17 12:00 Ankle - Right Gram Stain - Final 07/12/17 12:00 Ankle - Right Wound Culture - Final Staphylococcus aureus Assessment and Plan (1) Cellulitis of right ankle Current Visit: No Status: Acute Priority: Medium Code(s): L03.115 - CELLULITIS OF RIGHT LOWER LIMB SNOMED Code(s): 52892147 (2) Abscess of ankle Narrative/Plan: 57-year-old patient that has a complex history of the recent injury to his now developed a significant abscess at that site which required incision and drainage. Was having some difficulty with hypotension, appears to be having sepsis is not being cared for in the intensive care unit. He'll receive further fluid resuscitation for his sepsis and lactic acidosis. He will continue to have antibiotic therapy with daptomycin. Local wound care is negative pressure therapy system. He was monitored closely and plans will be made for his outpatient antibiotic therapy which likely will be intravenous as well as local wound care. Enhancement of his nutritional status will also help his wound healing. On 07/14/2017 the patient is improved. His pain is better. However still having hypotension requiring some vasopressor therapy and is receiving ongoing fluid resuscitation. He is feeling better his mentation is improved. Wound culture with staph aureus has many ALLERGIES doing well with daptomycin. Leukocytosis is expected after the incision and drainage and a response to his sepsis. He's had an increase of his creatinine to 1.2 and will be monitored. Lactic acid is elevated and is being monitored as he receives further fluid resuscitation. Once the patient is stable will need IV access placed for his outpatient intravenous antibiotic therapy likely with daptomycin. 07/15/2017 patient is feeling better today. Still having some pain at the surgical site. Denying fevers or chills. The abscess site is looking well. There is however exposed tendons. A nonstick dressing is applied over the tendons in the moistened gauze. Overall goal is to make sure that this tends to dry so that they do not desiccate. The patient's urinalysis and culture and become available and some gram-negative bacilli are seen in the urine with his ongoing leukocytosis there is concern this could be another source of infection and Rocephin is added, understanding that he's had some difficulties with nausea with cephalosporins unclear if this is due to the additives that are given in the capsules and tablets. He has noted he has many ALLERGIES. He will monitored for any difficulties with the addition of Rocephin however given his significant ongoing leukocytosis gram-negative therapy needs to be added at this time. 07/16/2017 reveals the patient to have had a bit of a difficult day. Is doing better as the day has now gone on. He is arousable awake and interactive and his family is pleased that he is doing a bit better this evening. His pain is under modest good control. The ulceration is evaluated in the dressing is changed. As noted the patient does have evidence of a gram-negative in his urine and for this gram-negative therapy was added. as he continues to have ongoing significant sepsis would continue the daptomycin and Rocephin until we have complete data. Given the patient will need outpatient intravenous antibiotic therapy the patient's sister relates that would not be able to happen in the current home setting and required going to rehab to complete his antibiotics and wound care. We discussed the wound VAC at this point in time will likely not be utilized given the exposed tendons. 07/17/2017 patient is no considerably improved. His sepsis is improving and he is almost completely weaned off of vasopressor therapy. Antibiotic therapy will be streamlined to Rocephin IV access in place with a PICC line and patient will be going to extended care to complete his 6 weeks of antibiotic therapy. 07/18/2017 patient is further improved today. His vasopressor therapy is discontinued and he is having improved urinary output. He is denying intermittent difficulties just not in such a good mood today. Sisters are present relate that this is not unusual for him. He is eating well. At this time fortunately he showing further improvement. Antibiotic therapy as streamlined to just Rocephin at this point in time given no resistant gram- positive organisms. He will require outpatient intravenous antibiotic therapy and PICC line is already in place. We'll work with extended care. 07/19/2017 reveals the patient had further improvement. It moved out of intensive care unit. IV access is been placed and will receive 40 days of antibiotic therapy with Rocephin and extended care. We'll add some Cepacol for his sore throat. And if possible and then Zoloft 25 mg a day he was also started as an outpatient to improve his anxiety issues. 07/20/2017 there is further improvement noted. Doing well out of intensive care unit. He will receive his 40 days of antibiotic therapy for his MRSA sepsis related to the significant infection of his right ankle. This will also give completion of the E. coli infection that he has. Cepacol as been helpful and Zoloft will hopefully help his anxiety issues. Looks forward to transferring to the extended care facility early next week. 07/23/2017 reveals further improvement. Will be going to rehab tomorrow to complete his 6 week course of antibiotic therapy for his complex emesis infection of his right ankle with tendons exposed. Local wound care continues. Her throat is generally resolved. Eating well. Denies fevers or chills. Over the therapy will be able to recover his independent living soon. Current Visit: Yes Status: Acute Code(s): L02.419 - CUTANEOUS ABSCESS OF LIMB, UNSPECIFIED SNOMED Code(s): 29103242 (3) Severe sepsis with septic shock Current Visit: Yes Status: Acute Code(s): A41.9 - SEPSIS, UNSPECIFIED ORGANISM; R65.21 - SEVERE SEPSIS WITH SEPTIC SHOCK SNOMED Code(s): 18986006
[2017-07-24] MEDS: LEVOTHYROXINE 112 MCG TAB PO SCH (06:15)
[2017-07-24 07:27] VITALS: BP 112/68; PULSE 88; RESP 20; TEMP 98.3
[2017-07-24] MEDS: NAPROXEN 250 MG TAB PO SCH (09:40)
[2017-07-24] MEDS: FUROSEMIDE 40 MG TAB PO SCH (09:40)
[2017-07-24] MEDS: ENOXAPARIN 40 MG/0.4 ML SYRINGE SQ SCH (09:41)
[2017-07-24] MEDS: SERTRALINE 25 MG TAB PO SCH (09:41)
== END 2017-07-24 12:00 | DRG 853 ==
LOC: 3SUR 17:05 → 6ICU 07-13 15:52 → 5MS5E 07-19 09:52
PROVIDERS: ADMIT Hospitalist; ATTEND Hospitalist
PROC: 0SBF0ZZ Excision of Right Ankle Joint, Open Approach (ICD-10-PCS; 2017-07-13)
PROC: 02HV33Z Insertion of Infusion Device into Superior Vena Cava, Percutaneous Approach (ICD-10-PCS; principal; 2017-07-17 08:55)
DX: A41.9 Sepsis, unspecified organism (principal); N17.0 Acute kidney failure with tubular necrosis; R65.21 Severe sepsis with septic shock; E44.0 Moderate protein-calorie malnutrition; E87.2 Acidosis; J98.11 Atelectasis; L02.415 Cutaneous abscess of right lower limb; L02.611 Cutaneous abscess of right foot; L03.115 Cellulitis of right lower limb; L97.319 Non-pressure chronic ulcer of right ankle with unspecified severity; N39.0 Urinary tract infection, site not specified; I11.0 Hypertensive heart disease with heart failure; B96.20 Unspecified Escherichia coli [E. coli] as the cause of diseases classified elsewhere; D64.9 Anemia, unspecified; E89.0 Postprocedural hypothyroidism; F41.9 Anxiety disorder, unspecified; G80.9 Cerebral palsy, unspecified; K59.00 Constipation, unspecified; Z82.49 Family history of ischemic heart disease and other diseases of the circulatory system; Z83.3 Family history of diabetes mellitus; Z85.850 Personal history of malignant neoplasm of thyroid; Z91.012 Allergy to eggs; Z91.011 Allergy to milk products; Z88.5 Allergy status to narcotic agent; Z91.010 Allergy to peanuts; Z88.0 Allergy status to penicillin; Z91.018 Allergy to other foods; Z79.899 Other long term (current) drug therapy; Z79.890 Hormone replacement therapy
CPT/HCPCS: 36569; 71045; 76604; 76937; 80048; 80053; 81001; 82533; 82550; 82553; 83605; 83735; 84100; 84484; 85025; 85610; 85652; 85730; 86140; 87040; 87070; 87075; 87077; 87086; 87186; 87205

== ENCOUNTER 2017-12-07 12:48 | Emergency (ER) | payer MEDICARE, OTHER ==
[2017-12-07 12:55] VITALS: RESP 18
--- NOTE | 2017-12-07 13:11 | ED ---
General Adult HPI - General Chief complaint: Extremity Problem,Nontraumatic Stated complaint: R/O DVT Time Seen by Provider: 12/07/17 13:01 Source: patient Mode of arrival: EMS Limitations: no limitations - History of Present Illness Initial comments: Is a 57-year-old male with a history of right lower extremity surgery in July 2017 who presents emergency department for generalized swelling. The sister at bedside states that she saw him approximately 6 days ago when he was normal. He typically has very thin extremities however today the longterm called her and stated that he was very swollen so they decided to bring him to the emergency department. They were concern for blood clot however the patient does have swelling in his chest and abdomen and arms as well according to his sister. He denies any shortness of breath. He states is been urinating normally. The patient does get around in a wheelchair and is mostly immobile. He denies any fevers or chills. No chest pain. No cough area no abdominal pain. No other complaints. - Related Data Home Medications Medication Instructions Recorded Confirmed Folic Acid 2 mg PO DAILY 01/03/15 12/07/17 Cyanocobalamin [Vitamin B-12] 500 mcg PO DAILY 02/22/16 12/07/17 Ferrous Sulfate [Iron (65 MG 325 mg PO DAILY 05/13/17 12/07/17 Elemental)] Levothyroxine Sodium [Synthroid] 112 mcg PO QAM 05/13/17 12/07/17 Multivitamins, Thera [Multivitamin 1 tab PO DAILY 05/13/17 12/07/17 (formulary)] Acetaminophen [Tylenol] 650 mg PO Q6H PRN 12/07/17 12/07/17 Artificial Tears-Hypromellose 2 drops BOTH EYES BID 12/07/17 12/07/17 [Artificial Tear Drops] Carbamide Peroxide [Debrox Otic] 5 drops BOTH EARS BID 12/07/17 12/07/17 Docusate [Colace] 100 mg PO BID PRN 12/07/17 12/07/17 Ketotifen 0.025% Ophth Soln 1 drop BOTH EYES Q6H PRN 12/07/17 12/07/17 [Zaditor] Naproxen Sodium [Aleve] 220 mg PO TID PRN 12/07/17 12/07/17 Polyethylene Glycol 3350 [Miralax] 17 gm PO HS PRN 12/07/17 12/07/17 Sertraline HCl [Zoloft] 50 mg PO HS 12/07/17 12/07/17 Previous Rx's Medication Instructions Recorded Famotidine [Pepcid] 20 mg PO BID #1 tablet 07/23/17 Allergies Allergy/AdvReac Type Severity Reaction Status Date / Time egg Allergy Severe Unknown Verified 12/07/17 13:26 Milk Containing Products Allergy Severe Unknown Verified 12/07/17 13:26 [Dairy] peanut Allergy Severe Unknown Verified 12/07/17 13:26 codeine Allergy Unknown Verified 12/07/17 13:26 Childhood corn Allergy Diarrhea Verified 12/07/17 13:26 lemon Allergy Diarrhea Verified 12/07/17 13:26 Penicillins Allergy Unknown Verified 12/07/17 13:26 Childhood tomato Allergy Diarrhea Verified 12/07/17 13:26 wheat Allergy Diarrhea Verified 12/07/17 13:26 Yeast Allergy Unknown Verified 12/07/17 13:26 cephalexin [From Keflex] AdvReac Nausea & Verified 12/07/17 13:26 Vomiting & Diarrhea Pork/Porcine Containing AdvReac Diarrhea Verified 12/07/17 13:26 Products [Pork] soy AdvReac Unknown Verified 12/07/17 13:26 strawberry AdvReac Diarrhea Verified 12/07/17 13:26 oranges Allergy Rash/Hives Uncoded 12/07/17 12:56 chocolate AdvReac Diarrhea Uncoded 12/07/17 12:56 grapes AdvReac Diarrhea Uncoded 12/07/17 12:56 pop AdvReac Diarrhea Uncoded 12/07/17 12:56 process lunch meat AdvReac Diarrhea Uncoded 12/07/17 12:56 rice AdvReac Diarrhea Uncoded 12/07/17 12:56 spices AdvReac Diarrhea Uncoded 12/07/17 12:56 vegtable oil AdvReac Diarrhea Uncoded 12/07/17 12:56 Review of Systems ROS Statement: Those systems with pertinent positive or pertinent negative responses have been documented in the HPI. ROS Other: All systems not noted in ROS Statement are negative. Past Medical History Past Medical History: Cancer, Chest Pain / Angina, Hypertension, Thyroid Disorder Additional Past Medical History / Comment(s): cerebral palsy and slight brain damage-able to talk read/write and walk,THYROID CA, past stress test,per sister pt has colitis and diverticulitis(no seeds or nuts and see list of allergies), hemorroids that cause bleeding at times.past bowel blockage(sx)-sister stated his norm is runny stool History of Any Multi-Drug Resistant Organisms: None Reported Past Surgical History: Appendectomy, Bowel Resection, Cholecystectomy, Hernia Repair, Tonsillectomy Additional Past Surgical History / Comment(s): thyroid removed, multiple ear surgeries including grafts as child, I&D right knee, 1 testical removed along w / hernia repair and also a diaphramatic hernia sx, i&d rt knee Past Anesthesia/Blood Transfusion Reactions: No Reported Reaction Additional Past Anesthesia/Blood Transfusion Reaction / Comment(s): past blood transfusion as child -no known reaction Past Psychological History: No Psychological Hx Reported Smoking Status: Never smoker Past Alcohol Use History: None Reported Past Drug Use History: None Reported - Past Family History Mother Family Medical History: Diabetes Mellitus, Hypertension Father Family Medical History: Cancer Sister(s) History Unknown: Yes Family Medical History: Pulmonary Embolus General Exam - General Exam Comments Initial Comments: Constitutional: Awake alert Appears comfortable Head: Normocephalic atraumatic Eyes: no conjunctival injection No scleral icterus EOMI Neck: No JVD Supple Heart: Regular rate rhythm normal S1-S2 no murmurs Lungs: Clear to auscultation bilaterally No wheezing No rales Abdomen: Soft nondistended nontender, there does not appear to be pitting edema in the abdomen however the sister states that his more swollen Extremities: There is pitting edema to bilateral lower extremities DP pulses intact Radial pulses intact Neuro: A&Ox3 No focal neurologic deficits Psych: Appropriate mood and affect Limitations: no limitations Course Vital Signs 12/07/17 12:49 Temperature 97 F L Pulse Rate 53 L Respiratory 18 Rate Blood Pressure 139/69 O2 Sat by Pulse 99 Oximetry EKG Findings - EKG Comments: EKG Findings:: EKG showing sinus bradycardia with a rate of 49. There are biphasic T waves in V2 through V5. No abnormal ST segment changes. QTC is 439. Other intervals normal. No ectopy. Medical Decision Making - Medical Decision Making Is a 57-year-old male who presents emergency room for lower Chevys swelling. The patient had Dopplers that were negative. Blood work was unremarkable for any signs of renal failure or heart failure. At this time the patient's lower Chevys are pitting however the abdomen does not have any pitting edema. The patient is not mobile at baseline. He sits in a wheelchair rolled day. Swelling likely dependent. Told to get compression stockings and follow up with primary doctor next week. If any worsening or changing symptoms. Return emergency department. All questions answered. - Lab Data Result diagrams: 12/07/17 13:45 12/07/17 13:45 Lab Results 12/07/17 12/07/17 12/07/17 Range/Units 13:07 13:45 13:45 WBC 6.8 (3.8-10.6) k/uL RBC 3.67 L (4.30-5.90) m/uL Hgb 9.8 L (13.0-17.5) gm/dL Hct 32.6 L (39.0-53.0) % MCV 88.7 (80.0-100.0) fL MCH 26.7 (25.0-35.0) pg MCHC 30.1 L (31.0-37.0) g/dL RDW 16.1 H (11.5-15.5) % Plt Count 205 (150-450) k/uL Neutrophils % 46 % Lymphocytes % 17 % Monocytes % 5 % Eosinophils % 29 % Basophils % 0 % Neutrophils # 3.1 (1.3-7.7) k/uL Lymphocytes # 1.1 (1.0-4.8) k/uL Monocytes # 0.4 (0-1.0) k/uL Eosinophils # 1.9 H (0-0.7) k/uL Basophils # 0.0 (0-0.2) k/uL Hypochromasia Marked Anisocytosis Slight Sodium 139 (137-145) mmol/L Potassium 4.5 (3.5-5.1) mmol/L Chloride 107 (98-107) mmol/L Carbon Dioxide 30 (22-30) mmol/L Anion Gap 2 mmol/L BUN 43 H (9-20) mg/dL Creatinine 0.60 L (0.66-1.25) mg/dL Est GFR (CKD-EPI)AfAm >90 (>60 ml/min/1.73 sqM) Est GFR (CKD-EPI)NonAf >90 (>60 ml/min/1.73 sqM) Glucose 96 (74-99) mg/dL Calcium 7.7 L (8.4-10.2) mg/dL Magnesium 2.0 (1.6-2.3) mg/dL Total Bilirubin 0.2 (0.2-1.3) mg/dL AST 23 (17-59) U/L ALT 24 (21-72) U/L Alkaline Phosphatase 32 L (38-126) U/L NT-Pro-B Natriuret Pep pg/mL Total Protein 3.9 L (6.3-8.2) g/dL Albumin 2.0 L (3.5-5.0) g/dL Urine Color Colorless Urine Appearance Clear (Clear) Urine pH 7.0 (5.0-8.0) Ur Specific Lavinia 1.005 (1.001-1.035) Urine Protein Negative (Negative) Urine Glucose (UA) Negative (Negative) Urine Ketones Negative (Negative) Urine Blood Negative (Negative) Urine Nitrite Negative (Negative) Urine Bilirubin Negative (Negative) Urine Urobilinogen <2.0 (<2.0) mg/dL Ur Leukocyte Esterase Negative (Negative) 12/07/17 Range/Units 13:45 WBC (3.8-10.6) k/uL RBC (4.30-5.90) m/uL Hgb (13.0-17.5) gm/dL Hct (39.0-53.0) % MCV (80.0-100.0) fL MCH (25.0-35.0) pg MCHC (31.0-37.0) g/dL RDW (11.5-15.5) % Plt Count (150-450) k/uL Neutrophils % % Lymphocytes % % Monocytes % % Eosinophils % % Basophils % % Neutrophils # (1.3-7.7) k/uL Lymphocytes # (1.0-4.8) k/uL Monocytes # (0-1.0) k/uL Eosinophils # (0-0.7) k/uL Basophils # (0-0.2) k/uL Hypochromasia Anisocytosis Sodium (137-145) mmol/L Potassium (3.5-5.1) mmol/L Chloride (98-107) mmol/L Carbon Dioxide (22-30) mmol/L Anion Gap mmol/L BUN (9-20) mg/dL Creatinine (0.66-1.25) mg/dL Est GFR (CKD-EPI)AfAm (>60 ml/min/1.73 sqM) Est GFR (CKD-EPI)NonAf (>60 ml/min/1.73 sqM) Glucose (74-99) mg/dL Calcium (8.4-10.2) mg/dL Magnesium (1.6-2.3) mg/dL Total Bilirubin (0.2-1.3) mg/dL AST (17-59) U/L ALT (21-72) U/L Alkaline Phosphatase (38-126) U/L NT-Pro-B Natriuret Pep 227 pg/mL Total Protein (6.3-8.2) g/dL Albumin (3.5-5.0) g/dL Urine Color Urine Appearance (Clear) Urine pH (5.0-8.0) Ur Specific Lavinia (1.001-1.035) Urine Protein (Negative) Urine Glucose (UA) (Negative) Urine Ketones (Negative) Urine Blood (Negative) Urine Nitrite (Negative) Urine Bilirubin (Negative) Urine Urobilinogen (<2.0) mg/dL Ur Leukocyte Esterase (Negative) Disposition Clinical Impression: Peripheral edema Disposition: HOME SELF-CARE Condition: Stable Instructions: Leg Edema (ED) Additional Instructions: Please monitor intake and output. Limit the amount of fluids and salt in diet. Follow-up with primary doctor next week for reevaluation. Use compression stockings while awake. Is patient prescribed a controlled substance at d/c from ED?: No Referrals: Rickey Garcia MD [Primary Care Provider] - 1-2 days
[2017-12-07 14:09] LABS: Anisocytosis Slight; Basophils % (A) 0 %; Eosinophils # (A) 1.9 k/uL (0-0.7); Eosinophils % (A) 29 %; HCT 32.6 % (39.0-53.0); HGB 9.8 gm/dL (13.0-17.5); Hypochromasia Marked; Lymphocytes # (A) 1.1 k/uL (1.0-4.8); Lymphocytes % (A) 17 %; MCH 26.7 pg (25.0-35.0); MCHC 30.1 g/dL (31.0-37.0); MCV 88.7 fL (80.0-100.0); Mean Platelet Volume 8.6; Monocytes # (A) 0.4 k/uL (0-1.0); Monocytes % (A) 5 %; Neutrophils # (A) 3.1 k/uL (1.3-7.7); Neutrophils % (A) 46 %; Platelet Count 205 k/uL (150-450); RBC 3.67 m/uL (4.30-5.90); RDW 16.1 % (11.5-15.5); WBC 6.8 k/uL (3.8-10.6)
[2017-12-07 14:10] LABS: ALT 24 U/L (21-72); AST 23 U/L (17-59); Alkaline Phosphatase 32 U/L (38-126); Anion Gap 2 mmol/L; Blood Urea Nitrogen 43 mg/dL (9-20); Calcium 7.7 mg/dL (8.4-10.2); Carbon Dioxide 30 mmol/L (22-30); Chloride 107 mmol/L (98-107); Glucose 96 mg/dL (74-99); Potassium 4.5 mmol/L (3.5-5.1); Sodium 139 mmol/L (137-145); Total Bilirubin 0.2 mg/dL (0.2-1.3); Total Protein 3.9 g/dL (6.3-8.2)
[2017-12-07 14:12] LABS: Appearance,Urine Clear (Clear); Bilirubin,Urine Negative (Negative); Blood,Urine Negative (Negative); Color,Urine Colorless; Glucose,Urine (UA) Negative (Negative); Ketones,Urine Negative (Negative); Leukocyte Esterase,Urine Negative (Negative); Nitrite,Urine Negative (Negative); Protein,Urine Negative (Negative); Specific Gravity,Urine 1.005 (1.001-1.035); Urobilinogen,Urine <2.0 mg/dL (<2.0)
--- NOTE | 2017-12-07 15:02 | XR ---
EXAMINATION TYPE: XR chest 2V DATE OF EXAM: 12/07/2017 COMPARISON: NONE HISTORY: Shortness of breath TECHNIQUE: Frontal and lateral views of the chest are obtained. FINDINGS: Scattered senescent parenchymal changes noted. Hyperinflation compatible with COPD. No evidence for infiltrate. No evidence for atelectasis. Heart size is stable. Mediastinal structures are stable and grossly unremarkable. No evidence for hilar prominence. Degenerative changes dorsal spine. IMPRESSION: 1. No evidence for acute pulmonary disease.
--- NOTE | 2017-12-07 15:08 | US ---
EXAMINATION TYPE: US venous doppler duplex LE BI DATE OF EXAM: 12/07/2017 2:53 PM COMPARISON: NONE CLINICAL HISTORY: 57-year-old male severe sudden pain, Edema. Pitting edema started today, no h/o DVT , patient has cerebral palsy, rigid legs SIDE PERFORMED: Bilateral TECHNIQUE: The lower extremity deep venous system is examined utilizing real time linear array sonog beth with graded compression, doppler sonography and color-flow sonography. FINDINGS: VESSELS IMAGED: External Iliac Vein (EIV) Common Femoral Vein Deep Femoral Vein Greater Saphenous Vein * Femoral Vein Popliteal Vein Small Saphenous Vein * Proximal Calf Veins (* superficial vessels) Certified Tumor Registrar notes: Some limitations due to reasons stated above - unable to see lower femoral vein w/ o color due to swelling. Also, stable to fully assess left popliteal vein compressions due to edema a nd immobility of leg Right Leg: Appears negative for DVT Left Leg: Appears negative for DVT IMPRESSION: Technical and patient limitations as above. There is soft tissue edema. No visualized DVT within the bilateral lower extremities imaged down to the knees.
[2017-12-07 16:23] VITALS: BP 140/87; PULSE 55; TEMP 97
== END 2017-12-07 17:10 | disposition home or self-care (01) ==
LOC: EC 12:48
DX: R60.0 Localized edema (principal); Z85.850 Personal history of malignant neoplasm of thyroid; Z79.899 Other long term (current) drug therapy; Z91.011 Allergy to milk products; Z91.012 Allergy to eggs; Z91.010 Allergy to peanuts; Z88.5 Allergy status to narcotic agent; Z91.018 Allergy to other foods; Z88.0 Allergy status to penicillin; Z88.1 Allergy status to other antibiotic agents
CPT/HCPCS: 36415; 71046; 80053; 81003; 83735; 83880; 85025; 93005; 93970; 99285

== ENCOUNTER 2017-12-30 03:25 | Inpatient (IN) | payer MEDICARE, OTHER ==
[2017-12-30] MEDS ORDERED: ONDANSETRON 4 MG/2 ML VIAL IVP STA ×2 (03:50→06:55)
[2017-12-30 04:27] LABS: ALT 40 U/L (21-72); AST 81 U/L (17-59); Albumin 1.8 g/dL (3.5-5.0); Alkaline Phosphatase 527 U/L (38-126); Amylase 71 U/L (30-110); Anion Gap 9 mmol/L; Blood Urea Nitrogen 28 mg/dL (9-20); Calcium 6.9 mg/dL (8.4-10.2); Carbon Dioxide 23 mmol/L (22-30); Chloride 103 mmol/L (98-107); Glucose 70 mg/dL (74-99); Lipase 172 U/L (23-300); Potassium 3.9 mmol/L (3.5-5.1); Sodium 135 mmol/L (137-145); Total Bilirubin 0.8 mg/dL (0.2-1.3); Total Protein 4.5 g/dL (6.3-8.2)
[2017-12-30 04:30] LABS: Basophils % (A) 0 %; Eosinophils # (A) 0.1 k/uL (0-0.7); Eosinophils % (A) 1 %; HCT 25.4 % (39.0-53.0); HGB 7.6 gm/dL (13.0-17.5); Hypochromasia Marked; Lymphocytes # (A) 0.3 k/uL (1.0-4.8); Lymphocytes % (A) 2 %; MCH 26.1 pg (25.0-35.0); MCHC 29.8 g/dL (31.0-37.0); MCV 87.6 fL (80.0-100.0); Mean Platelet Volume 7.2; Monocytes # (A) 0.8 k/uL (0-1.0); Monocytes % (A) 5 %; Neutrophils # (A) 14.8 k/uL (1.3-7.7); Neutrophils % (A) 92 %; Platelet Count 587 k/uL (150-450); RDW 15.9 % (11.5-15.5); WBC 16.2 k/uL (3.8-10.6)
--- NOTE | 2017-12-30 04:35 | XR ---
INDICATION: Abdominal pain COMPARISON: Abdominal radiograph 02/26/16 FINDINGS: Single frontal view of the abdomen is provided. Small effusions are present at the lung bases. There are cholecystectomy clips in the right upper quadrant of the abdomen. The bowel gas pattern is nonspecific. There is a distended gas-filled loop of bowel in the left mid abdomen. There are no acute osseous findings. IMPRESSION: 1. Nonspecific bowel gas pattern with distended gas-filled loop of bowel in the left mid abdomen. Findings may be in the basis of ileus or obstruction. 2. Small effusions are present at the lung bases.
[2017-12-30] MEDS ORDERED: LEVOFLOXACIN 750MG-D5W PMX 750 MG in DEXTROSE/WATER 1 150ML.BAG IVPB STA (05:04)
[2017-12-30] MEDS ORDERED: SODIUM CHLORIDE 0.9% 3,000 ML IV ONE (05:04)
--- NOTE | 2017-12-30 05:34 | CT ---
INDICATION: Abdominal pain TECHNIQUE: CT acquisition is performed through the abdomen and pelvis. Sagittal and coronal reformatted images are provided. No IV contrast is administered. DOSE INFORMATION: CTDIvol 20.30 mGy; DLP 1053.40 mGy-cm. One or more of the following dose reduction techniques were used: automated exposure control, adjustment of the mA and/or kV according to patient size, use of iterative reconstruction technique. COMPARISON: CT abdomen and pelvis 08/20/13. FINDINGS: There is atelectasis at the lung bases, right greater than left. The liver is enlarged. The unenhanced appearance of the spleen, pancreas, and left adrenal gland are unremarkable. There is a stable right adrenal myelolipoma measuring 4 cm. The gallbladder is surgically absent. Aorta and IVC are normal. There is no adenopathy. Left kidney is normal. The right kidney is malrotated. Previously noted fluid collection along Gerota's fascia has largely resolved. There is no hydronephrosis. There is bilateral perinephric stranding. There are no radiopaque urinary stones. The urinary bladder demonstrates mild wall thickening. The prostate is unremarkable. Aorta and IVC are normal. There is no adenopathy. The appendix is not visualized. There is no evidence of bowel obstruction. There are postoperative changes of the transverse colon which are stable. There has been previous ventral abdominal hernia repair. There are no acute osseous findings. There are multilevel degenerative changes of the thoracolumbar spine. There is body wall edema. There is a partially visualized 10 cm hyperdense mass/collection along the lower right lateral chest wall. IMPRESSION: 1. Body wall edema with partially visualized 10 cm hyperdense mass/collection along the lower right lateral chest wall, possibly a chest wall hematoma. Correlate for history of trauma. 2. Atelectasis at the lung bases, right greater than left. 3. Stranding around the kidneys bilaterally and mild bladder wall thickening, correlate with urinalysis for possible urinary tract infection/pyelonephritis. 4. Cholecystectomy. 5. Stable benign myelolipoma of the right adrenal gland.
[2017-12-30 06:20] LABS: Amorphous Sediment,Urine Occasional /hpf; Appearance,Urine Cloudy (Clear); Bacteria,Urine Moderate /hpf; Bilirubin,Urine Negative (Negative); Blood,Urine Trace (Negative); Color,Urine Yellow; Glucose,Urine (UA) Negative (Negative); Hyaline Casts,Urine 4 /lpf (0-2); Ketones,Urine Negative (Negative); Leukocyte Esterase,Urine Moderate (Negative); Nitrite,Urine Negative (Negative); PH, Urine 5.5 (5.0-8.0); Protein,Urine Trace (Negative); Specific Gravity,Urine 1.011 (1.001-1.035); Squamous Epithelial Cell,Urine 4 /hpf (0-4); Urobilinogen,Urine <2.0 mg/dL (<2.0); WBC,Urine 16 /hpf (0-5)
--- NOTE | 2017-12-30 06:56 | ED ---
Nausea/Vomiting/Diarrhea HPI - General Chief complaint: Nausea/Vomiting/Diarrhea Stated complaint: Nausea, vomiting Time Seen by Provider: 12/30/17 03:33 Source: patient, EMS Mode of arrival: EMS - History of Present Illness Initial comments: This patient is a 57-year-old man presenting from his half-way in [place] to be evaluated for nausea, vomiting, diarrhea. The symptoms have come on over the past day or so. He states he's had about 4-5 episodes each of vomiting and of diarrhea. Patient did not see any blood with emesis but thinks she was seeing some bile. With the bowel movements, they have been noted to be very dark. Patient is not really having any abdominal pain he did have some substernal and epigastric pain that was burning and is not present now. MD complaint: nausea, vomiting, diarrhea Onset/Timin -: days(s) Description of Vomiting: food contents, bilious Description of Diarrhea: tarry Associated Abdominal Pain: No Location: epigastric Radiation: none Severity: mild Quality: other (Burning) Consistency: now resolved Improves with: none Worsens with: none Associated Symptoms: denies other symptoms - Related Data Home Medications Medication Instructions Recorded Confirmed Folic Acid 2 mg PO DAILY 01/03/15 12/30/17 Ferrous Sulfate [Iron (65 MG 325 mg PO BID 05/13/17 12/30/17 Elemental)] Multivitamins, Thera [Multivitamin 1 tab PO DAILY 05/13/17 12/30/17 (formulary)] Artificial Tears-Hypromellose 2 drops BOTH EYES BID 12/07/17 12/30/17 [Artificial Tear Drops] Ketotifen 0.025% Ophth Soln 1 drop BOTH EYES Q6H PRN 12/07/17 12/30/17 [Zaditor] Acetaminophen [Tylenol] 650 mg PO Q8H PRN 12/30/17 12/30/17 Ascorbic Acid [Vitamin C] 500 mg PO DAILY 12/30/17 12/30/17 Bisacodyl [Dulcolax] 10 mg RECTAL DAILY PRN 12/30/17 12/30/17 Magnesium Hydroxide [Milk of 7,200 mg PO DAILY PRN 12/30/17 12/30/17 Magnesia Concentrate] Previous Rx's Medication Instructions Recorded Famotidine [Pepcid] 20 mg PO BID #1 tablet 07/23/17 Atorvastatin [Lipitor] 10 mg PO DAILY tab 01/07/18 Ertapenem [INVanz] 1 gm IM DAILY #28 vial 01/07/18 Levothyroxine Sodium [Synthroid] 150 mcg PO DAILY@0630 tab 01/07/18 Midodrine [ProAmatine] 10 mg PO AC-TID tab 01/07/18 Allergies Allergy/AdvReac Type Severity Reaction Status Date / Time egg Allergy Severe Unknown Verified 12/30/17 13:48 Milk Containing Products Allergy Severe Unknown Verified 12/30/17 13:48 [Dairy] peanut Allergy Severe Unknown Verified 12/30/17 13:48 codeine Allergy Unknown Verified 12/30/17 13:48 Childhood corn Allergy Diarrhea Verified 12/30/17 13:48 lemon Allergy Diarrhea Verified 12/30/17 13:48 Penicillins Allergy Unknown Verified 12/30/17 13:48 Childhood tomato Allergy Diarrhea Verified 12/30/17 13:48 wheat Allergy Diarrhea Verified 12/30/17 13:48 Yeast Allergy Unknown Verified 12/30/17 13:48 cephalexin [From Keflex] AdvReac Nausea & Verified 12/30/17 13:48 Vomiting & Diarrhea Pork/Porcine Containing AdvReac Diarrhea Verified 12/30/17 13:48 Products [Pork] soy AdvReac Unknown Verified 12/30/17 13:48 strawberry AdvReac Diarrhea Verified 12/30/17 13:48 oranges Allergy Rash/Hives Uncoded 12/07/17 12:56 chocolate AdvReac Diarrhea Uncoded 12/07/17 12:56 grapes AdvReac Diarrhea Uncoded 12/07/17 12:56 pop AdvReac Diarrhea Uncoded 12/07/17 12:56 process lunch meat AdvReac Diarrhea Uncoded 12/07/17 12:56 rice AdvReac Diarrhea Uncoded 12/07/17 12:56 spices AdvReac Diarrhea Uncoded 12/07/17 12:56 vegtable oil AdvReac Diarrhea Uncoded 12/07/17 12:56 Review of Systems ROS Statement: Those systems with pertinent positive or pertinent negative responses have been documented in the HPI. ROS Other: All systems not noted in ROS Statement are negative. Constitutional: Reports: fever. Denies: chills, weakness ENT: Denies: throat pain Respiratory: Reports: cough (Occasional nonproductive cough). Denies: dyspnea, wheezes Cardiovascular: Reports: chest pain (Substernal and epigastric), edema. Denies : palpitations, orthopnea, syncope Gastrointestinal: Reports: abdominal pain, nausea, vomiting, diarrhea, melena. Denies: constipation, hematemesis Genitourinary: Denies: dysuria, hematuria Musculoskeletal: Denies: back pain Skin: Denies: rash Neurological: Denies: headache Hematological/Lymphatic: Denies: easy bleeding Past Medical History Past Medical History: Cancer, Chest Pain / Angina, Hypertension, Thyroid Disorder Additional Past Medical History / Comment(s): cerebral palsy and slight brain damage-able to talk read/write and walk,THYROID CA, past stress test,per sister pt has colitis and diverticulitis(no seeds or nuts and see list of allergies), hemorroids that cause bleeding at times.past bowel blockage(sx)-sister stated his norm is runny stool History of Any Multi-Drug Resistant Organisms: None Reported Past Surgical History: Appendectomy, Bowel Resection, Cholecystectomy, Hernia Repair, Tonsillectomy Additional Past Surgical History / Comment(s): thyroid removed, multiple ear surgeries including grafts as child, I&D right knee, 1 testical removed along w / hernia repair and also a diaphramatic hernia sx, i&d rt knee Past Anesthesia/Blood Transfusion Reactions: No Reported Reaction Additional Past Anesthesia/Blood Transfusion Reaction / Comment(s): past blood transfusion as child -no known reaction Past Psychological History: No Psychological Hx Reported Smoking Status: Never smoker Past Alcohol Use History: None Reported Past Drug Use History: None Reported - Past Family History Mother Family Medical History: Diabetes Mellitus, Hypertension Father Family Medical History: Cancer Sister(s) History Unknown: Yes Family Medical History: Pulmonary Embolus General Exam General appearance: alert, in no apparent distress Head exam: Present: atraumatic, normocephalic Eye exam: Present: normal appearance, other (Mucosal pallor). Absent: scleral icterus, conjunctival injection ENT exam: Present: mucous membranes dry, other (Mucosal pallor) Neck exam: Present: normal inspection Respiratory exam: Present: rales (Bilateral bases). Absent: respiratory distress, wheezes, rhonchi, stridor, accessory muscle use, decreased breath sounds, prolonged expiratory Cardiovascular Exam: Present: regular rate, normal rhythm, normal heart sounds. Absent: systolic murmur, diastolic murmur, rubs, gallop GI/Abdominal exam: Present: soft, tenderness (There is some mild periumbilical tenderness without rebound or guarding), diminished bowel sounds. Absent: distended, guarding, rebound, rigid, mass, pulsatile mass, hernia Rectal exam: Present: normal inspection, normal rectal tone, black stool. Absent: mass, tenderness, prostate tenderness Extremities exam: Present: pedal edema. Absent: tenderness, calf tenderness Back exam: Absent: CVA tenderness (R), CVA tenderness (L) Neurological exam: Present: alert, oriented X3, CN II-XII intact. Absent: motor sensory deficit Skin exam: Present: warm, dry, intact, pallor. Absent: cyanosis, diaphoretic, erythema, urticaria, vesicles, petechiae, mottled, abrasion Course Vital Signs 12/30/17 12/30/17 12/30/17 03:28 05:56 07:54 Temperature 101.9 F H 100.3 F H Pulse Rate 104 H 82 74 Respiratory 16 16 18 Rate Blood Pressure 86/53 84/54 70/48 O2 Sat by Pulse 93 L 95 98 Oximetry 12/30/17 12/30/17 12/30/17 08:28 09:12 09:22 Temperature 97.9 F Pulse Rate 68 61 56 L Respiratory 18 18 18 Rate Blood Pressure 72/49 76/48 79/55 O2 Sat by Pulse 67 L 98 97 Oximetry 12/30/17 12/30/17 12/30/17 10:11 10:15 10:16 Temperature Pulse Rate 63 64 65 Respiratory 31 H 18 Rate Blood Pressure 78/48 86/55 O2 Sat by Pulse 97 98 Oximetry Procedures - Sepsis Sepsis Focused Exam #1 Sepsis Focused Exam Date: 12/30/17 Sepsis Focused Exam Time: 06:57 Capillary Refill: < 2 Seconds: Fingers Peripheral Pulses: Weak: Radial (R) Skin Color: Pallor Respiratory Exam: rales (Bilateral bases) Cardiovascular Exam: regular rate, normal rhythm Medical Decision Making - Medical Decision Making Patient is a 57-year-old man in from the [facility] for vomiting and diarrhea. He does meet sepsis criteria and therefore started on antibiotics and fluid bolus. The patient's abdominal pelvic CT does appear to show bibasilar infiltrates, by my interpretation and patient will be treated for pneumonia. Patient also found to be anemic though he does have history of anemia. Stool is dark but may be related to iron supplement as it is occult negative. Following the fluid bolus, the patient does remain hypotensive. Case is discussed with both the admitting physician and with Dr. Mei the train station agent. I did attempt to place central line in the subclavian without success, and given that it was into my shift, my colleague Dr. Noe did place n IJ central line. The chest x-ray following placement does not show any pneumothorax and does show good central line placement. - Lab Data Result diagrams: 01/06/18 06:45 01/06/18 06:45 Lab Results 12/30/17 12/30/17 12/30/17 Range/Units 03:48 03:48 03:48 WBC 16.2 H (3.8-10.6) k/uL RBC 2.90 L (4.30-5.90) m/uL Hgb 7.6 L (13.0-17.5) gm/dL Hct 25.4 L (39.0-53.0) % MCV 87.6 (80.0-100.0) fL MCH 26.1 (25.0-35.0) pg MCHC 29.8 L (31.0-37.0) g/dL RDW 15.9 H (11.5-15.5) % Plt Count 587 H (150-450) k/uL Neutrophils % 92 % Lymphocytes % 2 % Monocytes % 5 % Eosinophils % 1 % Basophils % 0 % Neutrophils # 14.8 H (1.3-7.7) k/uL Lymphocytes # 0.3 L (1.0-4.8) k/uL Monocytes # 0.8 (0-1.0) k/uL Eosinophils # 0.1 (0-0.7) k/uL Basophils # 0.0 (0-0.2) k/uL Hypochromasia Marked Sodium 135 L (137-145) mmol/L Potassium 3.9 (3.5-5.1) mmol/L Chloride 103 (98-107) mmol/L Carbon Dioxide 23 (22-30) mmol/L Anion Gap 9 mmol/L BUN 28 H (9-20) mg/dL Creatinine 0.83 (0.66-1.25) mg/dL Est GFR (CKD-EPI)AfAm >90 (>60 ml/min/1.73 sqM) Est GFR (CKD-EPI)NonAf >90 (>60 ml/min/1.73 sqM) Glucose 70 L (74-99) mg/dL Plasma Lactic Acid Papi 5.3 H* (0.7-2.0) mmol/L Calcium 6.9 L (8.4-10.2) mg/dL Iron (65-175) ug/dL TIBC (228-460) ug/dL Iron Saturation (15.00-50.00) Ferritin (22.0-322.0) ng/mL Total Bilirubin 0.8 (0.2-1.3) mg/dL AST 81 H (17-59) U/L ALT 40 (21-72) U/L Alkaline Phosphatase 527 H (38-126) U/L Troponin I (0.000-0.034) ng/mL Total Protein 4.5 L (6.3-8.2) g/dL Albumin 1.8 L (3.5-5.0) g/dL Amylase 71 (30-110) U/L Lipase 172 (23-300) U/L Urine Color Urine Appearance (Clear) Urine pH (5.0-8.0) Ur Specific Nova (1.001-1.035) Urine Protein (Negative) Urine Glucose (UA) (Negative) Urine Ketones (Negative) Urine Blood (Negative) Urine Nitrite (Negative) Urine Bilirubin (Negative) Urine Urobilinogen (<2.0) mg/dL Ur Leukocyte Esterase (Negative) Urine WBC (0-5) /hpf Urine WBC Clumps (None) /hpf Ur Squamous Epith Cells (0-4) /hpf Amorphous Sediment (None) /hpf Urine Bacteria (None) /hpf Hyaline Casts (0-2) /lpf 12/30/17 12/30/17 12/30/17 Range/Units 03:48 03:48 05:44 WBC (3.8-10.6) k/uL RBC (4.30-5.90) m/uL Hgb (13.0-17.5) gm/dL Hct (39.0-53.0) % MCV (80.0-100.0) fL MCH (25.0-35.0) pg MCHC (31.0-37.0) g/dL RDW (11.5-15.5) % Plt Count (150-450) k/uL Neutrophils % % Lymphocytes % % Monocytes % % Eosinophils % % Basophils % % Neutrophils # (1.3-7.7) k/uL Lymphocytes # (1.0-4.8) k/uL Monocytes # (0-1.0) k/uL Eosinophils # (0-0.7) k/uL Basophils # (0-0.2) k/uL Hypochromasia Sodium (137-145) mmol/L Potassium (3.5-5.1) mmol/L Chloride (98-107) mmol/L Carbon Dioxide (22-30) mmol/L Anion Gap mmol/L BUN (9-20) mg/dL Creatinine (0.66-1.25) mg/dL Est GFR (CKD-EPI)AfAm (>60 ml/min/1.73 sqM) Est GFR (CKD-EPI)NonAf (>60 ml/min/1.73 sqM) Glucose (74-99) mg/dL Plasma Lactic Acid Papi (0.7-2.0) mmol/L Calcium (8.4-10.2) mg/dL Iron 5 L (65-175) ug/dL TIBC 180 L (228-460) ug/dL Iron Saturation 2.78 L (15.00-50.00) Ferritin 401.5 H (22.0-322.0) ng/mL Total Bilirubin (0.2-1.3) mg/dL AST (17-59) U/L ALT (21-72) U/L Alkaline Phosphatase (38-126) U/L Troponin I 0.024 (0.000-0.034) ng/mL Total Protein (6.3-8.2) g/dL Albumin (3.5-5.0) g/dL Amylase (30-110) U/L Lipase (23-300) U/L Urine Color Yellow Urine Appearance Cloudy (Clear) Urine pH 5.5 (5.0-8.0) Ur Specific Nova 1.011 (1.001-1.035) Urine Protein Trace H (Negative) Urine Glucose (UA) Negative (Negative) Urine Ketones Negative (Negative) Urine Blood Trace H (Negative) Urine Nitrite Negative (Negative) Urine Bilirubin Negative (Negative) Urine Urobilinogen <2.0 (<2.0) mg/dL Ur Leukocyte Esterase Moderate H (Negative) Urine WBC 16 H (0-5) /hpf Urine WBC Clumps Occasional H (None) /hpf Ur Squamous Epith Cells 4 (0-4) /hpf Amorphous Sediment Occasional H (None) /hpf Urine Bacteria Moderate H (None) /hpf Hyaline Casts 4 H (0-2) /lpf - EKG Data -: EKG Interpreted by Me EKG shows normal: sinus rhythm, axis (Normal), intervals (Normal), QRS complexes (There is an incomplete right bundle-branch block), ST-T waves (Normal ) Rate: normal (Rate is proximal 70 bpm) Critical Care Time Critical Care Time: Yes (35 minutes) Disposition Clinical Impression: Pneumonia, Anemia, Sepsis Disposition: ADMITTED IP TO THIS [facility] Condition: Serious
[2017-12-30] MEDS ORDERED: NOREPINEPHRINE 4 MG in SODIUM CHLORIDE 0.9% 250 ML IV ONE (07:40)
[2017-12-30 07:48] LABS: INR 1.4 (<1.2)
--- NOTE | 2017-12-30 08:07 | CT ---
EXAMINATION TYPE: CT chest wo con DATE OF EXAM: 12/30/2017 COMPARISON: Previous study dated 06/29/2009. HISTORY: Pain CT DLP: 626.2 mGycm. Automated Exposure Control for Dose Reduction was Utilized. TECHNIQUE: CT scan of the thorax is performed without IV contrast. FINDINGS: There are small, bilateral pleural effusions, greater on the right than the left. There is associated atelectasis or consolidation at both lung bases, greater on the right than the left. There is no significant axillary, mediastinal or hilar adenopathy. The heart is mildly enlarged. Ther e is a 7 mm pericardial effusion. Visualized portions of the upper abdomen are unremarkable. The gallbladder is been removed. There is hypertrophic spondylosis within the spine. IMPRESSION: 1. SMALL BILATERAL EFFUSIONS, GREATER ON THE RIGHT LEFT. 2. BASILAR AIRSPACE DISEASE, GREATER ON THE RIGHT THAN THE LEFT. THIS MAY REPRESENT ATELECTASIS OR PN EUMONIA. 3. MILD CARDIOMEGALY. 4. SMALL, 7 MM PERICARDIAL EFFUSION.
[2017-12-30] MEDS ORDERED: HYDROCORTISONE SUCCINATE 100 MG/2 ML VIAL IV STA (09:44)
--- NOTE | 2017-12-30 09:55 | XR ---
EXAMINATION TYPE: XR chest 1V portable DATE OF EXAM: 12/30/2017 HISTORY: R/O pneumothorax. REFERENCE: Previous study dated 12/07/2017. FINDINGS: There is been interval placement of a right internal jugular catheter. Its tip is in the ri ght atrium. There is no evidence of pneumothorax. There is bibasilar airspace disease. There are small, bilateral effusions. The heart is mildly enlarg ed. IMPRESSION: 1. I DO NOT SEE A POST CATHETER PLACEMENT COMPLICATION. 2. CARDIOMEGALY. 3. BIBASILAR AIRSPACE DISEASE. 4. SMALL, BILATERAL EFFUSIONS.
[2017-12-30 10:22] LABS: Glucose,Whole Blood 85 mg/dL (75-99)
[2017-12-30] MEDS: FAMOTIDINE 20 MG/2 ML VIAL IV SCH ×2 (10:41→20:20)
[2017-12-30 10:56] LABS: ALT 37 U/L (21-72); AST 60 U/L (17-59); Albumin 1.6 g/dL (3.5-5.0); Alkaline Phosphatase 358 U/L (38-126); Anion Gap 6 mmol/L; Anisocytosis Slight; Blood Urea Nitrogen 27 mg/dL (9-20); Carbon Dioxide 24 mmol/L (22-30); Chloride 106 mmol/L (98-107); Glucose 88 mg/dL (74-99); HCT 23.5 % (39.0-53.0); Hypochromasia Marked; MCH 25.5 pg (25.0-35.0); MCHC 28.8 g/dL (31.0-37.0); MCV 88.8 fL (80.0-100.0); Magnesium 1.9 mg/dL (1.6-2.3); Mean Platelet Volume 7.6; Phosphorus 3.4 mg/dL (2.5-4.5); Platelet Count 577 k/uL (150-450); RBC 2.65 m/uL (4.30-5.90); RDW 16.2 % (11.5-15.5); Sodium 136 mmol/L (137-145); Total Bilirubin 0.5 mg/dL (0.2-1.3); Total Protein 4.2 g/dL (6.3-8.2); WBC 30.9 k/uL (3.8-10.6)
[2017-12-30 10:58] LABS: Appearance,Urine Cloudy (Clear); Bacteria,Urine Many /hpf; Bilirubin,Urine Negative (Negative); Blood,Urine Moderate (Negative); Color,Urine Yellow; Glucose,Urine (UA) Negative (Negative); Ketones,Urine Negative (Negative); Leukocyte Esterase,Urine Moderate (Negative); Mucus,Urine Rare /hpf; Nitrite,Urine Negative (Negative); PH, Urine 5.5 (5.0-8.0); Protein,Urine 1+ (Negative); RBC,Urine 12 /hpf (0-5); Specific Gravity,Urine 1.016 (1.001-1.035); Squamous Epithelial Cell,Urine 1 /hpf (0-4); WBC,Urine 23 /hpf (0-5)
[2017-12-30 11:07] LABS: INR 1.3 (<1.2); Prothrombin Time 12.1 sec (9.0-12.0)
[2017-12-30 11:09] LABS: HGB 6.8 gm/dL (13.0-17.5)
[2017-12-30 11:14] LABS: Partial Thromboplastin Time 21.2 sec (22.0-30.0)
[2017-12-30] MEDS ORDERED: NALOXONE 0.4 MG/ML 1 ML VIAL IV PRN (11:16)
[2017-12-30 11:29] LABS: Calcium 6.4 mg/dL (8.4-10.2)
[2017-12-30 11:39] LABS: Band Neutrophils % 15 %; Lymphocytes # (M) 0.93 k/uL (1.0-4.8); Neutrophils % (M) 82 %; Nucleated Red Blood Cells 0 /100 WBC (0-0); Poikilocytosis (M) Present; Total Cells Counted 100
[2017-12-30 11:40] LABS: Ovalocytes Present; Polychromasia Present; Toxic Granulation Present
[2017-12-30 11:41] LABS: Toxic Vacuolation Present
[2017-12-30] MEDS: NOREPINEPHRINE 16 MG in SODIUM CHLORIDE 0.9% 250 ML IV SCH (11:45)
--- NOTE | 2017-12-30 14:19 | P.CNPUL ---
History of Present Illness Consult date: 12/30/17 Requesting physician: Rogelio Smyth Reason for consult: other (sepsis and pneumonia) Chief complaint: Nausea vomiting and diarrhea History of present illness: this is a 57-year-old white male with history of cerebral palsy, hypertension, mental developmental delay, thyroid cancer, previous history of colitis and diverticulitis, patient was [facility] in today [facility] complaining ofnausea vomiting and diarrhea for the last 2 days. Had at least 5 episodes of vomiting and diarrhea, however no documented hematemesis, melena, and no abdominal pain. Bowel movements were noted to be dark in color. Upon arrival to the ER, patient was noted to be hypotensive.he was also noted to have a significant leukocytosis with WBC count of 30.9,lactic acid was 3.7,urine showed evidence of hematuria and pyuria, chest x-ray and CT of the chest were suggestive of basilar airspace disease, consistent with possible pneumonia especially on the right side.patient received multiple boluses of fluids in the ER, after 2 L of fluids, patient required to be placed on norepinephrine via a triple-lumen catheter which was placed by the ER physician in the right IJ vein. I evaluated the patient in the ICU, he improved with norepinephrine, he' ll be receiving a blood transfusion for his low hemoglobin,and we plan to give the patient broad-spectrum antibiotics. Patient had previous episode of sepsis and septic shock from right ankle cellulitis and septic joint, this was secondary to MSSA. And this was basically over 4 months ago. At present the patient is basically asymptomatic, denies any headaches, no blurred vision, no dizziness. Denies any chest pain, denies any nausea vomiting or abdominal pain while in the ICU, denies any dysuria frequency or urgency. Patient is not the greatest historian.CT of the abdomen and pelvis showed mostly body wall edema and at 10 cm hyperdense mass/collection around the right lower chest wall possibly chest wall hematoma. However the patient denies any trauma, and clinically the area seems to be tender, but no evidence of ecchymosis or bruising to suggest hematoma. There was also evidence of stranding around the kidneys bilaterally bladder wall thickening, and the patient may clearly have acute urinary tract infection/pyelonephritis. Past Medical History Past Medical History: Cancer, Chest Pain / Angina, Hypertension, Thyroid Disorder Additional Past Medical History / Comment(s): cerebral palsy and slight brain damage-able to talk read/write and walk,THYROID CA, past stress test,per sister pt has colitis and diverticulitis(no seeds or nuts and see list of allergies), hemorroids that cause bleeding at times.past bowel blockage(sx)-sister stated his norm is runny stool History of Any Multi-Drug Resistant Organisms: None Reported Past Surgical History: Appendectomy, Bowel Resection, Cholecystectomy, Hernia Repair, Tonsillectomy Additional Past Surgical History / Comment(s): thyroid removed, multiple ear surgeries including grafts as child, I&D right knee, 1 testical removed along w / hernia repair and also a diaphramatic hernia sx, i&d rt knee Past Anesthesia/Blood Transfusion Reactions: No Reported Reaction Additional Past Anesthesia/Blood Transfusion Reaction / Comment(s): past blood transfusion as child -no known reaction Past Psychological History: No Psychological Hx Reported Smoking Status: Never smoker Past Alcohol Use History: None Reported Past Drug Use History: None Reported - Past Family History Mother Family Medical History: Diabetes Mellitus, Hypertension Father Family Medical History: Cancer Sister(s) History Unknown: Yes Family Medical History: Pulmonary Embolus Medications and Allergies Home Medications Medication Instructions Recorded Confirmed Type Folic Acid 2 mg PO DAILY 01/03/15 12/07/17 History Cyanocobalamin [Vitamin B-12] 500 mcg PO DAILY 02/22/16 12/07/17 History Ferrous Sulfate [Iron (65 MG 325 mg PO DAILY 05/13/17 12/07/17 History Elemental)] Levothyroxine Sodium [Synthroid] 112 mcg PO QAM 05/13/17 12/07/17 History Multivitamins, Thera [Multivitamin 1 tab PO DAILY 05/13/17 12/07/17 History (formulary)] Famotidine [Pepcid] 20 mg PO BID #1 tablet 07/23/17 12/07/17 Rx Acetaminophen [Tylenol] 650 mg PO Q6H PRN 12/07/17 12/07/17 History Artificial Tears-Hypromellose 2 drops BOTH EYES BID 12/07/17 12/07/17 History [Artificial Tear Drops] Carbamide Peroxide [Debrox Otic] 5 drops BOTH EARS BID 12/07/17 12/07/17 History Docusate [Colace] 100 mg PO BID PRN 12/07/17 12/07/17 History Ketotifen 0.025% Ophth Soln 1 drop BOTH EYES Q6H PRN 12/07/17 12/07/17 History [Zaditor] Naproxen Sodium [Aleve] 220 mg PO TID PRN 12/07/17 12/07/17 History Polyethylene Glycol 3350 [Miralax] 17 gm PO HS PRN 12/07/17 12/07/17 History Sertraline HCl [Zoloft] 50 mg PO HS 12/07/17 12/07/17 History Allergies Allergy/AdvReac Type Severity Reaction Status Date / Time egg Allergy Severe Unknown Verified 12/30/17 13:48 Milk Containing Products Allergy Severe Unknown Verified 12/30/17 13:48 [Dairy] peanut Allergy Severe Unknown Verified 12/30/17 13:48 codeine Allergy Unknown Verified 12/30/17 13:48 Childhood corn Allergy Diarrhea Verified 12/30/17 13:48 lemon Allergy Diarrhea Verified 12/30/17 13:48 Penicillins Allergy Unknown Verified 12/30/17 13:48 Childhood tomato Allergy Diarrhea Verified 12/30/17 13:48 wheat Allergy Diarrhea Verified 12/30/17 13:48 Yeast Allergy Unknown Verified 12/30/17 13:48 cephalexin [From Keflex] AdvReac Nausea & Verified 12/30/17 13:48 Vomiting & Diarrhea Pork/Porcine Containing AdvReac Diarrhea Verified 12/30/17 13:48 Products [Pork] soy AdvReac Unknown Verified 12/30/17 13:48 strawberry AdvReac Diarrhea Verified 12/30/17 13:48 oranges Allergy Rash/Hives Uncoded 12/07/17 12:56 chocolate AdvReac Diarrhea Uncoded 12/07/17 12:56 grapes AdvReac Diarrhea Uncoded 12/07/17 12:56 pop AdvReac Diarrhea Uncoded 12/07/17 12:56 process lunch meat AdvReac Diarrhea Uncoded 12/07/17 12:56 rice AdvReac Diarrhea Uncoded 12/07/17 12:56 spices AdvReac Diarrhea Uncoded 12/07/17 12:56 vegtable oil AdvReac Diarrhea Uncoded 12/07/17 12:56 Physical Exam Vitals: Vital Signs Temp Pulse Resp BP Pulse Ox 12/30/17 12:15 98 F 115 H 15 84/52 97 12/30/17 12:00 64 11 L 71/46 97 12/30/17 11:55 98 F 52 L 18 80/57 100 12/30/17 11:51 98 F 53 L 18 82/55 100 12/30/17 11:45 98 F 52 L 16 77/57 100 12/30/17 11:41 98 F 52 L 16 77/57 100 12/30/17 11:30 98 F 52 L 18 85/52 99 12/30/17 11:15 56 L 13 86/53 100 12/30/17 11:00 64 13 85/53 99 12/30/17 10:45 59 L 23 88/61 100 12/30/17 10:30 98 F 52 L 20 84/56 100 12/30/17 10:16 65 18 86/55 98 12/30/17 10:15 64 31 H 78/48 97 12/30/17 10:11 63 12/30/17 09:22 56 L 18 79/55 97 12/30/17 09:12 61 18 76/48 98 12/30/17 08:28 97.9 F 68 18 72/49 67 L 12/30/17 07:54 74 18 70/48 98 12/30/17 05:56 100.3 F H 82 16 84/54 95 12/30/17 03:28 101.9 F H 104 H 16 86/53 93 L Intake and Output 12/29/17 12/30/17 12/30/17 22:59 06:59 14:59 Intake Total 57.556 Output Total 195 Balance -137.444 Intake: IV 46 KVO 40 Pressure Bag 6 Intake, IV Titration 11.556 Amount Norepinephrine 16 mg In 11.556 Sodium Chloride 0.9% 250 ml @ Titrate IV .Q0M [facility] Rx#:[id number] Blood Product 0 Rc As-1 Unit 0 [id number] Output: Urine 195 Uretheral (Lorenzo) 75 Other: Voiding Method Indwelling Catheter Weight 93.894 kg 93.894 kg Physical Exam: Revealed a 57-year-old white male, obese, pale looking, in no distress, on room air. Head: Atraumatic, normocephalic, HEENT:[Neck is supple.] [No neck masses.] [No thyromegaly.] [No JVD.] Dry mucous membranes, pale conjunctivae, no icterus. Chest: [[employer] breath sounds and crackles at the bases, significant chest wall edema and tenderness mostly in the right side of the chest posteriorly just above the diaphragm. Cardiac Exam: [Distant S1 and S2, no S3 gallop, no murmur.] Abdomen: [Morbidly obese, Soft, nontender, no megaly, no rebound, no guarding, normal bowel sounds.] Significant abdominal wall swelling and edema is noted. Extremities: Positive anasarca, 4+ bipedal edema noted.] Neurological Exam: [No gross focal neurologic deficit. Psychiatric: Normal mood and affect. Normal mental status examination. Lymphatics: No lymphadenopathy. Results - Laboratory Findings CBC and BMP: 12/30/17 10:20 12/30/17 10:20 PT/INR, D-dimer PT 12.1 sec (9.0-12.0) H 12/30/17 10:20 INR 1.3 (<1.2) H 12/30/17 10:20 Abnormal lab findings: Abnormal Labs 12/30/17 12/30/17 12/30/17 03:48 03:48 03:48 WBC 16.2 H RBC 2.90 L Hgb 7.6 L Hct 25.4 L MCHC 29.8 L RDW 15.9 H Plt Count 587 H Neutrophils # 14.8 H Neutrophils # (Manual) Lymphocytes # 0.3 L Lymphocytes # (Manual) PT INR APTT Sodium 135 L BUN 28 H Glucose 70 L Plasma Lactic Acid Papi 5.3 H* Calcium 6.9 L AST 81 H Alkaline Phosphatase 527 H Total Protein 4.5 L Albumin 1.8 L Urine Protein Urine Blood Ur Leukocyte Esterase Urine RBC Urine WBC Urine WBC Clumps Amorphous Sediment Urine Bacteria Hyaline Casts Urine Mucus Crossmatch 12/30/17 12/30/17 12/30/17 05:44 07:13 07:29 WBC RBC Hgb Hct MCHC RDW Plt Count Neutrophils # Neutrophils # (Manual) Lymphocytes # Lymphocytes # (Manual) PT 13.0 H INR 1.4 H APTT Sodium BUN Glucose Plasma Lactic Acid Papi 3.7 H* Calcium AST Alkaline Phosphatase Total Protein Albumin Urine Protein Trace H Urine Blood Trace H Ur Leukocyte Esterase Moderate H Urine RBC Urine WBC 16 H Urine WBC Clumps Occasional H Amorphous Sediment Occasional H Urine Bacteria Moderate H Hyaline Casts 4 H Urine Mucus Crossmatch 12/30/17 12/30/17 12/30/17 07:31 10:20 10:20 WBC 30.9 H RBC 2.65 L Hgb 6.8 L* Hct 23.5 L MCHC 28.8 L RDW 16.2 H Plt Count 577 H Neutrophils # Neutrophils # (Manual) 29.90 H Lymphocytes # Lymphocytes # (Manual) 0.93 L PT 12.1 H INR 1.3 H APTT 21.2 L Sodium BUN Glucose Plasma Lactic Acid Papi Calcium AST Alkaline Phosphatase Total Protein Albumin Urine Protein Urine Blood Ur Leukocyte Esterase Urine RBC Urine WBC Urine WBC Clumps Amorphous Sediment Urine Bacteria Hyaline Casts Urine Mucus Crossmatch See Detail 12/30/17 12/30/17 12/30/17 10:20 10:20 11:11 WBC RBC Hgb Hct MCHC RDW Plt Count Neutrophils # Neutrophils # (Manual) Lymphocytes # Lymphocytes # (Manual) PT INR APTT Sodium 136 L BUN 27 H Glucose Plasma Lactic Acid Papi 2.9 H* Calcium 6.4 L* AST 60 H Alkaline Phosphatase 358 H Total Protein 4.2 L Albumin 1.6 L Urine Protein 1+ H Urine Blood Moderate H Ur Leukocyte Esterase Moderate H Urine RBC 12 H Urine WBC 23 H Urine WBC Clumps Moderate H Amorphous Sediment Urine Bacteria Many H Hyaline Casts Urine Mucus Rare H Crossmatch - Diagnostic Findings CT scan - chest: image reviewed (CT of the abdomen and pelvis the chest and chest x-ray were all reviewed and as noted in HPI,) Assessment and Plan Assessment: Impression: 1 acute sepsis and septic shock, sources could be urine, possible pyelonephritis , right lower lobe pneumonia is a possibility but felt to be less likely since the patient does not have any active pulmonary symptoms. Right ankle cellulitis is also unlikely since the patient had basically full treatment of his ankle cellulitis and sepsis. And this was over 4 months ago. And the findings on the ankle are not impressive. 2 acute pyelonephritis is strongly suspected, 3 right lower lobe atelectasis, doubt actual pneumonia. However pneumonia is not entirely ruled out at this point. 4 acute on chronic anemia, suspect GI blood losses especially with his black stools on presentation. This will eventually need further workup and GI evaluation. 5 anasarca and profound hypoalbuminemia. 6 multiple comorbidities including thyroid cancer, hypertension, multiple surgeries as noted in the past medical history including appendectomy, bowel resection, cholecystectomy, hernia repair, and thyroidectomy. And mental developmental delay. Recommendation: Continue present supportive care measures, continue fluids, norepinephrine, titrate to a mean arterial pressure of 65, antibiotics, patient is presently on Rocephin and Levaquin, he has multiple ALLERGIES to ANTIBIOTICS INCLUDING PENICILLIN NOTED IN THE ALLERGY history. Change antibiotics according to final cultures. Transfuse the patient for a hemoglobin above 7. Consider GI consultation. Cultures were sent including blood cultures and urine cultures. Serial hemoglobin and hematocrit over the next 24 hours. And addressed accordingly. GI and DVT prophylaxis to continue. Patient is definitely critically ill, we will follow closely in the ICU. Time with Patient: Greater than 30
[2017-12-30] MEDS ORDERED: VANCOMYCIN IV PER PHARMACY 1 EACH MISC MISCELLANE PRN (15:29)
--- NOTE | 2017-12-30 16:04 | P.HPIM ---
History of Present Illness H&P Date: 12/30/17 Chief Complaint: vomiting Patient is a 57-year-old male for history of cerebral palsy, hypothyroidism after thyroidectomy for cancer, diverticulitis, and prior right ankle infection who [facility]. On arrival to the ER he was febrile with a T-max of 101.9. He was also found to have white blood cell count of 16.9 and a lactic acid of 5.3. He underwent a CT abdomen and pelvis which showed bilateral pulmonary no nephritis. CT chest showed right greater than left basilar infiltrate representing atelectasis versus pneumonia. He was given a dose of Levaquin and Rocephin. He was started on IV fluids. Despite interventions he remained hypotensive. A central line was placed and he was started on levo fed. He is admitted to the ICU for further monitoring. Patient seen and examined at bedside in the ICU. He complains of left-sided chest pain that increases with pressing on his chest. He denies any shortness of breath, lightheadedness, dizziness, or headaches. He denies any nausea, vomiting, or diarrhea. He denies any belly pain. He complains of some sinus congestion. He denies any dysuria or urinary frequency. He states he has been having difficulty having someone placed the bedpan under him. He reports that he was just able to start walking again. His sister who is also his court-appointed guardian arrived to the ICU. She reports that the penitentiary states he has been struggling with vomiting since last evening. He is also had diarrhea for last several days. He was having some dry heaving in the ER. She reports that he also had some very dark looking stools and a headache as well as low-grade temperatures for 2 days. He recently has been seeing Dr. Guajardo after having an open wound on his right ankle that was infected in July 2017. He required a PICC line and multiple weeks of IV antibiotics. He did stop eating at the penitentiary over the summer and his just regained his appetite. They're concerned about lower extremity edema starting in late November. He was seen in the ER and underwent bilateral lower extremity Dopplers which were negative. He was then placed on Lasix by Dr. Brandt. His sister reports that he has been taking oral protein supplementations as well as boost. Review of Systems Patient is a very poor historian and is unable to complete a full review of systems. As able to obtain in HPI. Past Medical History Past Medical History: Cancer, Chest Pain / Angina, Hypertension, Thyroid Disorder Additional Past Medical History / Comment(s): cerebral palsy and slight brain damage-able to talk read/write and walk,THYROID CA,per sister pt has colitis and diverticulitis, hemorroids that cause bleeding at times.past bowel blockage( sx)-sister stated his norm is runny stool History of Any Multi-Drug Resistant Organisms: None Reported Past Surgical History: Appendectomy, Bowel Resection, Cholecystectomy, Hernia Repair, Tonsillectomy Additional Past Surgical History / Comment(s): thyroid removed, multiple ear surgeries including grafts as child, I&D right knee, 1 testical removed along w / hernia repair and also a diaphramatic hernia sx, i&d right ankle Past Anesthesia/Blood Transfusion Reactions: No Reported Reaction Additional Past Anesthesia/Blood Transfusion Reaction / Comment(s): past blood transfusion as child -no known reaction Past Psychological History: No Psychological Hx Reported Smoking Status: Never smoker Past Alcohol Use History: None Reported Past Drug Use History: None Reported Additional History: Currently residing at a penitentiary as he has been nonweightbearing to his right lower extremity. Has been up in the wheelchair only. Just got clearance to start walking again a few weeks ago. Has a court- appointed guardian which is his sister Katarzyna. - Past Family History Mother Family Medical History: Diabetes Mellitus, Hypertension Father Family Medical History: Cancer Sister(s) History Unknown: Yes Family Medical History: Pulmonary Embolus Medications and Allergies Home Medications Medication Instructions Recorded Confirmed Type Folic Acid 2 mg PO DAILY 01/03/15 12/07/17 History Cyanocobalamin [Vitamin B-12] 500 mcg PO DAILY 02/22/16 12/07/17 History Ferrous Sulfate [Iron (65 MG 325 mg PO DAILY 05/13/17 12/07/17 History Elemental)] Levothyroxine Sodium [Synthroid] 112 mcg PO QAM 05/13/17 12/07/17 History Multivitamins, Thera [Multivitamin 1 tab PO DAILY 05/13/17 12/07/17 History (formulary)] Famotidine [Pepcid] 20 mg PO BID #1 tablet 07/23/17 12/07/17 Rx Acetaminophen [Tylenol] 650 mg PO Q6H PRN 12/07/17 12/07/17 History Artificial Tears-Hypromellose 2 drops BOTH EYES BID 12/07/17 12/07/17 History [Artificial Tear Drops] Carbamide Peroxide [Debrox Otic] 5 drops BOTH EARS BID 12/07/17 12/07/17 History Docusate [Colace] 100 mg PO BID PRN 12/07/17 12/07/17 History Ketotifen 0.025% Ophth Soln 1 drop BOTH EYES Q6H PRN 12/07/17 12/07/17 History [Zaditor] Naproxen Sodium [Aleve] 220 mg PO TID PRN 12/07/17 12/07/17 History Polyethylene Glycol 3350 [Miralax] 17 gm PO HS PRN 12/07/17 12/07/17 History Sertraline HCl [Zoloft] 50 mg PO HS 12/07/17 12/07/17 History Allergies Allergy/AdvReac Type Severity Reaction Status Date / Time egg Allergy Severe Unknown Verified 12/30/17 13:48 Milk Containing Products Allergy Severe Unknown Verified 12/30/17 13:48 [Dairy] peanut Allergy Severe Unknown Verified 12/30/17 13:48 codeine Allergy Unknown Verified 12/30/17 13:48 Childhood corn Allergy Diarrhea Verified 12/30/17 13:48 lemon Allergy Diarrhea Verified 12/30/17 13:48 Penicillins Allergy Unknown Verified 12/30/17 13:48 Childhood tomato Allergy Diarrhea Verified 12/30/17 13:48 wheat Allergy Diarrhea Verified 12/30/17 13:48 Yeast Allergy Unknown Verified 12/30/17 13:48 cephalexin [From Keflex] AdvReac Nausea & Verified 12/30/17 13:48 Vomiting & Diarrhea Pork/Porcine Containing AdvReac Diarrhea Verified 12/30/17 13:48 Products [Pork] soy AdvReac Unknown Verified 12/30/17 13:48 strawberry AdvReac Diarrhea Verified 12/30/17 13:48 oranges Allergy Rash/Hives Uncoded 12/07/17 12:56 chocolate AdvReac Diarrhea Uncoded 12/07/17 12:56 grapes AdvReac Diarrhea Uncoded 12/07/17 12:56 pop AdvReac Diarrhea Uncoded 12/07/17 12:56 process lunch meat AdvReac Diarrhea Uncoded 12/07/17 12:56 rice AdvReac Diarrhea Uncoded 12/07/17 12:56 spices AdvReac Diarrhea Uncoded 12/07/17 12:56 vegtable oil AdvReac Diarrhea Uncoded 12/07/17 12:56 Physical Exam Osteopathic Statement: *. No significant issues noted on an osteopathic structural exam other than those noted in the History and Physical/Consult. Vitals: Vital Signs Temp Pulse Resp BP Pulse Ox 12/30/17 15:14 98 F 47 L 14 87/65 99 12/30/17 15:00 47 L 14 93/56 99 12/30/17 14:45 51 L 12 93/61 96 12/30/17 14:30 51 L 13 94/58 98 12/30/17 14:15 55 L 13 106/58 97 12/30/17 14:00 50 L 10 L 95/63 97 12/30/17 13:45 51 L 10 L 101/56 98 12/30/17 13:30 51 L 12 98/55 94 L 12/30/17 13:15 53 L 13 92/58 97 12/30/17 13:00 53 L 14 77/48 93 L 12/30/17 12:45 53 L 14 86/48 94 L 12/30/17 12:30 48 L 23 86/51 97 12/30/17 12:21 98 F 48 L 10 L 110/55 97 12/30/17 12:15 98 F 115 H 15 84/52 97 12/30/17 12:00 64 11 L 71/46 97 12/30/17 11:55 98 F 52 L 18 80/57 100 12/30/17 11:51 98 F 53 L 18 82/55 100 12/30/17 11:45 98 F 52 L 16 77/57 100 12/30/17 11:41 98 F 52 L 16 77/57 100 12/30/17 11:30 98 F 52 L 18 85/52 99 12/30/17 11:15 56 L 13 86/53 100 12/30/17 11:00 64 13 85/53 99 12/30/17 10:45 59 L 23 88/61 100 12/30/17 10:30 98 F 52 L 20 84/56 100 12/30/17 10:16 65 18 86/55 98 12/30/17 10:15 64 31 H 78/48 97 12/30/17 10:11 63 12/30/17 09:22 56 L 18 79/55 97 12/30/17 09:12 61 18 76/48 98 12/30/17 08:28 97.9 F 68 18 72/49 67 L 12/30/17 07:54 74 18 70/48 98 12/30/17 05:56 100.3 F H 82 16 84/54 95 12/30/17 03:28 101.9 F H 104 H 16 86/53 93 L Intake and Output 12/30/17 12/30/17 12/30/17 06:59 14:59 22:59 Intake Total 103.556 333 Output Total 275 40 Balance -171.444 293 Intake: IV 92 23 KVO 80 20 Pressure Bag 12 3 Intake, IV Titration 11.556 Amount Norepinephrine 16 mg In 11.556 Sodium Chloride 0.9% 250 ml @ Titrate IV .Q0M [facility] Rx#:[id number] Blood Product 0 310 Rc As-1 Unit 0 310 [id number] Output: Urine 275 40 Uretheral (Lorenzo) 75 Other: Voiding Method Indwelling Catheter Weight 93.894 kg 93.894 kg General: Ill appearing, mild distress, appears younger than stated age, normal weight Derm: Small lesion on the right lateral ankle with good granulation taste to mild drainage, skin sloughing b/l LE no unusual rashes/lesions no unusual ecchymoses, warm, dry Head: atraumatic, normocephalic, symmetric Eyes: EOMI, no lid lag, anicteric sclera, pupils equal round reactive to light ENT: Nose and ears atraumatic, no thrush, no pharyngeal erythema Neck: No thyromegaly, no cervical lymphadenopathy, trachea midline, supple Mouth: no lip lesion, mucus membranes dry Cardiovascular: S1S2 reg, no murmur, positive posterior tibial pulse bilateral, diffuse anasarca , capillary refill less than 2 seconds, + reproducible CP lft chest wall Lungs: crackels b/l bases, no rhonchi, no rales , no accessory muscle use Abdominal: soft, nontender to palpation, no guarding, no appreciable organomegaly, normal bowel sounds Ext: no gross muscle atrophy, muscle strength 4/5 in b/l ue, moving b/l LE independently, no contractures, Neuro: CN II-XI grossly intact, light touch intact all 4 extremities, Psych: Alert, oriented, flat affect Results CBC & Chem 7: 12/30/17 10:20 12/30/17 10:20 Labs: Abnormal Lab Results - Last 24 Hours (Table) 12/30/17 12/30/17 12/30/17 Range/Units 03:48 03:48 03:48 WBC 16.2 H (3.8-10.6) k/uL RBC 2.90 L (4.30-5.90) m/uL Hgb 7.6 L (13.0-17.5) gm/dL Hct 25.4 L (39.0-53.0) % MCHC 29.8 L (31.0-37.0) g/dL RDW 15.9 H (11.5-15.5) % Plt Count 587 H (150-450) k/uL Neutrophils # 14.8 H (1.3-7.7) k/uL Neutrophils # (Manual) (1.3-7.7) k/uL Lymphocytes # 0.3 L (1.0-4.8) k/uL Lymphocytes # (Manual) (1.0-4.8) k/uL PT (9.0-12.0) sec INR (<1.2) APTT (22.0-30.0) sec Sodium 135 L (137-145) mmol/L BUN 28 H (9-20) mg/dL Glucose 70 L (74-99) mg/dL Plasma Lactic Acid Papi 5.3 H* (0.7-2.0) mmol/L Calcium 6.9 L (8.4-10.2) mg/dL AST 81 H (17-59) U/L Alkaline Phosphatase 527 H (38-126) U/L Total Protein 4.5 L (6.3-8.2) g/dL Albumin 1.8 L (3.5-5.0) g/dL Urine Protein (Negative) Urine Blood (Negative) Ur Leukocyte Esterase (Negative) Urine RBC (0-5) /hpf Urine WBC (0-5) /hpf Urine WBC Clumps (None) /hpf Amorphous Sediment (None) /hpf Urine Bacteria (None) /hpf Hyaline Casts (0-2) /lpf Urine Mucus (None) /hpf Crossmatch 12/30/17 12/30/17 12/30/17 Range/Units 05:44 07:13 07:29 WBC (3.8-10.6) k/uL RBC (4.30-5.90) m/uL Hgb (13.0-17.5) gm/dL Hct (39.0-53.0) % MCHC (31.0-37.0) g/dL RDW (11.5-15.5) % Plt Count (150-450) k/uL Neutrophils # (1.3-7.7) k/uL Neutrophils # (Manual) (1.3-7.7) k/uL Lymphocytes # (1.0-4.8) k/uL Lymphocytes # (Manual) (1.0-4.8) k/uL PT 13.0 H (9.0-12.0) sec INR 1.4 H (<1.2) APTT (22.0-30.0) sec Sodium (137-145) mmol/L BUN (9-20) mg/dL Glucose (74-99) mg/dL Plasma Lactic Acid Papi 3.7 H* (0.7-2.0) mmol/L Calcium (8.4-10.2) mg/dL AST (17-59) U/L Alkaline Phosphatase (38-126) U/L Total Protein (6.3-8.2) g/dL Albumin (3.5-5.0) g/dL Urine Protein Trace H (Negative) Urine Blood Trace H (Negative) Ur Leukocyte Esterase Moderate H (Negative) Urine RBC (0-5) /hpf Urine WBC 16 H (0-5) /hpf Urine WBC Clumps Occasional H (None) /hpf Amorphous Sediment Occasional H (None) /hpf Urine Bacteria Moderate H (None) /hpf Hyaline Casts 4 H (0-2) /lpf Urine Mucus (None) /hpf Crossmatch 12/30/17 12/30/17 12/30/17 Range/Units 07:31 10:20 10:20 WBC 30.9 H (3.8-10.6) k/uL RBC 2.65 L (4.30-5.90) m/uL Hgb 6.8 L* (13.0-17.5) gm/dL Hct 23.5 L (39.0-53.0) % MCHC 28.8 L (31.0-37.0) g/dL RDW 16.2 H (11.5-15.5) % Plt Count 577 H (150-450) k/uL Neutrophils # (1.3-7.7) k/uL Neutrophils # (Manual) 29.90 H (1.3-7.7) k/uL Lymphocytes # (1.0-4.8) k/uL Lymphocytes # (Manual) 0.93 L (1.0-4.8) k/uL PT 12.1 H (9.0-12.0) sec INR 1.3 H (<1.2) APTT 21.2 L (22.0-30.0) sec Sodium (137-145) mmol/L BUN (9-20) mg/dL Glucose (74-99) mg/dL Plasma Lactic Acid Papi (0.7-2.0) mmol/L Calcium (8.4-10.2) mg/dL AST (17-59) U/L Alkaline Phosphatase (38-126) U/L Total Protein (6.3-8.2) g/dL Albumin (3.5-5.0) g/dL Urine Protein (Negative) Urine Blood (Negative) Ur Leukocyte Esterase (Negative) Urine RBC (0-5) /hpf Urine WBC (0-5) /hpf Urine WBC Clumps (None) /hpf Amorphous Sediment (None) /hpf Urine Bacteria (None) /hpf Hyaline Casts (0-2) /lpf Urine Mucus (None) /hpf Crossmatch See Detail 12/30/17 12/30/17 12/30/17 Range/Units 10:20 10:20 11:11 WBC (3.8-10.6) k/uL RBC (4.30-5.90) m/uL Hgb (13.0-17.5) gm/dL Hct (39.0-53.0) % MCHC (31.0-37.0) g/dL RDW (11.5-15.5) % Plt Count (150-450) k/uL Neutrophils # (1.3-7.7) k/uL Neutrophils # (Manual) (1.3-7.7) k/uL Lymphocytes # (1.0-4.8) k/uL Lymphocytes # (Manual) (1.0-4.8) k/uL PT (9.0-12.0) sec INR (<1.2) APTT (22.0-30.0) sec Sodium 136 L (137-145) mmol/L BUN 27 H (9-20) mg/dL Glucose (74-99) mg/dL Plasma Lactic Acid Papi 2.9 H* (0.7-2.0) mmol/L Calcium 6.4 L* (8.4-10.2) mg/dL AST 60 H (17-59) U/L Alkaline Phosphatase 358 H (38-126) U/L Total Protein 4.2 L (6.3-8.2) g/dL Albumin 1.6 L (3.5-5.0) g/dL Urine Protein 1+ H (Negative) Urine Blood Moderate H (Negative) Ur Leukocyte Esterase Moderate H (Negative) Urine RBC 12 H (0-5) /hpf Urine WBC 23 H (0-5) /hpf Urine WBC Clumps Moderate H (None) /hpf Amorphous Sediment (None) /hpf Urine Bacteria Many H (None) /hpf Hyaline Casts (0-2) /lpf Urine Mucus Rare H (None) /hpf Crossmatch CT scan - abdomen: report reviewed, image reviewed (Imaging reviewed by myself signs of diffuse anasarca, no obstruction noted) CT scan - chest: report reviewed, image reviewed (Image reviewed by myself shows bilateral lower lobe infiltrates, diffuse anasarca) Thrombosis Risk Factor Assmnt - DVT/VTE Prophylaxis DVT/VTE Prophylaxis: Pharmacologic Prophylaxis ordered, Mechanical Prophylaxis ordered Assessment and Plan Assessment: Pyelonephritis with septic shock -Rocephin and Levaquin -Urine cultures -Blood cultures -IV fluids -Levophed to keep map greater than 55 -ID consultation Possible pneumonia -Add vancomycin for broad-spectrum antibiotic coverage -Pulmonary recommendations -ID consultation -Pulmonary hygiene -Repeat chest x-ray in a.m. -Speech evaluation Acute on chronic anemia that is symptomatic with hypotension -1 unit of packed red blood cells -Serial CBCs -Negative fecal occult blood despite being on oral iron therapy - await iron studies Intractable nausea and vomiting -Ice chips and water chips -We will advance diet if tolerates Severe protein calorie malnutrition -Consult dietitian will likely need she was in an additional supplementation Elevated lactic acidosis secondary to sepsis -IV fluids -Repeat lactic acid Hypothyroidism -Check TSH -Synthroid Sinus bradycardia with junctional escape rhythm - cardio consult - echo The patient is admitted with an anticipated greater than 2 midnight stay for evaluation of pyelonephritis with sepsis. Surrogate decision-maker: CODE STATUS: Full DVT prophylaxis: Lovenox Discussed with: Patient, sister, nursing, Dr. Palencia Anticipated discharge date: 4-[address]: home A total of 70 minutes was spent on the care of this complex patient more than 50 % of the time was spent in counseling and care coordination.
[2017-12-30 16:33] LABS: HCT 30.1 % (39.0-53.0); Hypochromasia Marked; MCH 25.7 pg (25.0-35.0); MCV 91.7 fL (80.0-100.0); Platelet Count 670 k/uL (150-450); RBC 3.28 m/uL (4.30-5.90); RDW 15.9 % (11.5-15.5); WBC 41.4 k/uL (3.8-10.6)
[2017-12-30 16:34] LABS: HGB 8.4 gm/dL (13.0-17.5)
[2017-12-30] MEDS ORDERED: VANCOMYCIN 1,750 MG in SODIUM CHLORIDE 0.9% 500 ML IVPB ONE (17:00)
[2017-12-30] MEDS: ARTIFICIAL TEARS-HYPROMELLOSE DROPS 15 ML BTL BOTH EYES SCH (20:13)
[2017-12-30 20:31] LABS: T4, Free (Free Thyroxine) 0.8 ng/dL (0.78-2.19)
[2017-12-30] MEDS ORDERED: PANTOPRAZOLE 40 MG/10 ML VIAL IVP SCH (21:00)
[2017-12-30 23:17] LABS: Anisocytosis Slight; HCT 29.4 % (39.0-53.0); HGB 9.2 gm/dL (13.0-17.5); Hypochromasia Moderate; MCH 26.3 pg (25.0-35.0); MCHC 31.1 g/dL (31.0-37.0); Platelet Count 671 k/uL (150-450); Poikilocytosis Slight; RBC 3.48 m/uL (4.30-5.90); RDW 16.3 % (11.5-15.5); WBC 38.9 k/uL (3.8-10.6)
[2017-12-30 23:19] LABS: MCV 84.6 fL (80.0-100.0)
[2017-12-31 04:31] LABS: Anisocytosis Slight; Basophils % (A) 0 %; Eosinophils % (A) 0 %; HCT 27.7 % (39.0-53.0); HGB 8.1 gm/dL (13.0-17.5); Hypochromasia Marked; Lymphocytes # (A) 0.9 k/uL (1.0-4.8); Lymphocytes % (A) 3 %; MCH 25.6 pg (25.0-35.0); MCHC 29.3 g/dL (31.0-37.0); MCV 87.5 fL (80.0-100.0); Mean Platelet Volume 7.5; Monocytes # (A) 0.8 k/uL (0-1.0); Monocytes % (A) 3 %; Neutrophils # (A) 29.9 k/uL (1.3-7.7); Neutrophils % (A) 93 %; Platelet Count 714 k/uL (150-450); RBC 3.17 m/uL (4.30-5.90); RDW 16.1 % (11.5-15.5); WBC 32.2 k/uL (3.8-10.6)
[2017-12-31 05:14] LABS: Anion Gap 7 mmol/L; Blood Urea Nitrogen 29 mg/dL (9-20); Calcium 6.7 mg/dL (8.4-10.2); Carbon Dioxide 22 mmol/L (22-30); Chloride 107 mmol/L (98-107); Glucose 95 mg/dL (74-99); Magnesium 2.2 mg/dL (1.6-2.3); Phosphorus 4.1 mg/dL (2.5-4.5); Potassium 4.4 mmol/L (3.5-5.1); Sodium 136 mmol/L (137-145)
[2017-12-31] MEDS: LEVOFLOXACIN 750MG-D5W PMX 750 MG in DEXTROSE/WATER 1 150ML.BAG IVPB SCH (05:26)
[2017-12-31] MEDS ORDERED: VANCOMYCIN 1,500 MG in SODIUM CHLORIDE 0.9% 250 ML IVPB SCH (06:00)
[2017-12-31] MEDS: LEVOTHYROXINE 112 MCG TAB PO SCH (06:43)
[2017-12-31] MEDS: ARTIFICIAL TEARS-HYPROMELLOSE DROPS 15 ML BTL BOTH EYES SCH ×2 (09:03→21:13)
[2017-12-31] MEDS: ENOXAPARIN 40 MG/0.4 ML SYRINGE SQ SCH (09:04)
[2017-12-31] MEDS: FAMOTIDINE 20 MG/2 ML VIAL IV SCH ×2 (09:04→21:13)
--- NOTE | 2017-12-31 09:27 | ECHOF ---
Referral Reason:hypotension MEASUREMENTS -------- HEIGHT: 182.9 cm WEIGHT: 103.9 kg BP: 86/62 RVIDd: 3.2 cm (< 3.3) IVSd: 1.2 cm (0.6 - 1.1) LVIDd: 3.6 cm (3.9 - 5.3) LVPWd: 1.2 cm (0.6 - 1.1) IVSs: 2.0 cm LVIDs: 2.2 cm LVPWs: 1.6 cm Ao Diam: 3.8 cm (2.0 - 3.7) AV Cusp: 2.3 cm (1.5 - 2.6) LA Diam: 3.4 cm (2.7 - 3.8) MV EXCURSION: 20.304 mm (> 18.000) MV EF SLOPE: 77 mm/s (70 - 150) EPSS: 0.5 cm MV E Alex: 0.68 m/s MV DecT: 398 ms MV A Alex: 0.75 m/s MV E/A Ratio: 0.91 AR PHT: 422 ms RAP: 5.00 mmHg RVSP: 24.79 mmHg FINDINGS -------- Undetermined rhythm. This was a technically difficult study with suboptimal views. The left ventricular size is normal. There is mild concentric left ventricular hypertrophy. Overa ll left ventricular systolic function is moderately impaired with, an EF between 35 - 40 %. The right ventricle is normal in size. The left atrial size is normal. The right atrium is normal in size. Lumason used Trace amount of aortic regurgitation. The mitral valve leaflets are mildly thickened. There is trace mitral regurgitation. Mild tricuspid regurgitation present. The right ventricular systolic pressure, as measured by Doppl er, is 24.79mmHg. Pulmonic valve appears structurally normal. The aortic root size is normal. The pericardium is normal. CONCLUSIONS -------- 1. Undetermined rhythm. 2. This was a technically difficult study with suboptimal views. 3. The left ventricular size is normal. 4. There is mild concentric left ventricular hypertrophy. 5. Overall left ventricular systolic function is moderately impaired with, an EF between 35 - 40 %. 6. The right ventricle is normal in size. 7. The left atrial size is normal. 8. The right atrium is normal in size. 9. Lumason used 10. Trace amount of aortic regurgitation. 11. The mitral valve leaflets are mildly thickened. 12. There is trace mitral regurgitation. 13. Mild tricuspid regurgitation present. 14. The right ventricular systolic pressure, as measured by Doppler, is 24.79mmHg. 15. Pulmonic valve appears structurally normal. 16. The aortic root size is normal. 17. The pericardium is normal. EDUCATION ADMINISTRATOR: Michelle Hannon RDCS
--- NOTE | 2017-12-31 09:50 | P.PN ---
Subjective Progress Note Date: 12/31/17 Principal diagnosis: Acute sepsis and septic shock, source could be urine, possibly related to pyelonephritis, right lower lobe pneumonia possibility is not excluded this is a 57-year-old white male with history of cerebral palsy, hypertension, mental developmental delay, thyroid cancer, previous history of colitis and diverticulitis, patient was brought in today from a halfway complaining ofnausea vomiting and diarrhea for the last 2 days. Had at least 5 episodes of vomiting and diarrhea, however no documented hematemesis, melena, and no abdominal pain. Bowel movements were noted to be dark in color. Upon arrival to the ER, patient was noted to be hypotensive.he was also noted to have a significant leukocytosis with WBC count of 30.9,lactic acid was 3.7,urine showed evidence of hematuria and pyuria, chest x-ray and CT of the chest were suggestive of basilar airspace disease, consistent with possible pneumonia especially on the right side.patient received multiple boluses of fluids in the ER, after 2 L of fluids, patient required to be placed on norepinephrine via a triple-lumen catheter which was placed by the ER physician in the right IJ vein. I evaluated the patient in the ICU, he improved with norepinephrine, he' ll be receiving a blood transfusion for his low hemoglobin,and we plan to give the patient broad-spectrum antibiotics. Patient had previous episode of sepsis and septic shock from right ankle cellulitis and septic joint, this was secondary to MSSA. And this was basically over 4 months ago. At present the patient is basically asymptomatic, denies any headaches, no blurred vision, no dizziness. Denies any chest pain, denies any nausea vomiting or abdominal pain while in the ICU, denies any dysuria frequency or urgency. Patient is not the greatest historian.CT of the abdomen and pelvis showed mostly body wall edema and at 10 cm hyperdense mass/collection around the right lower chest wall possibly chest wall hematoma. However the patient denies any trauma, and clinically the area seems to be tender, but no evidence of ecchymosis or bruising to suggest hematoma. There was also evidence of stranding around the kidneys bilaterally bladder wall thickening, and the patient may clearly have acute urinary tract infection/pyelonephritis. On 12/31/2017 patient seen in follow-up in the intensive care unit. He is awake and alert, denies any acute distress, no chest pain, no shortness of breath, on room air, his pulse ox is 99%, afebrile, systolic blood pressure is ranging from 80-90, and diastolic blood pressure is 50-60 mmHg, with a mean over 65. Urine output is 30-85 ML per hour. Current IV fluids 0.9 normal saline at a rate of KVO, and levo fed is currently at 2 mics per minute. Remains bradycardic, with a rate of 44-45 BPM. Patient has been adequately fluid resuscitated, his CVP is 13. His plasma lactic acid is down to 1.2. We' ll order a random serum cortisol, TSH was 14.1, but free T4 was 0.80. White count is trending down, WBC today is 32.2 from 38.9 from yesterday, hemoglobin is 8.1, platelet, 714, sodium is 136, potassium is 4.4, B1 is 29, creatinine 0.74. Urinalysis was consistent with infected urine. Microbiology results reviewed, urine culture is still pending, blood culture is negative. Patient remains on empiric antibiotics in the form of Rocephin, Levaquin and vancomycin. he has right foot chronic wound, which is in the final stages of healing, and is quite superficial at this time, with no drainage. Lung sounds are clear, no rhonchi, no wheezing. No chest pain, no shortness of breath, patient is awake and alert, responding appropriately, no altered mentation. Patient has evidence of quite extensive anasarca. No new chest x-rays today, esterase chest x-ray showed cardiomegaly, and bibasilar airspace disease, small bilateral pleural effusions. Objective - Vital Signs Vital signs: Vital Signs Temp 97.6 F 12/31/17 08:00 Pulse 44 L 12/31/17 08:30 Resp 21 12/31/17 08:30 BP 92/62 12/31/17 08:30 Pulse Ox 99 12/31/17 08:30 Intake & Output 12/30/17 12/31/17 12/31/17 18:59 06:59 18:59 Intake Total 1029.556 849.262 23 Output Total 515 530 60 Balance 514.556 319.262 -37 Weight 93.894 kg 104.1 kg Intake: IV 541 676 23 KVO 180 240 20 Levofloxacin 750Mg-D5w 150 Pmx 750 mg In Dextrose/ Water 1 150ml.bag @ 100 mls/hr IVPB Q24H [facility] Rx#: [id number] Pressure Bag 27 36 3 Vancomycin 1,500 mg In 250 Sodium Chloride 0.9% 250 ml @ 125 mls/hr IVPB Q12H [facility] Rx#:[id number] Vancomycin 1,750 mg In 334 Sodium Chloride 0.9% 500 ml @ 167 mls/hr IVPB ONCE ONE Rx#:[id number] Intake, IV Titration 178.556 173.262 Amount Norepinephrine 16 mg In 11.556 173.262 Sodium Chloride 0.9% 250 ml @ Titrate IV .Q0M [facility] Rx#:[id number] Vancomycin 1,750 mg In 167 Sodium Chloride 0.9% 500 ml @ 167 mls/hr IVPB ONCE ONE Rx#:[id number] Blood Product 310 Rc As-1 Unit 310 [id number] Output: Urine 515 530 60 Uretheral (Lorenzo) 75 Other: Voiding Method Indwelling Catheter Indwelling Catheter # Bowel Movements 1 - Exam Physical Exam: Revealed a 57-year-old white male, obese, pale looking, in no distress, on room air. Head: Atraumatic, normocephalic, HEENT:[Neck is supple.] [No neck masses.] [No thyromegaly.] [No JVD.] Dry mucous membranes, pale conjunctivae, no icterus. 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 Cardiac Exam: [Distant S1 and S2, no S3 gallop, no murmur.] Abdomen: [Morbidly obese, Soft, nontender, no megaly, no rebound, no guarding, normal bowel sounds.] Significant abdominal wall swelling and edema is noted. Extremities: Positive anasarca, 4+ bipedal edema noted.] Superficial healing right foot wound noted, nondraining, covered with a dressing Neurological Exam: [No gross focal neurologic deficit. Psychiatric: Normal mood and affect. Normal mental status examination. Lymphatics: No lymphadenopathy. - Labs CBC & Chem 7: 12/31/17 04:25 12/31/17 04:25 Labs: Abnormal Lab Results - Last 24 Hours (Table) 12/30/17 12/30/17 12/30/17 Range/Units 07:31 10:20 10:20 WBC 30.9 H (3.8-10.6) k/uL RBC 2.65 L (4.30-5.90) m/uL Hgb 6.8 L* (13.0-17.5) gm/dL Hct 23.5 L (39.0-53.0) % MCHC 28.8 L (31.0-37.0) g/dL RDW 16.2 H (11.5-15.5) % Plt Count 577 H (150-450) k/uL Neutrophils # (1.3-7.7) k/uL Neutrophils # (Manual) 29.90 H (1.3-7.7) k/uL Lymphocytes # (1.0-4.8) k/uL Lymphocytes # (Manual) 0.93 L (1.0-4.8) k/uL PT 12.1 H (9.0-12.0) sec INR 1.3 H (<1.2) APTT 21.2 L (22.0-30.0) sec Sodium (137-145) mmol/L BUN (9-20) mg/dL Plasma Lactic Acid Papi (0.7-2.0) mmol/L Calcium (8.4-10.2) mg/dL Ionized Calcium Wiliam (4.5-5.3) mg/dL AST (17-59) U/L Alkaline Phosphatase (38-126) U/L Total Protein (6.3-8.2) g/dL Albumin (3.5-5.0) g/dL TSH (0.465-4.680) mIU/L Urine Protein (Negative) Urine Blood (Negative) Ur Leukocyte Esterase (Negative) Urine RBC (0-5) /hpf Urine WBC (0-5) /hpf Urine WBC Clumps (None) /hpf Urine Bacteria (None) /hpf Urine Mucus (None) /hpf Crossmatch See Detail 12/30/17 12/30/17 12/30/17 Range/Units 10:20 10:20 10:20 WBC (3.8-10.6) k/uL RBC (4.30-5.90) m/uL Hgb (13.0-17.5) gm/dL Hct (39.0-53.0) % MCHC (31.0-37.0) g/dL RDW (11.5-15.5) % Plt Count (150-450) k/uL Neutrophils # (1.3-7.7) k/uL Neutrophils # (Manual) (1.3-7.7) k/uL Lymphocytes # (1.0-4.8) k/uL Lymphocytes # (Manual) (1.0-4.8) k/uL PT (9.0-12.0) sec INR (<1.2) APTT (22.0-30.0) sec Sodium 136 L (137-145) mmol/L BUN 27 H (9-20) mg/dL Plasma Lactic Acid Papi (0.7-2.0) mmol/L Calcium 6.4 L* (8.4-10.2) mg/dL Ionized Calcium Wilaim (4.5-5.3) mg/dL AST 60 H (17-59) U/L Alkaline Phosphatase 358 H (38-126) U/L Total Protein 4.2 L (6.3-8.2) g/dL Albumin 1.6 L (3.5-5.0) g/dL TSH 14.100 H (0.465-4.680) mIU/L Urine Protein 1+ H (Negative) Urine Blood Moderate H (Negative) Ur Leukocyte Esterase Moderate H (Negative) Urine RBC 12 H (0-5) /hpf Urine WBC 23 H (0-5) /hpf Urine WBC Clumps Moderate H (None) /hpf Urine Bacteria Many H (None) /hpf Urine Mucus Rare H (None) /hpf Crossmatch 12/30/17 12/30/17 12/30/17 Range/Units 11:11 16:18 16:18 WBC 41.4 H (3.8-10.6) k/uL RBC 3.28 L (4.30-5.90) m/uL Hgb 8.4 L D (13.0-17.5) gm/dL Hct 30.1 L (39.0-53.0) % MCHC 28.0 L (31.0-37.0) g/dL RDW 15.9 H (11.5-15.5) % Plt Count 670 H (150-450) k/uL Neutrophils # (1.3-7.7) k/uL Neutrophils # (Manual) (1.3-7.7) k/uL Lymphocytes # (1.0-4.8) k/uL Lymphocytes # (Manual) (1.0-4.8) k/uL PT (9.0-12.0) sec INR (<1.2) APTT (22.0-30.0) sec Sodium (137-145) mmol/L BUN (9-20) mg/dL Plasma Lactic Acid Papi 2.9 H* (0.7-2.0) mmol/L Calcium (8.4-10.2) mg/dL Ionized Calcium Wiliam 4.4 L (4.5-5.3) mg/dL AST (17-59) U/L Alkaline Phosphatase (38-126) U/L Total Protein (6.3-8.2) g/dL Albumin (3.5-5.0) g/dL TSH (0.465-4.680) mIU/L Urine Protein (Negative) Urine Blood (Negative) Ur Leukocyte Esterase (Negative) Urine RBC (0-5) /hpf Urine WBC (0-5) /hpf Urine WBC Clumps (None) /hpf Urine Bacteria (None) /hpf Urine Mucus (None) /hpf Crossmatch 12/30/17 12/31/17 12/31/17 Range/Units 23:02 04:25 04:25 WBC 38.9 H 32.2 H (3.8-10.6) k/uL RBC 3.48 L 3.17 L (4.30-5.90) m/uL Hgb 9.2 L 8.1 L (13.0-17.5) gm/dL Hct 29.4 L 27.7 L (39.0-53.0) % MCHC 29.3 L (31.0-37.0) g/dL RDW 16.3 H 16.1 H (11.5-15.5) % Plt Count 671 H 714 H (150-450) k/uL Neutrophils # 29.9 H (1.3-7.7) k/uL Neutrophils # (Manual) (1.3-7.7) k/uL Lymphocytes # 0.9 L (1.0-4.8) k/uL Lymphocytes # (Manual) (1.0-4.8) k/uL PT (9.0-12.0) sec INR (<1.2) APTT (22.0-30.0) sec Sodium 136 L (137-145) mmol/L BUN 29 H (9-20) mg/dL Plasma Lactic Acid Papi (0.7-2.0) mmol/L Calcium 6.7 L (8.4-10.2) mg/dL Ionized Calcium Wiliam (4.5-5.3) mg/dL AST (17-59) U/L Alkaline Phosphatase (38-126) U/L Total Protein (6.3-8.2) g/dL Albumin (3.5-5.0) g/dL TSH (0.465-4.680) mIU/L Urine Protein (Negative) Urine Blood (Negative) Ur Leukocyte Esterase (Negative) Urine RBC (0-5) /hpf Urine WBC (0-5) /hpf Urine WBC Clumps (None) /hpf Urine Bacteria (None) /hpf Urine Mucus (None) /hpf Crossmatch Microbiology - Last 24 Hours (Table) 12/30/17 03:48 Blood Culture - Final Blood 12/30/17 10:20 Urine Culture - Preliminary Urine,Catheterized Assessment and Plan Plan: Assessment: 1 acute sepsis and septic shock, sources could be urine, possible pyelonephritis , right lower lobe pneumonia is a possibility but felt to be less likely since the patient does not have any active pulmonary symptoms. Right ankle cellulitis is also unlikely since the patient had basically full treatment of his ankle cellulitis and sepsis. And this was over 4 months ago. And the findings on the ankle are not impressive. 2 acute pyelonephritis is strongly suspected, 3 right lower lobe atelectasis, doubt actual pneumonia. However pneumonia is not entirely ruled out at this point. 4 acute on chronic anemia, suspect GI blood losses especially with his black stools on presentation. This will eventually need further workup and GI evaluation. 5 anasarca and profound hypoalbuminemia. 6 multiple comorbidities including thyroid cancer, hypertension, multiple surgeries as noted in the past medical history including appendectomy, bowel resection, cholecystectomy, hernia repair, and thyroidectomy. And mental developmental delay. Recommendation: Continue weaning vasopressors, we will obtain a random serum cortisol, patient is currently down to 1 mcg/min on the levofed. Making adequate urine. No chest pain, no shortness of breath, no ongoing fevers. Urine culture is pending , blood culture showed no growth. Continue with current antibiotics in the form of Rocephin, Levaquin, and vancomycin. GI and DVT prophylaxis, remains bradycardic, relatively active and symptomatic. TSH was elevated, but free T4 was within normal limits. Patient is on thyroid hormone replacement. Patient has been adequately fluid resuscitated. We will order patient a diet, maintain aspiration precaution. I performed a history & physical examination of the patient and discussed their management with my nurse practitioner, Shannan Arenas. I reviewed the nurse practitioner's note and agree with the documented findings and plan of care. Lung sounds are clear. The findings and the impression was discussed with the patient. I attest to the documentation by the nurse practitioner. Critical care time is over 30 minutes Time with Patient: Greater than 30
[2017-12-31 10:24] LABS: Iron Saturation 2.78 (15.00-50.00)
--- NOTE | 2017-12-31 12:49 | P.CRDCN ---
History of Present Illness History of present illness: This is Dr. Gray dictating a consult on this patient The patient was interviewed and examined by me IMPRESSION / ASSESSMENT: Known cardiomyopathy Admitted with nausea vomiting diarrhea, improving Low blood pressure PLAN: Avoid cardiac medications for now until blood pressure improves Start statins HPI Patient admitted with nausea vomiting diarrhea. Lives in a [facility] in [place] ROS: No fever chills or rigors, no cough, phlegm or expectoration, + nausea, vomiting or diarrhea, no hematuria, dysuria, no musculoskeletal complaints, no strokes or seizures, no skin lesions. EXAMINATION resting comfortably in bed states he is hungry heart rate in the 40s blood pressure 83/60 mmHg Breath sounds are reduced bilaterally Heart sounds are soft Bilateral 2-3+ lower extremity edema Patient looks comfortable REVIEW OF LABS, ECG Twelve-lead ECG shows sinus rhythm normal NE narrow QRS incomplete right bundle branch block 70 beats a minute occasional PACs Hemoglobin 8.1, white count 32,000 Lactic acid 2.9 Normal troponins Past Medical History Past Medical History: Cancer, Chest Pain / Angina, Hypertension, Thyroid Disorder Additional Past Medical History / Comment(s): cerebral palsy and slight brain damage-able to talk read/write and walk,THYROID CA,per sister pt has colitis and diverticulitis, hemorroids that cause bleeding at times.past bowel blockage( sx)-sister stated his norm is runny stool History of Any Multi-Drug Resistant Organisms: None Reported Past Surgical History: Appendectomy, Bowel Resection, Cholecystectomy, Hernia Repair, Tonsillectomy Additional Past Surgical History / Comment(s): thyroid removed, multiple ear surgeries including grafts as child, I&D right knee, 1 testical removed along w / hernia repair and also a diaphramatic hernia sx, i&d right ankle Past Anesthesia/Blood Transfusion Reactions: No Reported Reaction Additional Past Anesthesia/Blood Transfusion Reaction / Comment(s): past blood transfusion as child -no known reaction Past Psychological History: No Psychological Hx Reported Smoking Status: Never smoker Past Alcohol Use History: None Reported Past Drug Use History: None Reported - Past Family History Mother Family Medical History: Diabetes Mellitus, Hypertension Father Family Medical History: Cancer Sister(s) History Unknown: Yes Family Medical History: Pulmonary Embolus Medications and Allergies Home Medications Medication Instructions Recorded Confirmed Type Folic Acid 2 mg PO DAILY 01/03/15 12/30/17 History Ferrous Sulfate [Iron (65 MG 325 mg PO BID 05/13/17 12/30/17 History Elemental)] Levothyroxine Sodium [Synthroid] 112 mcg PO QAM 05/13/17 12/30/17 History Multivitamins, Thera [Multivitamin 1 tab PO DAILY 05/13/17 12/30/17 History (formulary)] Famotidine [Pepcid] 20 mg PO BID #1 tablet 07/23/17 12/30/17 Rx Artificial Tears-Hypromellose 2 drops BOTH EYES BID 12/07/17 12/30/17 History [Artificial Tear Drops] Docusate [Colace] 100 mg PO Q12H PRN 12/07/17 12/30/17 History Ketotifen 0.025% Ophth Soln 1 drop BOTH EYES Q6H PRN 12/07/17 12/30/17 History [Zaditor] Acetaminophen [Tylenol] 650 mg PO Q8H PRN 12/30/17 12/30/17 History Ascorbic Acid [Vitamin C] 500 mg PO DAILY 12/30/17 12/30/17 History Bisacodyl [Dulcolax] 10 mg RECTAL DAILY PRN 12/30/17 12/30/17 History Furosemide [Lasix] 40 mg PO DAILY 12/30/17 12/30/17 History Loratadine [Claritin] 10 mg PO DAILY 12/30/17 12/30/17 History Magnesium Hydroxide [Milk of 7,200 mg PO DAILY PRN 12/30/17 12/30/17 History Magnesia Concentrate] Mineral Oil [Fleet Mineral Oil] 133 ml RECTAL ONCE PRN 12/30/17 12/30/17 History Naproxen 500 mg PO BID 12/30/17 12/30/17 History Sertraline HCl [Zoloft] 25 mg PO HS 12/30/17 12/30/17 History Allergies Allergy/AdvReac Type Severity Reaction Status Date / Time egg Allergy Severe Unknown Verified 12/30/17 13:48 Milk Containing Products Allergy Severe Unknown Verified 12/30/17 13:48 [Dairy] peanut Allergy Severe Unknown Verified 12/30/17 13:48 codeine Allergy Unknown Verified 12/30/17 13:48 Childhood corn Allergy Diarrhea Verified 12/30/17 13:48 lemon Allergy Diarrhea Verified 12/30/17 13:48 Penicillins Allergy Unknown Verified 12/30/17 13:48 Childhood tomato Allergy Diarrhea Verified 12/30/17 13:48 wheat Allergy Diarrhea Verified 12/30/17 13:48 Yeast Allergy Unknown Verified 12/30/17 13:48 cephalexin [From Keflex] AdvReac Nausea & Verified 12/30/17 13:48 Vomiting & Diarrhea Pork/Porcine Containing AdvReac Diarrhea Verified 12/30/17 13:48 Products [Pork] soy AdvReac Unknown Verified 12/30/17 13:48 strawberry AdvReac Diarrhea Verified 12/30/17 13:48 oranges Allergy Rash/Hives Uncoded 12/07/17 12:56 chocolate AdvReac Diarrhea Uncoded 12/07/17 12:56 grapes AdvReac Diarrhea Uncoded 12/07/17 12:56 pop AdvReac Diarrhea Uncoded 12/07/17 12:56 process lunch meat AdvReac Diarrhea Uncoded 12/07/17 12:56 rice AdvReac Diarrhea Uncoded 12/07/17 12:56 spices AdvReac Diarrhea Uncoded 12/07/17 12:56 vegtable oil AdvReac Diarrhea Uncoded 12/07/17 12:56 Physical Exam Vitals: Vital Signs Temp Pulse Resp BP Pulse Ox 12/31/17 12:00 97.9 F 44 L 19 83/60 98 12/31/17 11:45 42 L 10 L 85/55 99 12/31/17 11:30 42 L 11 L 82/56 99 12/31/17 11:15 44 L 21 82/56 98 12/31/17 11:00 45 L 13 83/56 98 12/31/17 10:45 45 L 18 91/57 99 12/31/17 10:30 43 L 14 85/56 99 12/31/17 10:15 45 L 17 85/56 100 12/31/17 10:00 44 L 15 86/59 99 12/31/17 09:45 45 L 20 83/55 99 12/31/17 09:30 44 L 18 87/56 98 12/31/17 09:15 46 L 21 87/56 99 12/31/17 09:00 42 L 13 87/62 99 12/31/17 08:45 47 L 11 L 92/62 99 12/31/17 08:30 44 L 21 92/62 99 12/31/17 08:15 45 L 17 86/56 98 12/31/17 08:00 97.6 F 45 L 17 80/56 99 12/31/17 07:45 44 L 21 86/62 97 12/31/17 07:30 43 L 14 84/58 96 12/31/17 07:00 43 L 24 80/51 98 12/31/17 06:30 46 L 13 80/58 96 12/31/17 06:00 50 L 17 90/57 95 12/31/17 05:30 43 L 8 L 91/57 97 12/31/17 05:00 43 L 12 87/57 98 12/31/17 04:30 44 L 13 97/59 93 L 12/31/17 04:00 98.1 F 46 L 14 99/70 97 12/31/17 03:41 16 12/31/17 03:30 45 L 16 82/62 98 12/31/17 03:00 45 L 13 82/59 97 12/31/17 02:30 45 L 24 97/62 97 12/31/17 02:00 46 L 15 87/65 97 12/31/17 01:30 53 L 21 102/66 95 12/31/17 01:00 47 L 14 96/63 97 12/31/17 00:30 47 L 10 L 82/60 98 12/31/17 00:00 97.8 F 47 L 12 91/58 97 12/30/17 23:30 47 L 17 99/65 97 12/30/17 23:20 14 12/30/17 23:00 49 L 16 95/64 97 12/30/17 22:30 49 L 14 95/64 96 18 22:00 49 L 15 90/60 96 18 21:30 48 L 12 91/62 96 18 21:08 48 L 16 95/63 98 12/30/17 21:00 42 L 14 95/63 96 12/30/17 20:30 50 L 16 97/73 98 12/30/17 20:00 98.2 F 50 L 15 95/69 98 12/30/17 19:30 49 L 11 L 107/66 100 12/30/17 19:00 49 L 13 99/64 97 12/30/17 18:30 49 L 17 102/65 99 12/30/17 18:00 49 L 16 100/66 99 12/30/17 17:30 52 L 18 98/63 97 12/30/17 17:00 48 L 14 105/64 97 12/30/17 16:15 49 L 14 110/65 97 12/30/17 16:00 98.3 F 51 L 19 108/70 98 12/30/17 15:45 48 L 13 92/85 98 12/30/17 15:30 49 L 12 87/62 98 12/30/17 15:15 48 L 10 L 87/65 96 12/30/17 15:14 98 F 47 L 14 87/65 99 12/30/17 15:00 47 L 14 93/56 99 12/30/17 14:45 51 L 12 93/61 96 12/30/17 14:30 51 L 13 94/58 98 12/30/17 14:15 55 L 13 106/58 97 12/30/17 14:00 50 L 10 L 95/63 97 12/30/17 13:45 51 L 10 L 101/56 98 12/30/17 13:30 51 L 12 98/55 94 L 12/30/17 13:15 53 L 13 92/58 97 12/30/17 13:00 53 L 14 77/48 93 L Intake and Output 12/30/17 12/31/17 12/31/17 22:59 06:59 14:59 Intake Total 995 780.262 95.834 Output Total 365 405 220 Balance 630 375.262 -124.166 Intake: IV 518 607 92 KVO 160 180 80 Levofloxacin 750Mg-D5w 150 Pmx 750 mg In Dextrose/ Water 1 150ml.bag @ 100 mls/hr IVPB Q24H [facility] Rx#: [id number] Pressure Bag 24 27 12 Vancomycin 1,500 mg In 250 Sodium Chloride 0.9% 250 ml @ 125 mls/hr IVPB Q12H [facility] Rx#:[id number] Vancomycin 1,750 mg In 334 Sodium Chloride 0.9% 500 ml @ 167 mls/hr IVPB ONCE ONE Rx#:[id number] Intake, IV Titration 167 173.262 3.834 Amount Norepinephrine 16 mg In 173.262 3.834 Sodium Chloride 0.9% 250 ml @ Titrate IV .Q0M [facility] Rx#:[id number] Vancomycin 1,750 mg In 167 Sodium Chloride 0.9% 500 ml @ 167 mls/hr IVPB ONCE ONE Rx#:[id number] Blood Product 310 Rc As-1 Unit 310 [id number] Output: Urine 365 405 220 Other: Voiding Method Indwelling Catheter Indwelling Catheter Indwelling Catheter # Bowel Movements 1 1 Weight 104.1 kg Results 12/31/17 04:25 12/31/17 04:25 Cardiac Enzymes 12/30/17 Range/Units 16:18 Troponin I 0.022 (0.000-0.034) ng/mL CBC 12/30/17 12/30/17 12/31/17 Range/Units 16:18 23:02 04:25 WBC 41.4 H 38.9 H 32.2 H (3.8-10.6) k/uL RBC 3.28 L 3.48 L 3.17 L (4.30-5.90) m/uL Hgb 8.4 L D 9.2 L 8.1 L (13.0-17.5) gm/dL Hct 30.1 L 29.4 L 27.7 L (39.0-53.0) % Plt Count 670 H 671 H 714 H (150-450) k/uL Comprehensive Metabolic Panel 12/30/17 12/31/17 Range/Units 16:18 04:25 Sodium 136 L (137-145) mmol/L Potassium 4.6 4.4 (3.5-5.1) mmol/L Chloride 107 (98-107) mmol/L Carbon Dioxide 22 (22-30) mmol/L BUN 29 H (9-20) mg/dL Creatinine 0.74 (0.66-1.25) mg/dL Glucose 95 (74-99) mg/dL Calcium 6.7 L (8.4-10.2) mg/dL Current Medications Generic Name Dose Route Start Last Admin Trade Name Freq PRN Reason Stop Dose Admin Artificial Tears 2 drops 12/30/17 21:00 12/31/17 09:03 Artificial Tear Drops BOTH EYES 2 drops BID JUDSON Administration Enoxaparin Sodium 40 mg 12/31/17 09:00 12/31/17 09:04 Lovenox SQ 40 mg DAILY JUDSON Administration Famotidine 20 mg 12/30/17 09:00 12/31/17 09:04 Pepcid IV 20 mg BID JDUSON Administration Ceftriaxone Sodium 1,000 mg/ 50 mls @ 100 mls/hr 12/31/17 09:00 12/31/17 09: 04 Sodium Chloride IVPB 100 mls/hr Q24HR JUDSON Administration Levofloxacin 750 mg/ IV 150 mls @ 100 mls/hr 12/31/17 06:00 12/31/17 05:26 Solution IVPB 100 mls/hr Q24H UJDSON Administration Norepinephrine Bitartrate 16 250 mls @ 0 mls/hr 12/30/17 11:15 12/31/17 09:00 mg/ Sodium Chloride IV 1 mcg/min .Q0M JUDSON 0.93 mls/hr Titration Protocol Titrate Vancomycin HCl 1,500 mg/ 250 mls @ 125 mls/hr 12/31/17 06:00 12/31/17 05:26 Sodium Chloride IVPB 125 mls/hr Q12H JUDSON Administration Levothyroxine Sodium 112 mcg 12/31/17 06:30 12/31/17 06:43 Synthroid PO 112 mcg DAILY@0630 JUDSON Administration Miscellaneous Information 0 each 01/01/18 05:00 Vancomycin Trough Due MISCELLANE 01/01/18 05:01 DIRECTED ONE Naloxone HCl 0.2 mg 12/30/17 11:16 Narcan IV Q2M PRN Opioid Reversal Intake and Output 12/30/17 12/31/17 12/31/17 22:59 06:59 14:59 Intake Total 995 780.262 95.834 Output Total 365 405 220 Balance 630 375.262 -124.166 Intake: IV 518 607 92 KVO 160 180 80 Levofloxacin 750Mg-D5w 150 Pmx 750 mg In Dextrose/ Water 1 150ml.bag @ 100 mls/hr IVPB Q24H [facility] Rx#: [id number] Pressure Bag 24 27 12 Vancomycin 1,500 mg In 250 Sodium Chloride 0.9% 250 ml @ 125 mls/hr IVPB Q12H [facility] Rx#:[id number] Vancomycin 1,750 mg In 334 Sodium Chloride 0.9% 500 ml @ 167 mls/hr IVPB ONCE ONE Rx#:[id number] Intake, IV Titration 167 173.262 3.834 Amount Norepinephrine 16 mg In 173.262 3.834 Sodium Chloride 0.9% 250 ml @ Titrate IV .Q0M [facility] Rx#:[id number] Vancomycin 1,750 mg In 167 Sodium Chloride 0.9% 500 ml @ 167 mls/hr IVPB ONCE ONE Rx#:[id number] Blood Product 310 Rc As-1 Unit 310 [id number] Output: Urine 365 405 220 Other: Voiding Method Indwelling Catheter Indwelling Catheter Indwelling Catheter # Bowel Movements 1 1 Weight 104.1 kg 12/31/17 04:25 12/31/17 04:25
--- NOTE | 2017-12-31 13:35 | P.CONS ---
History of Present Illness - Reason for Consult Consult date: 12/31/17 Sepsis - History of Present Illness This is a 57-year-old male patient who is known to ID service as he was initially seen during a May 2017 admission at which time he was treated for cellulitis of the right ankle with improvement during his stay. A boot was ordered by orthopedics and patient was discharged on cephalexin and was to continue to wear the boot at home. Patient has history of cerebral palsy. He was then admitted in July 2017 and treated for MRSA sepsis secondary to right ankle infection with tendon exposure and was discharged to [facility] with 6 week course of ceftriaxone. Patient completed course of antibiotics and PICC line was removed. He has had significant improvement of the wound to the right ankle. He presented to the [facility] emergency center on December 30 with nausea vomiting diarrhea vitamin going on for 2 days. Patient was febrile at 101.9, mildly tachycardic initially and hypotensive. He was given IV fluid boluses followed by norepinephrine and a central line was placed in the emergency center. Patient was then admitted into intensive care unit. He has been followed by Dr. Mei for sepsis most likely secondary to UTI. Patient is also followed by cardiology for bradycardia. Patient is currently on 1 Wilder Gary Levophed, he continues to be bradycardic in the 40s and 50s. He is to start a diet today. Patient states he has had 2 bowel movements only since he came into the hospital. He denies having any fever or chills. He does state he is feeling much better from yesterday. CT of the abdomen and pelvis showed body wall edema with partially visualized 10 cm hyperdense mass or collection along the lower right lateral chest wall possibly her chest wall hematoma. Atelectasis at the lung bases. Stranding around the kidneys bilaterally and mild bladder wall thickening. CT of the chest shows small bilateral effusions greater on the right than left. Basilar airspace disease greater on the right than left which may represent atelectasis or pneumonia. Mild cardiomegaly. Small [address] effusion. Dr. Mei is doubting pneumonia as cause for sepsis. Chest x-ray from yesterday shows bibasilar airspace disease. Small bilateral effusions. Lorenzo catheter has been placed. Blood cultures showing gram-negative bacilli and urine culture is in progress. Repeat blood culture is showing no growth after 24 hours. Review of Systems All systems: negative Constitutional: Reports weakness, Denies chills, Denies fever, Denies poor appetite Eyes: denies blurred vision, denies pain Ears, nose, mouth and throat: Denies dental pain, Denies dysphagia, Denies headache, Denies mouth pain, Denies sore throat, Denies vertigo Cardiovascular: Reports leg edema, Denies chest pain, Denies decreased exercise tolerance, Denies dyspnea on exertion, Denies lightheadedness, Denies shortness of breath, Denies syncope Respiratory: Denies cough, Denies cough with sputum, Denies dyspnea, Denies excessive sputum, Denies hemoptysis, Denies home oxygen, Denies wheezing Gastrointestinal: Reports diarrhea, Reports nausea, Reports vomiting, Denies abdominal pain Genitourinary: Denies dysuria Musculoskeletal: Denies myalgias Integumentary: Denies pruritus, Denies rash Neurological: Denies numbness, Denies weakness Psychiatric: Denies anxiety, Denies depression Endocrine: Denies fatigue, Denies weight change Past Medical History Past Medical History: Cancer, Chest Pain / Angina, Hypertension, Thyroid Disorder Additional Past Medical History / Comment(s): cerebral palsy and slight brain damage-able to talk read/write and walk,THYROID CA,per sister pt has colitis and diverticulitis, hemorroids that cause bleeding at times.past bowel blockage( sx)-sister stated his norm is runny stool History of Any Multi-Drug Resistant Organisms: None Reported Past Surgical History: Appendectomy, Bowel Resection, Cholecystectomy, Hernia Repair, Tonsillectomy Additional Past Surgical History / Comment(s): thyroid removed, multiple ear surgeries including grafts as child, I&D right knee, 1 testical removed along w / hernia repair and also a diaphramatic hernia sx, i&d right ankle Past Anesthesia/Blood Transfusion Reactions: No Reported Reaction Additional Past Anesthesia/Blood Transfusion Reaction / Comm: past blood transfusion as child -no known reaction Past Psychological History: No Psychological Hx Reported Smoking Status: Never smoker Past Alcohol Use History: None Reported Additional Past Alcohol Use History / Comment(s): Patient is single and resides at [facility] in [place]. No tobacco use. No alcohol use. No service. No international travel. No animal exposures. Never . Past Drug Use History: None Reported - Past Family History Mother Family Medical History: Diabetes Mellitus, Hypertension Father Family Medical History: Cancer Sister(s) History Unknown: Yes Family Medical History: Pulmonary Embolus Medications and Allergies Home Medications Medication Instructions Recorded Confirmed Type Folic Acid 2 mg PO DAILY 01/03/15 12/30/17 History Ferrous Sulfate [Iron (65 MG 325 mg PO BID 05/13/17 12/30/17 History Elemental)] Levothyroxine Sodium [Synthroid] 112 mcg PO QAM 05/13/17 12/30/17 History Multivitamins, Thera [Multivitamin 1 tab PO DAILY 05/13/17 12/30/17 History (formulary)] Famotidine [Pepcid] 20 mg PO BID #1 tablet 07/23/17 12/30/17 Rx Artificial Tears-Hypromellose 2 drops BOTH EYES BID 12/07/17 12/30/17 History [Artificial Tear Drops] Docusate [Colace] 100 mg PO Q12H PRN 12/07/17 12/30/17 History Ketotifen 0.025% Ophth Soln 1 drop BOTH EYES Q6H PRN 12/07/17 12/30/17 History [Zaditor] Acetaminophen [Tylenol] 650 mg PO Q8H PRN 12/30/17 12/30/17 History Ascorbic Acid [Vitamin C] 500 mg PO DAILY 12/30/17 12/30/17 History Bisacodyl [Dulcolax] 10 mg RECTAL DAILY PRN 12/30/17 12/30/17 History Furosemide [Lasix] 40 mg PO DAILY 12/30/17 12/30/17 History Loratadine [Claritin] 10 mg PO DAILY 12/30/17 12/30/17 History Magnesium Hydroxide [Milk of 7,200 mg PO DAILY PRN 12/30/17 12/30/17 History Magnesia Concentrate] Mineral Oil [Fleet Mineral Oil] 133 ml RECTAL ONCE PRN 12/30/17 12/30/17 History Naproxen 500 mg PO BID 12/30/17 12/30/17 History Sertraline HCl [Zoloft] 25 mg PO HS 12/30/17 12/30/17 History Allergies Allergy/AdvReac Type Severity Reaction Status Date / Time egg Allergy Severe Unknown Verified 12/30/17 13:48 Milk Containing Products Allergy Severe Unknown Verified 12/30/17 13:48 [Dairy] peanut Allergy Severe Unknown Verified 12/30/17 13:48 codeine Allergy Unknown Verified 12/30/17 13:48 Childhood corn Allergy Diarrhea Verified 12/30/17 13:48 lemon Allergy Diarrhea Verified 12/30/17 13:48 Penicillins Allergy Unknown Verified 12/30/17 13:48 Childhood tomato Allergy Diarrhea Verified 12/30/17 13:48 wheat Allergy Diarrhea Verified 12/30/17 13:48 Yeast Allergy Unknown Verified 12/30/17 13:48 cephalexin [From Keflex] AdvReac Nausea & Verified 12/30/17 13:48 Vomiting & Diarrhea Pork/Porcine Containing AdvReac Diarrhea Verified 12/30/17 13:48 Products [Pork] soy AdvReac Unknown Verified 12/30/17 13:48 strawberry AdvReac Diarrhea Verified 12/30/17 13:48 oranges Allergy Rash/Hives Uncoded 12/07/17 12:56 chocolate AdvReac Diarrhea Uncoded 12/07/17 12:56 grapes AdvReac Diarrhea Uncoded 12/07/17 12:56 pop AdvReac Diarrhea Uncoded 12/07/17 12:56 process lunch meat AdvReac Diarrhea Uncoded 12/07/17 12:56 rice AdvReac Diarrhea Uncoded 12/07/17 12:56 spices AdvReac Diarrhea Uncoded 12/07/17 12:56 vegtable oil AdvReac Diarrhea Uncoded 12/07/17 12:56 Physical Exam Vitals: Vital Signs Temp Pulse Resp BP Pulse Ox 12/31/17 10:30 43 L 14 85/56 99 12/31/17 10:15 45 L 17 85/56 100 12/31/17 10:00 44 L 15 86/59 99 12/31/17 09:45 45 L 20 83/55 99 12/31/17 09:30 44 L 18 87/56 98 12/31/17 09:15 46 L 21 87/56 99 12/31/17 09:00 42 L 13 87/62 99 12/31/17 08:45 47 L 11 L 92/62 99 12/31/17 08:30 44 L 21 92/62 99 12/31/17 08:15 45 L 17 86/56 98 12/31/17 08:00 97.6 F 45 L 17 80/56 99 12/31/17 07:45 44 L 21 86/62 97 12/31/17 07:30 43 L 14 84/58 96 12/31/17 07:00 43 L 24 80/51 98 12/31/17 06:30 46 L 13 80/58 96 12/31/17 06:00 50 L 17 90/57 95 12/31/17 05:30 43 L 8 L 91/57 97 12/31/17 05:00 43 L 12 87/57 98 12/31/17 04:30 44 L 13 97/59 93 L 12/31/17 04:00 98.1 F 46 L 14 99/70 97 12/31/17 03:41 16 12/31/17 03:30 45 L 16 82/62 98 12/31/17 03:00 45 L 13 82/59 97 12/31/17 02:30 45 L 24 97/62 97 12/31/17 02:00 46 L 15 87/65 97 12/31/17 01:30 53 L 21 102/66 95 12/31/17 01:00 47 L 14 96/63 97 12/31/17 00:30 47 L 10 L 82/60 98 12/31/17 00:00 97.8 F 47 L 12 91/58 97 12/30/17 23:30 47 L 17 99/65 97 12/30/17 23:20 14 12/30/17 23:00 49 L 16 95/64 97 12/30/17 22:30 49 L 14 95/64 96 12/30/17 22:00 49 L 15 90/60 96 12/30/17 21:30 48 L 12 91/62 96 12/30/17 21:08 48 L 16 95/63 98 12/30/17 21:00 42 L 14 95/63 96 12/30/17 20:30 50 L 16 97/73 98 12/30/17 20:00 98.2 F 50 L 15 95/69 98 12/30/17 19:30 49 L 11 L 107/66 100 12/30/17 19:00 49 L 13 99/64 97 12/30/17 18:30 49 L 17 102/65 99 12/30/17 18:00 49 L 16 100/66 99 12/30/17 17:30 52 L 18 98/63 97 12/30/17 17:00 48 L 14 105/64 97 12/30/17 16:15 49 L 14 110/65 97 12/30/17 16:00 98.3 F 51 L 19 108/70 98 12/30/17 15:45 48 L 13 92/85 98 12/30/17 15:30 49 L 12 87/62 98 12/30/17 15:15 48 L 10 L 87/65 96 12/30/17 15:14 98 F 47 L 14 87/65 99 12/30/17 15:00 47 L 14 93/56 99 12/30/17 14:45 51 L 12 93/61 96 12/30/17 14:30 51 L 13 94/58 98 12/30/17 14:15 55 L 13 106/58 97 12/30/17 14:00 50 L 10 L 95/63 97 12/30/17 13:45 51 L 10 L 101/56 98 12/30/17 13:30 51 L 12 98/55 94 L 12/30/17 13:15 53 L 13 92/58 97 12/30/17 13:00 53 L 14 77/48 93 L 12/30/17 12:45 53 L 14 86/48 94 L 12/30/17 12:30 48 L 23 86/51 97 12/30/17 12:21 98 F 48 L 10 L 110/55 97 12/30/17 12:15 98 F 115 H 15 84/52 97 12/30/17 12:00 64 11 L 71/46 97 12/30/17 11:55 98 F 52 L 18 80/57 100 12/30/17 11:51 98 F 53 L 18 82/55 100 12/30/17 11:45 98 F 52 L 16 77/57 100 12/30/17 11:41 98 F 52 L 16 77/57 100 12/30/17 11:30 98 F 52 L 18 85/52 99 12/30/17 11:15 56 L 13 86/53 100 Intake and Output 12/30/17 12/31/17 12/31/17 22:59 06:59 14:59 Intake Total 995 780.262 69 Output Total 365 405 140 Balance 630 375.262 -71 Intake: IV 518 607 69 KVO 160 180 60 Levofloxacin 750Mg-D5w 150 Pmx 750 mg In Dextrose/ Water 1 150ml.bag @ 100 mls/hr IVPB Q24H [facility] Rx#: [id number] Pressure Bag 24 27 9 Vancomycin 1,500 mg In 250 Sodium Chloride 0.9% 250 ml @ 125 mls/hr IVPB Q12H [facility] Rx#:[id number] Vancomycin 1,750 mg In 334 Sodium Chloride 0.9% 500 ml @ 167 mls/hr IVPB ONCE ONE Rx#:[id number] Intake, IV Titration 167 173.262 Amount Norepinephrine 16 mg In 173.262 Sodium Chloride 0.9% 250 ml @ Titrate IV .Q0M [facility] Rx#:[id number] Vancomycin 1,750 mg In 167 Sodium Chloride 0.9% 500 ml @ 167 mls/hr IVPB ONCE ONE Rx#:[id number] Blood Product 310 Rc As-1 Unit 310 [id number] Output: Urine 365 405 140 Other: Voiding Method Indwelling Catheter Indwelling Catheter Indwelling Catheter # Bowel Movements 1 1 Weight 104.1 kg Gen: This is a 57-year-old male patient. He is sitting up in bed and appears to be comfortable and in no acute distress. HEENT: Head is atraumatic, normocephalic. Pupils equal, round. Sclerae is anicteric. Conjunctiva pink. Oral mucous membranes are somewhat dry. No thrush or other lesions noted. Patient is edentulous. NECK: Supple. No JVD. No lymphadenopathy. No thyromegaly. LUNGS: Clear to auscultation. No wheezes or rhonchi. No intercostal retractions. HEART: Regular rate and rhythm. No murmur. ABDOMEN: Soft. Bowel sounds are present. No masses. No tenderness. No suprapubic tenderness. Lorenzo catheter draining clear urine. No CVA tenderness bilaterally EXTREMITIES: Dressing to the right ankle not removed. No lesions noted to the left foot. NEUROLOGICAL: Patient is awake, alert and oriented x3. He does have cerebral palsy but has excellent interactions. Results Results: Laboratory Results WBC 32.2 k/uL (3.8-10.6) H 12/31/17 04:25 RBC 3.17 m/uL (4.30-5.90) L 12/31/17 04:25 Hgb 8.1 gm/dL (13.0-17.5) L 12/31/17 04:25 Hct 27.7 % (39.0-53.0) L 12/31/17 04:25 MCV 87.5 fL (80.0-100.0) 12/31/17 04:25 MCH 25.6 pg (25.0-35.0) 12/31/17 04:25 MCHC 29.3 g/dL (31.0-37.0) L 12/31/17 04:25 RDW 16.1 % (11.5-15.5) H 12/31/17 04:25 Plt Count 714 k/uL (150-450) H 12/31/17 04:25 Neutrophils % 93 % 12/31/17 04:25 Neutrophils % (Manual) 82 % 12/30/17 10:20 Band Neutrophils % 15 % 12/30/17 10:20 Lymphocytes % 3 % 12/31/17 04:25 Lymphocytes % (Manual) 3 % 12/30/17 10:20 Monocytes % 3 % 12/31/17 04:25 Eosinophils % 0 % 12/31/17 04:25 Basophils % 0 % 12/31/17 04:25 Neutrophils # 29.9 k/uL (1.3-7.7) H 12/31/17 04:25 Neutrophils # (Manual) 29.90 k/uL (1.3-7.7) H 12/30/17 10:20 Lymphocytes # 0.9 k/uL (1.0-4.8) L 12/31/17 04:25 Lymphocytes # (Manual) 0.93 k/uL (1.0-4.8) L 12/30/17 10:20 Monocytes # 0.8 k/uL (0-1.0) 12/31/17 04:25 Eosinophils # 0.0 k/uL (0-0.7) 12/31/17 04:25 Basophils # 0.0 k/uL (0-0.2) 12/31/17 04:25 Nucleated RBCs 0 /100 WBC (0-0) 12/30/17 10:20 Manual Slide Review Performed 12/30/17 10:20 Toxic Granulation Present 12/30/17 10:20 Toxic Vacuolation Present 12/30/17 10:20 Polychromasia Present 12/30/17 10:20 Hypochromasia Marked 12/31/17 04:25 Poikilocytosis Slight 12/30/17 23:02 Poikilocytosis (manual Present 12/30/17 10:20 Anisocytosis Slight 12/31/17 04:25 Ovalocytes Present 12/30/17 10:20 PT 12.1 sec (9.0-12.0) H 12/30/17 10:20 INR 1.3 (<1.2) H 12/30/17 10:20 APTT 21.2 sec (22.0-30.0) L 12/30/17 10:20 Sodium 136 mmol/L (137-145) L 12/31/17 04:25 Potassium 4.4 mmol/L (3.5-5.1) 12/31/17 04:25 Chloride 107 mmol/L (98-107) 12/31/17 04:25 Carbon Dioxide 22 mmol/L (22-30) 12/31/17 04:25 Anion Gap 7 mmol/L 12/31/17 04:25 BUN 29 mg/dL (9-20) H 12/31/17 04:25 Creatinine 0.74 mg/dL (0.66-1.25) 12/31/17 04:25 Est GFR (CKD-EPI)AfAm >90 (>60 ml/min/1.73 sqM) 12/31/17 04:25 Est GFR (CKD-EPI)NonAf >90 (>60 ml/min/1.73 sqM) 12/31/17 04:25 Glucose 95 mg/dL (74-99) 12/31/17 04:25 POC Glucose (mg/dL) 85 mg/dL (75-99) 12/30/17 10:19 POC Glu Inside [employer] Trainer ID Judd Ashraf 12/30/17 10:19 Lactic Ac Sepsis Rflx Y 12/30/17 07:35 Plasma Lactic Acid Papi 1.2 mmol/L (0.7-2.0) 12/30/17 21:00 Calcium 6.7 mg/dL (8.4-10.2) L 12/31/17 04:25 Ionized Calcium Wiliam 4.4 mg/dL (4.5-5.3) L 12/30/17 16:18 Phosphorus 4.1 mg/dL (2.5-4.5) 12/31/17 04:25 Magnesium 2.2 mg/dL (1.6-2.3) 12/31/17 04:25 Iron 5 ug/dL (65-175) L 12/30/17 03:48 TIBC 180 ug/dL (228-460) L 12/30/17 03:48 Iron Saturation 2.78 (15.00-50.00) L 12/30/17 03:48 Ferritin 401.5 ng/mL (22.0-322.0) H 12/30/17 03:48 Total Bilirubin 0.5 mg/dL (0.2-1.3) 12/30/17 10:20 AST 60 U/L (17-59) H 12/30/17 10:20 ALT 37 U/L (21-72) 12/30/17 10:20 Alkaline Phosphatase 358 U/L (38-126) H 12/30/17 10:20 Troponin I 0.022 ng/mL (0.000-0.034) 12/30/17 16:18 Total Protein 4.2 g/dL (6.3-8.2) L 12/30/17 10:20 Albumin 1.6 g/dL (3.5-5.0) L 12/30/17 10:20 Amylase 71 U/L (30-110) 12/30/17 03:48 Lipase 172 U/L (23-300) 12/30/17 03:48 TSH 14.100 mIU/L (0.465-4.680) H 12/30/17 10:20 Free T4 0.80 ng/dL (0.78-2.19) 12/30/17 10:20 Cortisol 23 ug/dL 12/31/17 04:25 Urine Color Yellow 12/30/17 10:20 Urine Appearance Cloudy (Clear) 12/30/17 10:20 Urine pH 5.5 (5.0-8.0) 12/30/17 10:20 Ur Specific [place] 1.016 (1.001-1.035) 12/30/17 10:20 Urine Protein 1+ (Negative) H 12/30/17 10:20 Urine Glucose (UA) Negative (Negative) 12/30/17 10:20 Urine Ketones Negative (Negative) 12/30/17 10:20 Urine Blood Moderate (Negative) H 12/30/17 10:20 Urine Nitrite Negative (Negative) 12/30/17 10:20 Urine Bilirubin Negative (Negative) 12/30/17 10:20 Urine Urobilinogen 2.0 mg/dL (<2.0) 12/30/17 10:20 Ur Leukocyte Esterase Moderate (Negative) H 12/30/17 10:20 Urine RBC 12 /hpf (0-5) H 12/30/17 10:20 Urine WBC 23 /hpf (0-5) H 12/30/17 10:20 Urine WBC Clumps Moderate /hpf (None) H 12/30/17 10:20 Ur Squamous Epith Cells 1 /hpf (0-4) 12/30/17 10:20 Amorphous Sediment Occasional /hpf (None) H 12/30/17 05:44 Urine Bacteria Many /hpf (None) H 12/30/17 10:20 Hyaline Casts 4 /lpf (0-2) H 12/30/17 05:44 Urine Mucus Rare /hpf (None) H 12/30/17 10:20 Stool Occult Blood Negative (Negative) 12/30/17 07:00 Blood Type A Negative 12/30/17 07:31 Blood Type Recheck No 12/30/17 07:31 Antibody Screen NEGATIVE 12/30/17 07:31 Crossmatch See Detail 12/30/17 07:31 Spec Expiration Date 01/02/2018233012/30/17 07:31 CBC & Chem 7: 12/31/17 04:25 12/31/17 04:25 Labs: Abnormal Lab Results - Last 24 Hours (Table) 12/30/17 12/30/17 12/30/17 Range/Units 03:48 07:31 10:20 WBC 30.9 H (3.8-10.6) k/uL RBC 2.65 L (4.30-5.90) m/uL Hgb 6.8 L* (13.0-17.5) gm/dL Hct 23.5 L (39.0-53.0) % MCHC 28.8 L (31.0-37.0) g/dL RDW 16.2 H (11.5-15.5) % Plt Count 577 H (150-450) k/uL Neutrophils # (1.3-7.7) k/uL Neutrophils # (Manual) 29.90 H (1.3-7.7) k/uL Lymphocytes # (1.0-4.8) k/uL Lymphocytes # (Manual) 0.93 L (1.0-4.8) k/uL PT (9.0-12.0) sec INR (<1.2) APTT (22.0-30.0) sec Sodium (137-145) mmol/L BUN (9-20) mg/dL Plasma Lactic Acid Papi (0.7-2.0) mmol/L Calcium (8.4-10.2) mg/dL Ionized Calcium Wiliam (4.5-5.3) mg/dL Iron 5 L (65-175) ug/dL TIBC 180 L (228-460) ug/dL Iron Saturation 2.78 L (15.00-50.00) Ferritin 401.5 H (22.0-322.0) ng/mL AST (17-59) U/L Alkaline Phosphatase (38-126) U/L Total Protein (6.3-8.2) g/dL Albumin (3.5-5.0) g/dL TSH (0.465-4.680) mIU/L Crossmatch See Detail 12/30/17 12/30/17 12/30/17 Range/Units 10:20 10:20 10:20 WBC (3.8-10.6) k/uL RBC (4.30-5.90) m/uL Hgb (13.0-17.5) gm/dL Hct (39.0-53.0) % MCHC (31.0-37.0) g/dL RDW (11.5-15.5) % Plt Count (150-450) k/uL Neutrophils # (1.3-7.7) k/uL Neutrophils # (Manual) (1.3-7.7) k/uL Lymphocytes # (1.0-4.8) k/uL Lymphocytes # (Manual) (1.0-4.8) k/uL PT 12.1 H (9.0-12.0) sec INR 1.3 H (<1.2) APTT 21.2 L (22.0-30.0) sec Sodium 136 L (137-145) mmol/L BUN 27 H (9-20) mg/dL Plasma Lactic Acid Papi (0.7-2.0) mmol/L Calcium 6.4 L* (8.4-10.2) mg/dL Ionized Calcium Wiliam (4.5-5.3) mg/dL Iron (65-175) ug/dL TIBC (228-460) ug/dL Iron Saturation (15.00-50.00) Ferritin (22.0-322.0) ng/mL AST 60 H (17-59) U/L Alkaline Phosphatase 358 H (38-126) U/L Total Protein 4.2 L (6.3-8.2) g/dL Albumin 1.6 L (3.5-5.0) g/dL TSH 14.100 H (0.465-4.680) mIU/L Crossmatch 12/30/17 12/30/17 12/30/17 Range/Units 11:11 16:18 16:18 WBC 41.4 H (3.8-10.6) k/uL RBC 3.28 L (4.30-5.90) m/uL Hgb 8.4 L D (13.0-17.5) gm/dL Hct 30.1 L (39.0-53.0) % MCHC 28.0 L (31.0-37.0) g/dL RDW 15.9 H (11.5-15.5) % Plt Count 670 H (150-450) k/uL Neutrophils # (1.3-7.7) k/uL Neutrophils # (Manual) (1.3-7.7) k/uL Lymphocytes # (1.0-4.8) k/uL Lymphocytes # (Manual) (1.0-4.8) k/uL PT (9.0-12.0) sec INR (<1.2) APTT (22.0-30.0) sec Sodium (137-145) mmol/L BUN (9-20) mg/dL Plasma Lactic Acid Papi 2.9 H* (0.7-2.0) mmol/L Calcium (8.4-10.2) mg/dL Ionized Calcium Wiliam 4.4 L (4.5-5.3) mg/dL Iron (65-175) ug/dL TIBC (228-460) ug/dL Iron Saturation (15.00-50.00) Ferritin (22.0-322.0) ng/mL AST (17-59) U/L Alkaline Phosphatase (38-126) U/L Total Protein (6.3-8.2) g/dL Albumin (3.5-5.0) g/dL TSH (0.465-4.680) mIU/L Crossmatch 12/30/17 12/31/17 12/31/17 Range/Units 23:02 04:25 04:25 WBC 38.9 H 32.2 H (3.8-10.6) k/uL RBC 3.48 L 3.17 L (4.30-5.90) m/uL Hgb 9.2 L 8.1 L (13.0-17.5) gm/dL Hct 29.4 L 27.7 L (39.0-53.0) % MCHC 29.3 L (31.0-37.0) g/dL RDW 16.3 H 16.1 H (11.5-15.5) % Plt Count 671 H 714 H (150-450) k/uL Neutrophils # 29.9 H (1.3-7.7) k/uL Neutrophils # (Manual) (1.3-7.7) k/uL Lymphocytes # 0.9 L (1.0-4.8) k/uL Lymphocytes # (Manual) (1.0-4.8) k/uL PT (9.0-12.0) sec INR (<1.2) APTT (22.0-30.0) sec Sodium 136 L (137-145) mmol/L BUN 29 H (9-20) mg/dL Plasma Lactic Acid Papi (0.7-2.0) mmol/L Calcium 6.7 L (8.4-10.2) mg/dL Ionized Calcium Wiliam (4.5-5.3) mg/dL Iron (65-175) ug/dL TIBC (228-460) ug/dL Iron Saturation (15.00-50.00) Ferritin (22.0-322.0) ng/mL AST (17-59) U/L Alkaline Phosphatase (38-126) U/L Total Protein (6.3-8.2) g/dL Albumin (3.5-5.0) g/dL TSH (0.465-4.680) mIU/L Crossmatch Microbiology - Last 24 Hours (Table) 12/30/17 03:48 Blood Culture Gram Stain - Preliminary Blood Blood Culture - Preliminary Gram Neg Bacilli 12/30/17 03:48 Blood Culture - Final Blood 12/30/17 10:20 Urine Culture - Preliminary Urine,Catheterized Assessment and Plan Plan: Is a 57-year-old male patient who presented to hospital with sepsis and severe sepsis with septic shock requiring vasopressors. He is currently on Rocephin, Levaquin and vancomycin. Patient does not have history of MRSA and by Neulasta will be discontinued for now. Await cultures. Blood cultures showing gram-negative bacilli and urine culture in progress. Repeat blood culture showing no growth after 24 hours. Further recommendations as patient progresses. Continue supportive care. The above dictated assessment and findings were discussed with Dr. Brandt. The impression and plan of care have been directed as dictated. Priscila Vance nurse practitioner acting as scribe for Dr. Brandt.
[2017-12-31] MEDS: ATORVASTATIN 10 MG TAB PO SCH (21:13)
--- NOTE | 2017-12-31 21:49 | P.CON ---
Consult Note - . Consult date: 12/31/17 Assessment/Plan:: Pleasant 61-year-old male with multiple recent hospitalizations for discharge on 12/11/2017 for recent bout of E. coli pneumonia found at the time of his bronchoscopy. The patient had been treated as an outpatient levofloxacin E. coli was resistant and as he had marked improvement he was discharged home on intravenous ceftriaxone. The patient however rapidly became ill with fever cough and malaise and constantly was brought back to the emergency center and admitted for worsening pneumonia. Patient gradually improved and was discharged home on 12/18 on Rocephin and vancomycin for 14 days. Patient states he has been receiving his antibiotics as scheduled. He states he has been checking his temperature every evening at about 11:30 PM his been running 99.2 and he has been taking either Tylenol or Motrin but on Sunday evening it was 100 and he took Motrin and following that his temperature went up to 101.2 and he decided to come into [facility] for evaluation. Chest x-ray showed worsening bilateral airspace disease and infectious etiology is favored although pulmonary edema is a consideration. Interval development of bilateral pleural effusions. His temperature maximum 101.7, white count 7.3 with repeat 1.9. Troponins negative on 3 draws. Lactic acid initially 2.3 and repeat 1.9. Patient did receive 2 L of IV fluid and magnesium was replaced. He was started on cefepime and vancomycin by ID. At the time of this evaluation, patient is denying having any cough, sputum production, chest pain or shortness of breath. He denies any abdominal discomfort, loss of appetite, nausea, vomiting or diarrhea. He denies any dysuria. He has a PICC line in his left arm which he denies any pain or tenderness and states it has been functioning fine at home. Patient relates that he's feeling better today. Did have the onset of fever at home with only some mild pulmonary symptoms that appear to be attributable to some excessive fluid. His fever is improving at this time. Cultures are pending. In general he's had significant improvement since his recent hospitalization except for the onset of fever. There are many concerns as to why he is having fever. This has been discussed with the primary team. They' re trying to work with the for the patient to have his outpatient imaging performed to further evaluate potential tumor. We'll continue with current antibiotic therapy of cefepime which was changed from Rocephin with concerns to possible resistant pathogen such as Pseudomonas and continue vancomycin. Cultures for further help direct therapy. I agree with evaluation, assessment and plan as dictated by nurse practitioner Mrs. Priscila Vance.
--- NOTE | 2017-12-31 21:55 | P.CON ---
Consult Note - . Consult date: 12/31/17 Assessment/Plan:: This is a 57-year-old male patient who is known to ID service as he was initially seen during a May 2017 admission at which time he was treated for cellulitis of the right ankle with improvement during his stay. A boot was ordered by orthopedics and patient was discharged on cephalexin and was to continue to wear the boot at home. Patient has history of cerebral palsy. He was then admitted in July 2017 and treated for MRSA sepsis secondary to right ankle infection with tendon exposure and was discharged to [facility] with 6 week course of ceftriaxone. Patient completed course of antibiotics and PICC line was removed. He has had significant improvement of the wound to the right ankle. He presented to the [facility] emergency center on December 30 with nausea vomiting diarrhea vitamin going on for 2 days. Patient was febrile at 101.9, mildly tachycardic initially and hypotensive. He was given IV fluid boluses followed by norepinephrine and a central line was placed in the emergency center. Patient was then admitted into intensive care unit. He has been followed by Dr. Mei for sepsis most likely secondary to UTI. Patient is also followed by cardiology for bradycardia. Patient is currently on 1 Wilder Gary Levophed, he continues to be bradycardic in the 40s and 50s. He is to start a diet today. Patient states he has had 2 bowel movements only since he came into the hospital. He denies having any fever or chills. He does state he is feeling much better from yesterday. CT of the abdomen and pelvis showed body wall edema with partially visualized 10 cm hyperdense mass or collection along the lower right lateral chest wall possibly her chest wall hematoma. Atelectasis at the lung bases. Stranding around the kidneys bilaterally and mild bladder wall thickening. CT of the chest shows small bilateral effusions greater on the right than left. Basilar airspace disease greater on the right than left which may represent atelectasis or pneumonia. Mild cardiomegaly. Small [address]. [address] Mei is doubting pneumonia as cause for sepsis. Chest x-ray from yesterday shows bibasilar airspace disease. Small bilateral effusions. Lorenzo catheter has been placed. Blood cultures showing gram-negative bacilli and urine culture is in progress. Repeat blood culture is showing no growth after 24 hours. Please see the consult note as dictated by nurse practitioner Mrs. Priscila Vance. Pleasant 57-year-old male presents to Hospital as noted from his extended care facility with evidence of septic shock. Now showing marked improvement. Concerns to gram-negative sepsis from the urinary system. Imaging has shown the fluid collection possibly hematoma the chest wall which is nontender at this time. Patient is improving with antibiotics and fluid resuscitation. Current antibiotic therapy is Rocephin levofloxacin and vancomycin which will be adjusted as cultures become available, with evidence of gram-negative bacilli in his blood the vancomycin is discontinued. Follow cultures are requested. All the family's questions are answered to the best of our ability. I agree with evaluation, assessment and plan as dictated by nurse practitioner Mrs. Priscila Vance.
[2018-01-01] MEDS: NOREPINEPHRINE 16 MG in SODIUM CHLORIDE 0.9% 250 ML IV SCH (01:38)
[2018-01-01] MEDS ORDERED: VANCOMYCIN TROUGH DUE 1 EACH MISC MISCELLANE ONE (05:00)
[2018-01-01 05:29] LABS: Anion Gap 4 mmol/L; Blood Urea Nitrogen 32 mg/dL (9-20); Calcium 6.7 mg/dL (8.4-10.2); Carbon Dioxide 24 mmol/L (22-30); Chloride 106 mmol/L (98-107); Glucose 94 mg/dL (74-99); Magnesium 2.2 mg/dL (1.6-2.3); Phosphorus 2.8 mg/dL (2.5-4.5); Potassium 4.3 mmol/L (3.5-5.1); Sodium 134 mmol/L (137-145)
[2018-01-01] MEDS: LEVOFLOXACIN 750MG-D5W PMX 750 MG in DEXTROSE/WATER 1 150ML.BAG IVPB SCH (05:43)
[2018-01-01 06:02] LABS: Basophils # (A) 0.1 k/uL (0-0.2); Basophils % (A) 0 %; Eosinophils # (A) 0.4 k/uL (0-0.7); Eosinophils % (A) 2 %; HCT 28.3 % (39.0-53.0); HGB 8.2 gm/dL (13.0-17.5); Hypochromasia Marked; Lymphocytes # (A) 1.3 k/uL (1.0-4.8); Lymphocytes % (A) 6 %; MCH 25.9 pg (25.0-35.0); MCV 89.5 fL (80.0-100.0); Mean Platelet Volume 7.6; Monocytes # (A) 0.8 k/uL (0-1.0); Monocytes % (A) 4 %; Neutrophils # (A) 17.9 k/uL (1.3-7.7); Neutrophils % (A) 87 %; Platelet Count 702 k/uL (150-450); RBC 3.16 m/uL (4.30-5.90); RDW 15.8 % (11.5-15.5); WBC 20.7 k/uL (3.8-10.6)
[2018-01-01] MEDS: LEVOTHYROXINE 112 MCG TAB PO SCH (06:30)
[2018-01-01] MEDS ORDERED: HYDROCORTISONE SUCCINATE 100 MG/2 ML VIAL IV STA (07:14)
--- NOTE | 2018-01-01 08:00 | XR ---
EXAMINATION TYPE: XR chest 1V portable DATE OF EXAM: 01/01/2018 CLINICAL HISTORY: Difficulty breathing and pleural effusion progress study. TECHNIQUE: Single AP portable upright view of the chest is obtained. COMPARISON: Chest x-ray from 2 days earlier and older studies. CT chest 2 days earlier. FINDINGS: There is stable right internal jugular central venous catheter terminating in right atrium . There is persistent cardiomegaly with small bilateral pleural effusions and associated bibasilar at electasis and/or infiltrate. Upper lungs remain clear without pneumothorax. Old healed fracture defor mity left proximal humerus is suspected. IMPRESSION: Overall stable findings, cardiomegaly with small bilateral pleural effusions and associ ated bibasilar atelectasis and/or infiltrate all redemonstrated.
--- NOTE | 2018-01-01 08:42 | PN ---
PROGRESS NOTE DATE OF SERVICE: 12/31/2017 PRESENTING COMPLAINT: Positive blood cultures. INTERVAL HISTORY: This is a patient admitted to the ICU with sepsis and septic shock. Still being on Levophed 4 mcg. Patient has got a good urine output. No decreased appetite. Patient has baseline cerebral palsy. He had a chronic right ankle wound that is healing well. Now has a stage II on the right thigh. Pulse ox is doing well on room air. Patient has lower extremity edema. Patient also suspected to have a UTI. REVIEW OF SYSTEMS: Was attempted for constitutional, cardiovascular, GI, pulmonary; relevant findings as above. CURRENT MEDICATIONS: Reviewed that include IV ceftriaxone, IV Levaquin and IV Levophed. PHYSICAL EXAMINATION: Pulse 43, respirations 10, blood pressure 79/58, pulse ox 95% on room air. GENERAL APPEARANCE: Lying in bed, tired-appearing. EYES: Pupils equal, conjunctivae are normal. HEENT: External appearance of nose and ears normal. Oral cavity normal. NECK: JVD unable to assess, mass not palpable. RESPIRATORY: Effort normal. Lungs are clear lungs, slightly decreased breath sounds. CARDIOVASCULAR: First and second sounds are normal. Edema present. ABDOMEN: Soft, nontender. Liver and spleen not palpable. LYMPHATIC: No lymph nodes palpable in neck or axillae. PSYCHIATRY: Patient is able answer simple questions. INVESTIGATIONS: White count 32.2, hemoglobin 8.1, platelets 714, potassium 4.4, BUN 29, creatinine 0.74. The patient's urine and blood cultures are both growing gram-negative bacilli. ASSESSMENT: 1. Acute urinary tract infection, probably from sepsis, probably from acute cystitis causing sepsis with positive blood cultures causing septic shock requiring Levophed. 2. Cerebral palsy. 3. Hypothyroid. 4. Healed right ankle wound. 5. Stage II decubitus on the right thigh, present on admission. PLAN: Continue with IV fluids, Levophed, antibiotics in the form of ceftriaxone and Levaquin. Vancomycin was discontinued. Patient is being followed by Dr. Brandt, Infectious Disease. No family is present. The patient is slow to respond. MMODL / IJN: [id number] /
--- NOTE | 2018-01-01 08:50 | P.PN ---
Subjective Progress Note Date: 01/01/18 Principal diagnosis: Acute sepsis and septic shock, source could be urine, possibly related to pyelonephritis, right lower lobe pneumonia possibility is not excluded this is a 57-year-old white male with history of cerebral palsy, hypertension, mental developmental delay, thyroid cancer, previous history of colitis and diverticulitis, patient was brought in today from a senior living complaining ofnausea vomiting and diarrhea for the last 2 days. Had at least 5 episodes of vomiting and diarrhea, however no documented hematemesis, melena, and no abdominal pain. Bowel movements were noted to be dark in color. Upon arrival to the ER, patient was noted to be hypotensive.he was also noted to have a significant leukocytosis with WBC count of 30.9,lactic acid was 3.7,urine showed evidence of hematuria and pyuria, chest x-ray and CT of the chest were suggestive of basilar airspace disease, consistent with possible pneumonia especially on the right side.patient received multiple boluses of fluids in the ER, after 2 L of fluids, patient required to be placed on norepinephrine via a triple-lumen catheter which was placed by the ER physician in the right IJ vein. I evaluated the patient in the ICU, he improved with norepinephrine, he' ll be receiving a blood transfusion for his low hemoglobin,and we plan to give the patient broad-spectrum antibiotics. Patient had previous episode of sepsis and septic shock from right ankle cellulitis and septic joint, this was secondary to MSSA. And this was basically over 4 months ago. At present the patient is basically asymptomatic, denies any headaches, no blurred vision, no dizziness. Denies any chest pain, denies any nausea vomiting or abdominal pain while in the ICU, denies any dysuria frequency or urgency. Patient is not the greatest historian.CT of the abdomen and pelvis showed mostly body wall edema and at 10 cm hyperdense mass/collection around the right lower chest wall possibly chest wall hematoma. However the patient denies any trauma, and clinically the area seems to be tender, but no evidence of ecchymosis or bruising to suggest hematoma. There was also evidence of stranding around the kidneys bilaterally bladder wall thickening, and the patient may clearly have acute urinary tract infection/pyelonephritis. On 12/31/2017 patient seen in follow-up in the intensive care unit. He is awake and alert, denies any acute distress, no chest pain, no shortness of breath, on room air, his pulse ox is 99%, afebrile, systolic blood pressure is ranging from 80-90, and diastolic blood pressure is 50-60 mmHg, with a mean over 65. Urine output is 30-85 ML per hour. Current IV fluids 0.9 normal saline at a rate of KVO, and levo fed is currently at 2 mics per minute. Remains bradycardic, with a rate of 44-45 BPM. Patient has been adequately fluid resuscitated, his CVP is 13. His plasma lactic acid is down to 1.2. We' ll order a random serum cortisol, TSH was 14.1, but free T4 was 0.80. White count is trending down, WBC today is 32.2 from 38.9 from yesterday, hemoglobin is 8.1, platelet, 714, sodium is 136, potassium is 4.4, B1 is 29, creatinine 0.74. Urinalysis was consistent with infected urine. Microbiology results reviewed, urine culture is still pending, blood culture is negative. Patient remains on empiric antibiotics in the form of Rocephin, Levaquin and vancomycin. he has right foot chronic wound, which is in the final stages of healing, and is quite superficial at this time, with no drainage. Lung sounds are clear, no rhonchi, no wheezing. No chest pain, no shortness of breath, patient is awake and alert, responding appropriately, no altered mentation. Patient has evidence of quite extensive anasarca. No new chest x-rays today, esterase chest x-ray showed cardiomegaly, and bibasilar airspace disease, small bilateral pleural effusions. On 01/01/2018 patient seen in follow-up in the intensive care unit. He is awake and alert, denies any acute distress. Shortness of breath, no chest pain , no ongoing fevers. Room air pulse ox is 96%. Patient remains hypotensive, with systolic blood pressures in the 80s-100s, and diastolic blood pressures in the 50s. He is on levo fed drip at 9 mics per hour, and this is an increase from yesterday. Nonoliguric, he is producing urine in the order of 50-75 ML per hour. Has severe generalized anasarca related to hypoalbuminemia. Serum cortisol level was 23, we will give 1 dose of hydrocortisone 100 mg of his blood pressure. he may have a relative adrenal insufficiency. But clinically patient is asymptomatic, we can alert, answering questions appropriately, no altered mentation, nonoliguric. He is being treated for urinary tract infection , and urine cultures were positive growing gram-negative bacilli, remains on Rocephin and vancomycin. Maintenance IV fluid is 0.9 at a rate of 20 ML per hour. Today's chest x-ray has been reviewed, shows stable findings with small bilateral pleural effusions and associated bibasilar atelectasis. Objective - Vital Signs Vital signs: Vital Signs Temp 98.2 F 01/01/18 04:00 Pulse 44 L 01/01/18 07:00 Resp 18 01/01/18 07:00 BP 100/59 01/01/18 07:00 Pulse Ox 96 01/01/18 07:00 Intake & Output 12/31/17 01/01/18 01/01/18 18:59 06:59 18:59 Intake Total 237.756 329.782 123 Output Total 655 730 75 Balance -417.244 -400.218 48 Weight 104.1 kg 105 kg Intake: IV 230 276 123 KVO 200 240 20 Levofloxacin 750Mg-D5w 100 Pmx 750 mg In Dextrose/ Water 1 150ml.bag @ 100 mls/hr IVPB Q24H JUDSON Rx#: [id number] Pressure Bag 30 36 3 Intake, IV Titration 7.756 53.782 Amount Norepinephrine 16 mg In 7.756 53.782 Sodium Chloride 0.9% 250 ml @ Titrate IV .Q0M JUDSON Rx#:[id number] Output: Urine 655 730 75 Other: Voiding Method Indwelling Catheter Indwelling Catheter Indwelling Catheter # Bowel Movements 1 ABP, PAP, CO, CI - Last Documented Arterial Blood Pressure 79/53 - Exam Physical Exam: Revealed a 57-year-old white male, obese, pale looking, in no distress, on room air. Head: Atraumatic, normocephalic, HEENT:[Neck is supple.] [No neck masses.] [No thyromegaly.] [No JVD.] Dry mucous membranes, pale conjunctivae, no icterus. 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 Cardiac Exam: [Distant S1 and S2, no S3 gallop, no murmur.] Abdomen: [Morbidly obese, Soft, nontender, no megaly, no rebound, no guarding, normal bowel sounds.] Significant abdominal wall swelling and edema is noted. Extremities: Positive anasarca, 4+ bipedal edema noted.] Superficial healing right foot wound noted, nondraining, covered with a dressing Neurological Exam: [No gross focal neurologic deficit. Psychiatric: Normal mood and affect. Normal mental status examination. Lymphatics: No lymphadenopathy. - Labs CBC & Chem 7: 01/01/18 04:20 01/01/18 04:05 Labs: Abnormal Lab Results - Last 24 Hours (Table) 12/30/17 01/01/18 01/01/18 Range/Units 03:48 04:05 04:20 WBC 20.7 H (3.8-10.6) k/uL RBC 3.16 L (4.30-5.90) m/uL Hgb 8.2 L (13.0-17.5) gm/dL Hct 28.3 L (39.0-53.0) % MCHC 29.0 L (31.0-37.0) g/dL RDW 15.8 H (11.5-15.5) % Plt Count 702 H (150-450) k/uL Neutrophils # 17.9 H (1.3-7.7) k/uL Sodium 134 L (137-145) mmol/L BUN 32 H (9-20) mg/dL Calcium 6.7 L (8.4-10.2) mg/dL Iron 5 L (65-175) ug/dL TIBC 180 L (228-460) ug/dL Iron Saturation 2.78 L (15.00-50.00) Ferritin 401.5 H (22.0-322.0) ng/mL Microbiology - Last 24 Hours (Table) 12/30/17 10:20 Urine Culture - Preliminary Urine,Catheterized Gram Neg Bacilli 12/30/17 11:11 Blood Culture - Preliminary Blood No Growth after 24 hours 12/30/17 03:48 Blood Culture Gram Stain - Preliminary Blood Blood Culture - Preliminary Gram Neg Bacilli Assessment and Plan Plan: Assessment: 1 acute sepsis and septic shock, sources could be urine, possible pyelonephritis , right lower lobe pneumonia is a possibility but felt to be less likely since the patient does not have any active pulmonary symptoms. Right ankle cellulitis is also unlikely since the patient had basically full treatment of his ankle cellulitis and sepsis. And this was over 4 months ago. And the findings on the ankle are not impressive. 2 acute pyelonephritis is strongly suspected, 3 right lower lobe atelectasis, doubt actual pneumonia. However pneumonia is not entirely ruled out at this point. 4 acute on chronic anemia, suspect GI blood losses especially with his black stools on presentation. This will eventually need further workup and GI evaluation. 5 anasarca and profound hypoalbuminemia. 6 multiple comorbidities including thyroid cancer, hypertension, multiple surgeries as noted in the past medical history including appendectomy, bowel resection, cholecystectomy, hernia repair, and thyroidectomy. And mental developmental delay. Recommendation: We'll give the dose of IV hydrocortisone 100 mg, and observe the blood pressure. Patient's view of the requirement has increased since yesterday, although he is clinically is asymptomatic, Making adequate urine. No chest pain, no shortness of breath, no ongoing fevers. Urine culture is pending, blood culture showed no growth. Continue with current antibiotics in the form of Rocephin, and vancomycin. GI and DVT prophylaxis, remains bradycardic, TSH was elevated, patient is on thyroid hormone replacement. Patient has been adequately fluid resuscitated. I performed a history & physical examination of the patient and discussed their management with my nurse practitioner, Shannan Arenas. I reviewed the nurse practitioner's note and agree with the documented findings and plan of care. Lung sounds are diminished at the bases. The findings and the impression was discussed with the patient. I attest to the documentation by the nurse practitioner. Critical care time is over 30 minutes Time with Patient: Less than 30
[2018-01-01] MEDS ORDERED: LEVOTHYROXINE 75 MCG TAB PO ONE (09:03)
[2018-01-01] MEDS: ENOXAPARIN 40 MG/0.4 ML SYRINGE SQ SCH (09:17)
[2018-01-01] MEDS: ARTIFICIAL TEARS-HYPROMELLOSE DROPS 15 ML BTL BOTH EYES SCH ×2 (09:17→21:14)
[2018-01-01] MEDS: FAMOTIDINE 20 MG/2 ML VIAL IV SCH ×2 (09:17→21:15)
[2018-01-01] MEDS: ATORVASTATIN 10 MG TAB PO SCH (09:18)
[2018-01-01] MEDS: MEROPENEM 2 GM in SODIUM CHLORIDE 0.9% 100 ML IVPB SCH (16:16)
--- NOTE | 2018-01-01 19:08 | PN ---
PROGRESS NOTE DATE OF SERVICE: 01/01/2018. PRESENTING COMPLAINT: Positive blood cultures. INTERVAL HISTORY: This patient is in the ICU, presented with septic shock. Levophed dose has been up and down. Blood pressure has been running on the lower side. When I saw the patient, Levophed was over 3 mics. Edema still persists. The patient ate most of his food. Had a bowel movement yesterday. The patient has a stage II ulcer on the right thigh. Unable to communicate. Heart rate has running a bit on the low side. REVIEW OF SYSTEMS: Done for constitutional, cardiovascular, GI, pulmonary; relevant findings as above. CURRENT MEDICATIONS: Reviewed, that include Synthroid, IV meropenem, IV Levophed. EXAMINATION: Temperature is 97.8, pulse 49, respiratory rate 18, blood pressure 80/52, pulse ox 95 percent. GENERAL APPEARANCE: Lying in bed, awake, tired. EYES: Pupils equal. Conjunctivae normal. HEENT: External nose and ears normal. Oral cavity normal. NECK: JVD unable to assess. Mass not palpable. Respiratory effort normal. LUNGS: Decreased breath sounds. CARDIOVASCULAR: First and second heart sounds normal. Edema present. ABDOMEN: Soft, nontender. Liver and spleen not palpable. PSYCHIATRY: Awake, answering simple questions. INVESTIGATIONS: White count 20.7, hemoglobin 8.2. Chest x-ray personally reviewed by me, shows cardiomegaly, some pleural effusion. ASSESSMENT: 1. Acute urinary tract infection with cystitis, with both urine and blood cultures growing E. coli, probably acute cystitis with positive blood cultures causing septic shock, requiring Levophed. 2. Cerebral palsy. 3. Hypothyroid. 4. Healed right ankle wound. 5. Stage II decubitus on the right thigh, present on admission. PLAN: The patient remains on Levophed. Antibiotics in form of meropenem. Continue to follow closely. Prognosis is guarded. The patient remains in the ICU. MMODL / IJN: [id number] /
[2018-01-01] MEDS ORDERED: MIDODRINE 5 MG TAB PO ONE (19:13)
[2018-01-02] MEDS: MEROPENEM 2 GM in SODIUM CHLORIDE 0.9% 100 ML IVPB SCH ×3 (01:12→17:45)
[2018-01-02 04:38] LABS: Anion Gap 3 mmol/L; Blood Urea Nitrogen 31 mg/dL (9-20); Calcium 6.5 mg/dL (8.4-10.2); Carbon Dioxide 25 mmol/L (22-30); Chloride 108 mmol/L (98-107); Glucose 106 mg/dL (74-99); Magnesium 2.2 mg/dL (1.6-2.3); Phosphorus 2.1 mg/dL (2.5-4.5); Potassium 4.2 mmol/L (3.5-5.1); Sodium 136 mmol/L (137-145)
[2018-01-02 04:53] LABS: Anisocytosis Slight; Basophils % (A) 0 %; Eosinophils # (A) 0.1 k/uL (0-0.7); Eosinophils % (A) 1 %; HCT 24.4 % (39.0-53.0); HGB 7.2 gm/dL (13.0-17.5); Hypochromasia Marked; Lymphocytes # (A) 1.3 k/uL (1.0-4.8); Lymphocytes % (A) 14 %; MCH 25.6 pg (25.0-35.0); MCHC 29.4 g/dL (31.0-37.0); Mean Platelet Volume 7.3; Monocytes # (A) 0.4 k/uL (0-1.0); Monocytes % (A) 4 %; Neutrophils # (A) 7.1 k/uL (1.3-7.7); Neutrophils % (A) 79 %; Platelet Count 522 k/uL (150-450); RBC 2.81 m/uL (4.30-5.90); RDW 16.5 % (11.5-15.5)
[2018-01-02] MEDS: LEVOTHYROXINE 75 MCG TAB PO SCH (07:00)
[2018-01-02] MEDS ORDERED: MIDODRINE 5 MG TAB PO SCH (07:30)
[2018-01-02] MEDS ORDERED: MIDODRINE 5 MG TAB PO ONE (07:37)
[2018-01-02] MEDS: FAMOTIDINE 20 MG/2 ML VIAL IV SCH (08:01)
[2018-01-02] MEDS: ARTIFICIAL TEARS-HYPROMELLOSE DROPS 15 ML BTL BOTH EYES SCH (08:02)
[2018-01-02] MEDS: ENOXAPARIN 40 MG/0.4 ML SYRINGE SQ SCH (08:02)
[2018-01-02] MEDS: ATORVASTATIN 10 MG TAB PO SCH (08:03)
--- NOTE | 2018-01-02 08:42 | P.PN ---
Subjective Progress Note Date: 01/02/18 Principal diagnosis: Acute sepsis and septic shock, source could be urine, possibly related to pyelonephritis, right lower lobe pneumonia possibility is not excluded this is a 57-year-old white male with history of cerebral palsy, hypertension, mental developmental delay, thyroid cancer, previous history of colitis and diverticulitis, patient was brought in today from a [facility] complaining ofnausea vomiting and diarrhea for the last 2 days. Had at least 5 episodes of vomiting and diarrhea, however no documented hematemesis, melena, and no abdominal pain. Bowel movements were noted to be dark in color. Upon arrival to the ER, patient was noted to be hypotensive.he was also noted to have a significant leukocytosis with WBC count of 30.9,lactic acid was 3.7,urine showed evidence of hematuria and pyuria, chest x-ray and CT of the chest were suggestive of basilar airspace disease, consistent with possible pneumonia especially on the right side.patient received multiple boluses of fluids in the ER, after 2 L of fluids, patient required to be placed on norepinephrine via a triple-lumen catheter which was placed by the ER physician in the right IJ vein. I evaluated the patient in the ICU, he improved with norepinephrine, he' ll be receiving a blood transfusion for his low hemoglobin,and we plan to give the patient broad-spectrum antibiotics. Patient had previous episode of sepsis and septic shock from right ankle cellulitis and septic joint, this was secondary to MSSA. And this was basically over 4 months ago. At present the patient is basically asymptomatic, denies any headaches, no blurred vision, no dizziness. Denies any chest pain, denies any nausea vomiting or abdominal pain while in the ICU, denies any dysuria frequency or urgency. Patient is not the greatest historian.CT of the abdomen and pelvis showed mostly body wall edema and at 10 cm hyperdense mass/collection around the right lower chest wall possibly chest wall hematoma. However the patient denies any trauma, and clinically the area seems to be tender, but no evidence of ecchymosis or bruising to suggest hematoma. There was also evidence of stranding around the kidneys bilaterally bladder wall thickening, and the patient may clearly have acute urinary tract infection/pyelonephritis. On 12/31/2017 patient seen in follow-up in the intensive care unit. He is awake and alert, denies any acute distress, no chest pain, no shortness of breath, on room air, his pulse ox is 99%, afebrile, systolic blood pressure is ranging from 80-90, and diastolic blood pressure is 50-60 mmHg, with a mean over 65. Urine output is 30-85 ML per hour. Current IV fluids 0.9 normal saline at a rate of KVO, and levo fed is currently at 2 mics per minute. Remains bradycardic, with a rate of 44-45 BPM. Patient has been adequately fluid resuscitated, his CVP is 13. His plasma lactic acid is down to 1.2. We' ll order a random serum cortisol, TSH was 14.1, but free T4 was 0.80. White count is trending down, WBC today is 32.2 from 38.9 from yesterday, hemoglobin is 8.1, platelet, 714, sodium is 136, potassium is 4.4, B1 is 29, creatinine 0.74. Urinalysis was consistent with infected urine. Microbiology results reviewed, urine culture is still pending, blood culture is negative. Patient remains on empiric antibiotics in the form of Rocephin, Levaquin and vancomycin. he has right foot chronic wound, which is in the final stages of healing, and is quite superficial at this time, with no drainage. Lung sounds are clear, no rhonchi, no wheezing. No chest pain, no shortness of breath, patient is awake and alert, responding appropriately, no altered mentation. Patient has evidence of quite extensive anasarca. No new chest x-rays today, esterase chest x-ray showed cardiomegaly, and bibasilar airspace disease, small bilateral pleural effusions. On 01/01/2018 patient seen in follow-up in the intensive care unit. He is awake and alert, denies any acute distress. Shortness of breath, no chest pain , no ongoing fevers. Room air pulse ox is 96%. Patient remains hypotensive, with systolic blood pressures in the 80s-100s, and diastolic blood pressures in the 50s. He is on levo fed drip at 9 mics per hour, and this is an increase from yesterday. Nonoliguric, he is producing urine in the order of 50-75 ML per hour. Has severe generalized anasarca related to hypoalbuminemia. Serum cortisol level was 23, we will give 1 dose of hydrocortisone 100 mg of his blood pressure. he may have a relative adrenal insufficiency. But clinically patient is asymptomatic, we can alert, answering questions appropriately, no altered mentation, nonoliguric. He is being treated for urinary tract infection , and urine cultures were positive growing gram-negative bacilli, remains on Rocephin and vancomycin. Maintenance IV fluid is 0.9 at a rate of 20 ML per hour. Today's chest x-ray has been reviewed, shows stable findings with small bilateral pleural effusions and associated bibasilar atelectasis. On patient seen in follow-up in the intensive care unit. He is awake and alert, oriented 3, no acute distress. Currently on 2 L per nasal cannula, and his pulse ox is 97%, he remains bradycardic, and his heart rate is 40-44 bpm , afebrile. He is being treated for urinary tract infection and the culture was positive for E. coli. Blood cultures were positive for E. coli as well. Follow-up blood cultures show no growth after 48 hours. Patient is currently on meropenem. ID service is following. Levo fed was weaned off since 1800 yesterday evening on 01/01/2018. Patient's systolic blood pressure injuries from 70-80 mmHg, and his diastolic blood pressure is 40-50 mmHg. Patient's dose of Midrin will be increased to 10 mg 3 times a day. Clinically patient is asymptomatic, nonoliguric, and his producing urine in order of 45-125 ML per hour. No chest pain, no shortness of breath. Lung sounds are positive for minimal crackles at the bases, with incentive spirometry, increase activity as tolerated. These labs have been reviewed, and his leukocytosis has completely resolved, WBCs down to 9.0, hemoglobin 7.2, serum sodium is 136, potassium is 4.2, chloride is 108, BUN is 31, creatinine 0.71. Objective - Vital Signs Vital signs: Vital Signs Temp 98.4 F 01/02/18 04:00 Pulse 40 L 01/02/18 07:00 Resp 13 01/02/18 07:00 BP 73/42 01/02/18 07:00 Pulse Ox 97 01/02/18 07:00 Intake & Output 01/01/18 01/02/18 01/02/18 18:59 06:59 18:59 Intake Total 1642.939 366 23 Output Total 1190 580 125 Balance 452.939 -214 -102 Weight 105 kg Intake: IV 376 366 23 KVO 240 230 20 Levofloxacin 750Mg-D5w 100 Pmx 750 mg In Dextrose/ Water 1 150ml.bag @ 100 mls/hr IVPB Q24H [facility] Rx#: [id number] Meropenem 2 gm In Sodium 100 Chloride 0.9% 100 ml @ 200 mls/hr IVPB Q8HR [facility] Rx#:[id number] Pressure Bag 36 36 3 Intake, IV Titration 66.939 Amount Norepinephrine 16 mg In 66.939 Sodium Chloride 0.9% 250 ml @ Titrate IV .Q0M [facility] Rx#:[id number] Oral 1200 Output: Urine 1190 580 125 Other: Voiding Method Indwelling Catheter Indwelling Catheter ABP, PAP, CO, CI - Last Documented Arterial Blood Pressure 79/53 - Exam Physical Exam: Revealed a 57-year-old white male, obese, pale looking, in no distress, on 2 L per nasal cannula. Head: Atraumatic, normocephalic, HEENT:[Neck is supple.] [No neck masses.] [No thyromegaly.] [No JVD.] Dry mucous membranes, pale conjunctivae, no icterus. Chest: [[employer] breath sounds and crackles at the bases Cardiac Exam: [Distant S1 and S2, no S3 gallop, no murmur.] Abdomen: [Morbidly obese, Soft, nontender, no megaly, no rebound, no guarding, normal bowel sounds.] Significant abdominal wall swelling and edema is noted. Extremities: Positive anasarca, 4+ bipedal edema noted.] Superficial healing right foot wound noted, nondraining, covered with a dressing Neurological Exam: [No gross focal neurologic deficit. Psychiatric: Normal mood and affect. Normal mental status examination. Lymphatics: No lymphadenopathy. - Labs CBC & Chem 7: 01/02/18 04:10 01/02/18 04:10 Labs: Abnormal Lab Results - Last 24 Hours (Table) 01/02/18 01/02/18 Range/Units 04:10 04:10 RBC 2.81 L (4.30-5.90) m/uL Hgb 7.2 L (13.0-17.5) gm/dL Hct 24.4 L (39.0-53.0) % MCHC 29.4 L (31.0-37.0) g/dL RDW 16.5 H (11.5-15.5) % Plt Count 522 H (150-450) k/uL Sodium 136 L (137-145) mmol/L Chloride 108 H (98-107) mmol/L BUN 31 H (9-20) mg/dL Glucose 106 H (74-99) mg/dL Calcium 6.5 L (8.4-10.2) mg/dL Phosphorus 2.1 L (2.5-4.5) mg/dL Microbiology - Last 24 Hours (Table) 12/30/17 03:48 Blood Culture Gram Stain - Final Blood Blood Culture - Final Escherichia coli 12/30/17 11:11 Blood Culture - Preliminary Blood No Growth after 48 hours 12/30/17 10:20 Urine Culture - Final Urine,Catheterized Escherichia coli Assessment and Plan Plan: Assessment: 1 acute sepsis and septic shock, sources could be urine, possible pyelonephritis , right lower lobe pneumonia is a possibility but felt to be less likely since the patient does not have any active pulmonary symptoms. Right ankle cellulitis is also unlikely since the patient had basically full treatment of his ankle cellulitis and sepsis. And this was over 4 months ago. And the findings on the ankle are not impressive. 2 acute pyelonephritis is strongly suspected, urine cultures positive for E. coli 3 bacteremia, blood cultures positive for E. coli, follow-up cultures negative 4 right lower lobe atelectasis, doubt actual pneumonia. However pneumonia is not entirely ruled out at this point. 5 acute on chronic anemia, suspect GI blood losses especially with his black stools on presentation. This will eventually need further workup and GI evaluation. 6 anasarca and profound hypoalbuminemia. 7 multiple comorbidities including thyroid cancer, hypertension, multiple surgeries as noted in the past medical history including appendectomy, bowel resection, cholecystectomy, hernia repair, and thyroidectomy. And mental developmental delay. Recommendation: Continue antibiotics per ID service recommendation, patient is currently on meropenem, urine culture and blood cultures are positive for E. coli, follow blood culture is negative after 48 hours. Patient is afebrile, remains hypotensive, but clinically is asymptomatic, nonoliguric, awake and alert, and no altered mentation. No shortness of breath or chest pain. From pulmonary standpoint patient can be transferred out of the intensive care units to a regular medical surgical floor with remote telemetry. Midodrine will be increased to 10 mg 3 times daily. I performed a history & physical examination of the patient and discussed their management with my nurse practitioner, Shannan Arenas. I reviewed the nurse practitioner's note and agree with the documented findings and plan of care. Lung sounds are diminished at the bases. The findings and the impression was discussed with the patient. I attest to the documentation by the nurse practitioner. Critical care time is over 30 minutes Time with Patient: Greater than 30
[2018-01-02] MEDS: MIDODRINE 5 MG TAB PO SCH ×2 (17:45→22:58)
[2018-01-02] MEDS ORDERED: FAMOTIDINE 20 MG TAB PO SCH (21:00)
--- NOTE | 2018-01-02 23:09 | PN ---
PROGRESS NOTE DATE OF SERVICE: 01/02/2018 PRESENTING COMPLAINT: Positive blood cultures. INTERVAL HISTORY: Patient was in the ICU until this morning; presented with septic shock, now taken off the Levophed drip. Did tolerate his diet. Answering questions. Awake. REVIEW OF SYSTEMS: Done for constitutional, cardiovascular, GI, pulmonary; relevant findings as above. CURRENT MEDICATIONS: Reviewed. They include IV meropenem. PHYSICAL EXAMINATION: Temperature 96.7, pulse 51, respiration 18, blood pressure 117/69, pulse ox 92% on room air. GENERAL APPEARANCE: Lying in bed, awake, tired. EYES: Pupils equal. Conjunctivae normal. HEENT: External appearance of nose and ears normal. Oral cavity normal. NECK: JVD unable to assess. Mass not palpable. RESPIRATORY: Effort normal. LUNGS: Decreased breath sounds. CARDIOVASCULAR: First and second sounds normal. Edema present. ABDOMEN: Soft, nontender. Liver and spleen not palpable. PSYCHIATRY: Patient does answer questions. INVESTIGATIONS: White count 9, hemoglobin 7.2, potassium 4.2, BUN 31, creatinine 0.71. Patient's ultrasound report from [place] does report a well-defined non-shadowing extremely hyperechoic right posterior hepatic parenchymal lesion 5.9 x 3.9 x 3.8 cm in dimension. ASSESSMENT: 1. Acute urinary tract infection from cystitis with both urine and blood cultures positive for Escherichia coli causing septic shock, now off the Levophed. 2. Cerebral palsy. 3. Hypothyroid. 4. Healed right ankle wound. 5. Stage II decubitus on the right thigh, present on admission. 6. Right posterior hepatic parenchymal lesion 5.9 x 3.9 cm. PLAN: Continue current medication and treatment plan. Will get hepatic consultation for the lesion and may need a biopsy. Will follow. MMODL / IJN: [id number] /
[2018-01-03] MEDS: ARTIFICIAL TEARS-HYPROMELLOSE DROPS 15 ML BTL BOTH EYES SCH ×3 (00:20→21:25)
[2018-01-03] MEDS: FAMOTIDINE 20 MG TAB PO SCH ×3 (00:20→21:25)
[2018-01-03] MEDS: FAMOTIDINE 20 MG/2 ML VIAL IV SCH (00:27)
[2018-01-03] MEDS: MEROPENEM 2 GM in SODIUM CHLORIDE 0.9% 100 ML IVPB SCH ×3 (01:01→17:16)
[2018-01-03 08:00] LABS: Anisocytosis Slight; Basophils # (A) 0.1 k/uL (0-0.2); Basophils % (A) 1 %; Eosinophils # (A) 0.6 k/uL (0-0.7); Eosinophils % (A) 6 %; HCT 28.9 % (39.0-53.0); HGB 8.6 gm/dL (13.0-17.5); Hypochromasia Marked; Lymphocytes # (A) 1.4 k/uL (1.0-4.8); Lymphocytes % (A) 13 %; MCH 26.5 pg (25.0-35.0); MCHC 29.9 g/dL (31.0-37.0); MCV 88.7 fL (80.0-100.0); Mean Platelet Volume 7.5; Monocytes # (A) 0.5 k/uL (0-1.0); Monocytes % (A) 5 %; Neutrophils % (A) 74 %; Platelet Count 585 k/uL (150-450); RBC 3.26 m/uL (4.30-5.90); RDW 16.3 % (11.5-15.5); WBC 10.8 k/uL (3.8-10.6)
[2018-01-03 08:11] LABS: Anion Gap 1 mmol/L; Blood Urea Nitrogen 28 mg/dL (9-20); Carbon Dioxide 27 mmol/L (22-30); Chloride 109 mmol/L (98-107); Glucose 78 mg/dL (74-99); Magnesium 2.1 mg/dL (1.6-2.3); Phosphorus 2.4 mg/dL (2.5-4.5); Potassium 4.5 mmol/L (3.5-5.1); Sodium 137 mmol/L (137-145)
[2018-01-03] MEDS: LEVOTHYROXINE 75 MCG TAB PO SCH (10:13)
[2018-01-03] MEDS: MIDODRINE 5 MG TAB PO SCH ×3 (10:13→17:20)
[2018-01-03] MEDS: ATORVASTATIN 10 MG TAB PO SCH (10:14)
[2018-01-03] MEDS: ENOXAPARIN 40 MG/0.4 ML SYRINGE SQ SCH (10:14)
[2018-01-03 11:01] VITALS: BMI 33.2
[2018-01-03 11:27] LABS: Albumin 1.6 g/dL (3.5-5.0); Bilirubin, Delta 0.2 mg/dL (0.0-0.2); Total Bilirubin 0.2 mg/dL (0.2-1.3); Total Protein 3.9 g/dL (6.3-8.2)
--- NOTE | 2018-01-03 11:34 | P.CONS ---
History of Present Illness - Reason for Consult Consult date: 01/03/18 abnormal US possible liver lesion Requesting physician: Reginald Anderson - Chief Complaint Nausea vomiting diarrhea - History of Present Illness 57-year-old gentleman resident at [facility] in [place], [place] with a past medical history cerebral palsy, orchiectomy secondary to incarcerated hernia, right ankle wound , hernia repair, hemorrhoids, thyroid carcinoma, colonic diverticulosis, appendectomy, cholecystectomy, admitted 4 days ago with symptoms of nausea vomiting and nonbloody diarrhea septic shock with positive urine/blood cultures. He is presently receiving treatment for E. coli bacteremia, and acute E. coli UTI. He was monitored in the ICU setting and recently transferred to the medical floor. Patient has many siblings one of his sisters is his guardian and she provided the health history. Sister states he had an ultrasound of the kidneys performed in the outpatient setting and it reported a possible right liver lobe lesion. He has no history of known liver disorders or hepatitis. No history of alcoholism or intravenous drug abuse. Ultrasound report from [place] reported a well-defined non shadowing hyperechoic right posterior hepatic lesion 5.93.93.8 cm in dimension. No reports of weight loss or abdominal pain. No jaundice or acholic stools. Abdomen and pelvis CT as well as CT chest did not mention hepatic lesions. CT abdomen and pelvis reported enlarged liver with an unenhanced appearance the spleen pancreas. Gallbladder surgically absent. Presently liver function tests within normal limits except mild elevation of AP at 155. Total bilirubin range 0.2-0.8. AST 18-81. ALT 27-40. AP 155-527. Review of Systems History obtained from sister/guardian. Constitutional: Denies fever, chills, sweats, weight gain, or loss. History cerebral palsy. HEENT: Negative for migraines, blurred vision or loss, earaches, drainage, tinnitus, oral mucosal lesions, dysphagia, or odynophagia. Cardiac: Negative for chest pain, arrhythmias, or palpitation. Respiratory: Negative for shortness of breath, hemoptysis, cough, or sputum production. Gastrointestinal: See HPI for pertinent findings. Genitourinary: Negative for hematuria, urgency, frequency, polyuria, dysuria, or penile discharge. Musculoskeletal: Negative for muscle aches, swelling, arthritis, and arthralgias. Neurologic: Negative for stroke or TIA. Endocrine: Negative for thyroid problems. Skin: Negative for rash or itching. Psychiatric: Negative history for depression and anxiety ROS unobtainable: due to mental status Past Medical History Past Medical History: Cancer, Chest Pain / Angina, Hypertension, Thyroid Disorder Additional Past Medical History / Comment(s): cerebral palsy and slight brain damage-able to talk read/write and walk,THYROID CA,per sister pt has colitis and diverticulitis, hemorroids that cause bleeding at times.past bowel blockage( sx)-sister stated his norm is runny stool History of Any Multi-Drug Resistant Organisms: ESBL Year Discovered:: 12/30/17 ESBL-E.coli MDRO Source:: Urine Past Surgical History: Appendectomy, Bowel Resection, Cholecystectomy, Hernia Repair, Tonsillectomy Additional Past Surgical History / Comment(s): thyroid removed, multiple ear surgeries including grafts as child, I&D right knee, 1 testical removed along w / hernia repair and also a diaphramatic hernia sx, i&d right ankle Past Anesthesia/Blood Transfusion Reactions: No Reported Reaction Additional Past Anesthesia/Blood Transfusion Reaction / Comm: past blood transfusion as child -no known reaction Past Psychological History: No Psychological Hx Reported Smoking Status: Never smoker Past Alcohol Use History: None Reported Additional Past Alcohol Use History / Comment(s): Patient is single and resides at [facility] in [place]. No tobacco use. No alcohol use. No service. No international travel. No animal exposures. Never . Past Drug Use History: None Reported - Past Family History Mother Family Medical History: Diabetes Mellitus, Hypertension Father Family Medical History: Cancer Sister(s) History Unknown: Yes Family Medical History: Pulmonary Embolus Medications and Allergies Home Medications Medication Instructions Recorded Confirmed Type Folic Acid 2 mg PO DAILY 01/03/15 12/30/17 History Ferrous Sulfate [Iron (65 MG 325 mg PO BID 05/13/17 12/30/17 History Elemental)] Levothyroxine Sodium [Synthroid] 112 mcg PO QAM 05/13/17 12/30/17 History Multivitamins, Thera [Multivitamin 1 tab PO DAILY 05/13/17 12/30/17 History (formulary)] Famotidine [Pepcid] 20 mg PO BID #1 tablet 07/23/17 12/30/17 Rx Artificial Tears-Hypromellose 2 drops BOTH EYES BID 12/07/17 12/30/17 History [Artificial Tear Drops] Docusate [Colace] 100 mg PO Q12H PRN 12/07/17 12/30/17 History Ketotifen 0.025% Ophth Soln 1 drop BOTH EYES Q6H PRN 12/07/17 12/30/17 History [Zaditor] Acetaminophen [Tylenol] 650 mg PO Q8H PRN 12/30/17 12/30/17 History Ascorbic Acid [Vitamin C] 500 mg PO DAILY 12/30/17 12/30/17 History Bisacodyl [Dulcolax] 10 mg RECTAL DAILY PRN 12/30/17 12/30/17 History Furosemide [Lasix] 40 mg PO DAILY 12/30/17 12/30/17 History Loratadine [Claritin] 10 mg PO DAILY 12/30/17 12/30/17 History Magnesium Hydroxide [Milk of 7,200 mg PO DAILY PRN 12/30/17 12/30/17 History Magnesia Concentrate] Mineral Oil [Fleet Mineral Oil] 133 ml RECTAL ONCE PRN 12/30/17 12/30/17 History Naproxen 500 mg PO BID 12/30/17 12/30/17 History Sertraline HCl [Zoloft] 25 mg PO HS 12/30/17 12/30/17 History Allergies Allergy/AdvReac Type Severity Reaction Status Date / Time egg Allergy Severe Unknown Verified 12/30/17 13:48 Milk Containing Products Allergy Severe Unknown Verified 12/30/17 13:48 [Dairy] peanut Allergy Severe Unknown Verified 12/30/17 13:48 codeine Allergy Unknown Verified 12/30/17 13:48 Childhood corn Allergy Diarrhea Verified 12/30/17 13:48 lemon Allergy Diarrhea Verified 12/30/17 13:48 Penicillins Allergy Unknown Verified 12/30/17 13:48 Childhood tomato Allergy Diarrhea Verified 12/30/17 13:48 wheat Allergy Diarrhea Verified 12/30/17 13:48 Yeast Allergy Unknown Verified 12/30/17 13:48 cephalexin [From Keflex] AdvReac Nausea & Verified 12/30/17 13:48 Vomiting & Diarrhea Pork/Porcine Containing AdvReac Diarrhea Verified 12/30/17 13:48 Products [Pork] soy AdvReac Unknown Verified 12/30/17 13:48 strawberry AdvReac Diarrhea Verified 12/30/17 13:48 oranges Allergy Rash/Hives Uncoded 12/07/17 12:56 chocolate AdvReac Diarrhea Uncoded 12/07/17 12:56 grapes AdvReac Diarrhea Uncoded 12/07/17 12:56 pop AdvReac Diarrhea Uncoded 12/07/17 12:56 process lunch meat AdvReac Diarrhea Uncoded 12/07/17 12:56 rice AdvReac Diarrhea Uncoded 12/07/17 12:56 spices AdvReac Diarrhea Uncoded 12/07/17 12:56 vegtable oil AdvReac Diarrhea Uncoded 12/07/17 12:56 Physical Exam Vitals: Vital Signs Temp Pulse Pulse Resp BP BP Pulse Ox 01/03/18 05:17 97.6 F 51 L 18 98/58 96 01/02/18 20:57 96.7 F L 51 L 18 117/69 92 L 01/02/18 16:00 97.7 F 55 L 20 96/62 97 01/02/18 15:00 46 L 16 84/57 95 01/02/18 14:00 48 L 18 92/67 99 01/02/18 13:00 76/64 01/02/18 12:00 49 L 16 78/46 96 Intake and Output 01/02/18 01/03/18 01/03/18 22:59 06:59 14:59 Intake Total 840 330 Output Total 800 Balance 40 330 Intake: IV 40 240 KVO 40 240 Oral 800 90 Output: Urine 800 Other: Voiding Method Indwelling Catheter # Voids 2 Weight 105 kg General appearance: The patient is alert, oriented, in no acute distress. HET: Head is normocephalic and atraumatic. Pupils are equal and reactive. Oropharynx is clear without lesions. Neck: Supple without lymphadenopathy. Trachea midline. Right subclavian IV without erythema or drainage. Heart: S1 S2. Regular rate and rhythm. Lungs: No crackles or wheezes are heard. Abdomen: Soft, nontender, nondistended with bowel sounds. No peritoneal signs. No palpable organomegaly or masses. Extremities: Right upper extremity +3 edema positive radial +3. Normal skin color and turgor. No cyanosis, rash, ulceration, clubbing, or edema. Radial and pedal pulses are 2/4 bilaterally. Bilateral boot supports. Neurological: No focal deficits. Strength and sensation are grossly intact. Results CBC & Chem 7: 01/03/18 07:25 01/03/18 07:25 Labs: Abnormal Lab Results - Last 24 Hours (Table) 01/03/18 01/03/18 Range/Units 07:25 07:25 WBC 10.8 H (3.8-10.6) k/uL RBC 3.26 L (4.30-5.90) m/uL Hgb 8.6 L (13.0-17.5) gm/dL Hct 28.9 L (39.0-53.0) % MCHC 29.9 L (31.0-37.0) g/dL RDW 16.3 H (11.5-15.5) % Plt Count 585 H (150-450) k/uL Neutrophils # 8.0 H (1.3-7.7) k/uL Chloride 109 H (98-107) mmol/L BUN 28 H (9-20) mg/dL Creatinine 0.65 L (0.66-1.25) mg/dL Calcium 7.0 L (8.4-10.2) mg/dL Phosphorus 2.4 L (2.5-4.5) mg/dL Microbiology - Last 24 Hours (Table) 12/30/17 11:11 Blood Culture - Preliminary Blood No Growth after [address] scan - abdomen: report reviewed (Dr. Grimaldo) CT scan - chest: report reviewed (Dr. Grimaldo) Assessment and Plan (1) Abnormal ultrasound Narrative/Plan: 57-year-old gentleman with a history of cerebral palsy admitted with acute UTI E. coli bacteremia septic shock with outpatient ultrasound imaging reporting a non-shadowing hypoechoic lesion in the right hepatic lobe measuring 5.93.93.[address] imaging of chest abdomen and pelvis did not redemonstrate this lesion. Mild transaminitis on admission possibly related to sepsis with clinical improvement. Current Visit: Yes Status: Acute Code(s): R93.8 - ABNORMAL FINDINGS ON DIAGNOSTIC IMAGING OF BODY STRUCTURES SNOMED Code(s): 712376757 Plan: 1. Ultrasound abdomen to reevaluate possible presence of right hepatic lobe lesion; CT imaging did not redemonstrate lesion. We'll obtain a hepatitis panel , AFP and CA marker. Further recommendations forthcoming after review of ultrasound. Continue symptomatic supportive measures. Will follow closely with you. Thank you for this kind referral and the opportunity to participate in the care of your patient. This consultation was discussed with Dr. Grimaldo. The impression and plan of care have been directed as dictated.
--- NOTE | 2018-01-03 11:39 | P.PN ---
Subjective Progress Note Date: 01/03/18 Principal diagnosis: Acute sepsis and septic shock, source could be urine, possibly related to pyelonephritis, right lower lobe pneumonia possibility is not excluded this is a 57-year-old white male with history of cerebral palsy, hypertension, mental developmental delay, thyroid cancer, previous history of colitis and diverticulitis, patient was brought in today from a group home complaining ofnausea vomiting and diarrhea for the last 2 days. Had at least 5 episodes of vomiting and diarrhea, however no documented hematemesis, melena, and no abdominal pain. Bowel movements were noted to be dark in color. Upon arrival to the ER, patient was noted to be hypotensive.he was also noted to have a significant leukocytosis with WBC count of 30.9,lactic acid was 3.7,urine showed evidence of hematuria and pyuria, chest x-ray and CT of the chest were suggestive of basilar airspace disease, consistent with possible pneumonia especially on the right side.patient received multiple boluses of fluids in the ER, after 2 L of fluids, patient required to be placed on norepinephrine via a triple-lumen catheter which was placed by the ER physician in the right IJ vein. I evaluated the patient in the ICU, he improved with norepinephrine, he' ll be receiving a blood transfusion for his low hemoglobin,and we plan to give the patient broad-spectrum antibiotics. Patient had previous episode of sepsis and septic shock from right ankle cellulitis and septic joint, this was secondary to MSSA. And this was basically over 4 months ago. At present the patient is basically asymptomatic, denies any headaches, no blurred vision, no dizziness. Denies any chest pain, denies any nausea vomiting or abdominal pain while in the ICU, denies any dysuria frequency or urgency. Patient is not the greatest historian.CT of the abdomen and pelvis showed mostly body wall edema and at 10 cm hyperdense mass/collection around the right lower chest wall possibly chest wall hematoma. However the patient denies any trauma, and clinically the area seems to be tender, but no evidence of ecchymosis or bruising to suggest hematoma. There was also evidence of stranding around the kidneys bilaterally bladder wall thickening, and the patient may clearly have acute urinary tract infection/pyelonephritis. On 12/31/2017 patient seen in follow-up in the intensive care unit. He is awake and alert, denies any acute distress, no chest pain, no shortness of breath, on room air, his pulse ox is 99%, afebrile, systolic blood pressure is ranging from 80-90, and diastolic blood pressure is 50-60 mmHg, with a mean over 65. Urine output is 30-85 ML per hour. Current IV fluids 0.9 normal saline at a rate of KVO, and levo fed is currently at 2 mics per minute. Remains bradycardic, with a rate of 44-45 BPM. Patient has been adequately fluid resuscitated, his CVP is 13. His plasma lactic acid is down to 1.2. We' ll order a random serum cortisol, TSH was 14.1, but free T4 was 0.80. White count is trending down, WBC today is 32.2 from 38.9 from yesterday, hemoglobin is 8.1, platelet, 714, sodium is 136, potassium is 4.4, B1 is 29, creatinine 0.74. Urinalysis was consistent with infected urine. Microbiology results reviewed, urine culture is still pending, blood culture is negative. Patient remains on empiric antibiotics in the form of Rocephin, Levaquin and vancomycin. he has right foot chronic wound, which is in the final stages of healing, and is quite superficial at this time, with no drainage. Lung sounds are clear, no rhonchi, no wheezing. No chest pain, no shortness of breath, patient is awake and alert, responding appropriately, no altered mentation. Patient has evidence of quite extensive anasarca. No new chest x-rays today, esterase chest x-ray showed cardiomegaly, and bibasilar airspace disease, small bilateral pleural effusions. On 01/01/2018 patient seen in follow-up in the intensive care unit. He is awake and alert, denies any acute distress. Shortness of breath, no chest pain , no ongoing fevers. Room air pulse ox is 96%. Patient remains hypotensive, with systolic blood pressures in the 80s-100s, and diastolic blood pressures in the 50s. He is on levo fed drip at 9 mics per hour, and this is an increase from yesterday. Nonoliguric, he is producing urine in the order of 50-75 ML per hour. Has severe generalized anasarca related to hypoalbuminemia. Serum cortisol level was 23, we will give 1 dose of hydrocortisone 100 mg of his blood pressure. he may have a relative adrenal insufficiency. But clinically patient is asymptomatic, we can alert, answering questions appropriately, no altered mentation, nonoliguric. He is being treated for urinary tract infection , and urine cultures were positive growing gram-negative bacilli, remains on Rocephin and vancomycin. Maintenance IV fluid is 0.9 at a rate of 20 ML per hour. Today's chest x-ray has been reviewed, shows stable findings with small bilateral pleural effusions and associated bibasilar atelectasis. On patient seen in follow-up in the intensive care unit. He is awake and alert, oriented 3, no acute distress. Currently on 2 L per nasal cannula, and his pulse ox is 97%, he remains bradycardic, and his heart rate is 40-44 bpm , afebrile. He is being treated for urinary tract infection and the culture was positive for E. coli. Blood cultures were positive for E. coli as well. Follow-up blood cultures show no growth after 48 hours. Patient is currently on meropenem. ID service is following. Levo fed was weaned off since 1800 yesterday evening on 01/01/2018. Patient's systolic blood pressure injuries from 70-80 mmHg, and his diastolic blood pressure is 40-50 mmHg. Patient's dose of Midrin will be increased to 10 mg 3 times a day. Clinically patient is asymptomatic, nonoliguric, and his producing urine in order of 45-125 ML per hour. No chest pain, no shortness of breath. Lung sounds are positive for minimal crackles at the bases, with incentive spirometry, increase activity as tolerated. These labs have been reviewed, and his leukocytosis has completely resolved, WBCs down to 9.0, hemoglobin 7.2, serum sodium is 136, potassium is 4.2, chloride is 108, BUN is 31, creatinine 0.71. On 01/03/2018 patient seen in follow-up on medical surgical floor. She is resting comfortably in bed, he is in no acute distress. Room air pulse ox is 96 %, yesterday we increased the patient's dose of Midrin to 10 mg 3 times daily, and currently his systolic blood pressures are ranging from 92-110, diastolic blood pressure is in the 50s to 60s millimeters of mercury. Patient is afebrile , hemodynamically stable. He is awake and alert, oriented 3. No altered mentation, no confusion. She is being treated for urinary tract infection, and bacteremia, with cultures positive for E. coli. His white count is 10.8, hemoglobin is 8.6, electrolytes are relatively unremarkable, BUN is 28, creatinine 0.65. ID service is following, and meropenem has been discontinued. Objective - Vital Signs Vital signs: Vital Signs Temp 97.6 F 01/03/18 05:17 Pulse 51 L 01/03/18 05:17 Resp 18 01/03/18 05:17 BP 98/58 01/03/18 05:17 Pulse Ox 96 01/03/18 05:17 Intake & Output 01/02/18 01/03/18 01/03/18 18:59 06:59 18:59 Intake Total 826 650 Output Total 1175 Balance -349 650 Weight 105 kg Intake: IV 106 240 KVO 100 240 Pressure Bag 6 Oral 720 410 Output: Urine 1175 Other: Voiding Method Indwelling Catheter # Voids 2 ABP, PAP, CO, CI - Last Documented Arterial Blood Pressure 79/53 - Exam Physical Exam: Revealed a 57-year-old white male, obese, pale looking, in no distress, on 2 L per nasal cannula. Head: Atraumatic, normocephalic, HEENT:[Neck is supple.] [No neck masses.] [No thyromegaly.] [No JVD.] Dry mucous membranes, pale conjunctivae, no icterus. Chest: [Regulatory Affairs Consultant breath sounds and crackles at the bases Cardiac Exam: [Distant S1 and S2, no S3 gallop, no murmur.] Abdomen: [Morbidly obese, Soft, nontender, no megaly, no rebound, no guarding, normal bowel sounds.] Significant abdominal wall swelling and edema is noted. Extremities: Positive anasarca, 4+ bipedal edema noted.] Superficial healing right foot wound noted, nondraining, covered with a dressing Neurological Exam: [No gross focal neurologic deficit. Psychiatric: Normal mood and affect. Normal mental status examination. Lymphatics: No lymphadenopathy. - Labs CBC & Chem 7: 01/03/18 07:25 01/03/18 07:25 Labs: Abnormal Lab Results - Last 24 Hours (Table) 01/03/18 01/03/1801/03/18 Range/Units 07:25 07:25 07:25 WBC 10.8 H (3.8-10.6) k/uL RBC 3.26 L (4.30-5.90) m/uL Hgb 8.6 L (13.0-17.5) gm/dL Hct 28.9 L (39.0-53.0) % MCHC 29.9 L (31.0-37.0) g/dL RDW 16.3 H (11.5-15.5) % Plt Count 585 H (150-450) k/uL Neutrophils # 8.0 H (1.3-7.7) k/uL Chloride 109 H (98-107) mmol/L BUN 28 H (9-20) mg/dL Creatinine 0.65 L (0.66-1.25) mg/dL Calcium 7.0 L (8.4-10.2) mg/dL Phosphorus 2.4 L (2.5-4.5) mg/dL Alkaline Phosphatase 155 H (38-126) U/L Total Protein 3.9 L (6.3-8.2) g/dL Albumin 1.6 L (3.5-5.0) g/dL Microbiology - Last 24 Hours (Table) 12/30/17 11:11 Blood Culture - Preliminary Blood No Growth after 72 hours Assessment and Plan Plan: Assessment: 1 acute sepsis and septic shock, sources could be urine, possible pyelonephritis , right lower lobe pneumonia is a possibility but felt to be less likely since the patient does not have any active pulmonary symptoms. Right ankle cellulitis is also unlikely since the patient had basically full treatment of his ankle cellulitis and sepsis. And this was over 4 months ago. And the findings on the ankle are not impressive. 2 acute pyelonephritis is strongly suspected, urine cultures positive for E. coli 3 bacteremia, blood cultures positive for E. coli, follow-up cultures negative 4 right lower lobe atelectasis, doubt actual pneumonia. However pneumonia is not entirely ruled out at this point. 5 acute on chronic anemia, suspect GI blood losses especially with his black stools on presentation. This will eventually need further workup and GI evaluation. 6 anasarca and profound hypoalbuminemia. 7 multiple comorbidities including thyroid cancer, hypertension, multiple surgeries as noted in the past medical history including appendectomy, bowel resection, cholecystectomy, hernia repair, and thyroidectomy. And mental developmental delay. Recommendation: Continue current medical treatment, patient is doing well, no specific complaints, no chest pain, no shortness of breath, afebrile. He continues on IV meropenem, for urinary tract infection and bacteremia, with cultures positive for E. coli. No acute pulmonary complaints, stable. Encourage deep breathing and coughing, and a set of spirometry use. I performed a history & physical examination of the patient and discussed their management with my nurse practitioner, Shannan Arenas. I reviewed the nurse practitioner's note and agree with the documented findings and plan of care. Lung sounds are diminished at the bases. The findings and the impression was discussed with the patient. I attest to the documentation by the nurse practitioner. Critical care time is over 30 minutes Time with Patient: Less than 30
--- NOTE | 2018-01-03 13:06 | US ---
EXAMINATION TYPE: US abdomen limited DATE OF EXAM: 01/03/2018 COMPARISON: Ultrasound abdomen 03/11/2012, recent CT abdomen pelvis 12/30/2017 CLINICAL HISTORY: possible right lobe liver lesion; refer to CT. EXAM MEASUREMENTS: Liver Length: 12.4 cm Gallbladder Wall: Surgically absent CBD: 0.4 cm Right Kidney: mostly obscured by bowel gas, unable to obtain measurement Patient of large body habitus. Ordering nurse practitioner did not feel it was necessary for patient to be NPO for test, so patient is not NPO. This will cause some limitation on the examination. Excess davis overlying bowel gas, technically difficult and limited study. Pancreas: Obscured by bowel gas Liver: limited visualization, there does appear to be a lesion inferior to vs within liver measuring 4.3 x 3.8 x 4.6cm . This is hyperechoic and near the diaphragm. This corresponds to the finding on C T examination. The combination of these imaging studies suggest that this is a fat-containing lesion. Consider contrast MRI of the liver for additional evaluation. Gallbladder: Obscured by overlying bowel gas Evidence for sonographic Noe's sign: no CBD: wnl Right Kidney: mostly obscured by overlying bowel gas IMPRESSION: 1. Hyperechoic lesion within the right lobe liver. This appears to follow fat consistency on ultrasou nd and CT. Contrast MRI may provide additional information. This is new from prior ultrasound in 2011 .
--- NOTE | 2018-01-03 14:47 | US ---
EXAMINATION TYPE: US venous doppler duplex UE RT DATE OF EXAM: 01/03/2018 COMPARISON: NONE CLINICAL HISTORY: Rule out blood clot.. Right arm swelling, recent IV site SIDE PERFORMED: Right Limited scan, pt has IV site within right neck, unable to visualize right IJV, and most of subclavi an vein Right ulnar veins not visualized due to edema Right Arm: Negative for DVT, +positive SVT within right cephalic vein from antecubital fossa to forea rm IMPRESSION: 1. Right upper extremity negative for deep venous thrombosis. 2. Superficial thrombus is within the cephalic vein.
--- NOTE | 2018-01-03 17:24 | MR ---
EXAMINATION TYPE: MR abdomen wo/w con DATE OF EXAM: 01/03/2018 COMPARISON: Ultrasound today HISTORY: N & V, Rt hepatic lobe lesion seen on US CONTRAST: Standard multiplanar, multisequence MRI departmental protocol utilizing 10 mL intravenous Gadavist ga dolinium contrast. FINDINGS: Spleen appears normal. Liver shows no focal defect. There is no evidence of a pancreatic ma ss. Bile ducts are not dilated. Kidneys show no hydronephrosis. 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 There are bilateral pleural effusions. There is atelectasis a t the posterior lung bases. There is 4 x 3 cm mass in the right paraspinal region in the region of the right adrenal gland. This has fat signal on all sequences and does not enhance. The remainder of the exam is unremarkable. IMPRESSION: Pleural effusions and basilar pulmonary atelectasis. 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 This appears to account for the hyperechoic mass on the ultrasound exam today. 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
[2018-01-03 18:49] LABS: Alpha Fetoprotein, Tumor Mkr <2.5 ng/mL (0.0-7.9)
[2018-01-03 19:48] LABS: Hepatitis A Antibody IgM Non-Reactive (Non-Reactive); Hepatitis B Core IgM Non-Reactive (Non-Reactive)
--- NOTE | 2018-01-03 22:11 | P.PN ---
Subjective Progress Note Date: 01/03/18 This is a 57-year-old male patient who is known to ID service as he was initially seen during a May 2017 admission at which time he was treated for cellulitis of the right ankle with improvement during his stay. A boot was ordered by orthopedics and patient was discharged on cephalexin and was to continue to wear the boot at home. Patient has history of cerebral palsy. He was then admitted in July 2017 and treated for MRSA sepsis secondary to right ankle infection with tendon exposure and [facility] 6 week course of ceftriaxone. Patient completed course of antibiotics and PICC line was removed. He has had significant improvement of the wound to the right ankle. He presented to the [facility] emergency center on December 30 with nausea vomiting diarrhea vitamin going on for 2 days. Patient was febrile at 101.9, mildly tachycardic initially and hypotensive. He was given IV fluid boluses followed by norepinephrine and a central line was placed in the emergency center. Patient was then admitted into intensive care unit. He has been followed by Dr. Mei for sepsis most likely secondary to UTI. Patient is also followed by cardiology for bradycardia. Patient is currently on 1 Wilder Gayr Levophed, he continues to be bradycardic in the 40s and 50s. He is to start a diet today. Patient states he has had 2 bowel movements only since he came into the hospital. He denies having any fever or chills. He does state he is feeling much better from yesterday. CT of the abdomen and pelvis showed body wall edema with partially visualized 10 cm hyperdense mass or collection along the lower right lateral chest wall possibly her chest wall hematoma. Atelectasis at the lung bases. Stranding around the kidneys bilaterally and mild bladder wall thickening. CT of the chest shows small bilateral effusions greater on the right than left. Basilar airspace disease greater on the right than left which may represent atelectasis or pneumonia. Mild cardiomegaly. Small [address]. [address] Mei is doubting pneumonia as cause for sepsis. Chest x-ray from yesterday shows bibasilar airspace disease. Small bilateral effusions. Lorenzo catheter has been placed. Blood cultures showing gram-negative bacilli and urine culture is in progress. Repeat blood culture is showing no growth after 24 hours. 01/03/2018 patient is considerably improved. The patient is less short of breath. He complains of some discomfort from the catheter his neck. It's in a difficult spot. His breathing is improved and denies other acute difficulties. Lorenzo catheter is without discomfort Objective - Vital Signs Vital signs: Vital Signs Temp 98.8 F 01/03/18 21:31 Pulse 46 L 01/03/18 21:31 Resp 24 01/03/18 21:31 BP 83/53 01/03/18 21:31 Pulse Ox 95 01/03/18 21:31 Intake & Output 01/03/18 01/03/18 01/04/18 06:59 18:59 06:59 Intake Total 650 Output Total 875 800 Balance 650 -875 -800 Weight 105 kg Intake: IV 240 KVO 240 Oral 410 Output: Urine 875 800 Other: Voiding Method Urinal # Voids 2 1 1 # Bowel Movements 1 ABP, PAP, CO, CI - Last Documented Arterial Blood Pressure 79/53 - Exam Gen: This is a 57-year-old male patient. He is sitting up in bed and appears to be comfortable and in no acute distress. HEENT: Head is atraumatic, normocephalic. Pupils equal, round. Sclerae is anicteric. Conjunctiva pink. Oral mucous membranes are somewhat dry. No thrush or other lesions noted. Patient is edentulous. NECK: Supple. No JVD. No lymphadenopathy. No thyromegaly. LUNGS: Clear to auscultation. No wheezes or rhonchi. No intercostal retractions. HEART: Regular rate and rhythm. No murmur. ABDOMEN: Soft. Bowel sounds are present. No masses. No tenderness. No suprapubic tenderness. Lorenzo catheter draining clear urine. No CVA tenderness bilaterally EXTREMITIES: Dressing to the right ankle not removed. No lesions noted to the left foot. NEUROLOGICAL: Patient is awake, alert has CP with some difficulty with his speech but is easily understandable. - Labs CBC & Chem 7: 01/03/18 07:25 01/03/18 07:25 Labs: Abnormal Lab Results - Last 24 Hours (Table) 01/03/18 01/03/18 01/03/18 Range/Units 07:25 07:25 07:25 WBC 10.8 H (3.8-10.6) k/uL RBC 3.26 L (4.30-5.90) m/uL Hgb 8.6 L (13.0-17.5) gm/dL Hct 28.9 L (39.0-53.0) % MCHC 29.9 L (31.0-37.0) g/dL RDW 16.3 H (11.5-15.5) % Plt Count 585 H (150-450) k/uL Neutrophils # 8.0 H (1.3-7.7) k/uL Chloride 109 H (98-107) mmol/L BUN 28 H (9-20) mg/dL Creatinine 0.65 L (0.66-1.25) mg/dL Calcium 7.0 L (8.4-10.2) mg/dL Phosphorus 2.4 L (2.5-4.5) mg/dL Alkaline Phosphatase 155 H (38-126) U/L Total Protein 3.9 L (6.3-8.2) g/dL Albumin 1.6 L (3.5-5.0) g/dL Microbiology - Last 24 Hours (Table) 12/30/17 11:11 Blood Culture - Preliminary Blood No Growth after 96 hours Laboratory Results WBC 10.8 k/uL (3.8-10.6) H 01/03/18 07:25 RBC 3.26 m/uL (4.30-5.90) L 01/03/18 07:25 Hgb 8.6 gm/dL (13.0-17.5) L 01/03/18 07:25 Hct 28.9 % (39.0-53.0) L 01/03/18 07:25 MCV 88.7 fL (80.0-100.0) 01/03/18 07:25 MCH 26.5 pg (25.0-35.0) 01/03/18 07:25 MCHC 29.9 g/dL (31.0-37.0) L 01/03/18 07:25 RDW 16.3 % (11.5-15.5) H 01/03/18 07:25 Plt Count 585 k/uL (150-450) H 01/03/18 07:25 Neutrophils % 74 % 01/03/18 07:25 Neutrophils % (Manual) 82 % 12/30/17 10:20 Band Neutrophils % 15 % 12/30/17 10:20 Lymphocytes % 13 % 01/03/18 07:25 Lymphocytes % (Manual) 3 % 12/30/17 10:20 Monocytes % 5 % 01/03/18 07:25 Eosinophils % 6 % 01/03/18 07:25 Basophils % 1 % 01/03/18 07:25 Neutrophils # 8.0 k/uL (1.3-7.7) H 01/03/18 07:25 Neutrophils # (Manual) 29.90 k/uL (1.3-7.7) H 12/30/17 10:20 Lymphocytes # 1.4 k/uL (1.0-4.8) 01/03/18 07:25 Lymphocytes # (Manual) 0.93 k/uL (1.0-4.8) L 12/30/17 10:20 Monocytes # 0.5 k/uL (0-1.0) 01/03/18 07:25 Eosinophils # 0.6 k/uL (0-0.7) 01/03/18 07:25 Basophils # 0.1 k/uL (0-0.2) 01/03/18 07:25 Nucleated RBCs 0 /100 WBC (0-0) 12/30/17 10:20 Manual Slide Review Performed 12/30/17 10:20 Toxic Granulation Present 12/30/17 10:20 Toxic Vacuolation Present 12/30/17 10:20 Polychromasia Present 12/30/17 10:20 Hypochromasia Marked 01/03/18 07:25 Poikilocytosis Slight 12/30/17 23:02 Poikilocytosis (manual Present 12/30/17 10:20 Anisocytosis Slight 01/03/18 07:25 Ovalocytes Present 12/30/17 10:20 PT 12.1 sec (9.0-12.0) H 12/30/17 10:20 INR 1.3 (<1.2) H 12/30/17 10:20 APTT 21.2 sec (22.0-30.0) L 12/30/17 10:20 Sodium 137 mmol/L (137-145) 01/03/18 07:25 Potassium 4.5 mmol/L (3.5-5.1) 01/03/18 07:25 Chloride 109 mmol/L (98-107) H 01/03/18 07:25 Carbon Dioxide 27 mmol/L (22-30) 01/03/18 07:25 Anion Gap 1 mmol/L 01/03/18 07:25 BUN 28 mg/dL (9-20) H 01/03/18 07:25 Creatinine 0.65 mg/dL (0.66-1.25) L 01/03/18 07:25 Est GFR (CKD-EPI)AfAm >90 (>60 ml/min/1.73 sqM) 01/03/18 07:25 Est GFR (CKD-EPI)NonAf >90 (>60 ml/min/1.73 sqM) 01/03/18 07:25 Glucose 78 mg/dL (74-99) 01/03/18 07:25 POC Glucose (mg/dL) 85 mg/dL (75-99) 12/30/17 10:19 POC Glu Casing Man ID Judd Ashraf 12/30/17 10:19 Lactic Ac Sepsis Rflx Y 12/30/17 07:35 Plasma Lactic Acid Papi 1.2 mmol/L (0.7-2.0) 12/30/17 21:00 Calcium 7.0 mg/dL (8.4-10.2) L 01/03/18 07:25 Ionized Calcium Wiliam 4.4 mg/dL (4.5-5.3) L 12/30/17 16:18 Phosphorus 2.4 mg/dL (2.5-4.5) L 01/03/18 07:25 Magnesium 2.1 mg/dL (1.6-2.3) 01/03/18 07:25 Iron 5 ug/dL (65-175) L 12/30/17 03:48 TIBC 180 ug/dL (228-460) L 12/30/17 03:48 Iron Saturation 2.78 (15.00-50.00) L 12/30/17 03:48 Ferritin 401.5 ng/mL (22.0-322.0) H 12/30/17 03:48 Total Bilirubin 0.2 mg/dL (0.2-1.3) 01/03/18 07:25 Conjugated Bilirubin 0.0 mg/dL (0.0-0.3) 01/03/18 07:25 Unconjugated Bilirubin 0.0 mg/dL (0.0-1.1) 01/03/18 07:25 Delta Bilirubin 0.2 mg/dL (0.0-0.2) 01/03/18 07:25 AST 18 U/L (17-59) 01/03/18 07:25 ALT 27 U/L (21-72) 01/03/18 07:25 Alkaline Phosphatase 155 U/L (38-126) H 01/03/18 07:25 Troponin I 0.022 ng/mL (0.000-0.034) 12/30/17 16:18 Total Protein 3.9 g/dL (6.3-8.2) L 01/03/18 07:25 Albumin 1.6 g/dL (3.5-5.0) L 01/03/18 07:25 Amylase 71 U/L (30-110) 12/30/17 03:48 Lipase 172 U/L (23-300) 12/30/17 03:48 Tumor Marker AFP <2.5 ng/mL (0.0-7.9) 01/03/18 07:25 Carcinoembryonic Ag <0.5 ng/mL (0.0-4.9) 01/03/18 07:25 TSH 14.100 mIU/L (0.465-4.680) H 12/30/17 10:20 Free T4 0.80 ng/dL (0.78-2.19) 12/30/17 10:20 Cortisol 23 ug/dL 12/31/17 04:25 Urine Color Yellow 12/30/17 10:20 Urine Appearance Cloudy (Clear) 12/30/17 10:20 Urine pH 5.5 (5.0-8.0) 12/30/17 10:20 Ur Specific [place] 1.016 (1.001-1.035) 12/30/17 10:20 Urine Protein 1+ (Negative) H 12/30/17 10:20 Urine Glucose (UA) Negative (Negative) 12/30/17 10:20 Urine Ketones Negative (Negative) 12/30/17 10:20 Urine Blood Moderate (Negative) H 12/30/17 10:20 Urine Nitrite Negative (Negative) 12/30/17 10:20 Urine Bilirubin Negative (Negative) 12/30/17 10:20 Urine Urobilinogen 2.0 mg/dL (<2.0) 12/30/17 10:20 Ur Leukocyte Esterase Moderate (Negative) H 12/30/17 10:20 Urine RBC 12 /hpf (0-5) H 12/30/17 10:20 Urine WBC 23 /hpf (0-5) H 12/30/17 10:20 Urine WBC Clumps Moderate /hpf (None) H 12/30/17 10:20 Ur Squamous Epith Cells 1 /hpf (0-4) 12/30/17 10:20 Amorphous Sediment Occasional /hpf (None) H 12/30/17 05:44 Urine Bacteria Many /hpf (None) H 12/30/17 10:20 Hyaline Casts 4 /lpf (0-2) H 12/30/17 05:44 Urine Mucus Rare /hpf (None) H 12/30/17 10:20 Stool Occult Blood Negative (Negative) 12/30/17 07:00 Hepatitis A IgM Ab Non-Reactive (Non-Reactive) 01/03/18 07:25 Hep Bs Antigen Non-Reactive (Non-Reactive) 01/03/18 07:25 Hep B Core IgM Ab Non-Reactive (Non-Reactive) 01/03/18 07:25 Hep C IgG Ab Non-Reactive (Non-Reactive) 01/03/18 07:25 Blood Type A Negative 12/30/17 07:31 Blood Type Recheck No 12/30/17 07:31 Antibody Screen NEGATIVE 12/30/17 07:31 Crossmatch See Detail 12/30/17 07:31 Spec Expiration Date 01/02/2018 - 2331 12/30/17 07:31 Microbiology 12/30/17 11:11 Blood Blood Culture - Preliminary No Growth after 96 hours 12/30/17 03:48 Blood Blood Culture Gram Stain - Final 12/30/17 03:48 Blood Blood Culture - Final Escherichia coli 12/30/17 10:20 Urine,Catheterized Urine Culture - Final Escherichia coli 12/30/17 03:48 Blood Blood Culture - Final Assessment and Plan (1) Infection due to ESBL-producing Escherichia coli Narrative/Plan: Pleasant 57-year-old male presents to Hospital as noted from his extended care facility with evidence of septic shock. Now showing marked improvement. Concerns to gram-negative sepsis from the urinary system. Imaging has shown the fluid collection possibly hematoma the chest wall which is nontender at this time. Patient is improving with antibiotics and fluid resuscitation. Current antibiotic therapy is Rocephin levofloxacin and vancomycin which will be adjusted as cultures become available, with evidence of gram-negative bacilli in his blood the vancomycin is discontinued. 01/03/2018 reveals the patient to be much improved. Cultures have finalized and urine culture is with E. coli ESBL which is also found in the blood. Consequently the patient had evidence of gram-negative sepsis at admission from the urinary system. Responding well to carbapenem therapy at this time. We'll make arrangements for the IJ catheter in the neck to be transitioned to a PICC line in and hopefully transfer back to his extended care facility to complete 2 weeks of intravenous antibiotic therapy, may transition to [facility] for its once a day utilization. Current Visit: Yes Status: Acute Code(s): A49.8 - OTHER BACTERIAL INFECTIONS OF UNSPECIFIED SITE; Z16.12 - EXTENDED SPECTRUM BETA LACTAMASE (ESBL ) RESISTANCE SNOMED Code(s): 101840648
[2018-01-04] MEDS: MEROPENEM 2 GM in SODIUM CHLORIDE 0.9% 100 ML IVPB SCH ×4 (00:33→23:18)
[2018-01-04] MEDS: LEVOTHYROXINE 75 MCG TAB PO SCH (06:16)
[2018-01-04] MEDS: ATORVASTATIN 10 MG TAB PO SCH (09:05)
[2018-01-04] MEDS: ENOXAPARIN 40 MG/0.4 ML SYRINGE SQ SCH (09:06)
[2018-01-04] MEDS: FAMOTIDINE 20 MG TAB PO SCH ×2 (09:06→20:35)
[2018-01-04] MEDS: ARTIFICIAL TEARS-HYPROMELLOSE DROPS 15 ML BTL BOTH EYES SCH ×2 (09:06→20:36)
[2018-01-04] MEDS: MIDODRINE 5 MG TAB PO SCH ×3 (09:06→17:44)
--- NOTE | 2018-01-04 10:57 | P.PN ---
Subjective Progress Note Date: 01/04/18 Principal diagnosis: liver lesion 57-year-old male admitted with sepsis E. coli bacteremia UTI. Evaluated yesterday in regards to an outpatient US reported a liver lesion. Repeat ultrasound redemonstrated liver lesion felt to be benign however MRI abdomen reported no focal liver defect. 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 AFP CEA within normal limits. Afebrile. Denies abdominal pain. Sisters/guardian at bedside MRI findings discussed with . Objective - Vital Signs Vital signs: Vital Signs Temp 97.8 F 01/04/18 05:00 Pulse 80 01/04/18 05:00 Resp 16 01/04/18 05:00 BP 103/61 01/04/18 05:00 Pulse Ox 98 01/04/18 05:00 Intake & Output 01/03/18 01/04/18 01/04/18 18:59 06:59 18:59 Intake Total 160 480 Output Total 875 1300 400 Balance -875 -1140 80 Weight 105 kg Intake: IV 160 KVO 160 Oral 480 Output: Urine 875 1300 400 Other: Voiding Method Urinal Urinal # Voids 1 4 # Bowel Movements 1 2 ABP, PAP, CO, CI - Last Documented Arterial Blood Pressure 79/53 - Exam General appearance: The patient is alert, oriented, in no acute distress. HET: Head is normocephalic and atraumatic. Pupils are equal and reactive. Oropharynx is clear without lesions. Neck: Supple without lymphadenopathy. Trachea midline. Heart: S1 S2. Regular rate and rhythm. Lungs: No crackles or wheezes are heard. Abdomen: Soft, nontender, nondistended with bowel sounds. No peritoneal signs. No palpable organomegaly or masses. - Labs CBC & Chem 7: 01/03/18 07:25 01/03/18 07:25 Labs: Abnormal Lab Results - Last 24 Hours (Table) 01/03/18 Range/Units 07:25 Alkaline Phosphatase 155 H (38-126) U/L Total Protein 3.9 L (6.3-8.2) g/dL Albumin 1.6 L (3.5-5.0) g/dL Microbiology - Last 24 Hours (Table) 12/30/17 11:11 Blood Culture - Preliminary Blood No Growth after 96 hours Assessment and Plan (1) Abnormal ultrasound Narrative/Plan: 57-year-old gentleman with a history of cerebral palsy admitted with acute UTI E. coli bacteremia septic shock with outpatient ultrasound imaging reporting a non-shadowing hypoechoic lesion in the right hepatic lobe measuring 5.93.93.8 cm. Inpatient ultrasound read demonstrated lesion however MRI abdomen ruled out liver lesion. 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 Mild transaminitis on admission possibly related to sepsis with clinical improvement. Current Visit: Yes Status: Acute Code(s): R93.8 - ABNORMAL FINDINGS ON DIAGNOSTIC IMAGING OF BODY STRUCTURES SNOMED Code(s): 534734273 Plan: 1. No further workup from a GI standpoint. We'll follow as needed. Assessment and plan a care discussed with Dr. Grimaldo
--- NOTE | 2018-01-04 12:40 | P.PN ---
Subjective Progress Note Date: 01/04/18 Principal diagnosis: Acute sepsis and septic shock, source could be urine, possibly related to pyelonephritis, right lower lobe pneumonia possibility is not excluded this is a 57-year-old white male with history of cerebral palsy, hypertension, mental developmental delay, thyroid cancer, previous history of colitis and diverticulitis, patient was [facility] complaining ofnausea vomiting and diarrhea for the last 2 days. Had at least 5 episodes of vomiting and diarrhea, however no documented hematemesis, melena, and no abdominal pain. Bowel movements were noted to be dark in color. Upon arrival to the ER, patient was noted to be hypotensive.he was also noted to have a significant leukocytosis with WBC count of 30.9,lactic acid was 3.7,urine showed evidence of hematuria and pyuria, chest x-ray and CT of the chest were suggestive of basilar airspace disease, consistent with possible pneumonia especially on the right side.patient received multiple boluses of fluids in the ER, after 2 L of fluids, patient required to be placed on norepinephrine via a triple-lumen catheter which was placed by the ER physician in the right IJ vein. I evaluated the patient in the ICU, he improved with norepinephrine, he' ll be receiving a blood transfusion for his low hemoglobin,and we plan to give the patient broad-spectrum antibiotics. Patient had previous episode of sepsis and septic shock from right ankle cellulitis and septic joint, this was secondary to MSSA. And this was basically over 4 months ago. At present the patient is basically asymptomatic, denies any headaches, no blurred vision, no dizziness. Denies any chest pain, denies any nausea vomiting or abdominal pain while in the ICU, denies any dysuria frequency or urgency. Patient is not the greatest historian.CT of the abdomen and pelvis showed mostly body wall edema and at 10 cm hyperdense mass/collection around the right lower chest wall possibly chest wall hematoma. However the patient denies any trauma, and clinically the area seems to be tender, but no evidence of ecchymosis or bruising to suggest hematoma. There was also evidence of stranding around the kidneys bilaterally bladder wall thickening, and the patient may clearly have acute urinary tract infection/pyelonephritis. On 12/31/2017 patient seen in follow-up in the intensive care unit. He is awake and alert, denies any acute distress, no chest pain, no shortness of breath, on room air, his pulse ox is 99%, afebrile, systolic blood pressure is ranging from 80-90, and diastolic blood pressure is 50-60 mmHg, with a mean over 65. Urine output is 30-85 ML per hour. Current IV fluids 0.9 normal saline at a rate of KVO, and levo fed is currently at 2 mics per minute. Remains bradycardic, with a rate of 44-45 BPM. Patient has been adequately fluid resuscitated, his CVP is 13. His plasma lactic acid is down to 1.2. We' ll order a random serum cortisol, TSH was 14.1, but free T4 was 0.80. White count is trending down, WBC today is 32.2 from 38.9 from yesterday, hemoglobin is 8.1, platelet, 714, sodium is 136, potassium is 4.4, B1 is 29, creatinine 0.74. Urinalysis was consistent with infected urine. Microbiology results reviewed, urine culture is still pending, blood culture is negative. Patient remains on empiric antibiotics in the form of Rocephin, Levaquin and vancomycin. he has right foot chronic wound, which is in the final stages of healing, and is quite superficial at this time, with no drainage. Lung sounds are clear, no rhonchi, no wheezing. No chest pain, no shortness of breath, patient is awake and alert, responding appropriately, no altered mentation. Patient has evidence of quite extensive anasarca. No new chest x-rays today, esterase chest x-ray showed cardiomegaly, and bibasilar airspace disease, small bilateral pleural effusions. On 01/01/2018 patient seen in follow-up in the intensive care unit. He is awake and alert, denies any acute distress. Shortness of breath, no chest pain , no ongoing fevers. Room air pulse ox is 96%. Patient remains hypotensive, with systolic blood pressures in the 80s-100s, and diastolic blood pressures in the 50s. He is on levo fed drip at 9 mics per hour, and this is an increase from yesterday. Nonoliguric, he is producing urine in the order of 50-75 ML per hour. Has severe generalized anasarca related to hypoalbuminemia. Serum cortisol level was 23, we will give 1 dose of hydrocortisone 100 mg of his blood pressure. he may have a relative adrenal insufficiency. But clinically patient is asymptomatic, we can alert, answering questions appropriately, no altered mentation, nonoliguric. He is being treated for urinary tract infection , and urine cultures were positive growing gram-negative bacilli, remains on Rocephin and vancomycin. Maintenance IV fluid is 0.9 at a rate of 20 ML per hour. Today's chest x-ray has been reviewed, shows stable findings with small bilateral pleural effusions and associated bibasilar atelectasis. On patient seen in follow-up in the intensive care unit. He is awake and alert, oriented 3, no acute distress. Currently on 2 L per nasal cannula, and his pulse ox is 97%, he remains bradycardic, and his heart rate is 40-44 bpm , afebrile. He is being treated for urinary tract infection and the culture was positive for E. coli. Blood cultures were positive for E. coli as well. Follow-up blood cultures show no growth after 48 hours. Patient is currently on meropenem. ID service is following. Levo fed was weaned off since 1800 yesterday evening on 01/01/2018. Patient's systolic blood pressure injuries from 70-80 mmHg, and his diastolic blood pressure is 40-50 mmHg. Patient's dose of Midrin will be increased to 10 mg 3 times a day. Clinically patient is asymptomatic, nonoliguric, and his producing urine in order of 45-125 ML per hour. No chest pain, no shortness of breath. Lung sounds are positive for minimal crackles at the bases, with incentive spirometry, increase activity as tolerated. These labs have been reviewed, and his leukocytosis has completely resolved, WBCs down to 9.0, hemoglobin 7.2, serum sodium is 136, potassium is 4.2, chloride is 108, BUN is 31, creatinine 0.71. On 01/03/2018 patient seen in follow-up on medical surgical floor. She is resting comfortably in bed, he is in no acute distress. Room air pulse ox is 96 %, yesterday we increased the patient's dose of Midrin to 10 mg 3 times daily, and currently his systolic blood pressures are ranging from 92-110, diastolic blood pressure is in the 50s to 60s millimeters of mercury. Patient is afebrile , hemodynamically stable. He is awake and alert, oriented 3. No altered mentation, no confusion. She is being treated for urinary tract infection, and bacteremia, with cultures positive for E. coli. His white count is 10.8, hemoglobin is 8.6, electrolytes are relatively unremarkable, BUN is 28, creatinine 0.65. ID service is following, and meropenem has been discontinued. On 12/27/2017 patient seen in follow-up on medical surgical floor. He is resting in bed, in no acute distress, denies any , no chest pain or shortness of breath. Room air pulse ox is 97%, lung sounds are clear, diminished at the bases. No ongoing fever or chills. No new labs today. Patient remains on meropenem for urinary tract infection and bacteremia with cultures positive for E. coli. This was ESBL E. coli. Infectious diseases following, patient will have a PICC line placed, and sent to subacute rehab with meropenem infusions. / Critical care standpoint he stable, and we'll follow the patient on as-needed basis. Objective - Vital Signs Vital signs: Vital Signs Temp 96.9 F L 01/04/18 12:05 Pulse 46 L 01/04/18 12:05 Resp 16 01/04/18 12:05 BP 122/62 01/04/18 12:05 Pulse Ox 97 01/04/18 12:05 Intake & Output 01/03/18 01/04/18 01/04/18 18:59 06:59 18:59 Intake Total 160 480 Output Total 875 1300 400 Balance -875 -1140 80 Weight 105 kg Intake: IV 160 KVO 160 Oral 480 Output: Urine 875 1300 400 Other: Voiding Method Urinal Urinal # Voids 1 4 # Bowel Movements 1 2 ABP, PAP, CO, CI - Last Documented Arterial Blood Pressure 79/53 - Exam Physical Exam: Revealed a 57-year-old white male, obese, pale looking, in no distress, on 2 L per nasal cannula. Head: Atraumatic, normocephalic, HEENT:[Neck is supple.] [No neck masses.] [No thyromegaly.] [No JVD.] Dry mucous membranes, pale conjunctivae, no icterus. Chest: [Diminished breath sounds, Cardiac Exam: [Distant S1 and S2, no S3 gallop, no murmur.] Abdomen: [Morbidly obese, Soft, nontender, no megaly, no rebound, no guarding, normal bowel sounds.] Significant abdominal wall swelling and edema is noted. Extremities: Positive anasarca, 4+ bipedal edema noted.] Superficial healing right foot wound noted, nondraining, covered with a dressing Neurological Exam: [No gross focal neurologic deficit. Psychiatric: Normal mood and affect. Normal mental status examination. Lymphatics: No lymphadenopathy. - Labs CBC & Chem 7: 01/03/18 07:25 01/03/18 07:25 Labs: Microbiology - Last 24 Hours (Table) 12/30/17 11:11 Blood Culture - Preliminary Blood No Growth after 96 hours Assessment and Plan Plan: Assessment: 1 acute sepsis and septic shock, sources could be urine, possible pyelonephritis , right lower lobe pneumonia is a possibility but felt to be less likely since the patient does not have any active pulmonary symptoms. Right ankle cellulitis is also unlikely since the patient had basically full treatment of his ankle cellulitis and sepsis. And this was over 4 months ago. And the findings on the ankle are not impressive. 2 acute pyelonephritis is strongly suspected, urine cultures positive for E. coli, this was an ESBL venison. 3 bacteremia, blood cultures positive for ESBL E. coli, follow-up cultures negative 4 right lower lobe atelectasis, doubt actual pneumonia. However pneumonia is not entirely ruled out at this point. 5 acute on chronic anemia, suspect GI blood losses especially with his black stools on presentation. This will eventually need further workup and GI evaluation. 6 anasarca and profound hypoalbuminemia. 7 multiple comorbidities including thyroid cancer, hypertension, multiple surgeries as noted in the past medical history including appendectomy, bowel resection, cholecystectomy, hernia repair, and thyroidectomy. And mental developmental delay. Recommendation: Continue current medical treatment, from pulmonary/critical care standpoint patient remains stable, no acute complaints, no acute issues overnight. We will sign off and follow with him on as-needed basis. I performed a history & physical examination of the patient and discussed their management with my nurse practitioner, Shannan Arenas. I reviewed the nurse practitioner's note and agree with the documented findings and plan of care. Lung sounds are diminished at the bases. The findings and the impression was discussed with the patient. I attest to the documentation by the nurse practitioner. Time with Patient: Less than 30
[2018-01-04 12:54] LABS: INR 2.5 (<1.2); Prothrombin Time 22.5 sec (9.0-12.0)
--- NOTE | 2018-01-04 14:42 | IR ---
EXAMINATION TYPE: IR cvc insert >=5 years DATE OF EXAM: 01/04/2018 COMPARISON: NONE CLINICAL HISTORY: Infection Needs long-term intravenous access for antibiotics. PROCEDURE: After informed consent, the skin overlying the left basilic vein was localized with ultrasound and no shanelle to be compressible and patent. An ultrasound image was obtained and submitted on the patient's c galaviz. The overlying skin was prepped and draped and Lidocaine was used for local anesthesia. A skin adriana was made with a scalpel. Access was gained to the vein under ultrasound guidance with a 21 gau ge needle and a 0.018 inch wire was advanced. Access site was dilated with Peel-Away sheath and cath eter tailored to the appropriate length and advanced such that the distal tip is at the cavoatrial ju nction. Spot image was obtained verifying placement. Catheter was fixed to the skin and a sterile d ressing was placed following hemostasis. Catheter was aspirated and flushed with saline. Patient wa s discharged in stable condition without complication. Maximal barrier technique is utilized. Ultras ound image is documented on the chart. Ultrasound used with sterile technique. Fluoro time and fluoroscopic images submitted to document procedure: 0.5 minutes fluoroscopy time, 7 intraoperative C-arm images document the procedure IMPRESSION: STATUS POST ULTRASOUND AND FLUOROSCOPIC GUIDED PICC LINE PLACEMENT, READY FOR USE. THIS PROCEDURE WAS PERFORMED BY THE UNDERSIGNED.
--- NOTE | 2018-01-04 22:18 | PN ---
PROGRESS NOTE DATE OF SERVICE: 01/03/2018 PRESENTING COMPLAINT: Positive blood cultures. INTERVAL HISTORY: This patient was seen by me yesterday. Has been moved out of the ICU. Status post septic shock. Both blood and urine cultures now confirmed to have ESBL E coli. The patient is tolerating a diet. Overall feeling much better. REVIEW OF SYSTEMS: Done for constitutional, cardiovascular, GI, pulmonary, relevant findings as above. CURRENT MEDICATIONS: Reviewed that include IV meropenem. PHYSICAL EXAMINATION: VITAL SIGNS: Temperature 97, pulse 55, respirations 18, blood pressure 109/62, pulse ox 96 percent on room air. GENERAL APPEARANCE: Lying in bed, awake, comfortable. EYES: Pupils equal. Conjunctivae normal. HEENT external appearance of nose and ears normal. Oral cavity normal. NECK JVD not raised. Mass not palpable. RESPIRATORY: Effort normal. LUNGS: Diminished breath sounds. CARDIOVASCULAR: 1st and 2nd sounds normal. Edema present. ABDOMEN: Soft, nontender. Liver and spleen not palpable. PSYCHIATRY: Answering questions appropriately. INVESTIGATIONS: White count 10.8, hemoglobin 8.6, platelets 585. Potassium 4.5, BUN 20, creatinine 0.65, albumin 1.6. Venous Doppler of the right upper extremity shows superficial venous thrombosis of the right cephalic vein from the antecubital fossa up to the forearm. Abdominal MRI shows a right paraspinal mass, likely a lipoma that was seen on ultrasound. ASSESSMENT: 1. Acute urinary tract infection from cystitis causing both urine and blood cultures positive for E coli/ESBL causing septic shock present on admission. 2. Cerebral palsy. 3. Hypothyroid. 4. Healed right ankle wound. 5. Stage II decubitus on the right thigh, present on admission. 6. Right paraspinal mass, likely lipoma. 7. Right forearm superficial venous thrombosis of the cephalic vein. PLAN: Patient overall doing better. Continue with IV meropenem. Probably will need a PICC line. We will Diego wrap the right upper extremity. Patient is already on DVT prophylaxis. MMODL / IJN: [id number] /
--- NOTE | 2018-01-04 22:27 | PN ---
PROGRESS NOTE DATE OF SERVICE: 01/04/2018. PRESENTING COMPLAINT: Positive blood cultures. INTERVAL HISTORY: This is a patient with sepsis with E coli positive blood cultures. Doing well. Going for a PICC line placement this afternoon. Otherwise, tolerating a diet, doing much better. REVIEW OF SYSTEMS: Done for constitutional, cardiovascular, GI, pulmonary and relevant findings as above. CURRENT MEDICATIONS: Reviewed that include IV meropenem. PHYSICAL EXAMINATION: VITAL SIGNS: Temperature 96.9, pulse 46, respiration 16, blood pressure 122/62, pulse ox 97% on room air. GENERAL APPEARANCE: Lying in bed, comfortable. EYES: Pupils equal. Conjunctivae normal. HEENT external appearance of nose and ears normal. Oral cavity normal. NECK JVD not raised. Mass not palpable. RESPIRATORY effort normal. LUNGS: Diminished breath sounds. CARDIOVASCULAR: 1st and 2nd sounds normal. Edema present. ABDOMEN: Soft, nontender. Liver and spleen not palpable. PSYCHIATRY: Awake, answering questions appropriately. INVESTIGATIONS: INR 2.5. ASSESSMENT: 1. Acute urinary tract infection from cystitis with both urine and blood cultures positive for E coli/ESBL causing septic shock present on admission, status post Levophed. 2. Cerebral palsy. 3. Hypothyroid. 4. Healed right ankle wound. 5. Stage II decubitus ulcer on the right thigh, present on admission. 6. 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 7. Right forearm superficial thrombosis in the cephalic vein. PLAN: Diego wrap was ordered for the right forearm. Patient getting a PICC line today. The patient can be discharged to the [facility] on [facility] per ID. Care was discussed with the patient's family at the bedside. Questions were answered. MMODL / IJN: [id number] /
[2018-01-05] MEDS: LEVOTHYROXINE 75 MCG TAB PO SCH (06:26)
[2018-01-05] MEDS: MEROPENEM 2 GM in SODIUM CHLORIDE 0.9% 100 ML IVPB SCH ×3 (08:32→23:18)
[2018-01-05] MEDS: ARTIFICIAL TEARS-HYPROMELLOSE DROPS 15 ML BTL BOTH EYES SCH ×2 (08:32→19:28)
[2018-01-05] MEDS: MIDODRINE 5 MG TAB PO SCH ×3 (08:33→17:01)
[2018-01-05] MEDS: FAMOTIDINE 20 MG TAB PO SCH ×2 (08:33→19:28)
[2018-01-05] MEDS: ATORVASTATIN 10 MG TAB PO SCH (08:33)
--- NOTE | 2018-01-06 04:52 | PN ---
PROGRESS NOTE DATE OF SERVICE: January 05, 2018. PRESENTING COMPLAINT: Positive blood cultures. INTERVAL HISTORY: The patient presented with sepsis, E coli positive in the urine and positive blood cultures, ESBL type. Continues to do well. Has a PICC line. Getting antibiotics. The patient has abnormal coagulations. I did send off for lupus anticoagulant on this patient. REVIEW OF SYSTEMS: Done for constitutional, cardiovascular, GI, pulmonary and relevant findings as above. CURRENT MEDICATIONS: Reviewed that include IV meropenem. PHYSICAL EXAMINATION: VITAL SIGNS: Temperature 97.4, pulse 51, respirations 16, blood pressure 92/54, pulse ox 97% on room air. GENERAL APPEARANCE: Lying in bed comfortable. EYES: Pupils equal. Conjunctivae normal. HEENT external appearance of nose and ears normal. Oral cavity normal. NECK JVD not raised. Mass not palpable. RESPIRATORY: Effort. LUNGS: Diminished breath sounds. CARDIOVASCULAR: 1st and 2nd sounds normal. Edema present. ABDOMEN: Soft, nontender. Liver and spleen not palpable. PSYCHIATRY: Awake, answering questions appropriately. INVESTIGATIONS: No blood work from today. ASSESSMENT: 1. Acute urinary tract infection from cystitis with both urine blood cultures positive for E coli/ESBL causing septic shock on admission, status post being on Levophed. 2. Cerebral palsy. 3. Hypothyroid. 4. Acute right ankle wound. 5. Stage II sacral decubitus ulcer on the right thigh, present on admission. 6. 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 7. Right forearm superficial thrombosis of the cephalic vein. 8. Abnormal coagulants from sepsis. PLAN: Continue current medication and treatment plan. [facility] We will get a hematology opinion for his abnormal coagulation profile. MMODL / IJN: [id number] /
[2018-01-06] MEDS: LEVOTHYROXINE 75 MCG TAB PO SCH (06:20)
[2018-01-06 07:17] LABS: Anisocytosis Slight; Basophils # (A) 0.1 k/uL (0-0.2); Basophils % (A) 1 %; Eosinophils # (A) 0.7 k/uL (0-0.7); Eosinophils % (A) 7 %; HCT 30.9 % (39.0-53.0); HGB 9.2 gm/dL (13.0-17.5); Hypochromasia Marked; Lymphocytes # (A) 1.5 k/uL (1.0-4.8); Lymphocytes % (A) 13 %; MCHC 29.7 g/dL (31.0-37.0); MCV 87.8 fL (80.0-100.0); Mean Platelet Volume 6.7; Monocytes # (A) 0.5 k/uL (0-1.0); Monocytes % (A) 4 %; Neutrophils # (A) 8.3 k/uL (1.3-7.7); Neutrophils % (A) 74 %; Platelet Count 471 k/uL (150-450); RBC 3.51 m/uL (4.30-5.90); RDW 17.7 % (11.5-15.5); WBC 11.2 k/uL (3.8-10.6)
[2018-01-06 07:26] LABS: INR 1.1 (<1.2)
[2018-01-06 07:27] LABS: Partial Thromboplastin Time 26.3 sec (22.0-30.0); Prothrombin Time 10.7 sec (9.0-12.0)
[2018-01-06 07:35] LABS: ALT 20 U/L (21-72); AST 23 U/L (17-59); Albumin 1.9 g/dL (3.5-5.0); Alkaline Phosphatase 131 U/L (38-126); Anion Gap 3 mmol/L; Blood Urea Nitrogen 27 mg/dL (9-20); Calcium 7.7 mg/dL (8.4-10.2); Carbon Dioxide 27 mmol/L (22-30); Chloride 106 mmol/L (98-107); Glucose 85 mg/dL (74-99); Potassium 4.9 mmol/L (3.5-5.1); Sodium 136 mmol/L (137-145); Total Bilirubin 0.3 mg/dL (0.2-1.3); Total Protein 4.5 g/dL (6.3-8.2)
[2018-01-06] MEDS: MEROPENEM 2 GM in SODIUM CHLORIDE 0.9% 100 ML IVPB SCH ×2 (08:27→18:18)
[2018-01-06] MEDS: ATORVASTATIN 10 MG TAB PO SCH (08:28)
[2018-01-06] MEDS: MIDODRINE 5 MG TAB PO SCH ×3 (08:28→18:19)
[2018-01-06] MEDS: FAMOTIDINE 20 MG TAB PO SCH ×2 (08:28→20:37)
[2018-01-06] MEDS: ARTIFICIAL TEARS-HYPROMELLOSE DROPS 15 ML BTL BOTH EYES SCH ×2 (12:20→20:36)
--- NOTE | 2018-01-06 17:11 | PN ---
PROGRESS NOTE DATE OF SERVICE: January 06, 2018. PRESENTING COMPLAINT: Positive blood cultures. INTERVAL HISTORY: The patient presented with sepsis with E coli, positive urine and also positive blood cultures. ESBL type. Doing well. Tolerating a diet. Has a PICC line. Getting antibiotics. Awaiting to go to the [facility]. Does feel weak, tired, run down a bit. REVIEW OF SYSTEMS: Done for constitutional, cardiovascular, GI, pulmonary; relevant findings as above. CURRENT MEDICATIONS: Reviewed that include IV meropenem. PHYSICAL EXAMINATION: VITAL SIGNS: Temperature 97.8, pulse 50, respiration 16, blood pressure 106/69, pulse ox 98 percent. GENERAL APPEARANCE: Lying in bed, awake, comfortable. EYES: Pupils are equal. Conjunctivae normal. HEENT: External appearance of nose and ears normal. Oral cavity normal. NECK: JVD not raised. Mass not palpable. RESPIRATORY effort normal. LUNGS: Decreased breath sounds at the bases. CARDIOVASCULAR: 1st and 2nd sounds. No edema present. ABDOMEN: Soft, nontender. Liver and spleen not palpable. PSYCHIATRY: Awake, answering questions appropriately. INVESTIGATIONS: White count 11.2, hemoglobin 9.2, protime 10.7. Potassium 4.9, BUN 27, creatinine 0.76, albumin 1.9. ASSESSMENT: 1. Acute urinary tract infection from cystitis with both urine and blood cultures positive for E coli/ESBL causing septic shock on presentation, status post being on Levophed. 2. Cerebral palsy. 3. Hypothyroid. 4. Acute right ankle wound. 5. Stage II sacral decubitus ulcer on the right thigh present on admission. 6. 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 7. Right forearm superficial thrombosis of the cephalic vein, being treated with Diego wraps. 8. Abnormal coagulation probably from sepsis with now protime has come down with appetite is getting better. There may be relative vitamin K deficiency. PLAN: Continue current medication and treatment plan. Pending to go down to the [facility]. MMODL / IJN: [id number] /
[2018-01-07] MEDS: MEROPENEM 2 GM in SODIUM CHLORIDE 0.9% 100 ML IVPB SCH ×4 (00:17→23:20)
[2018-01-07] MEDS: LEVOTHYROXINE 75 MCG TAB PO SCH (06:15)
[2018-01-07] MEDS: MIDODRINE 5 MG TAB PO SCH ×3 (07:21→17:09)
[2018-01-07] MEDS: ATORVASTATIN 10 MG TAB PO SCH (07:22)
[2018-01-07] MEDS: FAMOTIDINE 20 MG TAB PO SCH ×2 (07:22→20:35)
[2018-01-07] MEDS: ARTIFICIAL TEARS-HYPROMELLOSE DROPS 15 ML BTL BOTH EYES SCH ×2 (07:23→20:34)
[2018-01-07 13:37] LABS: APTT 48 Sec(s) (<43); APTT 1:1 Mix 37 Sec(s) (<43); Dilute Russell Viper Venom 40 Sec(s) (<44)
--- NOTE | 2018-01-07 15:42 | P.CONS ---
History of Present Illness - Reason for Consult Consult date: 01/07/18 Coagulopathy Requesting physician: Reginald Anderson - Chief Complaint increased INR - History of Present Illness 57-year-old gentleman who resides at an [facility] in [place]. He has a known past medical history cerebral palsy, incarcerated hernia with orchiectomy, non- healing right ankle wound, hernia repair, hemorrhoids, thyroid carcinoma, diverticulosis, appendectomy, cholecystectomy, admitted with complaints of nausea vomiting and diarrhea. Results revealed positive urine/blood cultures. He is presently receiving treatment for E. coli bacteremia, and UTI. Ultrasound report from [place] reported a well-defined non shadowing hyperechoic right posterior hepatic lesion 5.93.93.8 cm in dimension. No reports of weight loss or abdominal pain. Abdomen and pelvis CT as well as CT chest did not mention hepatic lesions. CT abdomen and pelvis reported enlarged liver with an unenhanced appearance the spleen pancreas. Gallbladder surgically absent. Review of Systems A 14 point review of systems was assessed and completed to the best of my capability as no family at bedside and patient poor historian. Past Medical History Past Medical History: Cancer, Chest Pain / Angina, Hypertension, Thyroid Disorder Additional Past Medical History / Comment(s): cerebral palsy and slight brain damage-able to talk read/write and walk,THYROID CA,per sister pt has colitis and diverticulitis, hemorroids that cause bleeding at times.past bowel blockage( sx)-sister stated his norm is runny stool History of Any Multi-Drug Resistant Organisms: ESBL Year Discovered:: 12/30/17 ESBL-E.coli MDRO Source:: Urine Past Surgical History: Appendectomy, Bowel Resection, Cholecystectomy, Hernia Repair, Tonsillectomy Additional Past Surgical History / Comment(s): thyroid removed, multiple ear surgeries including grafts as child, I&D right knee, 1 testical removed along w / hernia repair and also a diaphramatic hernia sx, i&d right ankle Past Anesthesia/Blood Transfusion Reactions: No Reported Reaction Additional Past Anesthesia/Blood Transfusion Reaction / Comm: past blood transfusion as child -no known reaction Past Psychological History: No Psychological Hx Reported Smoking Status: Never smoker Past Alcohol Use History: None Reported Additional Past Alcohol Use History / Comment(s): Patient is single and resides at [facility] in [place]. No tobacco use. No alcohol use. No service. No international travel. No animal exposures. Never . Past Drug Use History: None Reported - Past Family History Mother Family Medical History: Diabetes Mellitus, Hypertension Father Family Medical History: Cancer Sister(s) History Unknown: Yes Family Medical History: Pulmonary Embolus Medications and Allergies Home Medications Medication Instructions Recorded Confirmed Type Folic Acid 2 mg PO DAILY 01/03/15 12/30/17 History Ferrous Sulfate [Iron (65 MG 325 mg PO BID 05/13/17 12/30/17 History Elemental)] Multivitamins, Thera [Multivitamin 1 tab PO DAILY 05/13/17 12/30/17 History (formulary)] Famotidine [Pepcid] 20 mg PO BID #1 tablet 07/23/17 12/30/17 Rx Artificial Tears-Hypromellose 2 drops BOTH EYES BID 12/07/17 12/30/17 History [Artificial Tear Drops] Ketotifen 0.025% Ophth Soln 1 drop BOTH EYES Q6H PRN 12/07/17 12/30/17 History [Zaditor] Acetaminophen [Tylenol] 650 mg PO Q8H PRN 12/30/17 12/30/17 History Ascorbic Acid [Vitamin C] 500 mg PO DAILY 12/30/17 12/30/17 History Bisacodyl [Dulcolax] 10 mg RECTAL DAILY PRN 12/30/17 12/30/17 History Magnesium Hydroxide [Milk of 7,200 mg PO DAILY PRN 12/30/17 12/30/17 History Magnesia Concentrate] Atorvastatin [Lipitor] 10 mg PO DAILY tab 01/07/18 Rx Ertapenem [INVanz] 1 gm IM DAILY #28 vial 01/07/18 Rx Levothyroxine Sodium [Synthroid] 150 mcg PO DAILY@0630 tab 01/07/18 Rx Midodrine [ProAmatine] 10 mg PO AC-TID tab 01/07/18 Rx Allergies Allergy/AdvReac Type Severity Reaction Status Date / Time egg Allergy Severe Unknown Verified 12/30/17 13:48 Milk Containing Products Allergy Severe Unknown Verified 12/30/17 13:48 [Dairy] peanut Allergy Severe Unknown Verified 12/30/17 13:48 codeine Allergy Unknown Verified 12/30/17 13:48 Childhood corn Allergy Diarrhea Verified 12/30/17 13:48 lemon Allergy Diarrhea Verified 12/30/17 13:48 Penicillins Allergy Unknown Verified 12/30/17 13:48 Childhood tomato Allergy Diarrhea Verified 12/30/17 13:48 wheat Allergy Diarrhea Verified 12/30/17 13:48 Yeast Allergy Unknown Verified 12/30/17 13:48 cephalexin [From Keflex] AdvReac Nausea & Verified 12/30/17 13:48 Vomiting & Diarrhea Pork/Porcine Containing AdvReac Diarrhea Verified 12/30/17 13:48 Products [Pork] soy AdvReac Unknown Verified 12/30/17 13:48 strawberry AdvReac Diarrhea Verified 12/30/17 13:48 oranges Allergy Rash/Hives Uncoded 12/07/17 12:56 chocolate AdvReac Diarrhea Uncoded 12/07/17 12:56 grapes AdvReac Diarrhea Uncoded 12/07/17 12:56 pop AdvReac Diarrhea Uncoded 12/07/17 12:56 process lunch meat AdvReac Diarrhea Uncoded 12/07/17 12:56 rice AdvReac Diarrhea Uncoded 12/07/17 12:56 spices AdvReac Diarrhea Uncoded 12/07/17 12:56 vegtable oil AdvReac Diarrhea Uncoded 12/07/17 12:56 Physical Exam Vitals: Vital Signs Temp Pulse Resp BP Pulse Ox 01/07/18 12:37 97.3 F L 59 L 16 101/59 98 01/07/18 08:00 65 16 01/07/18 05:00 98 F 65 16 92/62 97 01/06/18 22:10 53 L 101/56 01/06/18 21:00 98.4 F 47 L 16 92/51 95 01/06/18 16:00 51 L 16 Intake and Output 01/07/18 01/07/18 01/07/18 06:59 14:59 22:59 Intake Total 680 Output Total 300 Balance 380 Intake: Intake, IV Titration 200 Amount Meropenem 2 gm In Sodium 200 Chloride 0.9% 100 ml @ 200 mls/hr IVPB Q8HR [facility] Rx#:[id number] Oral 480 Output: Urine 300 Other: Voiding Method Urinal Urinal # Voids 4 General appearance: The patient is alert, oriented, in no acute distress. HET: Head is normocephalic and atraumatic. Pupils are equal and reactive. Oropharynx is clear without lesions. Neck: Supple without lymphadenopathy. Trachea midline. Right subclavian IV Heart: S1 S2. Regular rate and rhythm. Lungs: No crackles or wheezes. No noted increased respiratory effort, CTA anterior Abdomen: Soft, nontender, nondistended with bowel soundsx4. No palpable organomegaly or masses. Extremities: Right upper extremity edema. No rashes or edema. Bilateral flexion supports. Neurological: No focal deficits. Strength and sensation are grossly intact. Results CBC & Chem 7: 01/06/18 06:45 01/06/18 06:45 Labs: Abnormal Lab Results - Last 24 Hours (Table) 01/05/18 Range/Units 06:43 Lupus Anticoag aPTT 48 H (<43) Sec(s) Chest x-ray: report reviewed MRI - abdomen: report reviewed Venous US: report reviewed Assessment and Plan Plan: Assessment and Recommendations: 1. Coagulopathy: - Elevated PT/INR noted on 01/04/18, since then repeat INR 1.1 - Resolved - Likely secondary to acute Sepsis from UTI and Echoli Bacteria and decreased po nutrition resulting in vitamin K deficiency. - No further work-up with resolution indicated by Dr. Spann 2. Hypoechoic Lesion on Liver - [place] to be benign and evaluated by GI, No further work-up at this time All other medical CO-morbidies per Primary Team. THank you for your consultation on this patient.
--- NOTE | 2018-01-07 22:04 | P.PN ---
Subjective Progress Note Date: 01/07/18 This is a 57-year-old male patient who is known to ID service as he was initially seen during a May 2017 admission at which time he was treated for cellulitis of the right ankle with improvement during his stay. A boot was ordered by orthopedics and patient was discharged on cephalexin and was to continue to wear the boot at home. Patient has history of cerebral palsy. He was then admitted in July 2017 and treated for MRSA sepsis secondary to right ankle infection with tendon exposure and was discharged to [facility] with 6 week course of ceftriaxone. Patient completed course of antibiotics and PICC line was removed. He has had significant improvement of the wound to the right ankle. He presented to the [facility] emergency center on December 30 with nausea vomiting diarrhea vitamin going on for 2 days. Patient was febrile at 101.9, mildly tachycardic initially and hypotensive. He was given IV fluid boluses followed by norepinephrine and a central line was placed in the emergency center. Patient was then admitted into intensive care unit. He has been followed by Dr. Mei for sepsis most likely secondary to UTI. Patient is also followed by cardiology for bradycardia. Patient is currently on 1 Wilder Gary Levophed, he continues to be bradycardic in the 40s and 50s. He is to start a diet today. Patient states he has had 2 bowel movements only since he came into the hospital. He denies having any fever or chills. He does state he is feeling much better from yesterday. CT of the abdomen and pelvis showed body wall edema with partially visualized 10 cm hyperdense mass or collection along the lower right lateral chest wall possibly her chest wall hematoma. Atelectasis at the lung bases. Stranding around the kidneys bilaterally and mild bladder wall thickening. CT of the chest shows small bilateral effusions greater on the right than left. Basilar airspace disease greater on the right than left which may represent atelectasis or pneumonia. Mild cardiomegaly. Small [address]. [address] Mei is doubting pneumonia as cause for sepsis. Chest x-ray from yesterday shows bibasilar airspace disease. Small bilateral effusions. Lorenzo catheter has been placed. Blood cultures showing gram-negative bacilli and urine culture is in progress. Repeat blood culture is showing no growth after 24 hours. 01/03/2018 patient is considerably improved. The patient is less short of breath. He complains of some discomfort from the catheter his neck. It's in a difficult spot. His breathing is improved and denies other acute difficulties. Lorenzo catheter is without discomfort 01/07/2018 reveals the patient to be feeling better. Awaiting final authorization of his antibiotic therapy so he may transfer back to his extended care facility. He truly enjoys living there and looks forward to getting back to that situation. There was concern in the outpatient setting about a possible liver mass. This has been imaged during the hospital stay was found evidence of a lipoma without evidence of any intrahepatic lesions. Objective - Vital Signs Vital signs: Vital Signs Temp 97.5 F L 01/07/18 21:00 Pulse 50 L 01/07/18 21:00 Resp 16 01/07/18 21:00 BP 98/56 01/07/18 21:00 Pulse Ox 97 01/07/18 21:00 Intake & Output 01/07/18 01/07/18 01/08/18 06:59 18:59 06:59 Intake Total 1270 480 480 Output Total 300 300 Balance 970 180 480 Weight 105 kg Intake: Intake, IV Titration 200 Amount Meropenem 2 gm In Sodium 200 Chloride 0.9% 100 ml @ 200 mls/hr IVPB Q8HR [facility] Rx#:[id number] Oral 1070 480 480 Output: Urine 300 300 Other: Voiding Method Urinal Urinal # Voids 1 4 ABP, PAP, CO, CI - Last Documented Arterial Blood Pressure 79/53 - Exam Gen: This is a 57-year-old male patient. He is sitting up in bed and appears to be comfortable and in no acute distress. HEENT: Head is atraumatic, normocephalic. Pupils equal, round. Sclerae is anicteric. Conjunctiva pink. Oral mucous membranes are somewhat dry. No thrush or other lesions noted. Patient is edentulous. NECK: Supple. No JVD. No lymphadenopathy. No thyromegaly. LUNGS: Clear to auscultation. No wheezes or rhonchi. No intercostal retractions. HEART: Regular rate and rhythm. No murmur. ABDOMEN: Soft. Bowel sounds are present. No masses. No tenderness. No suprapubic tenderness. Lorenzo catheter draining clear urine. No CVA tenderness bilaterally EXTREMITIES: Dressing to the right ankle not removed. No lesions noted to the left foot. NEUROLOGICAL: Patient is awake, alert has CP with some difficulty with his speech but is easily understandable. - Labs CBC & Chem 7: 01/06/18 06:45 01/06/18 06:45 Labs: Abnormal Lab Results - Last 24 Hours (Table) 01/05/18 Range/Units 06:43 Lupus Anticoag aPTT 48 H (<43) Sec(s) Laboratory Results WBC 11.2 k/uL (3.8-10.6) H 01/06/18 06:45 RBC 3.51 m/uL (4.30-5.90) L 01/06/18 06:45 Hgb 9.2 gm/dL (13.0-17.5) L 01/06/18 06:45 Hct 30.9 % (39.0-53.0) L 01/06/18 06:45 MCV 87.8 fL (80.0-100.0) 01/06/18 06:45 MCH 26.0 pg (25.0-35.0) 01/06/18 06:45 MCHC 29.7 g/dL (31.0-37.0) L 01/06/18 06:45 RDW 17.7 % (11.5-15.5) H 01/06/18 06:45 Plt Count 471 k/uL (150-450) H 01/06/18 06:45 Neutrophils % 74 % 01/06/18 06:45 Neutrophils % (Manual) 82 % 12/30/17 10:20 Band Neutrophils % 15 % 12/30/17 10:20 Lymphocytes % 13 % 01/06/18 06:45 Lymphocytes % (Manual) 3 % 12/30/17 10:20 Monocytes % 4 % 01/06/18 06:45 Eosinophils % 7 % 01/06/18 06:45 Basophils % 1 % 01/06/18 06:45 Neutrophils # 8.3 k/uL (1.3-7.7) H 01/06/18 06:45 Neutrophils # (Manual) 29.90 k/uL (1.3-7.7) H 12/30/17 10:20 Lymphocytes # 1.5 k/uL (1.0-4.8) 01/06/18 06:45 Lymphocytes # (Manual) 0.93 k/uL (1.0-4.8) L 12/30/17 10:20 Monocytes # 0.5 k/uL (0-1.0) 01/06/18 06:45 Eosinophils # 0.7 k/uL (0-0.7) 01/06/18 06:45 Basophils # 0.1 k/uL (0-0.2) 01/06/18 06:45 Nucleated RBCs 0 /100 WBC (0-0) 12/30/17 10:20 Manual Slide Review Performed 12/30/17 10:20 Toxic Granulation Present 12/30/17 10:20 Toxic Vacuolation Present 12/30/17 10:20 Polychromasia Present 12/30/17 10:20 Hypochromasia Marked 01/06/18 06:45 Poikilocytosis Slight 12/30/17 23:02 Poikilocytosis (manual Present 12/30/17 10:20 Anisocytosis Slight 01/06/18 06:45 Ovalocytes Present 12/30/17 10:20 PT 10.7 sec (9.0-12.0) 01/06/18 06:45 INR 1.1 (<1.2) 01/06/18 06:45 APTT 26.3 sec (22.0-30.0) 01/06/18 06:45 Lupus Anticoag aPTT 48 Sec(s) (<43) H 01/05/18 06:43 Lupus Anticoag PTT Mix 37 Sec(s) (<43) 01/05/18 06:43 Dil Luis Viper Venom 40 Sec(s) (<44) 01/05/18 06:43 LA dRVVT Confirm NA 01/05/18 06:43 dRVVT 50:50 NA Sec(s) 01/05/18 06:43 Lupus Hexagonal Phase NA 01/05/18 06:43 Lupus Anticoag Interp SEE BELOW 01/05/18 06:43 Sodium 136 mmol/L (137-145) L 01/06/18 06:45 Potassium 4.9 mmol/L (3.5-5.1) 01/06/18 06:45 Chloride 106 mmol/L (98-107) 01/06/18 06:45 Carbon Dioxide 27 mmol/L (22-30) 01/06/18 06:45 Anion Gap 3 mmol/L 01/06/18 06:45 BUN 27 mg/dL (9-20) H 01/06/18 06:45 Creatinine 0.76 mg/dL (0.66-1.25) 01/06/18 06:45 Est GFR (CKD-EPI)AfAm >90 (>60 ml/min/1.73 sqM) 01/06/18 06:45 Est GFR (CKD-EPI)NonAf >90 (>60 ml/min/1.73 sqM) 01/06/18 06:45 Glucose 85 mg/dL (74-99) 01/06/18 06:45 POC Glucose (mg/dL) 85 mg/dL (75-99) 12/30/17 10:19 POC Glu [employer]ode [employer] ID Judd Ashraf 12/30/17 10:19 Lactic Ac Sepsis Rflx Y 12/30/17 07:35 Plasma Lactic Acid Papi 1.2 mmol/L (0.7-2.0) 12/30/17 21:00 Calcium 7.7 mg/dL (8.4-10.2) L 01/06/18 06:45 Ionized Calcium Wiliam 4.4 mg/dL (4.5-5.3) L 12/30/17 16:18 Phosphorus 2.4 mg/dL (2.5-4.5) L 01/03/18 07:25 Magnesium 2.1 mg/dL (1.6-2.3) 01/03/18 07:25 Iron 5 ug/dL (65-175) L 12/30/17 03:48 TIBC 180 ug/dL (228-460) L 12/30/17 03:48 Iron Saturation 2.78 (15.00-50.00) L 12/30/17 03:48 Ferritin 401.5 ng/mL (22.0-322.0) H 12/30/17 03:48 Total Bilirubin 0.3 mg/dL (0.2-1.3) 01/06/18 06:45 Conjugated Bilirubin 0.0 mg/dL (0.0-0.3) 01/03/18 07:25 Unconjugated Bilirubin 0.0 mg/dL (0.0-1.1) 01/03/18 07:25 Delta Bilirubin 0.2 mg/dL (0.0-0.2) 01/03/18 07:25 AST 23 U/L (17-59) 01/06/18 06:45 ALT 20 U/L (21-72) L 01/06/18 06:45 Alkaline Phosphatase 131 U/L (38-126) H 01/06/18 06:45 Troponin I 0.022 ng/mL (0.000-0.034) 12/30/17 16:18 Total Protein 4.5 g/dL (6.3-8.2) L 01/06/18 06:45 Albumin 1.9 g/dL (3.5-5.0) L 01/06/18 06:45 Amylase 71 U/L (30-110) 12/30/17 03:48 Lipase 172 U/L (23-300) 12/30/17 03:48 Tumor Marker AFP <2.5 ng/mL (0.0-7.9) 01/03/18 07:25 Carcinoembryonic Ag <0.5 ng/mL (0.0-4.9) 01/03/18 07:25 TSH 14.100 mIU/L (0.465-4.680) H 12/30/17 10:20 Free T4 0.80 ng/dL (0.78-2.19) 12/30/17 10:20 Cortisol 23 ug/dL 12/31/17 04:25 Urine Color Yellow 12/30/17 10:20 Urine Appearance Cloudy (Clear) 12/30/17 10:20 Urine pH 5.5 (5.0-8.0) 12/30/17 10:20 Ur Specific B[place]by 1.016 (1.001-1.035) 12/30/17 10:20 Urine Protein 1+ (Negative) H 12/30/17 10:20 Urine Glucose (UA) Negative (Negative) 12/30/17 10:20 Urine Ketones Negative (Negative) 12/30/17 10:20 Urine Blood Moderate (Negative) H 12/30/17 10:20 Urine Nitrite Negative (Negative) 12/30/17 10:20 Urine Bilirubin Negative (Negative) 12/30/17 10:20 Urine Urobilinogen 2.0 mg/dL (<2.0) 12/30/17 10:20 Ur Leukocyte Esterase Moderate (Negative) H 12/30/17 10:20 Urine RBC 12 /hpf (0-5) H 12/30/17 10:20 Urine WBC 23 /hpf (0-5) H 12/30/17 10:20 Urine WBC Clumps Moderate /hpf (None) H 12/30/17 10:20 Ur Squamous Epith Cells 1 /hpf (0-4) 12/30/17 10:20 Amorphous Sediment Occasional /hpf (None) H 12/30/17 05:44 Urine Bacteria Many /hpf (None) H 12/30/17 10:20 Hyaline Casts 4 /lpf (0-2) H 12/30/17 05:44 Urine Mucus Rare /hpf (None) H 12/30/17 10:20 Stool Occult Blood Negative (Negative) 12/30/17 07:00 Hepatitis A IgM Ab Non-Reactive (Non-Reactive) 01/03/18 07:25 Hep Bs Antigen Non-Reactive (Non-Reactive) 01/03/18 07:25 Hep B Core IgM Ab Non-Reactive (Non-Reactive) 01/03/18 07:25 Hep C IgG Ab Non-Reactive (Non-Reactive) 01/03/18 07:25 Blood Type A Negative 12/30/17 07:31 Blood Type Recheck No 12/30/17 07:31 Antibody Screen NEGATIVE 12/30/17 07:31 Crossmatch See Detail 12/30/17 07:31 Spec Expiration Date 01/02/2018 - 233012/30/17 07:31 Assessment and Plan (1) Infection due to ESBL-producing Escherichia coli Narrative/Plan: Pleasant 57-year-old male presents to Hospital as noted from his extended care facility with evidence of septic shock. Now showing marked improvement. Concerns to gram-negative sepsis from the urinary system. Imaging has shown the fluid collection possibly hematoma the chest wall which is nontender at this time. Patient is improving with antibiotics and fluid resuscitation. Current antibiotic therapy is Rocephin levofloxacin and vancomycin which will be adjusted as cultures become available, with evidence of gram-negative bacilli in his blood the vancomycin is discontinued. 01/03/2018 reveals the patient to be much improved. Cultures have finalized and urine culture is with E. coli ESBL which is also found in the blood. Consequently the patient had evidence of gram-negative sepsis at admission from the urinary system. Responding well to carbapenem therapy at this time. We'll make arrangements for the IJ catheter in the neck to be transitioned to a PICC line in and hopefully transfer back to his extended care facility to complete 2 weeks of intravenous antibiotic therapy, may transition to [facility] for its once a day utilization. 01/07/2018 the patient has had significant improvement. PICC line has been placed and there are plans for transitioning him back to the extended care facility. There is some difficulty with authorization of the antibiotics. Since it is an ESBL producing organisms carbapenem's are often utilized however there is the option for Zosyn and this is being requested to be evaluated. If so we complete a two-week course of Zosyn at the extended care facility with follow-up in the outpatient clinic. Current Visit: Yes Status: Acute Code(s): A49.8 - OTHER BACTERIAL INFECTIONS OF UNSPECIFIED SITE; Z16.12 - SNOMED Code(s): 959080518
--- NOTE | 2018-01-07 22:19 | PN ---
PROGRESS NOTE : DATE OF SERVICE: 01/07/2018. PRESENTING COMPLAINT: Positive blood cultures. INTERVAL HISTORY: Patient presents sepsis with E coli and positive urine and also positive blood cultures with E coli/ESBL type. Continues to do well. Tolerating a diet. Has a PICC line. community center worker trying to get the patient in the ECF. No new issues. Some edema is present. REVIEW OF SYSTEMS: Done for constitutional, cardiovascular, GI, pulmonary, relevant findings as above. CURRENT MEDICATIONS: Reviewed that include IV meropenem. PHYSICAL EXAMINATION: VITAL SIGNS: Temperature 97.3, pulse 59, respiration 16, blood pressure 101/59, pulse ox 98% on 2 L. GENERAL APPEARANCE: Lying in bed, comfortable. EYES: Pupil equal. Conjunctivae normal. HEENT: External appearance of nose and ears normal. Oral cavity normal. NECK JVD not raised. Mass not palpable. RESPIRATORY effort normal. LUNGS: Decreased breath sounds. CARDIOVASCULAR: 1st and 2nd sounds normal. Some edema is present. ABDOMEN: Soft, nontender. Liver and spleen not palpable. PSYCHIATRY: Awake, answering questions appropriately. INVESTIGATIONS: No blood work from today. ASSESSMENT: 1. Acute urinary tract infection from cystitis with both urine and blood cultures positive for E coli/ESBL, causing septic shock on presentation, status post being on the Levophed. 2. Cerebral palsy. 3. Hypothyroid. 4. Acute right ankle wound. 5. Stage II sacral decubitus ulcer on the right thigh, present on admission. 6. 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 7. Right forearm superficial thrombosis on cephalic vein, treated with Diego wraps. 8. Abnormal coagulation profile, felt to be from sepsis and vitamin K deficiency. PLAN: Overall patient doing better. Patient will be discharged on Invanz. community center worker waiting to get a private room for the patient. Care was discussed with the patient. MMODL / IJN: [id number] /
[2018-01-08] MEDS ORDERED: ACETAMINOPHEN TAB 325 MG TAB PO STA (02:27)
[2018-01-08] MEDS: LEVOTHYROXINE 75 MCG TAB PO SCH (06:15)
[2018-01-08] MEDS: ATORVASTATIN 10 MG TAB PO SCH (08:07)
[2018-01-08] MEDS: MIDODRINE 5 MG TAB PO SCH ×3 (08:07→17:43)
[2018-01-08] MEDS: MEROPENEM 2 GM in SODIUM CHLORIDE 0.9% 100 ML IVPB SCH ×2 (08:07→17:43)
[2018-01-08] MEDS: FAMOTIDINE 20 MG TAB PO SCH ×2 (08:07→20:15)
[2018-01-08] MEDS: ARTIFICIAL TEARS-HYPROMELLOSE DROPS 15 ML BTL BOTH EYES SCH ×2 (08:08→20:17)
[2018-01-08] MEDS ORDERED: PIPERACILLIN-TAZOBACTAM 3.375 GM in DEXTROSE/WATER 1 50ML.BAG IVPB SCH ×2 (12:00→16:00)
[2018-01-08] MEDS ORDERED: MEROPENEM 2 GM in SODIUM CHLORIDE 0.9% 100 ML IVPB SCH (16:00)
--- NOTE | 2018-01-08 17:02 | PN ---
PROGRESS NOTE DATE OF SERVICE: 01/08/2018 PRESENTING COMPLAINT: UTI. INTERVAL HISTORY: This patient presented with sepsis and E coli, ESBL positive both in the urine and the blood culture. Antibiotics have been switched from meropenem to Zosyn per Dr. Brandt. Otherwise, patient is doing well. He has a PICC line. Tolerating a diet. drywall metal stud worker is looking into discharge planning. No new issues. REVIEW OF SYSTEMS: Done for constitutional, cardiovascular, GI, pulmonary; relevant findings as above. CURRENT MEDICATIONS: Current medications include IV Zosyn. Meropenem was discontinued. PHYSICAL EXAMINATION: Temperature 97.4, pulse 47, respiration 18, blood pressure 94/58, pulse ox 97% on room air. GENERAL APPEARANCE: Lying in bed, awake. EYES: Pupils equal. Conjunctivae normal. HEENT: External appearance of nose and ears normal. Oral cavity normal. NECK: JVD not raised. Mass not palpable. RESPIRATORY: Effort normal. LUNGS: Decreased breath sounds. CARDIOVASCULAR: First and second sounds normal. Some edema is present. ABDOMEN: Soft, non-tender. Liver and spleen not palpable. PSYCHIATRY: Awake. Answering questions appropriately. INVESTIGATIONS: White count 11.2, hemoglobin 9.2. Pro time 10.7. These labs are from 01/06/2018. ASSESSMENT: 1. Acute urinary tract infection from cystitis with both urine and blood cultures positive for Escherichia coli/extended-spectrum beta-lactamase causing septic shock on presentation, status post being on Levophed. 2. Cerebral palsy. 3. Hypothyroid. 4. Acute right ankle wound. 5. Stage II sacral decubitus ulcer on the right thigh, present on admission. 6. 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 7. Acute right forearm superficial thrombosis of cephalic vein, cause undetermined, treated with Diego wrap. 8. Abnormal coagulation profile, felt to be from sepsis and vitamin K deficiency, now improved. PLAN: Spoke to the social services assistant. Will start the patient on Zosyn to see if he tolerates it for another 24 hours. If good, then he can be discharged tomorrow. MMMEERAL / DANIELLEN: [id number] /
[2018-01-09] MEDS: MEROPENEM 2 GM in SODIUM CHLORIDE 0.9% 100 ML IVPB SCH ×3 (01:11→18:14)
[2018-01-09] MEDS: LEVOTHYROXINE 75 MCG TAB PO SCH (06:16)
[2018-01-09] MEDS: MIDODRINE 5 MG TAB PO SCH ×3 (07:42→11:34)
[2018-01-09] MEDS: ATORVASTATIN 10 MG TAB PO SCH (07:42)
[2018-01-09] MEDS: FAMOTIDINE 20 MG TAB PO SCH ×2 (07:42→20:11)
[2018-01-09] MEDS: ARTIFICIAL TEARS-HYPROMELLOSE DROPS 15 ML BTL BOTH EYES SCH ×2 (10:00→20:11)
--- NOTE | 2018-01-09 16:32 | P.PN ---
Subjective Progress Note Date: 01/09/18 Principal diagnosis: Infection, prolonged INR Patient seen and evaluated, He was febrile today. We will check a repeat CBC and INR in am to ensure no component of worsening of labs Objective - Vital Signs Vital signs: Vital Signs Temp 100.0 F H 01/09/18 13:57 Pulse 66 01/09/18 15:16 Resp 14 01/09/18 15:16 BP 80/57 01/09/18 13:57 Pulse Ox 97 01/09/18 13:57 Intake & Output 01/08/18 01/09/18 01/09/18 18:59 06:59 18:59 Intake Total 1180 240 Output Total 400 650 Balance 780 -410 Intake: Oral 1180 240 Output: Urine 400 650 Other: Voiding Method Urinal Urinal Urinal # Voids 4 1 1 # Bowel Movements 1 ABP, PAP, CO, CI - Last Documented Arterial Blood Pressure 79/53 - Exam General appearance: The patient is alert, oriented, in no acute distress. HET: Head is normocephalic and atraumatic. Pupils are equal and reactive. Oropharynx is clear without lesions. Neck: Supple without lymphadenopathy. Trachea midline. Right subclavian IV Heart: S1 S2. Regular rate and rhythm. Lungs: No crackles or wheezes. No noted increased respiratory effort, CTA anterior Abdomen: Soft, nontender, nondistended with bowel soundsx4. No palpable organomegaly or masses. Extremities: Right upper extremity edema. No rashes or edema. Bilateral flexion supports. Neurological: No focal deficits. Strength and sensation are grossly intact. - Labs CBC & Chem 7: 01/06/18 06:45 01/06/18 06:45 Assessment and Plan Plan: Assessment and Recommendations: 1. Coagulopathy: - Elevated PT/INR noted on 01/04/18, since then repeat INR 1.1 - Resolved - Likely secondary to acute Sepsis from UTI and Echoli Bacteria and decreased po nutrition resulting in vitamin K deficiency. - With increase in fever, ID Following, and patient still hospitalized will repeat Coags and CBC in am. 2. Hypoechoic Lesion on Liver - [place] to be benign and evaluated by GI, No further work-up at this time All other medical CO-morbidies per Primary Team.
--- NOTE | 2018-01-09 20:03 | PN ---
PROGRESS NOTE DATE OF SERVICE: 01/09/2018. PRESENTING COMPLAINT: Positive cultures. INTERVAL HISTORY: This patient presented with sepsis and E coli/ESBL both in the urine and blood. The patient has been on antibiotics. Because of ALLERGY TO ZOSYN, the patient was switched back to meropenem. Otherwise, patient tolerating a diet. Has a PICC line. I spoke to bilingual social worker Taty every day the bilingual social worker about discharge, working with the same. REVIEW OF SYSTEMS: Done for constitutional, cardiovascular, GI, pulmonary, relevant findings as above. CURRENT MEDICATIONS: Reviewed that include IV meropenem. PHYSICAL EXAMINATION: VITAL SIGNS: Temperature 98.3, pulse 60, respiratory 18, blood pressure 100/59, pulse ox 99% on room air. GENERAL APPEARANCE: Sitting on bed, comfortable. EYES: Pupils equal. Conjunctivae normal. HEENT: External appearance of nose and ears normal. Oral cavity normal. NECK: JVD not raised. Mass not palpable. RESPIRATORY: Effort normal. LUNGS: Decreased breath sounds. CARDIOVASCULAR: 1st and 2nd sounds normal. Some edema present. ABDOMEN: Soft, nontender. Liver and spleen not palpable. PSYCHIATRY: Awake, answering questions. INVESTIGATIONS: No blood work from today. ASSESSMENT: 1. Acute urinary tract infection from cystitis with both urine and blood cultures positive for E coli/ESBL causing septic shock on presentation, status post being on the Levophed. 2. Cerebral palsy. 3. Hypothyroid. 4. Acute right ankle wound. 5. Stage II sacral decubitus ulcer on right thigh, present on admission. 6. 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 7. Acute right forearm superficial thrombosis of the cephalic vein, cause undetermined, treated with Diego wrap. 8. Abnormal coagulation profile, felt to be from sepsis from vitamin K deficiency now corrected. PLAN: Spoke to bilingual social worker Taty. She is working on the discharge. Waiting for the same. MMODL / IJN: [id number] /
--- NOTE | 2018-01-09 22:54 | P.PN ---
Subjective Progress Note Date: 01/09/18 This is a 57-year-old male patient who is known to ID service as he was initially seen during a May 2017 admission at which time he was treated for cellulitis of the right ankle with improvement during his stay. A boot was ordered by orthopedics and patient was discharged on cephalexin and was to continue to wear the boot at home. Patient has history of cerebral palsy. He was then admitted in July 2017 and treated for MRSA sepsis secondary to right ankle infection with tendon exposure and was discharged to [facility] with 6 week course of ceftriaxone. Patient completed course of antibiotics and PICC line was removed. He has had significant improvement of the wound to the right ankle. He presented to the Hospital emergency center on December 30 with nausea vomiting diarrhea vitamin going on for 2 days. Patient was febrile at 101.9, mildly tachycardic initially and hypotensive. He was given IV fluid boluses followed by norepinephrine and a central line was placed in the emergency center. Patient was then admitted into intensive care unit. He has been followed by Dr. Mei for sepsis most likely secondary to UTI. Patient is also followed by cardiology for bradycardia. Patient is currently on 1 Wilder Gary Levophed, he continues to be bradycardic in the 40s and 50s. He is to start a diet today. Patient states he has had 2 bowel movements only since he came into the hospital. He denies having any fever or chills. He does state he is feeling much better from yesterday. CT of the abdomen and pelvis showed body wall edema with partially visualized 10 cm hyperdense mass or collection along the lower right lateral chest wall possibly her chest wall hematoma. Atelectasis at the lung bases. Stranding around the kidneys bilaterally and mild bladder wall thickening. CT of the chest shows small bilateral effusions greater on the right than left. Basilar airspace disease greater on the right than left which may represent atelectasis or pneumonia. Mild cardiomegaly. Small [address]. [address] Mei is doubting pneumonia as cause for sepsis. Chest x-ray from yesterday shows bibasilar airspace disease. Small bilateral effusions. Lorenzo catheter has been placed. Blood cultures showing gram-negative bacilli and urine culture is in progress. Repeat blood culture is showing no growth after 24 hours. 01/03/2018 patient is considerably improved. The patient is less short of breath. He complains of some discomfort from the catheter his neck. It's in a difficult spot. His breathing is improved and denies other acute difficulties. Lorenzo catheter is without discomfort 01/07/2018 reveals the patient to be feeling better. Awaiting final authorization of his antibiotic therapy so he may transfer back to his extended care facility. He truly enjoys living there and looks forward to getting back to that situation. There was concern in the outpatient setting about a possible liver mass. This has been imaged during the hospital stay was found evidence of a lipoma without evidence of any intrahepatic lesions. 01/09/2018 patient is definitely feeling better. There's been some significant barriers to transfer back to his long-term care facility. Social work and case management are actively pursuing options. Patient fortunately is feeling well regarding his recent bout of sepsis. Is looking forward to therapy to improve his strength. Objective - Vital Signs Vital signs: Vital Signs Temp 97.5 F L 01/09/18 21:00 Pulse 71 01/09/18 21:00 Resp 16 01/09/18 21:00 BP 90/51 01/09/18 21:00 Pulse Ox 98 01/09/18 21:00 Intake & Output 01/09/18 01/09/18 01/10/18 06:59 18:59 06:59 Intake Total 1180 240 440 Output Total 400 650 Balance 780 -410 440 Intake: Oral 1180 240 440 Output: Urine 400 650 Other: Voiding Method Urinal Urinal # Voids 1 1 ABP, PAP, CO, CI - Last Documented Arterial Blood Pressure 79/53 - Exam Gen: This is a 57-year-old male patient. He is sitting up in bed and appears to be comfortable and in no acute distress. HEENT: Head is atraumatic, normocephalic. Pupils equal, round. Sclerae is anicteric. Conjunctiva pink. Oral mucous membranes are somewhat dry. No thrush or other lesions noted. Patient is edentulous. NECK: Supple. No JVD. No lymphadenopathy. No thyromegaly. LUNGS: Clear to auscultation. No wheezes or rhonchi. No intercostal retractions. HEART: Regular rate and rhythm. No murmur. ABDOMEN: Soft. Bowel sounds are present. No masses. No tenderness. No suprapubic tenderness. Lorenzo catheter draining clear urine. No CVA tenderness bilaterally EXTREMITIES: No open ulcerations are seen does has chronic edema to the right ankle area No lesions noted to the left foot. NEUROLOGICAL: Patient is awake, alert has CP with some difficulty with his speech but is easily understandable. - Labs CBC & Chem 7: 01/06/18 06:45 01/06/18 06:45 Labs: Laboratory Results WBC 11.2 k/uL (3.8-10.6) H 01/06/18 06:45 RBC 3.51 m/uL (4.30-5.90) L 01/06/18 06:45 Hgb 9.2 gm/dL (13.0-17.5) L 01/06/18 06:45 Hct 30.9 % (39.0-53.0) L 01/06/18 06:45 MCV 87.8 fL (80.0-100.0) 01/06/18 06:45 MCH 26.0 pg (25.0-35.0) 01/06/18 06:45 MCHC 29.7 g/dL (31.0-37.0) L 01/06/18 06:45 RDW 17.7 % (11.5-15.5) H 01/06/18 06:45 Plt Count 471 k/uL (150-450) H 01/06/18 06:45 Neutrophils % 74 % 01/06/18 06:45 Neutrophils % (Manual) 82 % 12/30/17 10:20 Band Neutrophils % 15 % 12/30/17 10:20 Lymphocytes % 13 % 01/06/18 06:45 Lymphocytes % (Manual) 3 % 12/30/17 10:20 Monocytes % 4 % 01/06/18 06:45 Eosinophils % 7 % 01/06/18 06:45 Basophils % 1 % 01/06/18 06:45 Neutrophils # 8.3 k/uL (1.3-7.7) H 01/06/18 06:45 Neutrophils # (Manual) 29.90 k/uL (1.3-7.7) H 12/30/17 10:20 Lymphocytes # 1.5 k/uL (1.0-4.8) 01/06/18 06:45 Lymphocytes # (Manual) 0.93 k/uL (1.0-4.8) L 12/30/17 10:20 Monocytes # 0.5 k/uL (0-1.0) 01/06/18 06:45 Eosinophils # 0.7 k/uL (0-0.7) 01/06/18 06:45 Basophils # 0.1 k/uL (0-0.2) 01/06/18 06:45 Nucleated RBCs 0 /100 WBC (0-0) 12/30/17 10:20 Manual Slide Review Performed 12/30/17 10:20 Toxic Granulation Present 12/30/17 10:20 Toxic Vacuolation Present 12/30/17 10:20 Polychromasia Present 12/30/17 10:20 Hypochromasia Marked 01/06/18 06:45 Poikilocytosis Slight 12/30/17 23:02 Poikilocytosis (manual Present 12/30/17 10:20 Anisocytosis Slight 01/06/18 06:45 Ovalocytes Present 12/30/17 10:20 PT 10.7 sec (9.0-12.0) 01/06/18 06:45 INR 1.1 (<1.2) 01/06/18 06:45 APTT 26.3 sec (22.0-30.0) 01/06/18 06:45 Lupus Anticoag aPTT 48 Sec(s) (<43) H 01/05/18 06:43 Lupus Anticoag PTT Mix 37 Sec(s) (<43) 01/05/18 06:43 Dil Luis Viper Venom 40 Sec(s) (<44) 01/05/18 06:43 LA dRVVT Confirm NA 01/05/18 06:43 dRVVT 50:50 NA Sec(s) 01/05/18 06:43 Lupus Hexagonal Phase NA 01/05/18 06:43 Lupus Anticoag Interp SEE BELOW 01/05/18 06:43 Sodium 136 mmol/L (137-145) L 01/06/18 06:45 Potassium 4.9 mmol/L (3.5-5.1) 01/06/18 06:45 Chloride 106 mmol/L (98-107) 01/06/18 06:45 Carbon Dioxide 27 mmol/L (22-30) 01/06/18 06:45 Anion Gap 3 mmol/L 01/06/18 06:45 BUN 27 mg/dL (9-20) H 01/06/18 06:45 Creatinine 0.76 mg/dL (0.66-1.25) 01/06/18 06:45 Est GFR (CKD-EPI)AfAm >90 (>60 ml/min/1.73 sqM) 01/06/18 06:45 Est GFR (CKD-EPI)NonAf >90 (>60 ml/min/1.73 sqM) 01/06/18 06:45 Glucose 85 mg/dL (74-99) 01/06/18 06:45 POC Glucose (mg/dL) 85 mg/dL (75-99) 12/30/17 10:19 POC Glu Naturalization Examiner ID Judd Ashraf 12/30/17 10:19 Lactic Ac Sepsis Rflx Y 12/30/17 07:35 Plasma Lactic Acid Papi 1.2 mmol/L (0.7-2.0) 12/30/17 21:00 Calcium 7.7 mg/dL (8.4-10.2) L 01/06/18 06:45 Ionized Calcium Wiliam 4.4 mg/dL (4.5-5.3) L 12/30/17 16:18 Phosphorus 2.4 mg/dL (2.5-4.5) L 01/03/18 07:25 Magnesium 2.1 mg/dL (1.6-2.3) 01/03/18 07:25 Iron 5 ug/dL (65-175) L 12/30/17 03:48 TIBC 180 ug/dL (228-460) L 12/30/17 03:48 Iron Saturation 2.78 (15.00-50.00) L 12/30/17 03:48 Ferritin 401.5 ng/mL (22.0-322.0) H 12/30/17 03:48 Total Bilirubin 0.3 mg/dL (0.2-1.3) 01/06/18 06:45 Conjugated Bilirubin 0.0 mg/dL (0.0-0.3) 01/03/18 07:25 Unconjugated Bilirubin 0.0 mg/dL (0.0-1.1) 01/03/18 07:25 Delta Bilirubin 0.2 mg/dL (0.0-0.2) 01/03/18 07:25 AST 23 U/L (17-59) 01/06/18 06:45 ALT 20 U/L (21-72) L 01/06/18 06:45 Alkaline Phosphatase 131 U/L (38-126) H 01/06/18 06:45 Troponin I 0.022 ng/mL (0.000-0.034) 12/30/17 16:18 Total Protein 4.5 g/dL (6.3-8.2) L 01/06/18 06:45 Albumin 1.9 g/dL (3.5-5.0) L 01/06/18 06:45 Amylase 71 U/L (30-110) 12/30/17 03:48 Lipase 172 U/L (23-300) 12/30/17 03:48 Tumor Marker AFP <2.5 ng/mL (0.0-7.9) 01/03/18 07:25 Carcinoembryonic Ag <0.5 ng/mL (0.0-4.9) 01/03/18 07:25 TSH 14.100 mIU/L (0.465-4.680) H 12/30/17 10:20 Free T4 0.80 ng/dL (0.78-2.19) 12/30/17 10:20 Cortisol 23 ug/dL 12/31/17 04:25 Urine Color Yellow 12/30/17 10:20 Urine Appearance Cloudy (Clear) 12/30/17 10:20 Urine pH 5.5 (5.0-8.0) 12/30/17 10:20 Ur Specific [place] 1.016 (1.001-1.035) 12/30/17 10:20 Urine Protein 1+ (Negative) H 12/30/17 10:20 Urine Glucose (UA) Negative (Negative) 12/30/17 10:20 Urine Ketones Negative (Negative) 12/30/17 10:20 Urine Blood Moderate (Negative) H 12/30/17 10:20 Urine Nitrite Negative (Negative) 12/30/17 10:20 Urine Bilirubin Negative (Negative) 12/30/17 10:20 Urine Urobilinogen 2.0 mg/dL (<2.0) 12/30/17 10:20 Ur Leukocyte Esterase Moderate (Negative) H 12/30/17 10:20 Urine RBC 12 /hpf (0-5) H 12/30/17 10:20 Urine WBC 23 /hpf (0-5) H 12/30/17 10:20 Urine WBC Clumps Moderate /hpf (None) H 12/30/17 10:20 Ur Squamous Epith Cells 1 /hpf (0-4) 12/30/17 10:20 Amorphous Sediment Occasional /hpf (None) H 12/30/17 05:44 Urine Bacteria Many /hpf (None) H 12/30/17 10:20 Hyaline Casts 4 /lpf (0-2) H 12/30/17 05:44 Urine Mucus Rare /hpf (None) H 12/30/17 10:20 Stool Occult Blood Negative (Negative) 12/30/17 07:00 Hepatitis A IgM Ab Non-Reactive (Non-Reactive) 01/03/18 07:25 Hep Bs Antigen Non-Reactive (Non-Reactive) 01/03/18 07:25 Hep B Core IgM Ab Non-Reactive (Non-Reactive) 01/03/18 07:25 Hep C IgG Ab Non-Reactive (Non-Reactive) 01/03/18 07:25 Blood Type A Negative 12/30/17 07:31 Blood Type Recheck No 12/30/17 07:31 Antibody Screen NEGATIVE 12/30/17 07:31 Crossmatch See Detail 12/30/17 07:31 Spec Expiration Date 01/02/2018 - 233012/30/17 07:31 Microbiology 12/30/17 11:11 Blood Blood Culture - Final No Growth after 144 hours 12/30/17 03:48 Blood Blood Culture Gram Stain - Final 12/30/17 03:48 Blood Blood Culture - Final Escherichia coli 12/30/17 10:20 Urine,Catheterized Urine Culture - Final Escherichia coli 12/30/17 03:48 Blood Blood Culture - Final Assessment and Plan (1) Infection due to ESBL-producing Escherichia coli Narrative/Plan: Pleasant 57-year-old male presents to Hospital as noted from his extended care facility with evidence of septic shock. Now showing marked improvement. Concerns to gram-negative sepsis from the urinary system. Imaging has shown the fluid collection possibly hematoma the chest wall which is nontender at this time. Patient is improving with antibiotics and fluid resuscitation. Current antibiotic therapy is Rocephin levofloxacin and vancomycin which will be adjusted as cultures become available, with evidence of gram-negative bacilli in his blood the vancomycin is discontinued. 01/03/2018 reveals the patient to be much improved. Cultures have finalized and urine culture is with E. coli ESBL which is also found in the blood. Consequently the patient had evidence of gram-negative sepsis at admission from the urinary system. Responding well to carbapenem therapy at this time. We'll make arrangements for the IJ catheter in the neck to be transitioned to a PICC line in and hopefully transfer back to his extended care facility to complete 2 weeks of intravenous antibiotic therapy, may transition to [facility] for its once a day utilization. 01/07/2018 the patient has had significant improvement. PICC line has been placed and there are plans for transitioning him back to the extended care [facility] [place]. There is some difficulty with authorization of the antibiotics. Since it is an ESBL producing organisms carbapenem's are often utilized however there is the option for Zosyn and this is being requested to be evaluated. If so we complete a two-week course of Zosyn at the [facility] with follow-up in the outpatient clinic. 01/09/2018 patient continues to have further improvement. IV access has been placed to complete his course of antibiotic therapy. The caregiver carrying relates that there is a known penicillin ALLERGY and although the extent is not clear he's had many troubles with ALLERGIES over the years and constantly will stay with carbapenem therapy. There is 4 further days of antibiotic therapy required at this time to complete his 2 week course of antibiotics. Working with his [facility] care [facility] where hopefully he can resume since that is his true desire. Current Visit: Yes Status: Acute Code(s): A49.8 - OTHER BACTERIAL INFECTIONS OF UNSPECIFIED SITE; Z16.12 - EXTENDED SPECTRUM BETA LACTAMASE (ESBL ) RESISTANCE SNOMED Code(s): 654646954
[2018-01-10] MEDS: MEROPENEM 2 GM in SODIUM CHLORIDE 0.9% 100 ML IVPB SCH ×2 (00:02→10:09)
[2018-01-10 05:28] VITALS: BP 93/61
[2018-01-10] MEDS: LEVOTHYROXINE 75 MCG TAB PO SCH (06:08)
[2018-01-10] MEDS: MIDODRINE 5 MG TAB PO SCH ×2 (07:36→12:19)
[2018-01-10] MEDS: ARTIFICIAL TEARS-HYPROMELLOSE DROPS 15 ML BTL BOTH EYES SCH (07:40)
[2018-01-10] MEDS: FAMOTIDINE 20 MG TAB PO SCH (07:40)
[2018-01-10] MEDS: ATORVASTATIN 10 MG TAB PO SCH (07:40)
[2018-01-10 08:21] LABS: Anisocytosis Slight; Basophils # (A) 0.1 k/uL (0-0.2); Basophils % (A) 1 %; Eosinophils # (A) 0.4 k/uL (0-0.7); Eosinophils % (A) 4 %; HCT 28.7 % (39.0-53.0); HGB 8.5 gm/dL (13.0-17.5); Hypochromasia Marked; Lymphocytes # (A) 1.1 k/uL (1.0-4.8); Lymphocytes % (A) 10 %; MCH 26.5 pg (25.0-35.0); MCHC 29.7 g/dL (31.0-37.0); MCV 89.4 fL (80.0-100.0); Mean Platelet Volume 7.3; Monocytes # (A) 0.5 k/uL (0-1.0); Monocytes % (A) 4 %; Neutrophils # (A) 8.9 k/uL (1.3-7.7); Neutrophils % (A) 80 %; Platelet Count 332 k/uL (150-450); RBC 3.21 m/uL (4.30-5.90); RDW 16.6 % (11.5-15.5); WBC 11.1 k/uL (3.8-10.6)
[2018-01-10 08:26] LABS: INR 1.2 (<1.2); Prothrombin Time 11.1 sec (9.0-12.0)
[2018-01-10 12:17] VITALS: PULSE 72; RESP 18; TEMP 98.7
--- NOTE | 2018-01-10 13:58 | DS ---
DISCHARGE SUMMARY DATE OF ADMISSION: 12/30/2017 DATE OF DISCHARGE: 01/10/2018 FINAL DIAGNOSES: 1. Acute urinary tract infection from cystitis with both urine and blood cultures positive for Escherichia coli causing septic shock and sepsis on presentation, status post being on the Levophed. 2. Cerebral palsy. 3. Hypothyroid. 4. Acute right ankle wound. 5. Stage II decubitus ulcer on the right thigh, present on admission. There is no sacral decubitus. 6. 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 7. Acute right forearm superficial thrombosis of the cephalic vein, cause undetermined treated with Diego wraps. 8. Abnormal coagulation profile, felt to be from sepsis from vitamin K deficiency, now corrected. HOSPITAL COURSE: This patient presented with UTI and sepsis with both urine and blood cultures positive for E coli ESBL. Responded well to antibiotics. Initially was in septic shock and sepsis requiring Levophed, was in the ICU, now doing well, tolerating his diet, being followed by Dr. Brandt from Infectious Disease. There was questionable ultrasound mass from outside facility, but MRI did show a right paraspinal mass to felt to be lipoma. CONSULTATIONS: 1. Dr. Brandt from Infectious Disease. 2. Dr. Mei from Pulmonary Critical Care. 3. Dr. Dong from Vascular. 4. Dr. Spann from Hematology/Oncology. PHYSICAL EXAMINATION: Temperature 98.7, pulse 72, respiratory rate 18, blood pressure 93/61, pulse ox 98% on room air. GENERAL APPEARANCE: Sitting up awake, answers questions appropriately. LUNGS: Fair entry. CARDIOVASCULAR: First and second sounds, mild edema is present. LABS: White count 11.1, hemoglobin 8.5, platelets 332. DISCHARGE MEDICATIONS: 1. Folic acid 2 mg a day. 2. Ferrous sulfate 325 mg b.i.d. 3. Multivitamin 1 tablet p.o. daily. 4. Pepcid 20 mg b.i.d. 5. Artificial Tears 2 drops eyes b.i.d. 6. 0.025% 1 drop to both eyes q.6 p.r.n. 7. Tylenol 650 mg q.8 p.r.n. 8. Vitamin C 500 mg p.o. daily. 9. Dulcolax 10 mg rectal daily p.r.n. 10.Milk of Magnesia 7200 mg daily p.r.n. 11.Lipitor 10 mg p.o. daily. 12.Synthroid 150 mcg p.o. daily. 13.Midodrine 10 mg p.o. a.c. t.i.d. 14.Meropenem 2 g IV piggyback q.8 twelve doses. DISPOSITION: ECF. NOTE: Patient has a legal guardian, Katarzyna Dudley, telephone #[phone]. FOLLOWUP: Dr. Garcia after DC from the ECF. LABS: CBC, BMP in 3 weeks. Wound care to continue as per Dr. Brandt. MMODL / IJN: [id number] /
== END 2018-01-10 15:15 | DRG 871 ==
LOC: EC 03:25 → 6ICU 06:53 → 5MS5E 01-02 18:01
PROVIDERS: ADMIT Internal Medicine; ATTEND Hospitalist
PROC: 02HV33Z Insertion of Infusion Device into Superior Vena Cava, Percutaneous Approach (ICD-10-PCS; principal; 2018-01-04 07:30)
DX: A41.51 Sepsis due to Escherichia coli [E. coli] (principal); R65.21 Severe sepsis with septic shock; E43 Unspecified severe protein-calorie malnutrition; D62 Acute posthemorrhagic anemia; E87.2 Acidosis; I31.3 Pericardial effusion (noninflammatory); I42.9 Cardiomyopathy, unspecified; I82.619 Acute embolism and thrombosis of superficial veins of unspecified upper extremity; J90 Pleural effusion, not elsewhere classified; J98.11 Atelectasis; L03.115 Cellulitis of right lower limb; N10 Acute pyelonephritis; N30.01 Acute cystitis with hematuria; D17.9 Benign lipomatous neoplasm, unspecified; Z68.33 Body mass index [BMI] 33.0-33.9, adult; E56.1 Deficiency of vitamin K; R79.1 Abnormal coagulation profile; E89.0 Postprocedural hypothyroidism; G80.9 Cerebral palsy, unspecified; I10 Essential (primary) hypertension; K76.9 Liver disease, unspecified; L89.152 Pressure ulcer of sacral region, stage 2; S20.219A Contusion of unspecified front wall of thorax, initial encounter; Z16.12 Extended spectrum beta lactamase (ESBL) resistance; Z82.49 Family history of ischemic heart disease and other diseases of the circulatory system; Z83.3 Family history of diabetes mellitus; Z85.850 Personal history of malignant neoplasm of thyroid; Z88.0 Allergy status to penicillin; Z90.49 Acquired absence of other specified parts of digestive tract; Z79.890 Hormone replacement therapy; Z79.899 Other long term (current) drug therapy; Z91.012 Allergy to eggs; Z91.011 Allergy to milk products; Z88.5 Allergy status to narcotic agent; Z91.010 Allergy to peanuts; Z91.018 Allergy to other foods
CPT/HCPCS: 36415; 36556; 36569; 71045; 71250; 74018; 74176; 74183; 76705; 76937; 77001; 80048; 80053; 80074; 80076; 81001; 82105; 82150; 82272; 82330; 82378; 82533; 82728; 83540; 83550; 83605; 83690; 83735; 84100; 84132; 84439; 84443; 84484; 85025; 85027; 85610; 85613; 85730; 85732; 86850; 86900; 86901; 86920; 87040; 87077; 87086; 87186; 93005; 93306; 96361; 96365; 96366; 96367; 96375; 96376; 99291

== ENCOUNTER → 2018-02-14 | Outpatient (CLI) | payer MEDICARE, OTHER ==
[2018-02-15 13:08] LABS: Cow's Milk IgE Class CLASS I; Egg White IgE 0.88 kU/L (<0.35); Peanut IgE <0.35 kU/L (<0.35); Potato IgE 0.36 kU/L (<0.35); Potato IgE Class CLASS I; Soybean IgE <0.35 kU/L (<0.35)
== END | disposition home or self-care (01) ==
LOC: LABWHC1 10:52
PROVIDERS: ATTEND Otolaryngology
DX: J30.89 Other allergic rhinitis (principal)
CPT/HCPCS: 36415; 86003

== ENCOUNTER → 2018-09-05 | Outpatient (CLI) | payer MEDICARE, OTHER ==
[2018-09-05 09:41] LABS: Blood Urea Nitrogen 21 mg/dL (9-20)
--- NOTE | 2018-09-05 11:26 | CT ---
EXAMINATION TYPE: CT angio chest DATE OF EXAM: 09/05/2018 COMPARISON: 12/30/2017 HISTORY: Pulmonary embolism. CT DLP: 377.2 mGycm. Automated Exposure Control for Dose Reduction was Utilized. CONTRAST: CTA scan of the thorax is performed with IV Contrast, patient injected with 100 mL of Isovue 370, pul monary embolism protocol. MIP Images are created on CT scanner and reviewed. FINDINGS: LUNGS: There is bandlike pleural parenchymal scarring or chronic atelectasis at the right lung base. Curvilinear punctate calcifications along the right middle lobe and chronic pleural thickening are se en on image 79 through 83. There is improved aeration of the lung bases in comparison to the prior of 12/30/2017. Pleural effusions have resolved in the interim. Subpleural fat deposition is noted. There does remain chronic consolidation along the right hemidiaphragm that could represent atelectasis as on series 4 image 108 and series 5 image 108. This enhances greater than paraspinal musculature and t herefore is favored to represent atelectasis. Main tracheobronchial tree is patent. The lungs are shekhar ssly clear, there is no concerning parenchymal mass or nodule identified. No pneumothorax seen. MEDIASTINUM: There is satisfactory enhancement of the pulmonary artery and its branches, there is no CT evidence for pulmonary embolism. Minimal coronary dislocations are seen. There are no greater than 1 cm hilar or mediastinal lymph nodes. No pericardial effusion is seen. Ascending thoracic aorta i s upper limits of normal measuring 4.0 cm. Main pulmonary artery is nonenlarged. There is mild cardio megaly. OTHER: Large fat attenuated structure in the upper abdomen is partially visualized and could represen t portion of a large adrenal myelolipoma with mass effect on the liver. Gallbladder is surgically abs ent. Moderate degree fecal stasis with colonic interposition of the liver. Moderate multilevel degene rative changes of the cervical spine. IMPRESSION: 1. No evidence of central or segmental pulmonary embolus. The subsegmental pulmonary arteries are poo rly opacified and nondiagnostic. 2. Resolution of the previously seen pleural effusions with chronic right basilar consolidation along the right hemidiaphragm appearing to represent atelectasis. If there is concern for chronicity of th is atelectasis or small vessel endobronchial obstruction bronchoscopy could be considered. The main t racheobronchial tree is patent. 3. Slightly prominent bilateral axillary lymph nodes, right greater than left. If there is concern ta rgeted ultrasound could be performed to evaluate for cortical thickness or cortical the centricity. 4. Partially visualized fat attenuation in the suprarenal fossa with mass effect on the liver. Right adrenal gland is not seen given [id number] although this is favored to represent an angiomyolipoma . On the prior MRI of 01/03/2018 this was stated to represent a lipoma.
== END | disposition home or self-care (01) ==
LOC: RADCTMAIN 08:49
PROVIDERS: ATTEND Internal Medicine Hematology & Oncology
DX: I26.99 Other pulmonary embolism without acute cor pulmonale (principal)
CPT/HCPCS: 82565; 84520; 71275; 36415; Q9967